=== PATIENT | female | born 1980 | race African-American/Black ===

== ENCOUNTER 2018-07-28 12:20 | Emergency (ER) | payer SELFPAY ==
--- OUTSIDE RECORDS SUMMARY | 2018-07-28 12:21 | XMS REPORT ---
:1980 Author Organization [facility] Address [address] [place] [address] Dr. Esparza [address] [place] [id number] Care Team Providers Name Role Phone Unavailable Unavailable Unavailable Problems This patient has no known problems. Allergies, Adverse Reactions, Alerts This patient has no known allergies or adverse reactions. Medications This patient has no known medications.
[2018-07-28 13:21] LABS: Absolute Lymphocytes (CBC) 1.7 K/uL (0.7-4.9); Absolute Monocytes 0.4 K/uL (0.1-1.3); Absolute Neutrophil 2.9 K/uL (1.8-8.0); Basophils % 1.1 % (0-1.3); Eosinophils % 1.5 % (0-4.4); Hematocrit 42.5 % (36.0-45.0); Lymphocytes % 33.9 % (15.3-44.8); MPV 8.3 fL (7.6-11.3); RBC Red Blood Cell Count 5.35 M/uL (3.86-4.86)
[2018-07-28] MEDS ORDERED: MAGNE/ALUM HYDROXD 30 ML UCUP ONE (13:24)
[2018-07-28] MEDS ORDERED: FAMOTIDINE 20 MG/2 ML VIAL IV ONE (13:24)
[2018-07-28] MEDS ORDERED: LIDOCAINE VISCOUS 2% SOLN 15 ML UDC ONE (13:24)
[2018-07-28 13:27] LABS: Protime INR 1.04
--- NOTE | 2018-07-28 13:30 | RAD REPORT ---
EXAM DESCRIPTION: Jose Single View07/28/2018 1:04 pm CLINICAL HISTORY: Chest pain COMPARISON: 2013 FINDINGS: The lungs appear clear of acute infiltrate. The heart is normal size IMPRESSION: No acute abnormalities displayed
[2018-07-28 13:41] LABS: ALT/SGPT 24 U/L (12-78); AST/SGOT 13 U/L (15-37); Albumin 3.5 g/dL (3.4-5.0); Alkaline Phosphatase 59 U/L (45-117); BUN Blood Urea Nitrogen 13 mg/dL (7-18); Bicarbonate 24 mmol/L (21-32); Bilirubin Direct < 0.1 mg/dL (0-0.2); Bilirubin Total 0.2 mg/dL (0.2-1.0); Glucose Level 100 mg/dL (74-106); NT PRO-BNP 39 pg/mL (<125); Potassium 4.1 mmol/L (3.5-5.1); Protein, Total 7.2 g/dL (6.4-8.2); Sodium Level 142 mmol/L (136-145); Troponin (Emerg Dept Use Only) < 0.02 ng/mL (0.0-0.045)
--- NOTE | 2018-07-28 14:42 | RAD REPORT ---
EXAM DESCRIPTION: US - Abdomen Exam Limited - 07/28/2018 2:06 pm CLINICAL HISTORY: Abdominal pain. COMPARISON: None. FINDINGS: The gallbladder is partially contracted. Gallbladder wall upper limits normal thickness. A gallstone is not seen The biliary tree is normal caliber. IMPRESSION: No abnormality displayed
--- NOTE | 2018-07-28 15:19 | ER ---
Nurse's Notes [facility] Name: Ericka Wallace Age: 38 yrs Sex: Female : 1980 Arrival Date: 07/28/2018 Time: 12:26 Bed 26 Private MD: Diagnosis: Chest pain, unspecified;Upper abdominal pain, unspecified Presentation: 07/28 12:31 Presenting complaint: Patient states: Abd pain, nausea and chest pain that started hb about three days ago and worsening today, no V/F/D per the pt at this time, denies Shortness of breath dizziness. Transition of care: patient was not received from another setting of care. Onset of symptoms was July 28, 2018. Risk Assessment: Do you want to hurt yourself or someone else? Patient reports no desire to harm self or others. Initial Sepsis Screen: Does the patient meet any 2 criteria? No. Patient's initial sepsis screen is negative. Does the patient have a suspected source of infection? No. Patient's initial sepsis screen is negative. Care prior to arrival: None. 12:31 Method Of Arrival: Ambulatory hb 12:31 Acuity: ALTON 3 hb Historical: - Allergies: 12:33 No Known Allergies; hb - PMHx: 12:33 Hypertension; Migraines; hb - PSHx: 12:33 Hernia repair; ; hb - Immunization history:: Adult Immunizations. - Social history:: Smoking status: Patient/guardian denies using tobacco. - Ebola Screening: : Patient negative for fever greater than or equal to 101.5 degrees Fahrenheit, and additional compatible Ebola Virus Disease symptoms Patient denies exposure to infectious person Patient denies travel to an Ebola-affected area in the 21 days before illness onset No symptoms or risks identified at this time. Screenin:21 Abuse screen: Denies threats or abuse. Nutritional screening: No deficits noted. la1 Tuberculosis screening: No symptoms or risk factors identified. Fall Risk None identified. Assessment: 13:20 General: Appears in no apparent distress. Behavior is calm, cooperative. Pain: la1 Complains of pain in diaphragm and left upper quadrant Pain radiates to back Quality of pain is described as sharp, Pain began 2-3 days ago. Neuro: Level of Consciousness is awake, alert, obeys commands, Oriented to person, place, time, situation. Cardiovascular: Heart tones S1 S2 present Capillary refill < 3 seconds Patient's skin is warm and dry. Respiratory: Airway is patent Trachea midline Respiratory effort is even, unlabored, Respiratory pattern is regular, symmetrical, Breath sounds are clear bilaterally. GI: No signs and/or symptoms were reported involving the gastrointestinal system. : No signs and/or symptoms were reported regarding the genitourinary system. Vital Signs: 12:32 Pulse 84; Resp 17; Temp 98.7; Pulse Ox 100% ; Weight 116.12 kg; Height 5 ft. 3 in. hb (160.02 cm); Pain 10/10; 12:33 BP 159 / 105; hb 14:32 BP 137 / 94; Pulse 77; Resp 18; Pulse Ox 98% on R/A; la1 12:32 Body Mass Index 45.35 (116.12 kg, 160.02 cm) hb ED Course: 12:26 Patient arrived in ED. mr 12:32 Triage completed. hb 12:32 Arm band placed on. hb 12:34 Juice Olivares, LUCÍA is Primary Nurse. la1 12:35 Maia Almaguer FNP-C is PHCP. kb 12:35 Jeremi Elizabeth MD is Attending Physician. kb 13:04 XRAY Chest (1 view) In Process Unspecified. EDMS 13:15 Inserted saline lock: 20 gauge in right antecubital area, using aseptic technique. lt1 13:15 Initial lab(s) drawn, by me, sent to lab. lt1 13:21 Call light in reach. Side rails up X 1. monitor tech on. Pulse ox on. NIBP on. la1 14:05 Ultrasound completed. Patient tolerated well. sg3 14:06 US Abdomen Limited In Process Unspecified. EDMS 14:33 No provider procedures requiring assistance completed. Patient maintains SpO2 la1 saturation greater than 95% on room air. 14:57 EKG done, by ED staff. lt1 15:20 IV discontinued, intact, bleeding controlled, No redness/swelling at site. Pressure la1 dressing applied. Administered Medications: 13:20 Drug: Pepcid 20 mg Route: IVP; Site: right antecubital; la1 14:37 Follow up: Response: No adverse reaction la1 13:20 Drug: GI Cocktail without - (Maalox Suspension 30 ml, Lidocaine Liquid 2 % 15 la1 ml) Route: PO; 14:37 Follow up: Response: No adverse reaction la1 Outcome: 15:18 Discharge ordered by MD. bates 15:20 Discharged to home ambulatory. la1 15:20 Condition: stable 15:20 Discharge instructions given to patient, Instructed on discharge instructions, follow up and referral plans. medication usage, Demonstrated understanding of instructions, follow-up care, medications. 15:31 Patient left the ED. la1 Signatures: Dispatcher [employer] EDMS Maia Almaguer, FOREIGN FOOD SPECIALTY COOK-Gonzales FOREIGN FOOD SPECIALTY COOK-Diane Carbone, Juice, RN RN la1 Malinda Esqueda, RN RN Lizz Boggs 3 Salima Courtney 1
--- NOTE | 2018-07-28 15:19 | EDPHYS ---
Physician Documentation [facility] Name: Ericka Wallace Age: 38 yrs Sex: Female : 1980 Arrival Date: 07/28/2018 Time: 12:26 Bed 26 Private MD: ED Physician Jeremi Elizabeth HPI: 07/28 12:55 This 38 yrs old Black Female presents to ER via Ambulatory with complaints of Chest kb Pain, X 3days. 12:55 The patient or guardian reports chest pain that is located primarily in the substernal kb area. The pain radiates to back, diaphragm and abdomen. Associated signs and symptoms: Pertinent positives: abdominal pain, nausea, shortness of breath. The chest pain is described as burning. Duration: The patient or guardian reports a single episode. Modifying factors: The symptoms are alleviated by nothing. the symptoms are aggravated by eating. Severity of pain: At its worst the pain was moderate in the emergency department the pain is unchanged. The patient has not experienced similar symptoms in the past. The patient has not recently seen a physician. Pt reports substernal chest pain that radiates below both breasts and to right shoulder. States pain to abd, worse in RUQ, nausea and shortness of breath as well. Historical: - Allergies: 12:33 No Known Allergies; hb - PMHx: 12:33 Hypertension; Migraines; hb - PSHx: 12:33 Hernia repair; ; hb - Immunization history:: Adult Immunizations. - Social history:: Smoking status: Patient/guardian denies using tobacco. - Ebola Screening: : Patient negative for fever greater than or equal to 101.5 degrees Fahrenheit, and additional compatible Ebola Virus Disease symptoms Patient denies exposure to infectious person Patient denies travel to an Ebola-affected area in the 21 days before illness onset No symptoms or risks identified at this time. ROS: 12:54 Constitutional: Negative for fever, chills, and weight loss, ENT: Negative for injury, kb pain, and discharge, Neck: Negative for injury, pain, and swelling, Back: Negative for injury and pain, : Negative for injury, bleeding, discharge, and swelling, MS/Extremity: Negative for injury and deformity, Skin: Negative for injury, rash, and discoloration, Neuro: Negative for headache, weakness, numbness, tingling, and seizure. 12:54 Cardiovascular: Positive for chest pain, Negative for edema, orthopnea, palpitations, paroxysmal nocturnal dyspnea. 12:54 Respiratory: Positive for shortness of breath, Negative for cough, dyspnea on exertion, hemoptysis, orthopnea, pleurisy, sputum production, wheezing. 12:54 Abdomen/GI: Positive for abdominal pain, nausea. Exam: 12:54 Constitutional: This is a well developed, well nourished patient who is awake, alert, kb and in no acute distress. Head/Face: Normocephalic, atraumatic. ENT: Nares patent. No nasal discharge, no septal abnormalities noted. Tympanic membranes are normal and external auditory canals are clear. Oropharynx with no redness, swelling, or masses, exudates, or evidence of obstruction, uvula midline. Mucous membranes moist. Neck: Trachea midline, no thyromegaly or masses palpated, and no cervical lymphadenopathy. Supple, full range of motion without nuchal rigidity, or vertebral point tenderness. No Meningismus. Chest/axilla: Normal chest wall appearance and motion. Nontender with no deformity. No lesions are appreciated. Cardiovascular: Regular rate and rhythm with a normal S1 and S2. No gallops, murmurs, or rubs. Normal PMI, no JVD. No pulse deficits. Respiratory: Lungs have equal breath sounds bilaterally, clear to auscultation and percussion. No rales, rhonchi or wheezes noted. No increased work of breathing, no retractions or nasal flaring. Back: No spinal tenderness. No costovertebral tenderness. Full range of motion. Skin: Warm, dry with normal turgor. Normal color with no rashes, no lesions, and no evidence of cellulitis. MS/ Extremity: Pulses equal, no cyanosis. Neurovascular intact. Full, normal range of motion. Neuro: Awake and alert, GCS 15, oriented to person, place, time, and situation. Cranial nerves II-XII grossly intact. Motor strength 5/5 in all extremities. Sensory grossly intact. Cerebellar exam normal. Normal gait. 12:54 Abdomen/GI: Inspection: obese Bowel sounds: normal, in all quadrants, Palpation: soft, in all quadrants, mild abdominal tenderness, in the left upper quadrant, right lower quadrant and left lower quadrant, moderate abdominal tenderness, in the right upper quadrant. Vital Signs: 12:32 Pulse 84; Resp 17; Temp 98.7; Pulse Ox 100% ; Weight 116.12 kg; Height 5 ft. 3 in. hb (160.02 cm); Pain 10/10; 12:33 BP 159 / 105; hb 14:32 BP 137 / 94; Pulse 77; Resp 18; Pulse Ox 98% on R/A; la1 12:32 Body Mass Index 45.35 (116.12 kg, 160.02 cm) hb MDM: 12:35 Patient medically screened. kb 12:54 Data reviewed: vital signs, nurses notes. Data interpreted: Pulse oximetry: on room air kb is 100 %. Interpretation: normal. 15:17 Counseling: I had a detailed discussion with the patient and/or guardian regarding: the kb historical points, exam findings, and any diagnostic results supporting the discharge/admit diagnosis, lab results, radiology results, the need for outpatient follow up, a family practitioner, to return to the emergency department if symptoms worsen or persist or if there are any questions or concerns that arise at home. 07/28 12:40 Order name: Basic Metabolic Panel; Complete Time: 13:47 kb 07/28 12:40 Order name: CBC with Diff; Complete Time: 13:26 kb 07/28 12:40 Order name: LFT's; Complete Time: 13:47 kb 07/28 12:40 Order name: Magnesium; Complete Time: 13:47 kb 07/28 12:40 Order name: NT PRO-BNP; Complete Time: 13:47 kb 07/28 12:40 Order name: PT-INR; Complete Time: 13:29 kb 07/28 12:40 Order name: Troponin (emerg Dept Use Only); Complete Time: 13:47 kb 07/28 12:40 Order name: XRAY Chest (1 view); Complete Time: 13:31 kb 07/28 12:40 Order name: EKG; Complete Time: 12:41 kb 07/28 12:58 Order name: US Abdomen Limited; Complete Time: 14:44 kb 07/28 14:33 Order name: EKG; Complete Time: 14:33 kb 07/28 14:33 Order name: Troponin (emerg Dept Use Only); Complete Time: 15:17 kb 07/28 12:40 Order name: Cardiac monitoring; Complete Time: 13:20 kb 07/28 12:40 Order name: EKG - Nurse/Tech; Complete Time: 13:06 kb 07/28 12:40 Order name: IV Saline Lock; Complete Time: 13:20 kb 07/28 12:40 Order name: Labs collected and sent; Complete Time: 13:20 kb 07/28 12:40 Order name: O2 Per Protocol; Complete Time: 13:07 kb 07/28 12:40 Order name: O2 Sat Monitoring; Complete Time: 13:07 kb 07/28 14:33 Order name: EKG - Nurse/Tech; Complete Time: 14:58 kb Administered Medications: 13:20 Drug: Pepcid 20 mg Route: IVP; Site: right antecubital; la1 14:37 Follow up: Response: No adverse reaction la1 13:20 Drug: GI Cocktail without - (Maalox Suspension 30 ml, Lidocaine Liquid 2 % 15 la1 ml) Route: PO; 14:37 Follow up: Response: No adverse reaction la1 Disposition: 07/29 07:52 Co-signature as Attending Physician, Jeremi Elizabeth MD I agree with the assessment and sae plan of care. Disposition: 07/28/18 15:18 Discharged to Home. Impression: Chest pain, unspecified, Upper abdominal pain, unspecified. - Condition is Stable. - Discharge Instructions: Abdominal Pain, Adult, [id number], Nonspecific Chest Pain, [id number]. - Medication Reconciliation Form, Thank You Letter, Antibiotic Education, Prescription Opioid Use, Work release form form. - Follow up: Emergency Department; When: As needed; Reason: Worsening of condition. Follow up: Private Physician; When: 2 - 3 days; Reason: Recheck today's complaints, Continuance of care, Re-evaluation by your physician. Signatures: Dispatcher [employer] EDTN Maia Almaguer, CONSTRUCTION ASSISTANT-C Jeremi Melgar MD MD cha Attema, Lee RN RN la1 Malinda Esqueda, RN RN Corrections: (The following items were deleted from the chart) 07/28 15:31 15:18 07/28/2018 15:18 Discharged to Home. Impression: Chest pain, unspecified; Upper la1 abdominal pain, unspecified. Condition is Stable. Forms are Medication Reconciliation Form, Thank You Letter, Antibiotic Education, Prescription Opioid Use. Follow up: Emergency Department; When: As needed; Reason: Worsening of condition. Follow up: Private Physician; When: 2 - 3 days; Reason: Recheck today's complaints, Continuance of care, Re-evaluation by your physician. kb
--- NOTE | 2018-07-28 22:44 | EKG ---
Test Date: 2018-07-28 Test Time: 14:50:16 Meter Record Clerk: DARIAT MEASUREMENT RESULTS: Intervals: Rate: 70 [place]: 136 QRSD: 76 QT: 390 QTc: 421 [place]: P: 35 [place]: 136 QRS: 42 T: 39 INTERPRETIVE STATEMENTS: Normal sinus rhythm Normal ECG No previous ECG available for comparison Electronically Signed On 07-28-18 22:43:12 AIRCRAFT TECHNICIAN by Georgi Stewart
--- NOTE | 2018-07-29 08:50 | EKG ---
Test Date: 2018-07-28 Test Time: 12:49:08 Community Educator: HB MEASUREMENT RESULTS: Intervals: Rate: 74 [place]: 128 QRSD: 78 QT: 378 QTc: 419 [place]: P: 60 [place]: 128 QRS: 56 T: 54 INTERPRETIVE STATEMENTS: Normal sinus rhythm Normal ECG No previous ECG available for comparison Electronically Signed On 07-29-18 08:49:56 SUPERVISOR BLOOD by Georgi Stewart
== END 2018-07-28 15:31 | disposition home or self-care (01) ==
LOC: ER 12:20
DX: R07.9 Chest pain, unspecified (principal); R10.10 Upper abdominal pain, unspecified; I10 Essential (primary) hypertension
CPT/HCPCS: 36415; 71045; 76705; 80048; 80076; 83735; 83880; 84484; 85025; 85610; 93005; 96374; 99285

== ENCOUNTER 2018-12-26 19:21 | Emergency (ER) | payer SELFPAY ==
--- OUTSIDE RECORDS SUMMARY | 2018-12-26 19:24 | XMS REPORT ---
:1980 [facility] Address [address] [place] [address] Dr. Esparza [address] [place] [id number] Care Team Providers Name Role Phone Unavailable Unavailable Unavailable Problems This patient has no known problems. Allergies, Adverse Reactions, Alerts This patient has no known allergies or adverse reactions. Medications This patient has no known medications.
[2018-12-26 20:10] LABS: Absolute Lymphocytes (CBC) 2.4 K/uL (0.7-4.9); Basophils % 1.5 % (0-1.3); Hematocrit 41.5 % (36.0-45.0); MPV 8.5 fL (7.6-11.3); RBC Red Blood Cell Count 5.28 M/uL (3.86-4.86)
[2018-12-26] MEDS ORDERED: KETOROLAC 30 MG/ML INJ ONE (20:22)
[2018-12-26] MEDS ORDERED: ONDANSETRON 4 MG/2 ML VIAL ONE (20:22)
[2018-12-26 20:23] LABS: ALT/SGPT 32 U/L (12-78); AST/SGOT 13 U/L (15-37); Alkaline Phosphatase 49 U/L (45-117); BUN Blood Urea Nitrogen 13 mg/dL (7-18); Bicarbonate 24 mmol/L (21-32); Bilirubin Direct 0.1 mg/dL (0-0.2); Bilirubin Total 0.2 mg/dL (0.2-1.0); Glucose Level 113 mg/dL (74-106); Potassium 3.6 mmol/L (3.5-5.1); Protein, Total 7.4 g/dL (6.4-8.2); Sodium Level 142 mmol/L (136-145)
[2018-12-26 20:24] LABS: Albumin 3.6 g/dL (3.4-5.0); Lipase 128 U/L (73-393)
[2018-12-26 20:32] LABS: Urine Blood TRACE (NEG); Urine Glucose NEGATIVE (NEG); Urine Protein NEGATIVE (NEG); Urine Specific Gravity >1.030 (1.005-1.030)
[2018-12-26 20:33] LABS: Urine Specific Gravity >1.030 (1.005-1.030)
--- NOTE | 2018-12-26 20:50 | RAD REPORT ---
EXAM DESCRIPTION: US - Abdomen Exam Limited - 12/26/2018 8:34 pm CLINICAL HISTORY: Abdominal pain. COMPARISON: July 2018 FINDINGS: The gallbladder wall is not thickened. A gallstone is not seen. The biliary tree is normal caliber. IMPRESSION: Unremarkable gallbladder ultrasound.
--- NOTE | 2018-12-26 21:06 | ER ---
Nurse's Notes [facility] Name: Ericka Wallace Age: 38 yrs Sex: Female : 1980 Arrival Date: 12/26/2018 Time: 19:25 Bed 16 Private MD: Diagnosis: Upper abdominal pain, unspecified Presentation: 12/26 19:31 Presenting complaint: Patient states: abd pain, N/D X3 days. Transition of care: ak1 patient was not received from another setting of care. Onset of symptoms is unknown. Risk Assessment: Do you want to hurt yourself or someone else? Patient reports no desire to harm self or others. Initial Sepsis Screen: Does the patient meet any 2 criteria? No. Patient's initial sepsis screen is negative. Does the patient have a suspected source of infection? No. Patient's initial sepsis screen is negative. Care prior to arrival: None. 19:31 Method Of Arrival: Ambulatory ak 19:31 Acuity: ALTON 3 ak1 FORM DRAFTER: 19:32 LMP 12/01/2018 ak1 19:54 LMP 12/01/2018 jr8 Historical: - Allergies: 19:32 No Known Allergies; ak1 - Home Meds: 19:32 None [Active]; ak1 - PMHx: 19:32 Hypertension; Migraines; ak1 - PSHx: 19:32 Hernia repair; ; ak1 - Immunization history:: Adult Immunizations unknown. - Social history:: Smoking status: Patient uses tobacco products, smokes one-half pack cigarettes per day. - Ebola Screening: : No symptoms or risks identified at this time. Screenin:00 Abuse screen: Denies threats or abuse. Denies injuries from another. Nutritional rr5 screening: No deficits noted. Tuberculosis screening: No symptoms or risk factors identified. Fall Risk IV access (20 points). Total Green Fall Scale indicates No Risk (0-24 pts). Assessment: 19:45 General: Appears in no apparent distress. comfortable, Behavior is calm, cooperative, rr5 appropriate for age. Pain: Complains of pain in right upper quadrant Pain radiates to back Pain currently is 7 out of 10 on a pain scale. Quality of pain is described as aching, Pain began gradually, Is intermittent. 19:45 Neuro: Level of Consciousness is awake, alert, obeys commands, Oriented to person, rr5 place, time, situation. Cardiovascular: Capillary refill < 3 seconds Patient's skin is warm and dry. Respiratory: Airway is patent Respiratory effort is even, unlabored, Respiratory pattern is regular, symmetrical. GI: Abdomen is round obese, Bowel sounds present X 4 quads. Abd is non tender Reports upper abdominal pain, diarrhea, nausea, vomiting. : Denies burning with urination, pain. EENT: No signs and/or symptoms were reported regarding the EENT system. Derm: Skin is intact, Skin temperature is warm. Musculoskeletal: Circulation, motion, and sensation intact. Capillary refill < 3 seconds. 20:45 Reassessment: Patient appears in no apparent distress at this time. awaiting for rr5 ultrasound result. Patient states symptoms have improved. 21:15 Reassessment: Patient appears in no apparent distress at this time. Patient is alert, rr5 oriented x 3, equal unlabored respirations, skin warm/dry/pink. discharge instruction given and explained without complaints made. Patient states feeling better. Patient states symptoms have improved. Pain: Pain currently is 3 out of 10 on a pain scale. Vital Signs: 19:32 BP 183 / 91; Pulse 89; Resp 18; Temp 98.1; Pulse Ox 100% on R/A; Weight 113.4 kg (R); ak1 Height 5 ft. 3 in. (160.02 cm); Pain 7/10; 20:00 BP 126 / 85; Pulse 80; Resp 17; Pulse Ox 99% ; Pain 7/10; rr5 20:45 BP 109 / 86; Pulse 75; Resp 16; Pulse Ox 100% ; Pain 5/10; rr5 21:15 BP 122 / 85; Pulse 79; Resp 16; Temp 97.9(O); Pulse Ox 99% ; Pain 3/10; rr5 19:32 Body Mass Index 44.29 (113.40 kg, 160.02 cm) ak1 ED Course: 19:25 Patient arrived in ED. mr 19:31 Triage completed. ak1 19:32 Arm band placed on Patient placed in an exam room, on a stretcher, Patient notified of ak1 wait time. 19:33 Rudolph Pettit, LUCÍA is Primary Nurse. rr5 19:36 Sumit Davalos PA is PHCP. jr8 19:36 Carson Guzman MD is Attending Physician. jr8 19:40 Patient has correct armband on for positive identification. Bed in low position. Call rr5 light in reach. Side rails up X2. Pulse ox on. NIBP on. 20:00 Inserted saline lock: 20 gauge in right antecubital area, using aseptic technique. rr5 Blood collected. 20:37 US Abdomen Limited In Process Unspecified. EDMS 21:04 Anish German MD is Referral Physician. jr8 21:16 No provider procedures requiring assistance completed. IV discontinued, intact, rr5 bleeding controlled, No redness/swelling at site. Pressure dressing applied. Administered Medications: 20:19 Drug: Zofran 4 mg Route: IVP; Site: right antecubital; rr5 21:17 Follow up: Response: No adverse reaction rr5 20:21 Drug: TORadol - Ketorolac 15 mg Route: IVP; Site: right antecubital; rr5 21:18 Follow up: Response: No adverse reaction rr5 Outcome: 21:05 Discharge ordered by . jr8 21:16 Discharged to home ambulatory. rr5 21:16 Condition: stable 21:16 Discharge instructions given to patient, Instructed on discharge instructions, follow up and referral plans. Demonstrated understanding of instructions, follow-up care. 21:18 Patient left the ED. rr5 Signatures: Dispatcher [employer] [facility] GarayDiane Josh, PA PA jr8 Chica Tejeda, RN RN ak1 Rudolph Pettit RN RN rr5
--- NOTE | 2018-12-26 21:07 | EDPHYS ---
Physician Documentation [facility] Name: Ericka Wallace Age: 38 yrs Sex: Female : 1980 Arrival Date: 12/26/2018 Time: 19:25 Bed 16 Private MD: ED Physician Carson Guzman HPI: 12/26 19:54 This 38 yrs old Black Female presents to ER via Ambulatory with complaints of Abdominal jr8 Pain, Nausea, Diarrhea. 19:54 The patient presents with abdominal pain in the right upper quadrant. Onset: The jr8 symptoms/episode began/occurred acutely, 4 day(s) ago. The symptoms radiate to right back. Associated signs and symptoms: Pertinent positives: diarrhea, nausea, Pertinent negatives: chest pain, dysuria, fever, vomiting blood. The symptoms are described as crampy, shooting. Modifying factors: The symptoms are alleviated by nothing, the symptoms are aggravated by food. Severity of pain: At its worst the pain was moderate in the emergency department the pain is unchanged is a 6 / 10. The patient has not experienced similar symptoms in the past. The patient has not recently seen a physician. RUQ abdominal pain x 4 days radiating around to back with nausea and intermittent diarrhea. Vomiting initially that has resolved. Denies fever or urinary symptoms. Pain worse with food intake. 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 - Social history:: Smoking status: Patient uses tobacco products, smokes one-half pack cigarettes per day. - Ebola Screening: : No symptoms or risks identified at this time. ROS: 19:54 Constitutional: Negative for fever, chills, and weight loss, Eyes: Negative for injury, jr8 pain, redness, and discharge, ENT: Negative for injury, pain, and discharge, Cardiovascular: Negative for chest pain, palpitations, and edema, Respiratory: Negative for shortness of breath, cough, wheezing, and pleuritic chest pain, : Negative for injury, bleeding, discharge, and swelling, MS/Extremity: Negative for injury and deformity, Skin: Negative for injury, rash, and discoloration, Neuro: Negative for headache, weakness, numbness, tingling, and seizure. 19:54 Abdomen/GI: Positive for abdominal pain, nausea, diarrhea, Negative for vomiting, constipation, hematemesis, black/tarry stool, rectal bleeding. Exam: 19:54 Constitutional: This is a well developed, well nourished patient who is awake, alert, jr8 and in no acute distress. Head/Face: Normocephalic, atraumatic. Cardiovascular: Regular rate and rhythm with a normal S1 and S2. No gallops, murmurs, or rubs. Normal PMI, no JVD. No pulse deficits. Respiratory: Lungs have equal breath sounds bilaterally, clear to auscultation and percussion. No rales, rhonchi or wheezes noted. No increased work of breathing, no retractions or nasal flaring. Back: No spinal tenderness. No costovertebral tenderness. Full range of motion. Skin: Warm, dry with normal turgor. Normal color with no rashes, no lesions, and no evidence of cellulitis. MS/ Extremity: Pulses equal, no cyanosis. Neurovascular intact. Full, normal range of motion. Neuro: Awake and alert, GCS 15, oriented to person, place, time, and situation. Motor strength 5/5 in all extremities. Sensory grossly intact. Normal gait. 19:54 Abdomen/GI: Exam negative for guarding, masses, Inspection: abdomen appears normal, obese Bowel sounds: normal, Palpation: soft, in all quadrants, moderate abdominal tenderness, in the right upper quadrant, no appreciated organomegaly, Indicators: Shell's sign is positive. Vital Signs: 19:32 BP 183 / 91; Pulse 89; Resp 18; Temp 98.1; Pulse Ox 100% on R/A; Weight 113.4 kg (R); ak1 Height 5 ft. 3 in. (160.02 cm); Pain 7/10; 20:00 BP 126 / 85; Pulse 80; Resp 17; Pulse Ox 99% ; Pain 7/10; rr5 20:45 BP 109 / 86; Pulse 75; Resp 16; Pulse Ox 100% ; Pain 5/10; rr5 21:15 BP 122 / 85; Pulse 79; Resp 16; Temp 97.9(O); Pulse Ox 99% ; Pain 3/10; rr5 19:32 Body Mass Index 44.29 (113.40 kg, 160.02 cm) ak1 MDM: 19:37 Patient medically screened. jr8 21:01 Differential diagnosis: cholecystitis, Cholelithiasis, gastroesophageal reflux disease, jr8 Irritable bowel syndrome, non-specific abd pain, pancreatitis, Peptic Ulcer Disease. Data reviewed: vital signs, nurses notes, lab test result(s), radiologic studies, ultrasound, and as a result, I will discharge patient. Data interpreted: Pulse oximetry: on room air is 98 %. Interpretation: normal. 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 ED course: Labs and US unremarkable, similar to previous work up 07/2018 for similar complaints. Patient counseled on importance of follow up with GI for further diagnostic work up. She verbalizes understanding and is in agreement with plan. 12/26 19:38 Order name: Basic Metabolic Panel [facility] 12/26 19:38 Order name: CBC with Diff [facility] 12/26 19:38 Order name: Creatinine for Radiology; Complete Time: 20:22 [facility] 12/26 19:38 Order name: Hepatic Function; Complete Time: 20:30 [facility] 12/26 19:38 Order name: Lipase; Complete Time: 20:30 [facility] 12/26 19:39 Order name: Basic Metabolic Panel; Complete Time: 20:30 [facility] 12/26 19:38 Order name: IV Saline Lock; Complete Time: 20:21 [facility] 12/26 19:40 Order name: CBC with Automated Diff; Complete Time: 20:19 [facility] 12/26 19:54 Order name: US Abdomen Limited; Complete Time: 20:53 [facility] 12/26 20:18 Order name: Urine Dipstick--Ancillary (enter results); Complete Time: 20:35 [facility] 12/26 20:22 Order name: Urine --Ancillary (enter results); Complete Time: 20:35 [facility] 12/26 19:38 Order name: Labs collected and sent; Complete Time: 20:21 jr8 12/26 19:54 Order name: Urine Dipstick-Ancillary (obtain specimen); Complete Time: 20:21 jr8 12/26 19:54 Order name: Urine Test (obtain specimen); Complete Time: 20:21 jr8 Administered Medications: 20:19 Drug: Zofran 4 mg Route: IVP; Site: right antecubital; rr5 21:17 Follow up: Response: No adverse reaction rr5 20:21 Drug: TORadol - Ketorolac 15 mg Route: IVP; Site: right antecubital; rr5 21:18 Follow up: Response: No adverse reaction rr5 Disposition: 12/27 06:49 Co-signature as Attending Physician, Carson Guzman MD I agree with the assessment and kdr plan of care. Disposition: 12/26/18 21:05 Discharged to Home. Impression: Upper abdominal pain, unspecified. - Condition is Stable. - Discharge Instructions: Abdominal Pain, Adult. - Medication Reconciliation Form, Thank You Letter, Antibiotic Education, Prescription Opioid Use form. - Work release form (12/26/18 21:25). ar5 - Follow up: Anish German MD; When: 2 - 3 days; Reason: Further diagnostic work-up, Recheck today's complaints, Continuance of care. - Problem is new. - Symptoms have improved. Signatures: Dispatcher [employer] EDIN Carson Guzman MD MD kdr Roszak, Josh, PA PA jr8 Chica Tejeda RN RN ak1 Rudolph Pettit RN RN rr5 Aurea Vides ar5 Corrections: (The following items were deleted from the chart) 12/26 20:34 20:33 UA MICROSCOPIC+U.LAB.BRZ ordered. [facility] 21:18 21:05 12/26/2018 21:05 Discharged to Home. Impression: Upper abdominal pain, rr5 unspecified. Condition is Stable. Forms are Medication Reconciliation Form, Thank You Letter, Antibiotic Education, Prescription Opioid Use. Follow up: Anish German; When: 2 - 3 days; Reason: Further diagnostic work-up, Recheck today's complaints, Continuance of care. Problem is new. Symptoms have improved. jr8
== END 2018-12-26 21:18 | disposition home or self-care (01) ==
LOC: ER 19:21
DX: R10.11 Right upper quadrant pain (principal); R19.7 Diarrhea, unspecified; I10 Essential (primary) hypertension; F17.210 Nicotine dependence, cigarettes, uncomplicated
CPT/HCPCS: 36415; 76705; 80048; 80076; 81003; 81025; 83690; 85025; 96374; 96375; 99284; J2405

== ENCOUNTER 2023-09-10 08:50 | Emergency (ER) | payer SELFPAY ==
--- OUTSIDE RECORDS SUMMARY | 2023-09-10 08:58 | XMS REPORT | Continuity of Care Document ---
Author Name Unknown Address [address] [facility] [address] [place] [address] [facility] thconnect Address [address] [facility]. 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 Role Phone Victoria Harkins Primary Care Physician KEE ASKEW Attending Clinician Unavailable CHRISTI AGUIRRE Attending Clinician Unavailab STAR Cabrera Attending Clinician UnavailStar Brownlee MD Attending Clinician [phone] ALEX PITT Attending Clinician Unavailable Alex Pitt MD Attending Clinician [phone] ROSEMARY CHILDERS Attending Clinician Unavailable Rosemary Childers MD Attending Clinician [phone] Doctor Unassigned, [place] Attending Clinician U TERESSA Plummer Attending Clinician Unavailab Teressa Espino DO Attending Clinician [phone] [facility], [facility] Neurology Resident Attending Cli felicity Unavailable NUNU BAKER Attending Clinician Unavaila Nunu Maynard Attending Clinician [phone] Glen ROCHA Attending Clinician Unavailable Glen Baron Attending Clinician [phone] LUIS DUNCAN Attending Clinician Unavailable Luis Reynolds Attending Clinician [phone] Evans Wilkerson Attending Clinician YOSEPH PAZ Attending Clinician Unavailable Rhonda Joya Attending Clinician [phone] ALEX PITT Admitting Clinician Unavailable NUNU BAKER Admitting Clinician Unavailmanuel ble Payers Payer Name Policy Type Policy Number Effective Date Expirati on Date Source [employer] PREFERRED GENERIC [id number] 2020 00:00:00 MEDICAID PENDING PENDING 2021 00:00:00 Problems Condition Name Condition Details Condition Category Status Onset Date Resolution Date Last Treatment Date Treating Clinician Comments Source Hernia, abdominal Hernia, abdominal Disease Active 08-24 00:00: 00 [facility] 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 USG 08/08- 6.9 x 5.5 x 5.6cm USG 06/06- 6.0 x 4.7 x 5.6cm- lower right segment [facility] Blurry vision Blurry vision Disease Active 2012-06 00:00: 00 [facility] Immune to varicella Immune to varicella Disease Active 2012-06 00:00: 00 [facility] Rubella immune Rubella immune Disease Active 2012-06 00:00: 00 [facility] Morbid obesity Morbid obesity Disease Active 2012-06 00:00: 00 [facility] Allergies, Adverse Reactions, Alerts Allergy Name Allergy Type Status Severity Reaction(s) Onset Date Inactive Date Treating Clinician Comments Source NO KNOWN ALLERGIE S Drug Class Active [facility] Social History Social Habit Start Date Stop Date Quantity Comments Source History of tobacco use Cigarette Smoker [facility] Gender identity [facility] Alcohol intake 2023-09-04 00:00:00 2023-09-04 00:00:00 Current non-drinker of alcohol (finding) [facility] History of Social function 2023-09-04 00:00:00 2023-09-04 00:00:00 [facility] Exposure to SARS-CoV-2 (event) 2022-09-17 00:00:00 2022-09-27 10:30:00 Not sure [facility] Cigarettes smoked current (pack per day) - Reported 2013-09-11 00:00:00 2013-09-11 00:00:00 [facility] Tobacco Comment 2013-09-11 00:00:00 2013-09-11 00:00:00 Trying to quit [facility] Tobacco use and exposure 2013-09-11 00:00:00 2013-09-11 00:00:00 Smokeless tobacco non-user [facility] Sex Assigned At 1980 00:00:00 1980 00:00:00 [facility] Smoking Status Start Date Stop Date Source Smokes tobacco daily 2013-09-11 00:00:00 [facility] Medications Ordered Medication Name Filled Medication Name Start Date Stop Date Current Medication? Ordering Clinician Indication Dosage Frequency Signature (SIG) Comments Components Source NaCl 0.9% (NS) bolus infusion 1,000 mL 09-04 01:30: 00 09-04 02:00 :00 No 1000mL at 999 mL/hr, 1,000 mL, IV Infusion, ONCE, 1 dose, On Sun09/04/23 at 2030, [facility] diphenhydrA MINE (BENADRYL) injection 25 mg 09-04 00:45: 00 09-04 00:48 :00 No 25mg 25 mg, Slow IV Push, ONCE, 1 dose, On Sun09/04/23 at 1945, [facility] metoclopram hadley HCl (REGLAN) injection 10 mg 09-04 00:45: 00 09-04 00:48 :00 No 10mg 10 mg, Slow IV Push, ONCE, 1 dose, On Sun09/04/23 at 1945, [facility] ketorolac (TORADOL) injection 30 mg 07-03 17:00: 00 07-03 16:24 :00 No 30mg 30 mg, Slow IV Push, ONCE, 1 dose, On Sun07/03/23 at 1100, [facility] NaCl 0.9% (NS) bolus infusion 1,000 mL 07-03 17:00: 00 07-03 17:50 :00 No 1000mL at 999 mL/hr, 1,000 mL, IV Infusion, ONCE, 1 dose, On Sun07/03/23 at 1100, [facility] dexamethaso ne sod phos PF injection 10 mg 07-03 16:15: 00 07-03 16:24 :00 No 10mg 10 mg, Slow IV Push, ONCE, 1 dose, On Sun07/03/23 at 1015, 1 mL [facility] metoclopram hadley HCl (REGLAN) injection 10 mg 07-03 16:15: 00 07-03 16:24 :00 No 10mg 10 mg, Slow IV Push, ONCE, 1 dose, On Sun07/03/23 at 1015, [facility] butalbital- acetaminoph en-caff 50-325-40 mg tablet 07-03 00:00: 00 Yes [id number] 1{tbl} Take 1 tablet by mouth every 6 (six) hours as needed (headache) . [facility] ondansetron 4 mg tablet 07-03 00:00: 00 Yes [id number] 1 or 2 tablets every 8 hours as needed for nausea [facility] predniSONE 20 mg tablet 07-03 00:00: 00 07-11 05:59 :00 Yes [id number] 40mg Take 2 tablets by mouth in the morning for 7 days. [facility] hyoscyamine sulfate (LEVSIN/SL) sublingual tablet 0.25 mg 06-22 04:00: 00 06-22 03:26 :00 No .25mg 0.25 mg, Sublingual , ONCE NOW, 1 dose, On Krystle 06/21/23 at 2200, Routine [facility] NaCl 0.9% (NS) bolus infusion 1,000 mL 06-22 03:45: 00 06-22 05:00 :00 No 1000mL at 999 mL/hr, 1,000 mL, IV Piggyback, ONCE, 1 dose, On Krystle 06/21/23 at 2145, STAT [facility] ketorolac (TORADOL) injection 30 mg 06-22 03:45: 00 06-22 03:25 :00 No 30mg 30 mg, Slow IV Push, ONCE NOW, 1 dose, [facility] Krystle [facility]/21/23 [facility] 2145[facility] (ZOFRAN (PF[facility] 4 mg 06-22 03:00: 00 06-22 03:25 :00 No 4mg 4 mg, Slow IV Push, ONCE, 1 dose, On Krystle 06/21/23 at 2100[facility] famotidine (PEPCID) 20 mg tablet 06-22 00:00: 00 Yes [id number] 20mg Take 1 tablet by mouth in the morning and 1 tablet in the evening. [facility] ondansetron 4 mg disintegrat ing tablet 06-22 00:00: 00 Yes [id number] 4mg Take 1 tablet by mouth every 8 (eight) hours as needed for Nausea and Vomiting (N/V). [facility] hyoscyamine sulfate (LEVSIN/SL) 0.125 mg sublingual tablet 06-22 00:00: [id number] 2 tablets under the tongue every 6 (six) hours as needed (Abdominal pain or cramping). [facility] ketorolac 10 mg tablet 06-22 00:00: 00 Yes [id number] 10mg Take 1 tablet by mouth every 6 (six) hours as needed for Pain (scale 4-6) or Pain (scale 7-10). [facility] acetaminoph en (TYLENOL ARTHRITIS PAIN) 650 mg CR tablet 06-22 00:00: 00 Yes [id number] 650mg Take 1 tablet by mouth every 8 (eight) hours as needed for Pain. [facility] NaCl 0.9% (NS) bolus infusion 1,000 mL 12-21 01:15: 00 12-21 01:45 :00 No 1000mL at 999 mL/hr, 1,000 mL, IV Infusion, ONCE, 1 dose, On Sun12/20/22 at 2015, STAT [facility] dexamethaso ne sod phos PF injection 10 mg 12-21 00:30: 00 12-21 00:54 :00 No 10mg 10 mg, Slow IV Push, ONCE, 1 dose, On Sun12/20/22 at 1930, 1 mL [facility] diphenhydrA MINE (BENADRYL) injection 25 mg 12-21 00:30: 00 12-21 00:54 :00 No 25mg 25 mg, Slow IV Push, ONCE, 1 dose, On Sun12/20/22 at 1930, STAT [facility] metoclopram hadley HCl (REGLAN) injection 10 mg 12-21 00:15: 00 12-21 00:54 :00 No 10mg 10 mg, Slow IV Push, ONCE, 1 dose, On Sun12/20/22 at 1915, [facility] ketorolac (TORADOL) injection 30 mg 09-27 16:30: 00 09-27 15:43 :00 No 30mg 30 mg, Slow IV Push, ONCE, 1 dose, On Sun09/27/22 at 1130, Routine [facility] NaCl 0.9% (NS) bolus infusion 1,000 mL 09-27 16:30: 00 09-27 16:54 :00 No 1000mL at 999 mL/hr, 1,000 mL, IV Infusion, ONCE, 1 dose, On Sun09/27/22 at 1130, [facility] butalbital- acetaminoph en-caff (ESGIC) 50-325-40 mg tablet 1 tablet 09-27 15:45: 00 09-27 15:44 :00 No 1{tbl} 1 tablet, Oral, ONCE, 1 dose, On Sun09/27/22 at 1045, [facility] dexamethaso ne sod phos PF injection 10 mg 09-27 15:45: 00 09-27 15:44 :00 No 10mg 10 mg, Slow IV Push, ONCE, 1 dose, On Sun09/27/22 at 1045, 1 mL [facility] diphenhydrA MINE (BENADRYL) injection 25 mg 09-27 15:45: 00 09-27 15:44 :00 No 25mg 25 mg, Slow IV Push, ONCE, 1 dose, On Sun09/27/22 at 1045, STAT [facility] metoclopram hadley HCl (REGLAN) injection 10 mg 09-27 15:45: 00 09-27 15:44 :00 No 10mg 10 mg, Slow IV Push, ONCE, 1 dose, On Sun09/27/22 at 1045, [facility] butalbital- acetaminoph en-caff (ESGIC) 50-325-40 mg tablet 2 tablet 07-20 01:00: 00 07-20 01:08 :00 No 2{tbl} 2 tablet, Oral, ONCE, 1 dose, On Sun07/19/22 at 1900, [facility] ketorolac (TORADOL) injection 30 mg 07-19 15:30: 00 07-19 14:58 :00 No 30mg 30 mg, Slow IV Push, ONCE, 1 dose, On Sun07/19/22 at 0930, Routine [facility] NaCl 0.9% (NS) bolus infusion 1,000 mL 07-19 15:30: 00 07-19 16:40 :00 No 1000mL at 999 mL/hr, 1,000 mL, IV Infusion, ONCE, 1 dose, On Sun07/19/22 at 0930, [facility] dexamethaso ne sod phos PF injection 10 mg 07-19 14:45: 00 07-19 14:58 :00 No 10mg 10 mg, Slow IV Push, ONCE, 1 dose, On Sun07/19/22 at 0845, 1 mL [facility] diphenhydrA MINE (BENADRYL) injection 25 mg 07-19 14:45: 00 07-19 14:58 :00 No 25mg 25 mg, Slow IV Push, ONCE, 1 dose, On Sun07/19/22 at 0845, STAT [facility] metoclopram hadley HCl (REGLAN) injection 10 mg 07-19 14:45: 00 07-19 14:58 :00 No 10mg 10 mg, Slow IV Push, ONCE, 1 dose, [facility] Sun07/19/22 at 0845[facility] butal[facility]- acetaminoph en-caff 50-325-40 mg tablet 07-19 00:00: 00 Yes [id number] 1{tbl} Take 1 tablet by mouth every 4 (four) hours as needed for Pain (scale 7-10). [facility] ibuprofen 600 mg tablet 02-13 00:00: 00 Yes [id number] 600mg Take 1 tablet by mouth every 6 (six) hours as needed for Pain (scale 4-6). [facility] benzonatate 200 mg capsule 02-13 00:00: 00 Yes [id number] 200mg Take 1 capsule by mouth 3 (three) times daily as needed for Cough for up to 20 doses. [facility] ondansetron 4 mg disintegrat ing tablet 02-13 00:00: 00 Yes [id number] 4mg Take 1 tablet by mouth every 8 (eight) hours as needed for Nausea and Vomiting (N/V). [facility] lisinopril 20 mg-hydrochl orothiazide 12.5 mg tablet 11-17 00:00: 00 No 1mg lisinopril 20 mg-hydrochl orothiazide 12.5 mg tablet 11-17 00:00: 00 No 1mg dexamethaso ne sod phos PF injection 10 mg 10-21 18:00: 00 10-21 18:00 :00 No 10mg 10 mg, Slow IV Push, ONCE, 1 dose, On Sun10/21/21 at 1300, 1 mL [facility] ketorolac (TORADOL) injection 30 mg 10-21 17:45: 00 10-21 17:00 :00 No 30mg 30 mg, Slow IV Push, ONCE, 1 dose, On Sun10/21/21 at 1245, [facility] diphenhydrA MINE (BENADRYL) injection 25 mg 10-21 17:45: 00 10-21 16:58 :00 No 25mg 25 mg, Slow IV Push, ONCE, 1 dose, On Sun10/21/21 at 1245, STAT [facility] metoclopram hadley HCl (REGLAN) injection 10 mg 10-21 17:45: 00 10-21 16:57 :00 No 10mg 10 mg, Slow IV Push, ONCE, 1 dose, On Sun10/21/21 at 1245, [facility] NaCl 0.9% (NS) bolus infusion 1,000 mL 10-21 17:45: 00 10-21 18:23 :00 No 1000mL at 999 mL/hr, 1,000 mL, IV Infusion, ONCE, 1 dose, On Sun10/21/21 at 1245, [facility] Dose Unknown 08-13 00:00: 00 No Dose Unknown 08-13 00:00: 00 No cefTRIAXone (ROCEPHIN) 1,000 mg in NaCl 0.9% (NS) 50 mL MINI-BAG 2020-06 00:45: 00 05-27 00:22 :00 No 1000mg 1,000 mg, IV Piggyback, ONCE, 1 dose, On Krystle 05/26/21 at 1845, Administer over 30 Minutes, 50 mL
Reas on for Anti-Infec tive: Documented Infection< br>Documen lizette Infection Site: Urine
D uration of Therapy: 7 days [facility] butalbital- acetaminoph en-caff (ESGIC) 50-325-40 mg tablet 1 tablet 2020-06 00:45: 00 05-26 23:52 :00 No 1{tbl} 1 tablet, Oral, ONCE, 1 dose, On Krystle 05/26/21 at 1845, [facility] dexamethaso ne (DECADRON PHOSPHATE) injection 10 mg 2020-06 00:45: 00 05-26 23:52 :00 No 10mg 10 mg, IV Push, ONCE, 1 dose, On Krystle 05/26/21 at 1845, STAT [facility] diphenhydrA MINE (BENADRYL) injection 12.5 mg 2020-06 22:30: 00 05-26 22:39 :00 No 12.5mg 12.5 mg, Slow IV Push, ONCE, 1 dose, On Krystle 05/26/21 at 1630, STAT [facility] metoclopram hadley HCl (REGLAN) injection 10 mg 2020-06 22:30: 00 05-26 22:39 :00 No 10mg 10 mg, Slow IV Push, ONCE, 1 dose, On Krystle 05/26/21 at 1630, [facility] ketorolac (TORADOL) injection 30 mg 2020-06 22:30: 00 05-26 22:39 :00 No 30mg 30 mg, Slow IV Push, ONCE, 1 dose, On Krystle 05/26/21 at 1630, [facility] NaCl 0.9% (NS) bolus infusion 1,000 mL 2020-06 22:30: 00 05-26 23:52 :00 No 1000mL at 999 mL/hr, 1,000 mL, IV Infusion, ONCE, 1 dose, On Krystel 05/26/21 at 1630, [facility] butalbital- acetaminoph en-caff 50-325-40 mg tablet 2020-06 00:00: 00 Yes [id number] 1{tbl} Take 1 tablet by mouth every 4 (four) hours as needed for Pain (scale 7-10). [facility] cephALEXin (KEFLEX) 500 mg capsule 2020-06 00:00: 00 06-03 05:59 :00 No [id number] 500mg Take 1 capsule by mouth 2 (two) times daily for 7 days. [facility] lisinopril 20 mg-hydrochl orothiazide 12.5 mg tablet 2020-06 00:00: 00 No 1mg lisinopril 20 mg-hydrochl orothiazide 12.5 mg tablet 2020-06 00:00: 00 No 1mg Dose Unknown 2020-06 00:00: 00 No Depo-Cmo a 150 mg/mL intramuscul ar suspension 2020-06 00:00: 00 No 1mg/mL Dose Unknown 2020-06 00:00: 00 No Depo-Cmo a 150 mg/mL intramuscul ar suspension 2020-06 00:00: 00 No 1mg/mL lisinopril 20 mg-hydrochl orothiazide 12.5 mg tablet 9-20 00:00: 00 No 1mg lisinopril 20 mg-hydrochl orothiazide 12.5 mg tablet 9-20 00:00: 00 No 1mg lisinopril 20 mg-hydrochl orothiazide 12.5 mg tablet 30 00:00: 00 No 1mg lisinopril 20 mg-hydrochl orothiazide 12.5 mg tablet 30 00:00: 00 No 1mg lisinopril 20 mg-hydrochl orothiazide 12.5 mg tablet 11-27 00:00: 00 No 1mg lisinopril 20 mg-hydrochl orothiazide 12.5 mg tablet 11-27 00:00: 00 No 1mg metoclopram hadley HCl (REGLAN) injection 10 mg 11-19 22:15: 00 11-19 21:10 :00 No 10mg 10 mg, Slow IV Push, ONCE, 1 dose, 11/19/20 at 1715, [facility] ketorolac (TORADOL) injection 30 mg 11-19 22:15: 00 11-19 21:09 :00 No 30mg 30 mg, Slow IV Push, ONCE, 1 dose, Sun11/19/20 at 1715, [facility]
Fa culty member approving Restricted medication : EVANS YANG [facility] diphenhydrA MINE (BENADRYL) injection 25 mg 11-19 22:15: 00 11-19 21:10 :00 No 25mg 25 mg, Slow IV Push, ONCE, 1 dose, 11/19/20 at 1715, STAT [facility] NaCl 0.9% (NS) bolus infusion 1,000 mL 11-19 22:00: 00 11-19 21:52 :00 No 1000mL at 999 mL/hr, 1,000 mL, IV Infusion, ONCE, 1 dose, 11/19/20 at 1700, STAT [facility] ondansetron (ZOFRAN (PF)) injection 4 mg 11-19 22:00: 00 11-19 20:58 :00 No 4mg 4 mg, Slow IV Push, ONCE, 1 dose, Sun11/19/20 at 1700, [facility] ondansetron (ZOFRAN ODT) 4 mg disintegrat ing tablet 11-19 00:00: 00 Yes [id number] 4mg Take 1 tablet by mouth every 8 (eight) hours as needed for Nausea and Vomiting (N/V). [facility] medroxyprog esterone 150 mg/mL intramuscul ar suspension 5-10 00:00: 00 No 1mg/mL medroxyprog esterone 150 mg/mL intramuscul ar suspension 10 00:00: 00 No 1mg/mL loratadine 10 mg tablet 07-26 00:00: 00 No 1mg lisinopril 20 mg-hydrochl orothiazide 12.5 mg tablet - 00:00: 00 No 1mg loratadine 10 mg tablet 07-26 00:00: 00 No 1mg lisinopril 20 mg-hydrochl orothiazide 12.5 mg tablet 07-26 00:00: 00 No 1mg loratadine 10 mg tablet 2019-06 00:00: 00 No 1mg loratadine 10 mg tablet 2019-06 00:00: 00 No 1mg lisinopril 20 mg-hydrochl orothiazide 12.5 mg tablet 2019-06 00:00: 00 No 1mg lisinopril 20 mg-hydrochl orothiazide 12.5 mg tablet 2019-06 00:00: 00 No 1mg lisinopril 20 mg-hydrochl orothiazide 12.5 mg tablet 02-18 00:00: 00 No 1mg lisinopril 20 mg-hydrochl orothiazide 12.5 mg tablet 02-18 00:00: 00 No 1mg lisinopril 10 mg-hydrochl orothiazide 12.5 mg tablet 02-04 00:00: 00 No 1mg lisinopril 10 mg-hydrochl orothiazide 12.5 mg tablet 02-04 00:00: 00 No 1mg loratadine 10 mg tablet 10-30 00:00: 00 No 1mg lisinopril 10 mg-hydrochl orothiazide 12.5 mg tablet 10-30 00:00: 00 No 1mg loratadine 10 mg tablet 10-30 00:00: 00 No 1mg lisinopril 10 mg-hydrochl orothiazide 12.5 mg tablet 10-30 00:00: 00 No 1mg Wellbutrin SR 150 mg tablet, 12 hr sustained-r elease 06-13 00:00: 00 No 1mg loratadine 10 mg tablet 06-13 00:00: 00 No 1mg lisinopril 10 mg-hydrochl orothiazide 12.5 mg tablet 06-13 00:00: 00 No 1mg Wellbutrin SR 150 mg tablet, 12 hr sustained-r elease 06-13 00:00: 00 No 1mg loratadine 10 mg tablet 06-13 00:00: 00 No 1mg lisinopril 10 mg-hydrochl orothiazide 12.5 mg tablet 06-13 00:00: 00 No 1mg lisinopril 5 mg tablet 06-11 00:00: 00 No 1mg lisinopril 5 mg tablet 06-11 00:00: 00 No 1mg lisinopril 5 mg tablet 2018-06 00:00: 00 No 1mg lisinopril 5 mg tablet 2018-06 00:00: 00 No 1mg lisinopril 5 mg tablet 2018-06 00:00: 00 No 1mg lisinopril 5 mg tablet 2018-06 00:00: 00 No 1mg butalbital- acetaminoph en-caff 50-325-40 mg tablet 2018-06 00:00: 00 Yes [id number] 1{tbl} Take 1 tablet by mouth every 6 (six) hours as needed for Pain (scale 4-6). [facility] HYDROcodone -acetaminop hen (NORCO) 10-325 mg tablet 1 tablet 01-12 02:30: 01-12 14:29 :00 No 1{tbl} 1 tablet, Oral, ONCE NOW, 1 dose, 01/11/19 at 2130, Routine [facility] ketorolac (TORADOL) injection 15 mg 01-12 01:30: 00 01-12 00:40 :00 No 15mg 15 mg, Slow IV Push, ONCE, 1 dose, 01/11/19 at 2030, [facility]
Fa culty member approving Restricted medication : RHONDA PERKINS III [facility] diphenhydrA MINE (BENADRYL) injection 25 mg 01-12 01:30: 00 01-12 00:40 :00 No 25mg 25 mg, Slow IV Push, ONCE, 1 dose, 01/11/19 at 2030, STAT
IN DICATION: DESENSITIZ ATION PROTOCOL [facility] metoclopram hadley HCl (REGLAN) injection 10 mg 01-12 01:30: 00 01-12 00:40 :00 No 10mg 10 mg, Slow IV Push, ONCE, 1 dose, 01/11/19 at 2030, [facility] NaCl 0.9% (NS) bolus infusion 1,000 mL 01-12 01:30: 00 01-12 01:32 :00 No 1000mL at 999 mL/hr, 1,000 mL, IV Infusion, ONCE, 1 dose, 01/11/19 at 2030, STAT [facility] amitriptyli ne 25 mg tablet 11-07 00:00: 00 Yes Take one tablet per night as tolerated for one week then increase as tolerated to 2 tablets per night thereafter [facility] SUMAtriptan 25 mg tablet 11-07 00:00: 00 Yes Take one table at headache onset and one additional tablet 2 hours later if no relief. Not to exceed 2 pills in 24 hours or 9 days / month [facility] acetaZOLAMI DE 250 mg tablet 09-07 00:00: 00 Yes [id number] 500mg Take 2 tablets by mouth 2 (two) times daily. [facility] topiramate (TOPAMAX) 50 mg tablet 09-07 00:00: 00 Yes [id number] 50mg Take 1 tablet by mouth 2 (two) times daily. [facility] Immunizations Ordered Immunization Name Filled Immunization Name Date Status Comments Source TDAP 2013-06-16 00:00:00 Completed [facility] TDAP 2013-06-16 00:00:00 Completed [facility] TDAP 2013-06-16 00:00:00 Completed [facility] TDAP 2013-06-16 00:00:00 Completed [facility] TDAP 2013-06-16 00:00:00 Completed [facility] Tdap 2013-06-16 00:00:00 Completed [facility] TDAP 2013-06-16 00:00:00 Completed [facility] Tdap 2013-06-16 00:00:00 Completed [facility] TDAP 2013-06-16 00:00:00 Completed [facility] Influenza Virus Vaccine (3+ yrs) 2013-03-28 00:00:00 Completed [facility] Influenza Virus Vaccine (3+ yrs) 2013-03-28 00:00:00 Completed [facility] Influenza Virus Vaccine (3+ yrs) 2013-03-28 00:00:00 Completed [facility] Influenza Virus Vaccine (3+ yrs) 2013-03-28 00:00:00 Completed [facility] Influenza Virus Vaccine (3+ yrs) 2013-03-28 00:00:00 Completed [facility] Influenza Virus Vaccine (3+ yrs) 2013-03-28 00:00:00 Completed [facility] Influenza Virus Vaccine (3+ yrs) 2013-03-28 00:00:00 Completed [facility] Influenza Virus Vaccine (3+ yrs) 2013-03-28 00:00:00 Completed [facility] Influenza Virus Vaccine (3+ yrs) 2013-03-28 00:00:00 Completed [facility] Influenza Virus Vaccine (3+ yrs) 2013-03-28 00:00:00 Completed [facility] Influenza Virus Vaccine (3+ yrs) 2013-03-28 00:00:00 Completed [facility] Influenza Virus Vaccine (3+ yrs) 2013-03-28 00:00:00 Completed [facility] Td 1998-01-17 00:00:00 Completed [facility] Td 1998-01-17 00:00:00 Completed [facility] Td 1998-01-17 00:00:00 Completed [facility] Td 1998-01-17 00:00:00 Completed [facility] TD, NOS 1998-01-17 00:00:00 Completed [facility] TD, NOS 1998-01-17 00:00:00 Completed [facility] TD, NOS 1998-01-17 00:00:00 Completed [facility] TD, NOS 1998-01-17 00:00:00 [facility] [facility] Td 1998-01-17 00:00:00 Completed [facility] TD, NOS 1998-01-17 00:00:00 Completed [facility] Td 1998-01-17 00:00:00 Completed [facility] Td 1998-01-17 00:00:00 Completed [facility] TD, NOS Unknown Completed [facility] Influenza Virus Vaccine (3+ yrs) Unknown Completed [facility] TDAP Unknown Completed [facility] TD, NOS Unknown Completed [facility] Influenza Virus Vaccine (3+ yrs) Unknown Completed [facility] TDAP Unknown Completed [facility] TD, NOS Unknown Completed [facility] Influenza Virus Vaccine (3+ yrs) Unknown Completed [facility] TDAP Unknown Completed [facility] TD, NOS Unknown Completed [facility] Influenza Virus Vaccine (3+ yrs) Unknown Completed [facility] TDAP Unknown Completed [facility] TD, NOS Unknown Completed [facility] Influenza Virus Vaccine (3+ yrs) Unknown Completed [facility] TDAP Unknown Completed [facility] Vital Signs Vital Name Observation Time Observation Value Comments S ource Systolic blood pressure 2023-09-05 02:05:00 110 mm[Hg] [facility] Diastolic blood pressure 2023-09-05 02:05:00 80 mm[Hg] [facility] Heart rate 2023-09-05 02:05:00 76 /min [facility] Body temperature 2023-09-05 02:05:00 37.06 Yuliana [facility] Respiratory rate 2023-09-05 02:05:00 17 /min [facility] Oxygen saturation in Arterial blood by Pulse oximetry 2023-09-05 02:05:00 97 /min [facility] Body height 2023-09-04 23:12:00 160 cm [facility] Body weight 2023-09-04 23:12:00 99.791 kg [facility] BMI 2023-09-04 23:12:00 38.97 kg/m2 [facility] Systolic blood pressure 2023-07-03 18:00:00 126 mm[Hg] [facility] Diastolic blood pressure 2023-07-03 18:00:00 78 mm[Hg] [facility] Heart rate 2023-07-03 18:00:00 64 /min [facility] Respiratory rate 2023-07-03 18:00:00 18 /min [facility] Oxygen saturation in Arterial blood by Pulse oximetry 2023-07-03 18:00:00 100 /min [facility] Body temperature 2023-07-03 15:47:00 37.22 Yuliana [facility] Body height 2023-07-03 15:47:00 160 cm [facility] Body weight 2023-07-03 15:47:00 102.195 kg [facility] BMI 2023-07-03 15:47:00 39.91 kg/m2 [facility] Systolic blood pressure 2023-06-22 06:10:00 104 mm[Hg] [facility] Diastolic blood pressure 2023-06-22 06:10:00 68 mm[Hg] [facility] Heart rate 2023-06-22 06:10:00 68 /min [facility] Body temperature 2023-06-22 06:10:00 37.22 Yuliana [facility] Respiratory rate 2023-06-22 06:10:00 16 /min [facility] Oxygen saturation in Arterial blood by Pulse oximetry 2023-06-22 06:10:00 100 /min [facility] Body height 2023-06-22 02:45:00 160 cm [facility] Body weight 2023-06-22 02:45:00 99.791 kg [facility] BMI 2023-06-22 02:45:00 38.97 kg/m2 [facility] Systolic blood pressure 2022-12-21 02:55:53 117 mm[Hg] [facility] Diastolic blood pressure 2022-12-21 02:55:53 70 mm[Hg] [facility] Heart rate 2022-12-21 02:55:53 79 /min [facility] Respiratory rate 2022-12-21 02:55:53 15 /min [facility] Oxygen saturation in Arterial blood by Pulse oximetry 2022-12-21 02:55:53 100 /min [facility] Body temperature 2022-12-20 23:43:00 37.28 Yuliana [facility] Body height 2022-12-20 23:43:00 160 cm [facility] Body weight 2022-12-20 23:43:00 99.791 kg [facility] BMI 2022-12-20 23:43:00 38.97 kg/m2 [facility] Systolic blood pressure 2022-09-27 16:00:00 122 mm[Hg] [facility] Diastolic blood pressure 2022-09-27 16:00:00 82 mm[Hg] [facility] Heart rate 2022-09-27 16:00:00 63 /min [facility] Respiratory rate 2022-09-27 16:00:00 18 /min [facility] Oxygen saturation in Arterial blood by Pulse oximetry 2022-09-27 16:00:00 100 /min [facility] Body temperature 2022-09-27 15:29:00 36.89 Yuliana [facility] Body height 2022-09-27 15:29:00 160 cm [facility] Body weight 2022-09-27 15:29:00 104.327 kg [facility] BMI 2022-09-27 15:29:00 40.74 kg/m2 [facility] Systolic blood pressure 2022-07-20 02:15:22 138 mm[Hg] [facility] Diastolic blood pressure 2022-07-20 02:15:22 78 mm[Hg] [facility] Heart rate 2022-07-20 02:15:22 69 /min [facility] Body temperature 2022-07-20 02:15:22 36.61 Yuliana [facility] Respiratory rate 2022-07-20 02:15:22 16 /min [facility] Oxygen saturation in Arterial blood by Pulse oximetry 2022-07-20 02:15:22 100 /min [facility] Body height 2022-07-20 00:24:00 160 cm [facility] Body weight 2022-07-20 00:24:00 104.327 kg [facility] BMI 2022-07-20 00:24:00 40.74 kg/m2 [facility] Systolic blood pressure 2022-07-19 17:30:33 124 mm[Hg] [facility] Diastolic blood pressure 2022-07-19 17:30:33 61 mm[Hg] [facility] Heart rate 2022-07-19 17:30:33 65 /min [facility] Body temperature 2022-07-19 17:30:33 37.11 Yuliana [facility] Respiratory rate 2022-07-19 17:30:33 16 /min [facility] Oxygen saturation in Arterial blood by Pulse oximetry 2022-07-19 17:30:33 99 /min [facility] Body height 2022-07-19 14:34:00 160 cm [facility] Body weight 2022-07-19 14:34:00 104.327 kg [facility] BMI 2022-07-19 14:34:00 40.74 kg/m2 [facility] Systolic blood pressure 2022-02-13 12:56:00 136 mm[Hg] [facility] Diastolic blood pressure 2022-02-13 12:56:00 81 mm[Hg] [facility] Heart rate 2022-02-13 12:56:00 79 /min [facility] Body temperature 2022-02-13 12:56:00 36.44 Yuliana [facility] Respiratory rate 2022-02-13 12:56:00 15 /min [facility] Body height 2022-02-13 12:56:00 160 cm [facility] Body weight 2022-02-13 12:56:00 104.327 kg [facility] BMI 2022-02-13 12:56:00 40.74 kg/m2 [facility] Oxygen saturation in Arterial blood by Pulse oximetry 2022-02-13 12:56:00 100 /min [facility] Systolic blood pressure 2021-10-21 18:24:00 128 mm[Hg] [facility] Diastolic blood pressure 2021-10-21 18:24:00 76 mm[Hg] [facility] Heart rate 2021-10-21 18:24:00 72 /min [facility] Respiratory rate 2021-10-21 18:24:00 18 /min [facility] Oxygen saturation in Arterial blood by Pulse oximetry 2021-10-21 18:24:00 100 /min [facility] Body temperature 2021-10-21 16:40:00 36.61 Yuliana [facility] Body height 2021-10-21 16:40:00 160 cm [facility] Body weight 2021-10-21 16:40:00 104.327 kg [facility] BMI 2021-10-21 16:40:00 40.74 kg/m2 [facility] Systolic blood pressure 2021-05-27 00:00:00 131 mm[Hg] [facility] Diastolic blood pressure 2021-05-27 00:00:00 89 mm[Hg] [facility] Heart rate 2021-05-27 00:00:00 64 /min [facility] Respiratory rate 2021-05-27 00:00:00 19 /min [facility] Oxygen saturation in Arterial blood by Pulse oximetry 2021-05-27 00:00:00 98 /min [facility] Body temperature 2021-05-26 20:20:00 37.28 Yuliana [facility] Body height 2021-05-26 20:20:00 160 cm [facility] Body weight 2021-05-26 20:20:00 66.225 kg [facility] BMI 2021-05-26 20:20:00 25.86 kg/m2 [facility] Systolic blood pressure 2020-11-19 21:52:41 130 mm[Hg] [facility] Diastolic blood pressure 2020-11-19 21:52:41 91 mm[Hg] [facility] Heart rate 2020-11-19 21:52:41 61 /min [facility] Respiratory rate 2020-11-19 21:52:41 16 /min [facility] Oxygen saturation in Arterial blood by Pulse oximetry 2020-11-19 21:52:41 100 /min [facility] Body temperature 2020-11-19 20:21:21 37.06 Yuliana [facility] Body height 2020-11-19 20:19:00 160 cm [facility] Body weight 2020-11-19 20:19:00 68.04 kg [facility] BMI 2020-11-19 20:19:00 26.57 kg/m2 [facility] Systolic blood pressure 2019-01-12 00:29:00 180 mm[Hg] [facility] Diastolic blood pressure 2019-01-12 00:29:00 109 mm[Hg] [facility] Heart rate 2019-01-12 00:29:00 81 /min [facility] Body temperature 2019-01-12 00:29:00 36.44 Yuliana [facility] Respiratory rate 2019-01-12 00:29:00 18 /min [facility] Body height 2019-01-12 00:29:00 160 cm [facility] Body weight 2019-01-12 00:29:00 113.399 kg Simultaneous filing. User may not have seen previous data. [facility] BMI 2019-01-12 00:29:00 44.29 kg/m2 [facility] Oxygen saturation in Arterial blood by Pulse oximetry 2019-01-12 00:29:00 100 /min [facility] BP Systolic 2022-02-01 10:47:00 134 mm[Hg] BP Diastolic 2022-02-01 10:47:00 90 mm[Hg] Weight Measured 2022-02-01 10:47:00 240.40 pounds Height Measured 2022-02-01 10:47:00 62.00 inches Body Temperature 2022-02-01 10:47:00 98.40 degrees Heart Rate 2022-02-01 10:47:00 81.00 /min Respiratory Rate 2022-02-01 10:47:00 16.00 /min BP Systolic 2022-02-01 10:21:00 134 mm[Hg] BP Diastolic 2022-02-01 10:21:00 90 mm[Hg] Weight Measured 2022-02-01 10:21:00 240.40 pounds Height Measured 2022-02-01 10:21:00 62.00 inches Body Temperature 2022-02-01 10:21:00 98.40 degrees Heart Rate 2022-02-01 10:21:00 81.00 /min Respiratory Rate 2022-02-01 10:21:00 16.00 /min BP Systolic 2022-01-23 08:29:00 160 mm[Hg] BP Diastolic 2022-01-23 08:29:00 115 mm[Hg] Weight Measured 2022-01-23 08:29:00 245.20 pounds Height Measured 2022-01-23 08:29:00 62.00 inches Body Temperature 2022-01-23 08:29:00 98.50 degrees Heart Rate 2022-01-23 08:29:00 75.00 /min Respiratory Rate 2022-01-23 08:29:00 16.00 /min BP Systolic 2021-06-30 12:11:00 111 mm[Hg] BP Diastolic 2021-06-30 12:11:00 74 mm[Hg] Weight Measured 2021-06-30 12:11:00 230.20 pounds Height Measured 2021-06-30 12:11:00 62.00 inches Body Temperature 2021-06-30 12:11:00 97.70 degrees Heart Rate 2021-06-30 12:11:00 87.00 /min Respiratory Rate 2021-06-30 12:11:00 17.00 /min BP Systolic 2021-04-05 09:43:00 121 mm[Hg] BP Diastolic 2021-04-05 09:43:00 84 mm[Hg] Weight Measured 2021-04-05 09:43:00 236.20 pounds Height Measured 2021-04-05 09:43:00 62.00 inches Body Temperature 2021-04-05 09:43:00 97.40 degrees Heart Rate 2021-04-05 09:43:00 72.00 /min Respiratory Rate 2021-04-05 09:43:00 BP Systolic 2020-10-11 17:16:00 94 mm[Hg] BP Diastolic 2020-10-11 17:16:00 63 mm[Hg] Weight Measured 2020-10-11 17:16:00 230.00 pounds Height Measured 2020-10-11 17:16:00 62.00 inches Body Temperature 2020-10-11 17:16:00 98.30 degrees Heart Rate 2020-10-11 17:16:00 93.00 /min Respiratory Rate 2020-10-11 17:16:00 18.00 /min BP Systolic 2020-07-26 08:45:00 126 mm[Hg] BP Diastolic 2020-07-26 08:45:00 85 mm[Hg] Weight Measured 2020-07-26 08:45:00 235.60 pounds Height Measured 2020-07-26 08:45:00 62.00 inches Body Temperature 2020-07-26 08:45:00 99.00 degrees Heart Rate 2020-07-26 08:45:00 79.00 /min Respiratory Rate 2020-07-26 08:45:00 17.00 /min BP Systolic 2020-04-22 11:21:00 121 mm[Hg] BP Diastolic 2020-04-22 11:21:00 81 mm[Hg] Weight Measured 2020-04-22 11:21:00 239.40 pounds Height Measured 2020-04-22 11:21:00 62.00 inches Body Temperature 2020-04-22 11:21:00 98.30 degrees Heart Rate 2020-04-22 11:21:00 73.00 /min Respiratory Rate 2020-04-22 11:21:00 17.00 /min Weight Measured 2020-02-19 09:36:00 251.40 pounds Height Measured 2020-02-19 09:36:00 62.00 inches Body Temperature 2020-02-19 09:36:00 98.70 degrees Heart Rate 2020-02-19 09:36:00 84.00 /min Respiratory Rate 2020-02-19 09:36:00 17.00 /min BP Systolic 2020-02-19 09:36:00 141 mm[Hg] BP Diastolic 2020-02-19 09:36:00 92 mm[Hg] BP Systolic 2020-02-05 09:40:00 150 mm[Hg] BP Diastolic 2020-02-05 09:40:00 92 mm[Hg] Weight Measured 2020-02-05 09:40:00 254.20 pounds Height Measured 2020-02-05 09:40:00 62.00 inches Body Temperature 2020-02-05 09:40:00 98.70 degrees Heart Rate 2020-02-05 09:40:00 73.00 /min Respiratory Rate 2020-02-05 09:40:00 17.00 /min BP Systolic 2019-06-13 15:57:00 141 mm[Hg] BP Diastolic 2019-06-13 15:57:00 96 mm[Hg] Weight Measured 2019-06-13 15:57:00 256.80 pounds Height Measured 2019-06-13 15:57:00 62.00 inches Body Temperature 2019-06-13 15:57:00 97.30 degrees Heart Rate 2019-06-13 15:57:00 80.00 /min Respiratory Rate 2019-06-13 15:57:00 BP Systolic 2019-05-12 08:34:00 153 mm[Hg] BP Diastolic 2019-05-12 08:34:00 104 mm[Hg] Weight Measured 2019-05-12 08:34:00 257.00 pounds Height Measured 2019-05-12 08:34:00 62.00 inches Body Temperature 2019-05-12 08:34:00 98.90 degrees Heart Rate 2019-05-12 08:34:00 83.00 /min Respiratory Rate 2019-05-12 08:34:00 Procedures Procedure Date / Time Performed Performing Clinician Source URINALYSIS 2023-09-05 00:18:00 Christi Aguirre Un [facility] COMP. METABOLIC PANEL (34419) 2023-09-05 00:17:00 Christi Aguirre [facility] CBC WITH DIFF 2023-09-05 00:17:00 Crhisti Aguirre U [facility] POCT TEST 2023-09-05 00:16:00 Heather Aguirre [facility] CBC WITH DIFF 2023-07-03 16:10:00 Star Mesa [facility] CONSENT/REFUSAL FOR DIAGNOSIS AND TREATMENT 2023-07-03 15:37:58 Doctor Unassigned, [place] [facility] BASIC METABOLIC PANEL (NA, K, CL, CO2, GLUCOSE, BUN, CREATININE, CA) 2023-06-22 03:24:00 Alex Pitt [facility] CBC WITH DIFF 2023-06-22 03:24:00 Alex Pitt [facility] URINALYSIS 2023-06-22 03:24:00 Alex Pitt [facility] RAPID INFLUENZA A/B 2023-06-22 03:24:00 Norberto Pitt [facility] POCT TEST 2023-06-22 03:24:00 Norberto Pitt [facility] COVID-19 (ID NOW RAPID TESTING) 2023-06-22 03:24:00 Alex Pitt [facility] NOTICE OF PRIVACY PRACTICES 2023-06-22 02:35:43 Doctor Unassigned, [place] [facility] CONSENT/REFUSAL FOR DIAGNOSIS AND TREATMENT 2023-06-22 02:34:04 Doctor Unassigned, [place] [facility] CONSENT/REFUSAL FOR DIAGNOSIS AND TREATMENT 2022-12-20 23:31:05 Doctor Unassigned, [place] [facility] CONSENT/REFUSAL FOR DIAGNOSIS AND TREATMENT 2022-09-27 15:22:33 Doctor Unassigned, [place] [facility] NOTICE OF PRIVACY PRACTICES 2022-07-20 00:18:00 Doctor Unassigned, [place] [facility] CONSENT/REFUSAL FOR DIAGNOSIS AND TREATMENT 2022-07-19 14:28:49 Doctor Unassigned, [place] [facility] COVID-19 (ID NOW RAPID TESTING) 2022-02-13 13:25:00 Glen Rocha [facility] CONSENT/REFUSAL FOR DIAGNOSIS AND TREATMENT 2022-02-13 12:54:56 Doctor Unassigned, [place] [facility] CONSENT/REFUSAL FOR DIAGNOSIS AND TREATMENT 2021-10-21 16:30:34 Doctor Unassigned, [place] [facility] CBC WITH DIFF 2021-05-27 00:13:00 Luis Duncan [facility] BASIC METABOLIC PANEL (NA, K, CL, CO2, GLUCOSE, BUN, CREATININE, CA) 2021-05-26 22:35:00 Luis Duncan [facility] URINALYSIS 2021-05-26 22:35:00 Luis Duncan [facility] RAPID INFLUENZA A/B 2021-05-26 22:35:00 Zarina Duncan [facility] POCT TEST 2021-05-26 22:35:00 Zarina Duncan [facility] COVID-19 (ID NOW RAPID TESTING) 2021-05-26 22:35:00 Luis Duncan [facility] CONSENT/REFUSAL FOR DIAGNOSIS AND TREATMENT 2021-05-26 19:45:50 Doctor Unassigned, [place] [facility] RAPID STREP SCREEN FOR GROUP A 2020-11-19 21:02:00 Evans Yang [facility] POCT TEST 2020-11-19 21:01:00 Evans Yang [facility] COVID-19 (ID NOW RAPID TESTING) 2020-11-19 21:00:00 Evans Yang [facility] LIPASE 2020-11-19 20:59:00 Evans Yang [facility] COMP. METABOLIC PANEL (34880) 2020-11-19 20:59:00 Evans Yang [facility] CBC WITH DIFF 2020-11-19 20:59:00 Evans Yang [facility] CONSENT/REFUSAL FOR DIAGNOSIS AND TREATMENT 2020-11-19 20:09:10 Doctor Unassigned, [place] [facility] COMP. METABOLIC PANEL (86811) 2019-01-12 00:34:00 Rhonda Perkins [facility] CBC WITH DIFFERENTIAL 2019-01-12 00:34:00 Jayy Perkins [facility] URINALYSIS 2019-01-12 00:34:00 Rhonda Perkins [facility] POCT TEST 2019-01-12 00:32:00 Rhonda Perkins [facility] ASSIGNMENT OF BENEFITS 2019-01-12 00:16:49 Docto r Unassigned, [place] [facility] Plan of Care Planned Activity Planned Date Details Comments Source Goal Plan of Care Note [code = 01002-3] Goal Plan of Care Note [code = 58945-3] Goal Plan of Care Note [code = 15028-2] Goal Plan of Care Note [code = 57298-6] Goal Plan of Care Note [code = 35807-7] Goal Plan of Care Note [code = 31930-1] Goal Plan of Care Note [code = 60023-1] Goal Plan of Care Note [code = 44797-0] Goal Plan of Care Note [code = 21903-4] Goal Plan of Care Note [code = 34847-6] Goal Plan of Care Note [code = 81704-9] Goal Plan of Care Note [code = 27276-2] Goal Plan of Care Note [code = 42446-9] Goal Plan of Care Note [code = 96293-5] Goal Plan of Care Note [code = 83256-6] Goal Plan of Care Note [code = 52962-7] Goal Plan of Care Note [code = 10134-1] Goal Plan of Care Note [code = 11998-3] Goal Plan of Care Note [code = 67482-2] Goal Plan of Care Note [code = 64270-3] Goal Plan of Care Note [code = 85896-0] Goal Plan of Care Note [code = 63429-7] Goal Plan of Care Note [code = 77693-2] Goal Plan of Care Note [code = 83923-7] Goal Plan of Care Note [code = 97798-4] Goal Plan of Care Note [code = 46757-2] Goal Plan of Care Note [code = 85758-3] Goal Plan of Care Note [code = 70273-8] Goal Plan of Care Note [code = 94123-2] Goal Plan of Care Note [code = 56363-6] Goal Plan of Care Note [code = 28531-5] Goal Plan of Care Note [code = 52676-8] Goal Plan of Care Note [code = 07952-0] Goal Plan of Care Note [code = 63488-3] Goal Plan of Care Note [code = 70195-2] Goal Plan of Care Note [code = 31323-1] Goal Plan of Care Note [code = 02065-1] Goal Plan of Care Note [code = 23007-1] Encounters Start Date/Time End Date/Time Encounter Type Admission Type Attending [facility] Care Department Encounter ID Source 2021-04-04 02:14:41 Emergency [facility] [id number] [facility] 2023-09-17 09:00:00 2023-09-17 09:00:00 Outpatient KEE MARION [facility] [id number] [facility] 2023-09-04 18:14:00 2023-09-04 21:11:00 Emergency CHRISTI MENDEZ [facility] ERT [id number] [facility] 2023-09-04 18:14:00 2023-09-04 21:11:00 Emergency Christi Aguirre [facility] [id number] [facility] 2023-08-01 08:58:51 2023-08-01 08:58:51 Outpatient [facility] SFA [id number] Cem F Vish 2023-07-03 09:48:00 2023-07-03 12:40:00 Emergency X STAR MESA [facility] ERT [id number] [facility] 2023-07-03 09:48:00 2023-07-03 12:40:00 Emergency Star Mesa Lee [facility] [id number] [facility] 2023-06-27 10:01:14 2023-06-27 10:01:14 Outpatient SFA SFA [id number] Cem Wahl 2023-06-26 13:46:54 2023-06-26 13:46:54 Outpatient SFA SFA [id number] Cem Wahl 2023-06-21 20:47:00 2023-06-22 00:40:00 Emergency X ALEX PITT [facility] ERT [id number] [facility] 2023-06-21 20:47:00 2023-06-22 00:40:00 Emergency Alex Pitt [facility] [id number] [facility] 2023-05-23 13:25:02 2023-05-23 13:25:02 Outpatient [place] [id number] Cem Wahl 2023-05-15 08:08:44 2023-05-15 08:08:44 Outpatient [place] [id number] Cem Archer [place] 2023-02-27 14:06:50 2023-02-27 14:06:50 [place]patient [place] [id number] Cem Archer [place] 2022-12-20 18:45:00 2022-12-20 21:58:00 Emergency X ROSEMARY CHILDERS [facility] ERT [id number] [facility] 2022-12-20 18:45:00 2022-12-20 21:58:00 Emergency Rosemary Childers [facility] 1..840.114 350.1.13.10 4.2.7.2.686 [id number] [id number] [facility] 2022-12-06 13:48:26 2022-12-06 13:48:26 Outpatient [facility] [id number] Cem Archer [place] 2022-09-28 00:00:00 2022-09-28 00:00:00 Patient Secure Msg Doctor Unassigned, [place] [facility] 1..840.114 350.1.13.10 4.2.7.2.686 [id number] [facility] 2022-09-27 10:31:00 2022-09-27 11:57:00 Emergency X TERESSA VARGAS [facility] ERT [id number] [facility] 2022-09-27 10:31:00 2022-09-27 11:57:00 Emergency Teressa Vargas [facility] 1.2.840.114 350.1.13.10 4.2.7.2.686 [id number] [id number] [facility] 2022-09-19 15:52:40 2022-09-19 15:52:40 Outpatient [facility] [id number] Cem Wahl 2022-07-24 00:00:00 2022-07-24 00:00:00 Letter (Out) Clinic, [place] [facility] Neurology Resident [facility] 1..840.114 350.1.13.10 4.2.7.2.686 [id number] [id number] [facility] 2022-07-20 00:00:00 2022-07-20 00:00:00 Patient Secure Msg Doctor Unassigned, [place] [facility] 1..840.114 350.1.13.10 4.2.7.2.686 [id number] [id number] [facility] 2022-07-19 18:27:00 2022-07-19 20:21:00 Emergency X NUNU BAKER [facility] ERT [id number] [facility] 2022-07-19 18:27:00 2022-07-19 20:21:00 Emergency Nunu Baker [facility] 1.2.840.114 350.1.13.10 4.2.7.2.686 [id number] 084 [id number] [facility] 2022-07-19 08:35:00 2022-07-19 11:32:00 Emergency X TERESSA VARGAS [facility] ERT [id number] [facility] 2022-07-19 08:35:00 2022-07-19 11:32:00 Emergency Teressa Vargas [facility] 1.2.840.114 350.1.13.10 4.2.7.2.686 [id number] [id number] [facility] 2022-02-13 07:57:00 2022-02-13 09:24:00 Emergency X Glen ROCHA [facility] ERT [id number] [facility] 2022-02-13 07:57:00 2022-02-13 09:24:00 Emergency Glen Rocha [facility] 1..840.114 350.1.13.10 4.2.7.2.686 [id number] [id number] [facility] 2022-02-01 00:00:00 2022-02-01 00:00:00 Outpatient Visit [id number] 2022-01-23 00:00:00 2022-01-23 00:00:00 Outpatient Visit [id number] 2021-10-21 11:44:00 2021-10-21 13:25:00 Emergency X TERESSA VARGAS [facility] ERT [id number] [facility] 2021-10-21 11:44:00 2021-10-21 13:25:00 Emergency Teressa Vargas Vasquez [facility] 1.2.840.114 350.1.13.10 4.2.7.2.686 [id number] 084 [id number] [facility] 2021-05-26 14:22:00 2021-05-26 19:00:00 Emergency X LUIS DUNCAN [facility] ERT [id number] [facility] 2021-05-26 14:22:00 2021-05-26 19:00:00 Emergency Luis Duncan [facility] 1.2.840.114 350.1.13.10 4.2.7.2.686 [id number] [id number] [facility] 2020-11-19 15:30:00 2020-11-19 17:02:00 Emergency Evans Yang [facility] 1.2.840.114 350.1.13.10 4.2.7.2.686 [id number] 084 [id number] [facility] 2020-11-19 00:00:00 2020-11-19 00:00:00 Orders Only Doctor Unassigned, [place] [facility] 1.2.840.114 350.1.13.10 4.2.7.2.686 [id number] [facility] 2020-07-13 09:00:00 2020-07-13 09:28:51 Outpatient YOSEPH TAPIA [facility] [id number] [facility] 2019-01-11 19:23:24 2019-01-11 20:34:00 Emergency Rhonda Perkins [facility] 1.2.840.114 350.1.13.10 4.2.7.2.686 [id number] [id number] [facility] 2019-01-11 00:00:00 2019-01-11 00:00:00 Orders Only Doctor Unassigned, [place] [facility] 1.2.840.114 350.1.13.10 4.2.7.2.686 [id number] [facility] Results Test Description Test Time Test Comments Results Result Co mments Source [facility] METABOLIC PANEL (49595)2023-09-05 00:55:27* Test Item Value Reference Range Interpretation Comme nts NA (test code = 0874061795) 137 mmol/L 135-145 K (test code = 2711324410) 4.1 mmol/L 3.5-5.0 CL (test code = 8232905447) 108 mmol/L 98-108 CO2 TOTAL (test code = 5802226282) 22 mmol/L 23-31 L AGAP (test code = 5055328526) 7 2-16 BUN (test code = 1248107809) 23 mg/dL 7-23 GLUCOSE (test code = 1338723419) 75 mg/dL 70-110 CREATININE (test code = 2160-0) 1.10 mg/dL 0.50-1.04 H TOTAL BILI (test code = 1063517070) 0.5 mg/dL 0.1-1.1 CALCIUM (test code = 8302875191) 9.1 mg/dL 8.6-10.6 T PROTEIN (test code = 2739472830) 7.8 g/dL 6.3-8.2 ALBUMIN (test code = 0280781966) 4.2 g/dL 3.5-5.0 ALK PHOS (test code = 2925560914) 50 U/L 34-122 ALTv (test code = 1742-6) 16 U/L 5-35 AST(SGOT) (test code = 4843692085) 24 U/L 13-40 eGFR (test code = 57017-0) 64.1 mL/min/1.73m2 CKD-EPI eGFR (2020). Assuming creatinine has been stable day-to-day for at least three months, the eGFR indicates Category G2 (60 - 89 mL/min/1.73 m2) Lab Interpretation (test code = 63063-9) Abnormal [facility] [id number] 00:16:00* Test Item Value Reference Range Interpretation Comme nts POCT PREG (test code = 1605) Negative On board controls acceptable with C Line (test code = 3574) Yes POCT PREG LOT # (test code = 3574) [id number] POCT PREG TEST DATE ( test code = 3576) 09/09/2024 Lab Interpretation (test cod e = 09381-6) Normal [facility] WITH [id number] 17:56:07* Test Item Value Reference Range Interpretation Comme nts WBC (test code = 6690-2) 4.43 See_Comment [Automated [employer] ge] The system which generated this result transmitted reference range: 4.30 - 11.10 10*3/?L. The reference range was not used to interpret this result as normal/abnormal. RBC (test code = 789-8) 4.26 See_Comment [Automated messa ge] The system which generated this result transmitted reference range: 3.93 - 5.25 10*6/?L. The reference range was not used to interpret this result as normal/abnormal. HGB (test code = 718-7) 11.8 g/dL 11.6-15.0 HCT (test code = 4544-3) 36.6 % 35.7-45.2 MCV (test code = 787-2) 85.9 fL 80.6-95.5 MCH (test code = 785-6) 27.7 pg 25.9-32.8 MCHC (test code = 786-4) 32.2 g/dL 31.6-35.1 RDW-SD (test code = 97125-4) 50.5 fL 39.0-49.9 H RDW-CV (test code = 788-0) 16.1 % 12.0-15.5 H PLT (test code = 777-3) 271 See_Comment [Automated messa ge] The system which generated this result transmitted reference range: 166 - 358 10*3/?L. The reference range was not used to interpret this result as normal/abnormal. MPV (test code = 48064-7) 10.2 fL 9.5-12.9 NRBC/100 WBC (test code = 0677176257) 0.0 See_Comment [Automated [employer] ssage] The system which generated this result transmitted reference range: 0.0 - 10.0 /100 WBCs. The reference range was not used to interpret this result as normal/abnormal. NRBC x10^3 (test code = 1406914116) See_Comment [Automated messa ge] The system which generated this result transmitted reference range: 10*3/?L. The reference range was not used to interpret this result as normal/abnormal. GRAN MAT (NEUT) % (test code = 770-8) 47.0 % IMM GRAN % (test code = 3483860554) 0.20 % LYMPH % (test code = 736-9) 41.1 % MONO % (test code = 5905-5) 8.8 % EOS % (test code = 713-8) 2.0 % BASO % (test code = 706-2) 0.9 % GRAN MAT x10^3(ANC) (test code = 5094907792) 2.08 10*3/uL 1.88-7.09 IMM GRAN x10^3 (test code = 0425916366) 0.00-0.06 LYMPH x10^3 (test code = 731-0) 1.82 10*3/uL 1.32-3.29 MONO x10^3 (test code = 742-7) 0.39 10*3/uL 0.33-0.92 EOS x10^3 (test code = 711-2) 0.09 10*3/uL 0.03-0.39 BASO x10^3 (test code = 704-7) 0.04 10*3/uL 0.01-0.07 Lab Interpretation (test code = 63884-1) Abnormal [facility] [id number] 03:24:00* Test Item Value Reference Range Interpretation Comme nts POCT PREG (test code = 1605) Negative On board controls acceptable with C Line (test code = 3574) Yes POCT PREG LOT # (test code = 3575) [id number] POCT PREG TEST DATE ( test code = 3576) 2024-08-12 Lab Interpretation (test cod e = 09214-0) Normal [facility]OL[facility] [id number] 05:07:20* Test Item Value Reference Range Interpretation Comme nts GLUCOSE (test code = 2217) 79 MG/DL 70-99 BUN (test code = 2208) 14 MG/DL 6-20 CREATININE (test code = 2214) 1.00 MG/DL 0.60-1.30 eGFR (2020 CKD-EPI) (test code = 83121) 72 ML/MIN/1.73 >60 CALC BUN/CREAT (test code = 2235) 14 RATIO 6-28 SODIUM (test code = 2231) 145 MEQ/L 133-146 POTASSIUM (test code = 2228) 4.3 MEQ/L 3.5-5.4 CHLORIDE (test code = 2215) 109 MEQ/L 95-107 H CARBON DIOXIDE (test code = 2206) 25 MEQ/L 19-31 CALCIUM (test code = 2209) 9.5 MG/DL 8.5-10.5 PROTEIN, TOTAL (test code = 2229) 6.5 G/DL 6.1-8.3 ALBUMIN (test code = 2201) 4.2 G/DL 3.5-5.2 CALC GLOBULIN (test code = 2240) 2.3 G/DL 1.9-3.7 CALC A/G RATIO (test code = 2234) 1.8 RATIO 1.0-2.6 BILIRUBIN, TOTAL (test code = 2207) <0.2 MG/DL See_Comment [Automated me ssage] The system which generated this result transmitted reference range: <=1.2. The reference range was not used to interpret this result as normal/abnormal. ALKALINE PHOSPHATASE (test code = 2203) 48 U/L 40-113 AST (test code = 2218) 15 U/L 9-40 ALT (test code = 2219) 15 U/L 5-40 [facility] has impo rtant pathology staff changes effective 08/02/2022. New pathology staff will provide uninterrupted, excellent patient care and clinical consultation. See URL: [email or web address]. UNLESS OTHERWISE INDICATED, ALL TESTING PERFORMED AT [facility] [address] [place] [address] PROFESSOR OF LITERACY: KENDRA HERNANDEZ M.D. CLIA NUMBER [id number] [facility] [place]. [id number] LIPID [id number] 06:55:12* Test Item Value Reference Range Interpretation Comme nts CHOLESTEROL (test code = 2210) 219 MG/DL <200 H TRIGLYCERIDES (test code = 2232) 200 MG/DL <150 H HDL CHOLESTEROL (test code = 2220) 53 MG/DL >39 CALC LDL CHOL (test code = 2237) 132 MG/DL <100 H NOTE: CALCULATED LDL IS BASED ON RAYNE-FISCHER METHOD WHICHINCLUDES ADJUSTABLE TRIGLYCERIDE:VLDL CHOLESTEROL RATIO.THIS FACTOR VARIES BY MEASURED TRIGLYCERIDE AND NON-HDLCHOLESTEROL CONCENTRATIONS WITH INCREASED CALCULATED LDL SEENIN HIGHER TRIGLYCERIDE OR LOWER NON-HDL SPECIMENS. FOR MOREINFORMATION, SEE CLIENT ANNOUNCEMENT AT [email or web address] RISK RATIO LDL/HDL (test code = 2237) 2.49 RATIO <3.22 COMPREHENSIVE METABOLIC [id number] 06:55:12* Test Item Value Reference Range Interpretation Comme nts GLUCOSE (test code = 2216) 83 MG/DL 70-99 BUN (test code = 2207) 16 MG/DL 6-20 CREATININE (test code = 2213) 0.90 MG/DL 0.60-1.30 eGFR (2020 CKD-EPI) (test code = 44988) 82 ML/MIN/1.73 >60 CALC BUN/CREAT (test code = 5) 18 RATIO 6-28 SODIUM (test code = 2230) 141 MEQ/L 133-146 POTASSIUM (test code = 2227) 4.6 MEQ/L 3.5-5.4 CHLORIDE (test code = 2214) 105 MEQ/L 95-107 CARBON DIOXIDE (test code = 2205) 22 MEQ/L 19-31 CALCIUM (test code = 2208) 9.4 MG/DL 8.5-10.5 PROTEIN, TOTAL (test code = 2228) 7.0 G/DL 6.1-8.3 ALBUMIN (test code = 2200) 4.5 G/DL 3.5-5.2 CALC GLOBULIN (test code = 2240) 2.5 G/DL 1.9-3.7 CALC A/G RATIO (test code = 2234) 1.8 RATIO 1.0-2.6 BILIRUBIN, TOTAL (test code = 2206) 0.2 MG/DL See_Comment [Automated me ssage] The system which generated this result transmitted reference range: <=1.2. The reference range was not used to interpret this result as normal/abnormal. ALKALINE PHOSPHATASE (test code = 2203) 52 U/L 40-113 AST (test code = 2218) 17 U/L 9-40 ALT (test code = 2219) 14 U/L 5-40 UNLESS OTHERWISE INDICATED, [facility] [address] [place] [address] PROFESSOR OF LITERACY: JMIY ROCHA M.D. CLIA NUMBER [id number] [facility] [place]. [id number] HEMOGLOBIN [id number] 03:12:19* Test Item Value Reference Range Interpretation Comme nts HEMOGLOBIN A1c (test code = 89174) 5.3 % 4.2-5.6 HEMOGLOBIN A1c [ADDED]2022-01-24 00:00:00* Test Item Value Reference Range Interpretation Comme nts HEMOGLOBIN A1c (test code = 14778) 5.3 % HEMOGLOBIN A1c [ADDED]2022-01-24 00:00:00* Test Item Value Reference Range Interpretation Comme nts HEMOGLOBIN A1c (test code = 80542) 5.3 % HEMOGLOBIN A1c [ADDED]2022-01-24 00:00:00* Test Item Value Reference Range Interpretation Comme nts HEMOGLOBIN A1c (test code = 99744) 5.3 % LIPID PANEL [ADDED]2022-01-24 00:00:00* Test Item Value Reference Range Interpretation Comme nts CHOLESTEROL (test code = 2210) 219 MG/DL TRIGLYCERIDES (test code = 2232) 200 MG/DL HDL CHOLESTEROL (test code = 2220) 53 MG/DL CALC LDL CHOL (test code = 2237) 132 MG/DL RISK RATIO LDL/HDL (test cod e = 2238) 2.49 RATIO LIPID PANEL [ADDED]2022-01-24 00:00:00* Test Item Value Reference Range Interpretation Comme nts CHOLESTEROL (test code = 2210) 219 MG/DL TRIGLYCERIDES (test code = 2232) 200 MG/DL HDL CHOLESTEROL (test code = 2220) 53 MG/DL CALC LDL CHOL (test code = 2237) 132 MG/DL RISK RATIO LDL/HDL (test cod e = 2238) 2.49 RATIO COMPREHENSIVE METABOLIC PANEL [ADDED]2022-01-24 00:00:00* Test Item Value Reference Range Interpretation Comme nts GLUCOSE (test code = 2217) 83 MG/DL BUN (test code = 2208) 16 MG/DL CREATININE (test code = 2214) 0.90 MG/DL eGFR (2020 CKD-EPI) (test co de = 00043) 82 ML/MIN/1.73 CALC BUN/CREAT (test code = 2235) 18 RATIO SODIUM (test code = 2231) 141 MEQ/L POTASSIUM (test code = 2228) 4.6 MEQ/L CHLORIDE (test code = 2215) 105 MEQ/L CARBON DIOXIDE (test code = 2206) 22 MEQ/L CALCIUM (test code = 2209) 9.4 MG/DL PROTEIN, TOTAL (test code = 2229) 7.0 G/DL ALBUMIN (test code = 2201) 4.5 G/DL CALC GLOBULIN (test code = 2240) 2.5 G/DL CALC A/G RATIO (test code = 2234) 1.8 RATIO BILIRUBIN, TOTAL (test code = 2207) 0.2 MG/DL ALKALINE PHOSPHATASE (test code = 2204) 52 U/L AST (test code = 2218) 17 U/L ALT (test code = 2219) 14 U/L COMPREHENSIVE METABOLIC PANEL [ADDED]2022-01-24 00:00:00* Test Item Value Reference Range Interpretation Comme nts GLUCOSE (test code = 2217) 83 MG/DL BUN (test code = 2208) 16 MG/DL CREATININE (test code = 2214) 0.90 MG/DL eGFR (2020 CKD-EPI) (test co de = 89424) 82 ML/MIN/1.73 CALC BUN/CREAT (test code = 2235) 18 RATIO SODIUM (test code = 2231) 141 MEQ/L POTASSIUM (test code = 2228) 4.6 MEQ/L CHLORIDE (test code = 2215) 105 MEQ/L CARBON DIOXIDE (test code = 2206) 22 MEQ/L CALCIUM (test code = 2209) 9.4 MG/DL PROTEIN, TOTAL (test code = 2229) 7.0 G/DL ALBUMIN (test code = 2201) 4.5 G/DL CALC GLOBULIN (test code = 2240) 2.5 G/DL CALC A/G RATIO (test code = 2234) 1.8 RATIO BILIRUBIN, TOTAL (test code = 2207) 0.2 MG/DL ALKALINE PHOSPHATASE (test code = 2204) 52 U/L AST (test code = 2218) 17 U/L ALT (test code = 2219) 14 U/L CBC WITH [id number] 00:23:37* Test Item Value Reference Range Interpretation Comme nts WBC (test code = 6690-2) See_Comment [Automated [employer] ge] The system which generated this result transmitted reference range: 4.30 - 11.10 10*3/?L. The reference range was not used to interpret this result as normal/abnormal. RBC (test code = 789-8) See_Comment [Automated [employer] ge] The system which generated this result transmitted reference range: 3.93 - 5.25 10*6/?L. The reference range was not used to interpret this result as normal/abnormal. HGB (test code = 718-7) 13.2 g/dL 11.6-15.0 HCT (test code = 4544-3) 40.9 % 35.7-45.2 MCV (test code = 787-2) 82.3 fL 80.6-95.5 MCH (test code = 785-6) 26.6 pg 25.9-32.8 MCHC (test code = 786-4) 32.3 g/dL 31.6-35.1 RDW-SD (test code = 12226-1) 48.7 fL 39.0-49.9 RDW-CV (test code = 788-0) 16.1 % 12.0-15.5 H PLT (test code = 777-3) See_Comment [Automated [employer] ge] The system which generated this result transmitted reference range: 166 - 358 10*3/?L. The reference range was not used to interpret this result as normal/abnormal. MPV (test code = 21420-2) 9.8 fL 9.5-12.9 NRBC/100 WBC (test code = 4296119097) See_Comment [Automated [employer] ssage] The system which generated this result transmitted reference range: 0.0 - 10.0 /100 WBCs. The reference range was not used to interpret this result as normal/abnormal. NRBC x10^3 (test code = 9411770691) <0.01 See_Comment [Automated [employer] ge] The system which generated this result transmitted reference range: 10*3/?L. The reference range was not used to interpret this result as normal/abnormal. GRAN MAT (NEUT) % (test code = 770-8) 62.7 % IMM GRAN % (test code = 0723503529) 0.40 % LYMPH % (test code = 736-9) 29.5 % MONO % (test code = 5905-5) 6.4 % EOS % (test code = 713-8) 0.5 % BASO % (test code = 706-2) 0.5 % GRAN MAT x10^3(ANC) (test code = 8387829342) 3.45 10*3/uL 1.88-7.09 IMM GRAN x10^3 (test code = 1999165384) <0.03 0.00-0.06 LYMPH x10^3 (test code = 731-0) 1.62 10*3/uL 1.32-3.29 MONO x10^3 (test code = 742-7) 0.35 10*3/uL 0.33-0.92 EOS x10^3 (test code = 711-2) 0.03 10*3/uL 0.03-0.39 BASO x10^3 (test code = 704-7) 0.03 10*3/uL 0.01-0.07 Lab Interpretation (test code = 73745-4) Abnormal [facility] METABOLIC PANEL (NA, K, CL, CO2, GLUCOSE, BUN, CREATININE, CA)2021-05-26 23:10:45* Test Item Value Reference Range Interpretation Comme nts NA (test code = 6343975255) 136 mmol/L 135-145 K (test code = 9812775650) 4.7 mmol/L 3.5-5.0 CL (test code = 4580828959) 106 mmol/L 98-108 CO2 TOTAL (test code = 5523409503) 23 mmol/L 23-31 AGAP (test code = 1567900424) 2-16 BUN (test code = 7671673315) 18 mg/dL 7-23 GLUCOSE (test code = 7464263494) 84 mg/dL 70-110 CREATININE (test code = 1474205358) 0.68 mg/dL 0.50-1.04 CALCIUM (test code = 5759623705) 9.6 mg/dL 8.6-10.6 eGFR (test code = 4576972552) mL/min/1.73m2 PADMA (test code = PADMA) Association of Glomerular Filtration Rate (GFR) and Staging of Kidney Disease* + + +- +| GFR (mL/min/1.73 m2) ?| With Kidney Damage ?| ?Without Kidney Damage+ ------+ ----+ ------+| ?>90 ?| ?Stage one ?| ? Normal ?+ -+ + -+| ?60-89 ?| ?Stage two ?| ? Decreased GFR ? + + +- +| ?30-59 ?| ?Stage three ?| ? Stage three ? + + +- +| ?15-29 ?| ?Stage four ? | ? Stage four ?+ -+ + -+| ?<15 (or dialysis) ? ?| ?Stage five ? | ? Stage five ?+ -+ + -+ *Each stage assumes the associated GFR level has been in effect for at least three months. ?Stages 1 to 5, with or without kidney disease, indicate chronic kidney disease. Notes: Determination of stages one and two (with eGFR >59mL/min/1.73 m2) requires estimation of kidney damage for at least three months as defined by structural or functional abnormalities of the kidney, manifested by either:Pathological abnormalities or Markers of kidney damage (including abnormalities in the composition of the blood or urine or abnormalities in imaging tests). [facility] [id number] 22:35:00* Test Item Value Reference Range Interpretation Comme nts POCT PREG (test code = 1605) negative On board controls acceptable with C Line (test code = 3574) present POCT PREG LOT # (test code = 3575) [id number] POCT PREG TEST DATE ( test code = 3576) Lab Interpretation (test cod e = 78153-5) Normal [facility] STREP SCREEN FOR GROUP [id number] 21:39:01* Test Item Value Reference Range Interpretation Comme nts Streptococcus pyogenes (grou p A) antigen (test code = 88647-1) Negative Negative Lab Interpretation (test cod e = 70879-8) Normal [facility] (ID NOW RAPID TESTING)2020-11-19 21:28:16* Test Item Value Reference Range Interpretation Comme nts SARS-CoV-2 Rapid ID NOW (test code = 86097-7) Not Detected Not Detected PADMA (test code = PADMA) ID NOW COVID-19 As say is an isothermal nucleic acid amplification test intended for the qualitative detection of nucleic acid from SARS-CoV-2 viral RNA in nasopharyngeal (BOOKING AGENT) specimens. It is used under Emergency Use Authorization (EUA) by FDA. The limit of detection (LOD) of the assay is 125 Genome Equivalents/mL. A positive result is indicative of the presence of SARS-CoV-2 RNA. ?Clinical correlation with patient history and other diagnostic information is necessary to determine patient infection status. A negative (Not Detected) result does not preclude SARS-CoV-2 infection. In patients with clinical symptoms and other tests that are consistent with SARS-CoV-2 infection, negative results should be treated as presumptive negative and a new specimen should be tested with alternative PCR molecular test. Invalid: Please collect a new specimen for repeat patient testing if clinically indicated. Lab Interpretation (test code = 93362-5) Normal [facility]. METABOLIC PANEL (41451)2020-11-19 21:25:54* Test Item Value Reference Range Interpretation Comme nts NA (test code = 5696958426) 138 mmol/L 135-145 K (test code = 6059724090) 4.2 mmol/L 3.5-5.0 CL (test code = 2510259287) 109 mmol/L 98-108 H CO2 TOTAL (test code = 8944792883) 22 mmol/L 23-31 L AGAP (test code = 2035335940) 2-16 BUN (test code = 2418839473) 19 mg/dL 7-23 GLUCOSE (test code = 9869001122) 90 mg/dL 70-110 CREATININE (test code = 0129940370) 0.76 mg/dL 0.50-1.04 TOTAL BILI (test code = 3502225374) 0.5 mg/dL 0.1-1.1 CALCIUM (test code = 1160030785) 9.9 mg/dL 8.6-10.6 T PROTEIN (test code = 0203970866) 7.8 g/dL 6.3-8.2 ALBUMIN (test code = 2054758115) 4.4 g/dL 3.5-5.0 ALK PHOS (test code = 0691617513) 47 U/L 34-122 ALTv (test code = 1742-6) 16 U/L 5-35 AST(SGOT) (test code = 7332616280) 22 U/L 13-40 eGFR (test code = 6690985246) mL/min/1.73m2 PADMA (test code = PADMA) Association of Glomerular Filtration Rate (GFR) and Staging of Kidney Disease* + --+ --+ ------+| GFR (mL/min/1.73 m2) ?| With Kidney Damage ?| ?Without Kidney Damage+ --------+ --------+ +| ?>90 ?| ?Stage one ?| ? Normal ?+ ---+ ---+ -------+| ?60-89 ?| ?Stage two ?| ? Decreased GFR ? + --+ --+ ------+| ?30-59 ?| ?Stage three ?| ? Stage three ? + --+ --+ ------+| ?15-29 ?| ?Stage four ? | ? Stage four ?+ ---+ ---+ -------+| ?<15 (or dialysis) ? ?| ?Stage five ? | ? Stage five ?+ ---+ ---+ -------+ *Each stage assumes the associated GFR level has been in effect for at least three months. ?Stages 1 to 5, with or without kidney disease, indicate chronic kidney disease. Notes: Determination of stages one and two (with eGFR >59mL/min/1.73 m2) requires estimation of kidney damage for at least three months as defined by structural or functional abnormalities of the kidney, manifested by either:Pathological abnormalities or Markers of kidney damage (including abnormalities in the composition of the blood or urine or abnormalities in imaging tests). Lab Interpretation (test code = 82927-3) [facility]54* Test Item Value Reference Range Interpretation Comme nts LIPASE (test code = 4503233552) 74 U/L 0-220 Lab Interpretation (test cod e = 82938-1) [facility] [id number] 21:17:35* Test Item Value Reference Range Interpretation Comme nts WBC (test code = 6690-2) See_Comment [Automated [employer]] The system which generated this result transmitted reference range: 4.30 - 11.10 10*3/?L. The reference range was not used to interpret this result as normal/abnormal. RBC (test code = 789-8) See_Comment [Automated [employer]] The system which generated this result transmitted reference range: 3.93 - 5.25 10*6/?L. The reference range was not used to interpret this result as normal/abnormal. HGB (test code = 718-7) 12.7 g/dL 11.6-15.0 HCT (test code = 4544-3) 38.9 % 35.7-45.2 MCV (test code = 787-2) 82.1 fL 80.6-95.5 MCH (test code = 785-6) 26.8 pg 25.9-32.8 MCHC (test code = 786-4) 32.6 g/dL 31.6-35.1 RDW-SD (test code = 57130-4) 46.7 fL 39.0-49.9 RDW-CV (test code = 788-0) 15.6 % 12.0-15.5 H PLT (test code = 777-3) See_Comment [Automated [employer]] The system which generated this result transmitted reference range: 166 - 358 10*3/?L. The reference range was not used to interpret this result as normal/abnormal. MPV (test code = 45715-1) 9.8 fL 9.5-12.9 NRBC/100 WBC (test code = 6923812471) See_Comment [Automated [employer] ssage] The system which generated this result transmitted reference range: 0.0 - 10.0 /100 WBCs. The reference range was not used to interpret this result as normal/abnormal. NRBC x10^3 (test code = 0807233837) <0.01 See_Comment [Automated [employer]] The system which generated this result transmitted reference range: 10*3/?L. The reference range was not used to interpret this result as normal/abnormal. GRAN MAT (NEUT) % (test code = 770-8) 43.0 % IMM GRAN % (test code = 1149775505) 0.20 % LYMPH % (test code = 736-9) 46.9 % MONO % (test code = 5905-5) 7.5 % EOS % (test code = 713-8) 1.3 % BASO % (test code = 706-2) 1.1 % GRAN MAT x10^3(ANC) (test code = 8297501169) 2.02 10*3/uL 1.88-7.09 IMM GRAN x10^3 (test code = 3476257906) <0.03 0.00-0.06 LYMPH x10^3 (test code = 731-0) 2.20 10*3/uL 1.32-3.29 MONO x10^3 (test code = 742-7) 0.35 10*3/uL 0.33-0.92 EOS x10^3 (test code = 711-2) 0.06 10*3/uL 0.03-0.39 BASO x10^3 (test code = 704-7) 0.05 10*3/uL 0.01-0.07 Lab Interpretation (test code = 54629-2) [id number]:01:00* Test Item Value Reference Range Interpretation Comme nts POCT PREG (test code = 1605) negative On board controls acceptable with C Line (test code = 3574) present POCT PREG LOT # (test code = 3575) [id number] POCT PREG TEST DATE ( test code = 3576) Lab Interpretation (test cod e = 07048-0) [facility] [id number] 00:00:00* Test Item Value Reference Range Interpretation Comme nts WBC (test code = 1001) 4.4 K/UL RBC (test code = 1002) 4.86 M/UL HEMOGLOBIN (test code = 1003) 13.3 G/DL HEMATOCRIT (test code = 1004) 40.3 % MCV (test code = 1005) 82.9 fL MCH (test code = 1006) 27.4 PG MCHC (test code = 1007) 33.0 G/DL RDW (test code = 1038) 15.2 % NEUTROPHILS (test code = 1008) 57.8 % LYMPHOCYTES (test code = 1010) 32.7 % MONOCYTES (test code = 1011) 7.5 % EOSINOPHILS (test code = 1012) 1.1 % BASOPHILS (test code = 1013) 0.9 % PLATELET COUNT (test code = 1015) 320 K/UL CBC W/AUTO [id number] 00:00:00* Test Item Value Reference Range Interpretation Comme nts WBC (test code = 1001) 4.4 K/UL RBC (test code = 1002) 4.86 M/UL HEMOGLOBIN (test code = 1003) 13.3 G/DL HEMATOCRIT (test code = 1004) 40.3 % MCV (test code = 1005) 82.9 fL MCH (test code = 1006) 27.4 PG MCHC (test code = 1007) 33.0 G/DL RDW (test code = 1038) 15.2 % NEUTROPHILS (test code = 1008) 57.8 % LYMPHOCYTES (test code = 1010) 32.7 % MONOCYTES (test code = 1011) 7.5 % EOSINOPHILS (test code = 1012) 1.1 % BASOPHILS (test code = 1013) 0.9 % PLATELET COUNT (test code = 1015) 320 K/UL LIPID [id number] 00:00:00* Test Item Value Reference Range Interpretation Comme nts CHOLESTEROL (test code = 2210) 246 MG/DL TRIGLYCERIDES (test code = 2232) 99 MG/DL HDL CHOLESTEROL (test code = 2220) 63 MG/DL CALC LDL CHOL (test code = 2237) 162 MG/DL RISK RATIO LDL/HDL (test cod e = 2238) 2.57 RATIO LIPID [id number] 00:00:00* Test Item Value Reference Range Interpretation Comme nts CHOLESTEROL (test code = 2210) 246 MG/DL TRIGLYCERIDES (test code = 2232) 99 MG/DL HDL CHOLESTEROL (test code = 2220) 63 MG/DL CALC LDL CHOL (test code = 2237) 162 MG/DL RISK RATIO LDL/HDL (test cod e = 2238) 2.57 RATIO HEMOGLOBIN [id number] 00:00:00* Test Item Value Reference Range Interpretation Comme nts HEMOGLOBIN A1c (test code = 96381) 5.4 % HEMOGLOBIN [id number] 00:00:00* Test Item Value Reference Range Interpretation Comme nts HEMOGLOBIN A1c (test code = 96882) 5.4 % HEMOGLOBIN [id number] 00:00:00* Test Item Value Reference Range Interpretation Comme nts HEMOGLOBIN A1c (test code = 14174) 5.4 % COMPREHENSIVE METABOLIC [id number] 00:00:00* Test Item Value Reference Range Interpretation Comme nts GLUCOSE (test code = 2217) 93 MG/DL BUN (test code = 2208) 12 MG/DL CREATININE (test code = 2214) 0.78 MG/DL eGFR AMER. (test cod e = 08036) 110 ML/MIN/1.73 eGFR NON- AMER. (test code = 70409) 95 ML/MIN/1.73 CALC BUN/CREAT (test code = 2235) 15 RATIO SODIUM (test code = 2231) 139 MEQ/L POTASSIUM (test code = 2228) 4.1 MEQ/L CHLORIDE (test code = 2215) 102 MEQ/L CARBON DIOXIDE (test code = 2206) 26 MEQ/L CALCIUM (test code = 2209) 9.4 MG/DL PROTEIN, TOTAL (test code = 2229) 6.9 G/DL ALBUMIN (test code = 2201) 4.2 G/DL CALC GLOBULIN (test code = 2240) 2.7 G/DL CALC A/G RATIO (test code = 2234) 1.6 RATIO BILIRUBIN, TOTAL (test code = 2207) 0.3 MG/DL ALKALINE PHOSPHATASE (test code = 2204) 50 U/L AST (test code = 2218) 15 U/L ALT (test code = 2219) 13 U/L COMPREHENSIVE METABOLIC [id number] 00:00:00* Test Item Value Reference Range Interpretation Comme nts GLUCOSE (test code = 2217) 93 MG/DL BUN (test code = 2208) 12 MG/DL CREATININE (test code = 2214) 0.78 MG/DL eGFR AMER. (test cod e = 50537) 110 ML/MIN/1.73 eGFR NON- AMER. (test code = 62838) 95 ML/MIN/1.73 CALC BUN/CREAT (test code = 2235) 15 RATIO SODIUM (test code = 2231) 139 MEQ/L POTASSIUM (test code = 2228) 4.1 MEQ/L CHLORIDE (test code = 2215) 102 MEQ/L CARBON DIOXIDE (test code = 2206) 26 MEQ/L CALCIUM (test code = 2209) 9.4 MG/DL PROTEIN, TOTAL (test code = 2229) 6.9 G/DL ALBUMIN (test code = 2201) 4.2 G/DL CALC GLOBULIN (test code = 2240) 2.7 G/DL CALC A/G RATIO (test code = 2234) 1.6 RATIO BILIRUBIN, TOTAL (test code = 2207) 0.3 MG/DL ALKALINE PHOSPHATASE (test code = 2204) 50 U/L AST (test code = 2218) 15 U/L ALT (test code = 2219) 13 U/L CBC W/AUTO [id number] 00:00:00* Test Item Value Reference Range Interpretation Comme nts WBC (test code = 1001) 4.4 K/UL RBC (test code = 1002) 4.86 M/UL HEMOGLOBIN (test code = 1003) 13.3 G/DL HEMATOCRIT (test code = 1004) 40.3 % MCV (test code = 1005) 82.9 fL MCH (test code = 1006) 27.4 PG MCHC (test code = 1007) 33.0 G/DL RDW (test code = 1038) 15.2 % NEUTROPHILS (test code = 1008) 57.8 % LYMPHOCYTES (test code = 1010) 32.7 % MONOCYTES (test code = 1011) 7.5 % EOSINOPHILS (test code = 1012) 1.1 % BASOPHILS (test code = 1013) 0.9 % PLATELET COUNT (test code = 1015) 320 K/UL CBC W/AUTO [id number] 00:00:00* Test Item Value Reference Range Interpretation Comme nts WBC (test code = 1001) 4.4 K/UL RBC (test code = 1002) 4.86 M/UL HEMOGLOBIN (test code = 1003) 13.3 G/DL HEMATOCRIT (test code = 1004) 40.3 % MCV (test code = 1005) 82.9 fL MCH (test code = 1006) 27.4 PG MCHC (test code = 1007) 33.0 G/DL RDW (test code = 1038) 15.2 % NEUTROPHILS (test code = 1008) 57.8 % LYMPHOCYTES (test code = 1010) 32.7 % MONOCYTES (test code = 1011) 7.5 % EOSINOPHILS (test code = 1012) 1.1 % BASOPHILS (test code = 1013) 0.9 % PLATELET COUNT (test code = 1015) 320 K/UL CBC W/AUTO [id number] 00:00:00* Test Item Value Reference Range Interpretation Comme nts WBC (test code = 1001) 4.4 K/UL RBC (test code = 1002) 4.86 M/UL HEMOGLOBIN (test code = 1003) 13.3 G/DL HEMATOCRIT (test code = 1004) 40.3 % MCV (test code = 1005) 82.9 fL MCH (test code = 1006) 27.4 PG MCHC (test code = 1007) 33.0 G/DL RDW (test code = 1038) 15.2 % NEUTROPHILS (test code = 1008) 57.8 % LYMPHOCYTES (test code = 1010) 32.7 % MONOCYTES (test code = 1011) 7.5 % EOSINOPHILS (test code = 1012) 1.1 % BASOPHILS (test code = 1013) 0.9 % PLATELET COUNT (test code = 1015) 320 K/UL LIPID [id number] 00:00:00* Test Item Value Reference Range Interpretation Comme nts CHOLESTEROL (test code = 2210) 246 MG/DL TRIGLYCERIDES (test code = 2232) 99 MG/DL HDL CHOLESTEROL (test code = 2220) 63 MG/DL CALC LDL CHOL (test code = 2237) 162 MG/DL RISK RATIO LDL/HDL (test cod e = 2238) 2.57 RATIO LIPID [id number] 00:00:00* Test Item Value Reference Range Interpretation Comme nts CHOLESTEROL (test code = 2210) 246 MG/DL TRIGLYCERIDES (test code = 2232) 99 MG/DL HDL CHOLESTEROL (test code = 2220) 63 MG/DL CALC LDL CHOL (test code = 2237) 162 MG/DL RISK RATIO LDL/HDL (test cod e = 2238) 2.57 RATIO HEMOGLOBIN [id number] 00:00:00* Test Item Value Reference Range Interpretation Comme nts HEMOGLOBIN A1c (test code = 19263) 5.4 % HEMOGLOBIN [id number] 00:00:00* Test Item Value Reference Range Interpretation Comme nts HEMOGLOBIN A1c (test code = 20299) 5.4 % HEMOGLOBIN [id number] 00:00:00* Test Item Value Reference Range Interpretation Comme nts HEMOGLOBIN A1c (test code = 45882) 5.4 % COMPREHENSIVE METABOLIC [id number] 00:00:00* Test Item Value Reference Range Interpretation Comme nts GLUCOSE (test code = 2217) 93 MG/DL BUN (test code = 2208) 12 MG/DL CREATININE (test code = 2214) 0.78 MG/DL eGFR AMER. (test cod e = 34664) 110 ML/MIN/1.73 eGFR NON- AMER. (test code = 44178) 95 ML/MIN/1.73 CALC BUN/CREAT (test code = 2235) 15 RATIO SODIUM (test code = 2231) 139 MEQ/L POTASSIUM (test code = 2228) 4.1 MEQ/L CHLORIDE (test code = 2215) 102 MEQ/L CARBON DIOXIDE (test code = 2206) 26 MEQ/L CALCIUM (test code = 2209) 9.4 MG/DL PROTEIN, TOTAL (test code = 2229) 6.9 G/DL ALBUMIN (test code = 2201) 4.2 G/DL CALC GLOBULIN (test code = 2240) 2.7 G/DL CALC A/G RATIO (test code = 2234) 1.6 RATIO BILIRUBIN, TOTAL (test code = 2207) 0.3 MG/DL ALKALINE PHOSPHATASE (test code = 2204) 50 U/L AST (test code = 2218) 15 U/L ALT (test code = 2219) 13 U/L COMPREHENSIVE METABOLIC [id number] 00:00:00* Test Item Value Reference Range Interpretation Comme nts GLUCOSE (test code = 2217) 93 MG/DL BUN (test code = 2208) 12 MG/DL CREATININE (test code = 2214) 0.78 MG/DL eGFR AMER. (test cod e = 15446) 110 ML/MIN/1.73 eGFR NON- AMER. (test code = 66077) 95 ML/MIN/1.73 CALC BUN/CREAT (test code = 2235) 15 RATIO SODIUM (test code = 2231) 139 MEQ/L POTASSIUM (test code = 2228) 4.1 MEQ/L CHLORIDE (test code = 2215) 102 MEQ/L CARBON DIOXIDE (test code = 2206) 26 MEQ/L CALCIUM (test code = 2209) 9.4 MG/DL PROTEIN, TOTAL (test code = 2229) 6.9 G/DL ALBUMIN (test code = 2201) 4.2 G/DL CALC GLOBULIN (test code = 2240) 2.7 G/DL CALC A/G RATIO (test code = 2234) 1.6 RATIO BILIRUBIN, TOTAL (test code = 2207) 0.3 MG/DL ALKALINE PHOSPHATASE (test code = 2204) 50 U/L AST (test code = 2218) 15 U/L ALT (test code = 2219) 13 U/L CBC W/AUTO [id number] 00:00:00* Test Item Value Reference Range Interpretation Comme nts WBC (test code = 1001) 4.4 K/UL RBC (test code = 1002) 4.86 M/UL HEMOGLOBIN (test code = 1003) 13.3 G/DL HEMATOCRIT (test code = 1004) 40.3 % MCV (test code = 1005) 82.9 fL MCH (test code = 1006) 27.4 PG MCHC (test code = 1007) 33.0 G/DL RDW (test code = 1038) 15.2 % NEUTROPHILS (test code = 1008) 57.8 % LYMPHOCYTES (test code = 1010) 32.7 % MONOCYTES (test code = 1011) 7.5 % EOSINOPHILS (test code = 1012) 1.1 % BASOPHILS (test code = 1013) 0.9 % PLATELET COUNT (test code = 1015) 320 K/UL LIPID [id number] 00:00:00* Test Item Value Reference Range Interpretation Comme nts CHOLESTEROL (test code = 2210) 219 MG/DL TRIGLYCERIDES (test code = 2232) 75 MG/DL HDL CHOLESTEROL (test code = 2220) 64 MG/DL CALC LDL CHOL (test code = 2237) 138 MG/DL RISK RATIO LDL/HDL (test cod e = 2238) 2.16 RATIO LIPID [id number] 00:00:00* Test Item Value Reference Range Interpretation Comme nts CHOLESTEROL (test code = 2210) 219 MG/DL TRIGLYCERIDES (test code = 2232) 75 MG/DL HDL CHOLESTEROL (test code = 2220) 64 MG/DL CALC LDL CHOL (test code = 2237) 138 MG/DL RISK RATIO LDL/HDL (test cod e = 2238) 2.16 RATIO [id number] 00:00:00* Test Item Value Reference Range Interpretation Comme nts TSH, THIRD GENERATION (test code = 2821) 1.720 UIU/ML [id number] 00:00:00* Test Item Value Reference Range Interpretation Comme nts TSH, THIRD GENERATION (test code = 2821) 1.720 UIU/ML [id number] 00:00:00* Test Item Value Reference Range Interpretation Comme nts TSH, THIRD GENERATION (test code = 2821) 1.720 UIU/ML COMPREHENSIVE METABOLIC [id number] 00:00:00* Test Item Value Reference Range Interpretation Comme nts GLUCOSE (test code = 2217) 73 MG/DL BUN (test code = 2208) 14 MG/DL CREATININE (test code = 2214) 0.70 MG/DL eGFR AMER. (test cod e = 70422) 126 ML/MIN/1.73 eGFR NON- AMER. (test code = 00700) 109 ML/MIN/1.73 CALC BUN/CREAT (test code = 2235) 20 RATIO SODIUM (test code = 2231) 140 MEQ/L POTASSIUM (test code = 2228) 4.0 MEQ/L CHLORIDE (test code = 2215) 104 MEQ/L CARBON DIOXIDE (test code = 2206) 25 MEQ/L CALCIUM (test code = 2209) 9.3 MG/DL PROTEIN, TOTAL (test code = 2229) 7.2 G/DL ALBUMIN (test code = 2201) 4.3 G/DL CALC GLOBULIN (test code = 2240) 2.9 G/DL CALC A/G RATIO (test code = 2234) 1.5 RATIO BILIRUBIN, TOTAL (test code = 2207) <0.2 MG/DL ALKALINE PHOSPHATASE (test code = 2204) 61 U/L AST (test code = 2218) 16 U/L ALT (test code = 2219) 19 U/L COMPREHENSIVE METABOLIC [id number] 00:00:00* Test Item Value Reference Range Interpretation Comme nts GLUCOSE (test code = 2217) 73 MG/DL BUN (test code = 2208) 14 MG/DL CREATININE (test code = 2214) 0.70 MG/DL eGFR AMER. (test cod e = 97404) 126 ML/MIN/1.73 eGFR NON- AMER. (test code = 91975) 109 ML/MIN/1.73 CALC BUN/CREAT (test code = 2235) 20 RATIO SODIUM (test code = 2231) 140 MEQ/L POTASSIUM (test code = 2228) 4.0 MEQ/L CHLORIDE (test code = 2215) 104 MEQ/L CARBON DIOXIDE (test code = 2206) 25 MEQ/L CALCIUM (test code = 2209) 9.3 MG/DL PROTEIN, TOTAL (test code = 2229) 7.2 G/DL ALBUMIN (test code = 2201) 4.3 G/DL CALC GLOBULIN (test code = 2240) 2.9 G/DL CALC A/G RATIO (test code = 2234) 1.5 RATIO BILIRUBIN, TOTAL (test code = 2207) <0.2 MG/DL ALKALINE PHOSPHATASE (test code = 2204) 61 U/L AST (test code = 2218) 16 U/L ALT (test code = 2219) 19 U/L LIPID [id number] 00:00:00* Test Item Value Reference Range Interpretation Comme nts CHOLESTEROL (test code = 2210) 219 MG/DL TRIGLYCERIDES (test code = 2232) 75 MG/DL HDL CHOLESTEROL (test code = 2220) 64 MG/DL CALC LDL CHOL (test code = 2237) 138 MG/DL RISK RATIO LDL/HDL (test cod e = 2238) 2.16 RATIO LIPID [id number] 00:00:00* Test Item Value Reference Range Interpretation Comme nts CHOLESTEROL (test code = 2210) 219 MG/DL TRIGLYCERIDES (test code = 2232) 75 MG/DL HDL CHOLESTEROL (test code = 2220) 64 MG/DL CALC LDL CHOL (test code = 2237) 138 MG/DL RISK RATIO LDL/HDL (test cod e = 2238) 2.16 RATIO [id number] 00:00:00* Test Item Value Reference Range Interpretation Comme nts TSH, THIRD GENERATION (test code = 2821) 1.720 UIU/ML [id number] 00:00:00* Test Item Value Reference Range Interpretation Comme nts TSH, THIRD GENERATION (test code = 2821) 1.720 UIU/ML [id number] 00:00:00* Test Item Value Reference Range Interpretation Comme nts TSH, THIRD GENERATION (test code = 2821) 1.720 UIU/ML COMPREHENSIVE METABOLIC [id number] 00:00:00* Test Item Value Reference Range Interpretation Comme nts GLUCOSE (test code = 2217) 73 MG/DL BUN (test code = 2208) 14 MG/DL CREATININE (test code = 2214) 0.70 MG/DL eGFR AMER. (test cod e = 08326) 126 ML/MIN/1.73 eGFR NON- AMER. (test code = 80360) 109 ML/MIN/1.73 CALC BUN/CREAT (test code = 2235) 20 RATIO SODIUM (test code = 2231) 140 MEQ/L POTASSIUM (test code = 2228) 4.0 MEQ/L CHLORIDE (test code = 2215) 104 MEQ/L CARBON DIOXIDE (test code = 2206) 25 MEQ/L CALCIUM (test code = 2209) 9.3 MG/DL PROTEIN, TOTAL (test code = 2229) 7.2 G/DL ALBUMIN (test code = 2201) 4.3 G/DL CALC GLOBULIN (test code = 2240) 2.9 G/DL CALC A/G RATIO (test code = 2234) 1.5 RATIO BILIRUBIN, TOTAL (test code = 2207) <0.2 MG/DL ALKALINE PHOSPHATASE (test code = 2204) 61 U/L AST (test code = 2218) 16 U/L ALT (test code = 2219) 19 U/L COMPREHENSIVE METABOLIC [id number] 00:00:00* Test Item Value Reference Range Interpretation Comme nts GLUCOSE (test code = 2217) 73 MG/DL BUN (test code = 2208) 14 MG/DL CREATININE (test code = 2214) 0.70 MG/DL eGFR AMER. (test cod e = 43883) 126 ML/MIN/1.73 eGFR NON- AMER. (test code = 52254) 109 ML/MIN/1.73 CALC BUN/CREAT (test code = 2235) 20 RATIO SODIUM (test code = 2231) 140 MEQ/L POTASSIUM (test code = 2228) 4.0 MEQ/L CHLORIDE (test code = 2215) 104 MEQ/L CARBON DIOXIDE (test code = 2206) 25 MEQ/L CALCIUM (test code = 2209) 9.3 MG/DL PROTEIN, TOTAL (test code = 2229) 7.2 G/DL ALBUMIN (test code = 2201) 4.3 G/DL CALC GLOBULIN (test code = 2240) 2.9 G/DL CALC A/G RATIO (test code = 2234) 1.5 RATIO BILIRUBIN, TOTAL (test code = 2207) <0.2 MG/DL ALKALINE PHOSPHATASE (test code = 2204) 61 U/L AST (test code = 2218) 16 U/L ALT (test code = 2219) 19 U/L LIPID [id number] 00:00:00* Test Item Value Reference Range Interpretation Comme nts CHOLESTEROL (test code = 2210) 214 MG/DL TRIGLYCERIDES (test code = 2232) 103 MG/DL HDL CHOLESTEROL (test code = 2220) 55 MG/DL CALC LDL CHOL (test code = 2237) 138 MG/DL RISK RATIO LDL/HDL (test cod e = 2238) 2.52 RATIO LIPID [id number] 00:00:00* Test Item Value Reference Range Interpretation Comme nts CHOLESTEROL (test code = 2210) 214 MG/DL TRIGLYCERIDES (test code = 2232) 103 MG/DL HDL CHOLESTEROL (test code = 2220) 55 MG/DL CALC LDL CHOL (test code = 2237) 138 MG/DL RISK RATIO LDL/HDL (test cod e = 2238) 2.52 RATIO HEMOGLOBIN [id number] 00:00:00* Test Item Value Reference Range Interpretation Comme nts HEMOGLOBIN A1c (test code = 91374) 5.5 % HEMOGLOBIN [id number] 00:00:00* Test Item Value Reference Range Interpretation Comme nts HEMOGLOBIN A1c (test code = 32749) 5.5 % HEMOGLOBIN [id number] 00:00:00* Test Item Value Reference Range Interpretation Comme nts HEMOGLOBIN A1c (test code = 98298) 5.5 % COMPREHENSIVE METABOLIC [id number] 00:00:00* Test Item Value Reference Range Interpretation Comme nts GLUCOSE (test code = 2217) 83 MG/DL BUN (test code = 2208) 10 MG/DL CREATININE (test code = 2214) 0.73 MG/DL eGFR AMER. (test cod e = 38641) 120 ML/MIN/1.73 eGFR NON- AMER. (test code = 68575) 104 ML/MIN/1.73 CALC BUN/CREAT (test code = 2235) 14 RATIO SODIUM (test code = 2231) 142 MEQ/L POTASSIUM (test code = 2228) 4.3 MEQ/L CHLORIDE (test code = 2215) 106 MEQ/L CARBON DIOXIDE (test code = 2206) 25 MEQ/L CALCIUM (test code = 2209) 9.0 MG/DL PROTEIN, TOTAL (test code = 2229) 6.7 G/DL ALBUMIN (test code = 2201) 4.3 G/DL CALC GLOBULIN (test code = 2240) 2.4 G/DL CALC A/G RATIO (test code = 2234) 1.8 RATIO BILIRUBIN, TOTAL (test code = 2207) 0.2 MG/DL ALKALINE PHOSPHATASE (test code = 2204) 52 U/L AST (test code = 2218) 19 U/L ALT (test code = 2219) 23 U/L COMPREHENSIVE METABOLIC [id number] 00:00:00* Test Item Value Reference Range Interpretation Comme nts GLUCOSE (test code = 2217) 83 MG/DL BUN (test code = 2208) 10 MG/DL CREATININE (test code = 2214) 0.73 MG/DL eGFR AMER. (test cod e = 75005) 120 ML/MIN/1.73 eGFR NON- AMER. (test code = 38081) 104 ML/MIN/1.73 CALC BUN/CREAT (test code = 2235) 14 RATIO SODIUM (test code = 2231) 142 MEQ/L POTASSIUM (test code = 2228) 4.3 MEQ/L CHLORIDE (test code = 2215) 106 MEQ/L CARBON DIOXIDE (test code = 2206) 25 MEQ/L CALCIUM (test code = 2209) 9.0 MG/DL PROTEIN, TOTAL (test code = 2229) 6.7 G/DL ALBUMIN (test code = 2201) 4.3 G/DL CALC GLOBULIN (test code = 2240) 2.4 G/DL CALC A/G RATIO (test code = 2234) 1.8 RATIO BILIRUBIN, TOTAL (test code = 2207) 0.2 MG/DL ALKALINE PHOSPHATASE (test code = 2204) 52 U/L AST (test code = 2218) 19 U/L ALT (test code = 2219) 23 U/L LIPID [id number] 00:00:00* Test Item Value Reference Range Interpretation Comme nts CHOLESTEROL (test code = 2210) 214 MG/DL TRIGLYCERIDES (test code = 2232) 103 MG/DL HDL CHOLESTEROL (test code = 2220) 55 MG/DL CALC LDL CHOL (test code = 2237) 138 MG/DL RISK RATIO LDL/HDL (test cod e = 2238) 2.52 RATIO LIPID [id number] 00:00:00* Test Item Value Reference Range Interpretation Comme nts CHOLESTEROL (test code = 2210) 214 MG/DL TRIGLYCERIDES (test code = 2232) 103 MG/DL HDL CHOLESTEROL (test code = 2220) 55 MG/DL CALC LDL CHOL (test code = 2237) 138 MG/DL RISK RATIO LDL/HDL (test cod e = 2238) 2.52 RATIO HEMOGLOBIN [id number] 00:00:00* Test Item Value Reference Range Interpretation Comme nts HEMOGLOBIN A1c (test code = 82807) 5.5 % HEMOGLOBIN [id number] 00:00:00* Test Item Value Reference Range Interpretation Comme nts HEMOGLOBIN A1c (test code = 57186) 5.5 % HEMOGLOBIN [id number] 00:00:00* Test Item Value Reference Range Interpretation Comme nts HEMOGLOBIN A1c (test code = 56203) 5.5 % COMPREHENSIVE METABOLIC [id number] 00:00:00* Test Item Value Reference Range Interpretation Comme nts GLUCOSE (test code = 2217) 83 MG/DL BUN (test code = 2208) 10 MG/DL CREATININE (test code = 2214) 0.73 MG/DL eGFR AMER. (test cod e = 79308) 120 ML/MIN/1.73 eGFR NON- AMER. (test code = 54314) 104 ML/MIN/1.73 CALC BUN/CREAT (test code = 2235) 14 RATIO SODIUM (test code = 2231) 142 MEQ/L POTASSIUM (test code = 2228) 4.3 MEQ/L CHLORIDE (test code = 2215) 106 MEQ/L CARBON DIOXIDE (test code = 2206) 25 MEQ/L CALCIUM (test code = 2209) 9.0 MG/DL PROTEIN, TOTAL (test code = 2229) 6.7 G/DL ALBUMIN (test code = 2201) 4.3 G/DL CALC GLOBULIN (test code = 2240) 2.4 G/DL CALC A/G RATIO (test code = 2234) 1.8 RATIO BILIRUBIN, TOTAL (test code = 2207) 0.2 MG/DL ALKALINE PHOSPHATASE (test code = 2204) 52 U/L AST (test code = 2218) 19 U/L ALT (test code = 2219) 23 U/L COMPREHENSIVE METABOLIC [id number] 00:00:00* Test Item Value Reference Range Interpretation Comme nts GLUCOSE (test code = 2217) 83 MG/DL BUN (test code = 2208) 10 MG/DL CREATININE (test code = 2214) 0.73 MG/DL eGFR AMER. (test cod e = 55805) 120 ML/MIN/1.73 eGFR NON- AMER. (test code = 27068) 104 ML/MIN/1.73 CALC BUN/CREAT (test code = 2235) 14 RATIO SODIUM (test code = 2231) 142 MEQ/L POTASSIUM (test code = 2228) 4.3 MEQ/L CHLORIDE (test code = 2215) 106 MEQ/L CARBON DIOXIDE (test code = 2206) 25 MEQ/L CALCIUM (test code = 2209) 9.0 MG/DL PROTEIN, TOTAL (test code = 2229) 6.7 G/DL ALBUMIN (test code = 2201) 4.3 G/DL CALC GLOBULIN (test code = 2240) 2.4 G/DL CALC A/G RATIO (test code = 2234) 1.8 RATIO BILIRUBIN, TOTAL (test code = 2207) 0.2 MG/DL ALKALINE PHOSPHATASE (test code = 2204) 52 U/L AST (test code = 2218) 19 U/L ALT (test code = 2219) 23 U/L [id number] 01:11:00* Test Item Value Reference Range Interpretation Comme nts APPEARANCE (test code = 0464880748) Clear Clear COLOR (test code = 1227704736) Yellow Yellow PH (test code = 9329326183) 4.8-8.0 SP GRAVITY (test code = 8048918408) <=1.005 1.003-1.030 GLU U QUAL (test code = 7261183696) Negative Negative BLOOD (test code = 4819891365) Negative Negative KETONES (test code = 4773720452) Negative Negative PROTEIN (test code = 2887-8) Negative Negative UROBILIN (test code = 6875640570) 0.2 mg/dL See_Comment [Automated [employer] ge] The system which generated this result transmitted reference range: 0-1.0 mg/dL. The reference range was not used to interpret this result as normal/abnormal. BILIRUBIN (test code = 4138234608) Negative Negative NITRITE (test code = 5860112887) Negative Negative LEUK ONEAL (test code = 1040599685) Negative Negative RBC/HPF (test code = 1925603098) See_Comment [Automated [employer]] The system which generated this result transmitted reference range: 0 - 3 HPF. The reference range was not used to interpret this result as normal/abnormal. WBC/HPF (test code = 1109658359) See_Comment [Automated messa ge] The system which generated this result transmitted reference range: 0 - 5 HPF. The reference range was not used to interpret this result as normal/abnormal. BACTERIA (test code = 4428671474) Few Negative A SQ EPITH (test code = 2913476428) HPF Lab Interpretation (test code = 80549-7) Abnormal [facility]. METABOLIC PANEL (53469)2019-01-12 01:02:00* Test Item Value Reference Range Interpretation Comme nts NA (test code = 2229548514) 142 mmol/L 135-145 K (test code = 5829352301) 4.4 mmol/L 3.5-5 CL (test code = 7673536870) 111 mmol/L 98-108 H CO2 TOTAL (test code = 6528960728) 24 mmol/L 23-31 AGAP (test code = 7179270457) 2-16 BUN (test code = 1269305801) 15 mg/dL 7-23 GLUCOSE (test code = 3376527983) 90 mg/dL 70-110 CREATININE (test code = 9745424352) 0.78 mg/dL 0.5-1.04 TOTAL BILI (test code = 4752127373) 0.1 mg/dL 0.1-1.1 CALCIUM (test code = 6566644845) 9.5 mg/dL 8.6-10.6 T PROTEIN (test code = 2297478768) 7.1 g/dL 6.3-8.2 ALBUMIN (test code = 3855266160) 4.1 g/dL 3.5-5 ALK PHOS (test code = 7653563932) 60 U/L 34-122 ALT(SGPT) (test code = 5103136781) 40 U/L 9-51 AST(SGOT) (test code = 6813257754) 27 U/L 13-40 eGFR Calculation (Non-) (test code = 2922990960) mL/min/1.73m2 eGFR Calculation () (test code = 3908339090) mL/min/1.73m2 PADMA (test code = PADMA) Association of Glomerular Filtration Rate (GFR) and Staging of Kidney Disease*+ + + +| GFR (mL/min/1.73 m2)?| With Kidney Damage?|?Without Kidney Damage+ --------+ --------+ +|?>90?|?S tage one?|? Normal?+ ---------+ ---------+ +|?60-89? |?Stage two?|? Decreased GFR? + --+ --+ ------+|?30-59?|?Stage three?|? Stage three? + --+ --+ ------+|?15-29?|?Stage four? |? Stage four?+ -------+ -------+ +|?<15 (or dialysis)?|?Stage five? |? Stage five?+ -------+ -------+ +*Each stage assumes the associated GFR level has been in effect for at least three months.?Stages 1 to 5, with or without kidney disease, indicate chronic kidney disease.Notes: Determination of stages one and two (with eGFR >59mL/min/1.73 m2) requires estimation of kidney damage for at least three months as defined by structural or functional abnormalities of the kidney, manifested by either:Pathological abnormalities or Markers of kidney damage (including abnormalities in the composition of the blood or urine or abnormalities in imaging tests). Lab Interpretation (test code = 93573-2) Abnormal [facility] WITH TGELWSYDHRDY8436-08-46 00:50:00* Test Item Value Reference Range Interpretation Comme nts WBC (test code = 6690-2) See_Comment [Automated [employer]] The system which generated this result transmitted reference range: 4.30 - 11.10 10*3/?L. The reference range was not used to interpret this result as normal/abnormal. RBC (test code = 789-8) See_Comment H [Automated [employer]] The system which generated this result transmitted reference range: 3.93 - 5.25 10*6/?L. The reference range was not used to interpret this result as normal/abnormal. HGB (test code = 718-7) 13.3 g/dL 11.6-15 HCT (test code = 4544-3) 41.2 % 35.7-45.2 MCV (test code = 787-2) 77.9 fL 80.6-95.5 L MCH (test code = 785-6) 25.1 pg 25.9-32.8 L MCHC (test code = 786-4) 32.3 g/dL 31.6-35.1 RDW-SD (test code = 73772-2) 47.8 fL 39-49.9 RDW-CV (test code = 788-0) 17.2 % 12-15.5 H PLT (test code = 777-3) See_Comment [Automated messa ge] The system which generated this result transmitted reference range: 166 - 358 10*3/?L. The reference range was not used to interpret this result as normal/abnormal. MPV (test code = 14260-2) 9.9 fL 9.5-12.9 NRBC/100 WBC (test code = 4293505951) See_Comment [Automated [employer] ssage] The system which generated this result transmitted reference range: 0.0 - 10.0 /100 WBCs. The reference range was not used to interpret this result as normal/abnormal. NRBC x10^3 (test code = 9279387159) <0.01 See_Comment [Automated messa ge] The system which generated this result transmitted reference range: 10*3/?L. The reference range was not used to interpret this result as normal/abnormal. GRAN MAT (NEUT) % (test code = 770-8) 42.0 % IMM GRAN % (test code = 2072838752) 0.10 % LYMPH % (test code = 736-9) 46.8 % MONO % (test code = 5905-5) 8.3 % EOS % (test code = 713-8) 2.1 % BASO % (test code = 706-2) 0.7 % GRAN MAT x10^3(ANC) (test code = 4361874486) 2.95 10*3/uL 1.88-7.09 IMM GRAN x10^3 (test code = 5717135187) <0.03 0-0.06 LYMPH x10^3 (test code = 731-0) 3.29 10*3/uL 1.32-3.29 MONO x10^3 (test code = 742-7) 0.58 10*3/uL 0.33-0.92 EOS x10^3 (test code = 711-2) 0.15 10*3/uL 0.03-0.39 BASO x10^3 (test code = 704-7) 0.05 10*3/uL 0.01-0.07 Lab Interpretation (test code = 52558-4) [id number]:32:00* Test Item Value Reference Range Interpretation Comme nts POCT PREG (test code = 1605) negative On board controls acceptable with C Line (test code = 3574) present Lab Interpretation (test cod e = 52436-9) Normal [facility], THINPREP, [id number] 00:00:00 * Test Item Value Reference Range Interpretation Comme nts SOURCE: (test code = 8001) Cervical/Endocervical SLIDES: (test code = 8011) 1 LMP: (test code = 8021) 06/14/2017 SPECIMEN ADEQUACY: (test code = 13483) (NOTE) INTERPRETATION: (test code = 19260) NO EPITHELIAL ABNORMALITY SEE BELOW CUSTOMER SERVICER: (test code = 8101) LEON SIERRA(ASCP)IAC LOCATION: (test code = 42246) (NOTE) CPT: (test code = 8140) (NOTE) HPV HIGH RISK WITH GENOTYPE, [id number] 00:00:00* Test Item Value Reference Range Interpretation Comme [facility] HPV HIGH RISK INTERP (test c ode = 11062) NEGATIVE HPV 16 (test code = 69588) NEGATIVE HPV 18 (test code = 89390) NEGATIVE HPV, HR, OTHER GENOTYPES (te st code = 53487) NEGATIVE HPV HIGH RISK WITH GENOTYPE, [id number] 00:00:00* Test Item Value Reference Range Interpretation Comme nts HPV HIGH RISK INTERP (test c ode = 02393) NEGATIVE HPV 16 (test code = 46535) NEGATIVE HPV 18 (test code = 96334) NEGATIVE HPV, HR, OTHER GENOTYPES (te st code = 27582) NEGATIVE PAP TEST, THINPREP, [id number] 00:00:00* Test Item Value Reference Range Interpretation Comme nts SOURCE: (test code = 8001) Cervical/Endocervical SLIDES: (test code = 8011) 1 LMP: (test code = 8021) 06/14/2017 SPECIMEN ADEQUACY: (test code = 30915) (NOTE) INTERPRETATION: (test code = 39697) NO EPITHELIAL ABNORMALITY SEE BELOW CUSTOMER SERVICER: (test code = 8101) BRUNO PARCHER,CT(ASCP)IAC LOCATION: (test code = 22840) (NOTE) CPT: (test code = 8140) (NOTE) PAP TEST, THINPREP, [id number] 00:00:00* Test Item Value Reference Range Interpretation Comme nts SOURCE: (test code = 8001) Cervical/Endocervical SLIDES: (test code = 8011) 1 LMP: (test code = 8021) 06/14/2017 SPECIMEN ADEQUACY: (test code = 25688) (NOTE) INTERPRETATION: (test code = 99835) NO EPITHELIAL ABNORMALITY SEE BELOW CUSTOMER SERVICER: (test code = 8101) BRUNO PARCHER,CT(ASCP)IAC LOCATION: (test code = 36315) (NOTE) CPT: (test code = 8140) (NOTE) HPV HIGH RISK WITH GENOTYPE, [id number] 00:00:00* Test Item Value Reference Range Interpretation Comme nts HPV HIGH RISK INTERP (test c ode = 63068) NEGATIVE HPV 16 (test code = 46714) NEGATIVE HPV 18 (test code = 05359) NEGATIVE HPV, HR, OTHER GENOTYPES (te st code = 82221) NEGATIVE HPV HIGH RISK WITH GENOTYPE, [id number] 00:00:00* Test Item Value Reference Range Interpretation Comme nts HPV HIGH RISK INTERP (test c ode = 35886) NEGATIVE HPV 16 (test code = 14359) NEGATIVE HPV 18 (test code = 56039) NEGATIVE HPV, HR, OTHER GENOTYPES (te st code = 80621) NEGATIVE PAP TEST, THINPREP, [id number] 00:00:00* Test Item Value Reference Range Interpretation Comme nts SOURCE: (test code = 8001) Cervical/Endocervical SLIDES: (test code = 8011) 1 LMP: (test code = 8021) 06/14/2017 SPECIMEN ADEQUACY: (test code = 00305) (NOTE) INTERPRETATION: (test code = 85891) NO EPITHELIAL ABNORMALITY SEE BELOW CUSTOMER SERVICER: (test code = 8101) LEON SIERRA(ASCP)IAC LOCATION: (test code = 55890) (NOTE) CPT: (test code = 8140) (NOTE) Notes Date/Time Note Provider Source 2023-09-04 21:10:14 +z/9MEHt3upjnDF9PgAp9G6rQBMkfybcyF P+j2mowkNbMIqKNtA1o9SsuMjxtZT24190 -04-02T21:10:14 Pt given printed and verbal discharge instructions regarding migrainePt verbalized understanding of instructions, pt awake alert oriented, resp reg unlabored, skin w/d, color appropriate for race, moves all ext well,pt encouraged to follow up with pcp and or neurologyAdvised to seek medical attention for new/prolonged/worsening of symptoms,No adverse reaction to meds given in ER noted upon dischargePIV d'cd, dressing to site, catheter in tact.Awake, alert oriented, resp reg unlabored, skin w/d, pt leaving amb with steady gait, in no apparent distress 16356-8Poutvlvci department ZjmmYH0529-65-24S11:10:55[facility] NoteTXT1.2.840.026811.1.13.104.2.7 .2.816402|[id number] for patient atlk98980-3MmihJTFMZEVEMCXOfuvossd d C-CDA narrative [id number] E Tyler RN[address] Xe[id number] 22VCLEUMWZWEKSGJSVEMDODA1725-23-46 T21:10:551.2.840.467701.1.72.3.15| 1.2.840.599727.1.13.104.2.7.2.7278 [id number] Noelle Jackson RN [facility] 2023-09-04 18:11:18 zf6W+0uxoUlQnSdm2zPdiEYnLzXtNTqmmi YggHlKf/WIPUi1LxPMPE3zY/BO5cmt1434 -04-02T18:11:18 Pt arrived via private car with c/o a headache that started yesterday. States she has a history of migraines, states she took ibuprofen and Midol with "some" improvement. States she has not seen a neurologist for "years". 49631-2Pcsxyzanm department Triage udfvLK0145-57-84J77:13:59[facility] Triage noteTXT1.2.840.594539.1.13.104.2.7 .2.273377|[id number] for patient vkvx42018-2Vwknawvei department NoteLNNARRATIVEFormatted C-CDA narrative [id number] L Barker RN[id number] 29VAACXWFFKKNLBRXZSHERUB5068-96-20 T18:13:591.2.840.493690.1.72.3.15| 1.2.840.831997.1.13.104.2.7.2.7278 [id number] Michelle Peres RN [facility] 2023-07-03 12:39:43 uL3C8gbTMOi0BuApxQ9i6DWFHxKA9MIuva wpN05M8wnEiS1IIolaHUlSal02rgnp7693 -01-30T12:39:43 PT D/C home. GCS15, VS stable. Given D/C paperwork. Pt ambulatory at time of discharge. Pt educated on med usage, follow up care, s/s worsening condition, need for hydration. Pt verbalized understanding.Pt ambulated from ED in NADArh [facility] Hospitalically signed by Lucrecia Castro RN at 07/03/2023 12:39 PM LMI57865-3Pemqbxnml department YzviFL5975-74-50D45:39:53[facility] department NoteTXT1.2.840.214557.1.13.104.2.7 .2.430036|[id number] for patient okni68895-8WysfJJUBDXYIZAPZwlbklsb d C-CDA narrative [id number] E Linkes RN[id number] 61RPIIWAVWZJDDTZANVJZRYQ3143-70-52 T12:39:531.2.840.421336.1.72.3.15| 1.2.840.661274.1.13.104.2.7.2.7278 [id number] Lucrecia Castro [facility], [facility] 2023-07-03 10:52:23 Rbm2Ki8yX43d4Zqfx6nCJfRmkF+ZkB0r4c K/BB9W/gBVk8u6jgo9+qWBj+KcqVHd45752023T10:52:23 Report received from LUCÍA Suresh 96851-5Nzepsziie department GwtkRX2815-46-08M64:53:07[facility] NoteTXT1.2.840.202177.1.13.104.2.7 .2.522530|[id number] for patient npra55558-3AqhmRKSCGTNPOINFnztkxez d C-CDA narrative rvox458972909Pquvps M Herrera RN[id number] 93FENJFMTGYSSBUNSDXTVUQM7180-45-42 T10:53:071.2.840.237027.1.72.3.15| 1.2.840.086268.1.13.104.2.7.2.7278 [id number] Bebe North RN [facility] 2023-07-03 10:11:41 efZwThFKC307BD1lpm9+/uZdPe52OLa/3D hVtmc6ti+VjUGtcwNRztXdRP+gVBcb4580 -01-30T10:11:41 Pressure like pain to head on left side. Pain ongoing x 1.5 weeks. Also has vaginal bleeding. Uses 3-4 pads a day. All started after getting depo injections. 96980-9Fdkejzyrt department AfitFQ7619-55-21D82:12:31Emergency department NoteTXT1.2.840.037744.1.13.104.2.7 .2.845839|[id number] for patient oecc20976-2LiarKOCOKORXXGOBxiejoey d C-CDA narrative rnxc961126492Qvvvdbg D Wierzbicki RN[id number] 29VDADETJDLVFWKRQTYFEONU0377-27-74 T10:12:311.2.840.665442.1.72.3.15| 1.2.840.529151.1.13.104.2.7.2.7278 [id number] Higinio Suresh RN [facility] 2023-07-03 09:44:09 mgJ95Ew4ethPNlGSLnX1LDP/UiSIxjM81L 7BDPb9ZdFAGw+N1A68Gb8G7hyzg/gf22522023T09:44:09 Pt arrived via private car with c/o having a migraine for 1.5 weeks. States she used to see a neurologist however she has not seen a neurologist "in at least a few years". She states has been having vaginal bleeding x2 weeks, states she has been on depo for about 1 year consistently and does not usually have any vaginal bleeding. 32272-8Gvbenzdbg department Triage drapYS1827-20-60N51:48:12[facility] department Triage noteTXT1.2.840.016801.1.13.104.2.7 .2.366679|[id number] for patient uego84126-1Uijzrhwyk department NoteLNNARRATIVEFormatted C-CDA narrative [id number] L Barker RN[address] Rt[id number] 42NVMRRGIZMITURXOCTOPCAU7260-30-94 T09:48:121.2.840.576538.1.72.3.15| 1.2.840.161522.1.13.104.2.7.2.7278 [id number] Michelle Peres RN [facility] 2023-07-03 09:37:00 rvhy/li1qz/urUu8PMYZuJTgz2+ED3z2gO VICV7UGPy++TVzwJb9XVRJ04fPFWf/2023T09:37:00 [facility] Emergency Department NotePatient Name: Ericka Monroy of : 1980 43 year old femaleTreatment Room: Room/bed info not foundMedical Record Number: [id number] Care [facility]Patient Escorted by: Family [5]Mode of Arrival: Personal means [1]EMS 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 No neuro deficits. History of recurrent migraine type headache. No fever. No neck pain / stiffness. No cold symptoms. No chest pain. No dyspnea. (+) nausea with emesis 2 days ago. No diarrhea. No abdominal pain. Notes abnormal uterine bleeding. Last dep shot at [facility] office was about [address] A/P 06/21/23 showing 3.9cm fibroid, known to patient and [facility].History provided by: Patient and spousePast Medical History/Immunizations:Past Medical History:Diagnosis DateAbnormal maternal glucose tolerance, antepartum 03/20/2013nemia of mother in , condition 10/10/2013acterial vaginosis 03/19/2013MigrainesTobacco use disorder 08/12/2013Unspecified essential hypertension 10/10/2013Vision problemswears glassesTetanus received in last 5 years: YesChildhood immunizations: Lw-xd-soemNzoofmhic:No Known AllergiesPast Social History:Tobacco UseEvery Day; 0.50 packs/day; Types: CigarettesSmokeless Tobacco: Never used smokeless tobacco.Comments: Trying to quitAlcohol UseNo.Drug UseNo.Sexual ActivitySexually active; Partners: Male; Control/Protection: None.Past Surgical History:Past Surgical History:Procedure Laterality DateCESAREAN SECTION N/A 09/16/2013Surgeon: Alona Quintanilla MD; Location: LABOR AND DELIVERY - ANNEXLAPAROSCOPIC INTERNAL HERNIA REPAIR (SHX) N/A 08/26/2015Surgeon: Jaziel Aponte MD; [facility] LocationLUMBAR PUNCTURE 04/26/2013Review of Systems:Review of SystemsConstitutional: Negative.HENT: Negative.Eyes: Negative.Respiratory: Negative.Cardiovascular: Negative.Gastrointestinal: Positive for nausea and vomiting. Negative for abdominal pain.Genitourinary: Positive for vaginal bleeding. Negative for vaginal discharge, vaginal pain and pelvic pain.Skin: Negative.Neurological: Positive for headaches.Psychiatric/Behavioral: Negative.Physical Exam:ED Triage Vitals [07/03/23 0947]Weight 102.2 kg (225 lb 4.8 oz)Actual or estimated ActualHeight 1.6 m (5' 3")BP 105/60Pulse 77Resp 16Temp 37.2 ?C (99 ?F)Temp source OralSpO2 100 %Measured on Room airPhysical ExamVitals and nursing note reviewed.Constitutional:General: She is not in acute distress.Appearance: Normal appearance. She is not ill-appearing, toxic-appearing or diaphoretic.HENT:Head: Normocephalic and atraumatic.Right Ear: External ear normal.Left Ear: External ear normal.Nose: Nose normal.Mouth/Throat:Mouth: Mucous membranes are moist.Eyes:Extraocular Movements: Extraocular movements intact.Conjunctiva/sclera: Conjunctivae normal.Cardiovascular:Rate and Rhythm: Normal rate and regular rhythm.Pulmonary:Effort: Pulmonary effort is normal.Breath sounds: Normal breath sounds.Abdominal:General: There is no distension.Palpations: Abdomen is soft.Tenderness: There is no abdominal tenderness.Musculoskeletal:General : Normal range of motion.Cervical back: Normal range of motion.Skin:General: Skin is warm and dry.Neurological:General: No focal deficit present.Mental Status: She is alert.Comments: No gross motor/sensory/speech deficits; ambulates without incident in EDPsychiatric:Mood and Affect: Mood normal.Behavior: Behavior normal.Thought Content: Thought content normal.Judgment: Judgment normal.Radiology:No orders to displayLab Results:Lab ResultsCBC WITH DIFF - AbnormalResult Value Ref RangeWBC 4.43 4.30 - 11.10 10*3/?LRBC 4.26 3.93 - 5.25 10*6/?LHGB 11.8 11.6 - 15.0 g/dLHCT 36.6 35.7 - 45.2 %MCV 85.9 80.6 - 95.5 fLMCH 27.7 25.9 - 32.8 pgMCHC 32.2 31.6 - 35.1 g/dLRDW-SD 50.5 (*) 39.0 - 49.9 fLRDW-CV 16.1 (*) 12.0 - 15.5 %PLT 271 166 - 358 10*3/?LMPV 10.2 9.5 - 12.9 fLNRBC/100 WBC 0.0 0.0 - 10.0 /100 WBCsNRBC x10^3 <0.01 10*3/?LGRAN MAT (NEUT) % 47.0 %IMM GRAN % 0.20 %LYMPH % 41.1 %MONO % 8.8 %EOS % 2.0 %BASO % 0.9 %GRAN MAT x10^3(ANC) 2.08 1.88 - 7.09 10*3/uLIMM GRAN x10^3 <0.03 0.00 - 0.06 10*3/uLLYMPH x10^3 1.82 1.32 - 3.29 10*3/uLMONO x10^3 0.39 0.33 - 0.92 10*3/uLEOS x10^3 0.09 0.03 - 0.39 10*3/uLBASO x10^3 0.04 0.01 - 0.07 10*3/uLCOMP. METABOLIC PANEL (22861)EKG:If EKG completed, see Procedure Note.Orders and Treatments:Orders Placed This EncounterProceduresCBC WITH DIFFCOMP. METABOLIC PANEL (80790)Orders Placed This EncounterMedicationsNaCl 0.9% (NS) bolus infusion 1,000 mLmetoclopramide HCl (REGLAN) injection 10 mgdexamethasone sod phos PF injection 10 mgketorolac (TORADOL) injection 30 mgpredniSONE 20 mg rocjcxbqnrgxlijw-jgjpuursheklw-cck f 50-325-40 mg tabletondansetron 4 mg tabletFirst Provider Eval:ED EventsDate/Time Event User Rbyhynbn44/30/24 0938 Medical Screening Begins STAR MESA MD --07/03/23 0938 First Provider Evaluation STAR MESA MD --ED COURSEDiagnosis/Impression as of 07/03/23 1227Migraine without status migrainosus, not intractable, unspecified migraine typeAbnormal uterine bleedingUterine leiomyoma, unspecified locationNausea and vomiting, unspecified vomiting typeProcedures:ProceduresMDM:Medic al Decision MakingPrimary impression: headache suspicious for migraine typeSecondary impression: abnormal uterine bleeding without critical exam findings; known uterine fibroidDifferential Diagnoses, including but not limited to: anemia, electrolyte / glucose abnleProblems Addressed:Abnormal uterine bleeding: acute illness or injuryMigraine without status migrainosus, not intractable, unspecified migraine type: acute illness or injuryNausea and vomiting, unspecified vomiting type: self-limited or minor problemUterine leiomyoma, unspecified location: chronic illness or injuryAmount and/or Complexity of Data ReviewedIndependent Historian: spouseDetails: selfLabs: ordered. Decision-making details documented in ED Course.Radiology:Details: N/aECG/medicine tests:Details: N/aDiscussion of management or test interpretation with external provider(s): N/[facility].Prescription drug management.Risk Details: Unremarkable OBS in ED. Symptoms improved. Findings and plan discussed with patient. No findings that require acute hospitalization today.Flowsheet Documentation:Scoring Tools:No data recordedDisposition/Condition:ED DispositionED DispositionDisch - HomeConditionStableComment--Discha rge Medications:Patient's MedicationsSTART taking these medicationsBUTALBITAL-ACETAMINOPHE N-CAFF 50-325-40 MG TABLET Take 1 tablet by mouth every 6 (six) hours as needed (headache).ONDANSETRON 4 MG TABLET 1 or 2 tablets every 8 hours as needed for nauseaPREDNISONE 20 MG TABLET Take 2 tablets by mouth in the morning for 7 days.CONTINUE taking these medications which have NOT CHANGEDACETAMINOPHEN (TYLENOL ARTHRITIS PAIN) 650 MG CR TABLET Take 1 tablet by mouth every 8 (eight) hours as needed for Pain.ACETAZOLAMIDE 250 MG TABLET Take 2 tablets by mouth 2 (two) times daily.AMITRIPTYLINE 25 MG TABLET Take one tablet per night as tolerated for one week then increase as tolerated to 2 tablets per night thereafterBENZONATATE 200 MG CAPSULE Take 1 capsule by mouth 3 (three) times daily as needed for Cough for up to 20 doses.EMVFXLVJNX-LUDXRBAPQRCPH-ZFM F 50-325-40 MG TABLET Take 1 tablet by mouth every 6 (six) hours as needed for Pain (scale 4-6).DEPDSFJRUV-QPAOGTSGWFYEH-ZJVS 50-325-40 MG TABLET Take 1 tablet by mouth every 4 (four) hours as needed for Pain (scale 7-10).RGWGEFNOYD-VMGGUCZMGDQQQ-EJS F 50-325-40 MG TABLET Take 1 tablet by mouth every 4 (four) hours as needed for Pain (scale 7-10).FAMOTIDINE (PEPCID) 20 MG TABLET Take 1 tablet by mouth in the morning and 1 tablet in the evening.HYOSCYAMINE SULFATE (LEVSIN/SL) 0.125 [address] TABLET Place 2 tablets under the tongue every 6 (six) hours as needed (Abdominal pain or cramping).IBUPROFEN 600 MG TABLET Take 1 tablet by mouth every 6 (six) hours as needed for Pain (scale 4-6).KETOROLAC 10 MG TABLET Take 1 tablet by mouth every 6 (six) hours as needed for Pain (scale 4-6) or Pain (scale 7-10).ONDANSETRON (ZOFRAN ODT) 4 MG DISINTEGRATING TABLET Take 1 tablet by mouth every 8 (eight) hours as needed for Nausea and Vomiting (N/V).ONDANSETRON 4 MG DISINTEGRATING TABLET Take 1 tablet by mouth every 8 (eight) hours as needed for Nausea and Vomiting (N/V).ONDANSETRON 4 MG DISINTEGRATING TABLET Take 1 tablet by mouth every 8 (eight) hours as needed for Nausea and Vomiting (N/V).SUMATRIPTAN 25 MG TABLET Take one table at headache onset and one additional tablet 2 hours later if no relief. Not to exceed 2 pills in 24 hours or 9 days / monthTOPIRAMATE (TOPAMAX) 50 MG TABLET Take 1 tablet by mouth 2 (two) times daily.START taking Modified Medications as PrescribedNo medications on fileSTOP taking these medicationsNo medications on fileFollow-up:PCPGYNElectronically signed by:Star Mesa MD07/03/23 1229 82312-1Qcspshead Emergency department TlkqKR5001-82-65B89:29:47Physician Emergency department NoteTXT1.2.840.777388.1.13.104.2.7 .2.460340|[id number] for patient jbwc41139-0Mwjagyaaj department NoteLNNARRATIVEFormatted C-CDA narrative textUT50 Mayo [id number] 60ONJZZZMFVXSKJUWLBADRPA7228-75-81 T12:29:471.2.840.577877.1.72.3.15| 1.2.840.485246.1.13.104.2.7.2.7278 [id number] [facility] 2023-06-22 00:30:00 +N5L+UqgSE+ZzS3XWcV9/ib5zeRQ6v5Rt1 n9djf15iAgbNhG4aV89MZwSMYlsTJ68739 -01-19T00:30:00 Pt given printed and verbal discharge instructions regarding viral illness, encouraged hydration,Prescriptions provided to patientDiscussed ibuprofen and to take with food to avoid GI distress.Pt verbalized understanding of instructions, pt awake alert oriented, resp reg unlabored, skin w/d, color appropriate for race, moves all ext well,pt encouraged to follow up with pcpAdvised to seek medical attention for new/prolonged/worsening of symptomsNo adverse reaction to meds given in ER noted upon dischargePIV d'cd, dressing to site, catheter in tact.Awake, alert oriented, resp reg unlabored, skin w/d, pt leaving amb with steady gait, in no apparent distress, 87128-2Vcmjwulwm department VtanZH5659-48-06B82:58:11Emergency department NoteTXT1.2.840.057412.1.13.104.2.7 .2.562800|[id number] for patient ptjn66726-3PafkCPFNVPMGGVLIindfitn d C-CDA narrative [id number]-Rhfhv McInnis RNUT[address] Mayo [id number] 26TPBFPEJHJCUTTMNOMJBFFA1590-22-52 T00:58:111.2.840.940234.1.72.3.15| 1.2.840.641633.1.13.104.2.7.2.7278 [id number] Pepito Rodriguez RN [facility] 2023-06-21 20:43:46 sO76xThSd6mcpcJtSDoMzDFIm2o26akYix 7Gaw0Tt2fyyVBfFspZfSFeThGDBc016484 -01-18T20:43:46 Pt to ED co body aches, vomiting, chills, and abd pain x 2 hours. Denies sick contacts. Hx of HTN and uncomplicated hernia.Took dayquil and sinus medication 30min [employer]. [id number] department Triage ffltRI0689-99-88V07:45:46[facility]ult[facility] department Triage noteTXT1.2.840.797747.1.13.104.2.7 .2.429248|[id number] for patient sdto67062-6Xrztkmvmt department NoteLNNARRATIVEFormatted C-CDA narrative [id number] Bean RN[address] Yx[id number] 59NFTXKAIIATDBWOLUWZTBYH7697-64-56 T20:45:461.2.840.802942.1.72.3.15| 1.2.840.218889.1.13.104.2.7.2.7278 [id number] Rosy Bean RN [facility] 2023-06-21 20:33:00 1/3vHCTO1+SBbO+iUk4JfPW7KRTJMP5jox Nh9MfJeh7vEBY2KIrp5ar+gbGUxUPq0227 -01-18T20:33:00 [facility] Emergency Department NotePatient Name: Ericka Williamsonte of : 1980 43 year old femaleTreatment Room: [place] [address]/[id number] Record Number: [id number] Care Physician: [facility] Carleeaticaty Escorted by: Self [9]Mode of Arrival: Personal means [1]EMS Treatment 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 Denies sick contacts. Hx of HTN and uncomplicated hernia.Took dayquil and sinus medication 30min PTAHistory provided by: Spouse and patientLanguage tower switch operator used: NoVomitingSeverity: MildDuration: 2 hoursNumber of daily episodes: OnceQuality: Stomach contentsProgression: UnchangedChronicity: NewRecent urination: NormalContext comment: Patient feeling sick, possibly a viral infectionIneffective treatments: None triedAssociated symptoms: abdominal pain, chills, myalgias and URIRisk factors: no alcohol use, no diabetes, not , no prior abdominal surgery, no sick contacts, no suspect food intake and no travel to endemic areasPast Medical History/Immunizations:Past Medical History:Diagnosis Date Abnormal maternal glucose tolerance, antepartum 03/20/2013 Anemia of mother in , condition 10/10/2013 Bacterial vaginosis 03/19/2013 Migraines Tobacco use disorder 08/12/2013 Unspecified essential hypertension 10/10/2013 Vision problemswears glassesTetanus received in last 5 years: UnknownChildhood immunizations: Br-kk-sabkByhawdeac:No Known AllergiesPast Social History:Tobacco UseEvery Day; 0.50 packs/day; Types: CigarettesSmokeless Tobacco: Never used smokeless tobacco.Comments: Trying to quitAlcohol UseNo.Drug UseNo.Sexual ActivitySexually active; Partners: Male; Control/Protection: None.Past Surgical History:Past Surgical History:Procedure Laterality Date SECTION N/A 09/16/2013Surgeon: Alona Quintanilla MD; Location: LABOR AND DELIVERY - [facility] LAPAROSCOPIC INTERNAL HERNIA REPAIR (SHX) N/A 08/26/2015Surgeon: Jaziel Aponte MD; Location: [facility] Location LUMBAR PUNCTURE 04/26/2013Review of Systems:Review of SystemsConstitutional: Positive for activity change, appetite change and chills.HENT: Positive for congestion and rhinorrhea.Eyes: Negative.Respiratory: Negative.Gastrointestinal: Positive for abdominal pain, nausea and vomiting.Genitourinary: Negative.Musculoskeletal: Positive for myalgias.Psychiatric/Behavioral: Negative.Physical Exam:ED Triage Vitals [06/21/232044]Weight 99.8 kg (220 lb)Actual or estimated Estimated by patient/family reportHeight 1.6 m (5' 3")BP 129/75Pulse 93Resp 18Temp 37.3 ?C (99.1 ?F)Temp source OralSpO2 99 %Measured on Room airPhysical ExamVitals and nursing note reviewed.Constitutional:General: She is not in acute distress.Appearance: She is well-developed. She is not diaphoretic.HENT:Head: Normocephalic and atraumatic.Right Ear: External ear normal.Left Ear: External ear normal.Nose: Mucosal edema and congestion present.Mouth/Throat:Pharynx: Posterior oropharyngeal erythema present. No pharyngeal swelling, oropharyngeal exudate or uvula swelling.Tonsils: No tonsillar exudate or tonsillar abscesses.Eyes:General: No scleral icterus.Right eye: No discharge.Left eye: No discharge.Conjunctiva/sclera: Conjunctivae normal.Pupils: Pupils are equal, round, and reactive to light.Neck:Thyroid: No thyroid mass or thyromegaly.Vascular: No JVD.Trachea: No tracheal deviation.Cardiovascular:Rate and Rhythm: Normal rate and regular rhythm.Heart sounds: Normal heart sounds. No murmur heard.No friction rub. No gallop.Pulmonary:Effort: Pulmonary effort is normal. No respiratory distress.Breath sounds: Normal breath sounds. No stridor. No wheezing or rales.Chest:Chest wall: No tenderness.Abdominal:General: Bowel sounds are normal. There is no distension.Palpations: Abdomen is soft. There is no mass.Tenderness: There is no abdominal tenderness. There is no guarding or rebound.Musculoskeletal:General: No tenderness or deformity. Normal range of motion.Cervical back: Normal range of motion and neck supple.Lymphadenopathy:Cervical: No cervical adenopathy.Right cervical: No superficial, deep or posterior cervical adenopathy.Left cervical: No superficial, deep or posterior cervical adenopathy.Skin:General: Skin is warm and dry.Coloration: Skin is not pale.Findings: No erythema or rash.Neurological:Mental Status: She is alert and oriented to person, place, and time.Cranial Nerves: No cranial nerve deficit.Motor: No abnormal muscle tone.Coordination: Coordination normal.Deep Tendon Reflexes: Reflexes are normal and symmetric. Reflexes normal.Psychiatric:Behavior: Behavior normal.Thought Content: Thought content normal.Judgment: Judgment normal.Radiology:CT ABDOMEN PELVIS WO CONTRASTPreliminary ResultEXAM: CT ABDOMEN PELVIS WO CONTRASTHISTORY: 43 years-old Female; Flank pain, kidney stone suspectedTECHNIQUE: Contiguous axial imaging from the level of the lung basesthrough the proximal thighs was performed without the intravenousadministration of contrast. Coronal and sagittal reconstructions wereobtained.COMPARISON: CT abdomen on 08/25/2015.FINDINGS:LOWER THORAX: The lung bases are clear. Calcified mitral annulus is noted.LIVER: The liver is normal in size and contour. No focal hepatic lesion isseen.GALLBLADDER AND BILIARY TREE: The gallbladder appears unremarkable. Noradiopaque gallstones are seen. No intra or extrahepatic biliary ductaldilation is visualized.SPLEEN: The spleen appears unremarkable.PANCREAS: Grossly unremarkable.ADRENAL GLANDS: No adrenal masses are seen.KIDNEYS: No hydronephrosis, stones, or contour deforming solid masses arevisualized.GI TRACT: Few diverticula seen without distinct focal inflammatorychanges.No dilation or bowel wall thickening is seen. The appendix appearsunremarkable.PERITONEUM AND RETROPERITONEUM: No intra-abdominal free air or fluidcollection is visualized. A small fat-containing inguinal hernia seen withmild surrounding fat stranding.PELVIS/BLADDER: The bladder is contracted, limiting evaluation. A 3.9 cmpartially calcified subserosal fibroid is seen.LYMPH NODES: No distinct lymphadenopathy.VESSELS: Limited evaluation of the vessels without IV contrast.BONES AND SOFT TISSUES: No suspicious lytic or sclerotic bony lesions arepresent. Moderate anterolisthesis of L5 on S1 seen with degenerative discand endplate sclerosis.IMPRESSIONNo nephrolithiasis.Small fat-containing umbilical hernia with surrounding inflammatorychanges.Diverticulosis without distinct CT evidence of diverticulosis.Preliminary Report Dictated by Resident: Obie Peterson Results:Lab ResultsCBC WITH DIFF - AbnormalResult Value Ref RangeWBC 6.66 4.30 - 11.10 10*3/?LRBC 4.13 3.93 - 5.25 10*6/?LHGB 11.5 (*) 11.6 - 15.0 g/dLHCT 35.4 (*) 35.7 - 45.2 %MCV 85.7 80.6 - 95.5 fLMCH 27.8 25.9 - 32.8 pgMCHC 32.5 31.6 - 35.1 g/dLRDW-SD 50.7 (*) 39.0 - 49.9 fLRDW-CV 16.3 (*) 12.0 - 15.5 %PLT 297 166 - 358 10*3/?LMPV 9.7 9.5 - 12.9 fLNRBC/100 WBC 0.0 0.0 - 10.0 /100 WBCsNRBC x10^3 <0.01 10*3/?LGRAN MAT (NEUT) % 41.9 %IMM GRAN % 0.30 %LYMPH % 49.2 %MONO % 5.4 %EOS % 2.4 %BASO % 0.8 %GRAN MAT x10^3(ANC) 2.79 1.88 - 7.09 10*3/uLIMM GRAN x10^3 <0.03 0.00 - 0.06 10*3/uLLYMPH x10^3 3.28 1.32 - 3.29 10*3/uLMONO x10^3 0.36 0.33 - 0.92 10*3/uLEOS x10^3 0.16 0.03 - 0.39 10*3/uLBASO x10^3 0.05 0.01 - 0.07 10*3/uLBASIC METABOLIC PANEL (NA, K, CL, CO2, GLUCOSE, BUN, CREATININE, CA) - AbnormalNA 140 135 - 145 mmol/LK 4.0 3.5 - 5.0 mmol/LCL 112 (*) 98 - 108 mmol/LCO2 TOTAL 21 (*) 23 - 31 mmol/LAGAP 7 2 - 16BUN 26 (*) 7 - 23 mg/dLGLUCOSE 73 70 - 110 mg/dLCREATININE 1.12 (*) 0.50 - 1.04 mg/dLCALCIUM 9.3 8.6 - 10.6 mg/dLeGFR 62.7 mL/min/1.17g3VSFZRAWYQP - AbnormalAPPEARANCE Hazy (*) ClearCOLOR Yellow YellowPH 5.0 4.8 - 8.0SP GRAVITY 1.034 (*) 1.003 - 1.030GLU U QUAL Normal NormalBLOOD 2+ (*) NegativeKETONES 5 mg/dL (*) NegativePROTEIN Negative NegativeUROBILIN 2.0 mg/dL (*) NormalBILIRUBIN Negative NegativeNITRITE Negative NegativeLEUK ONEAL Negative NegativeRBC/HPF >182 (*) 0 - 3 HPFWBC/HPF 1 0 - 5 HPFBACTERIA Negative NegativeMUCOUS Slight (*) Negative LPFSQ EPITH 1 HPFRAPID INFLUENZA A/B - NormalRapid Influenza A Negative NegativeRapid Influenza B Negative NegativeCOVID-19 (ID NOW RAPID TESTING) - YngkqhPOXY-HmK-6 Rapid ID NOW Not Detected Not DetectedPOCT TEST - NormalPOCT PREG NegativeOn board controls acceptable with C Line YesPOCT PREG LOT # [id number] PREG TEST DATE [id number]:If EKG completed, see Procedure Note.Orders and Treatments:Orders Placed This EncounterProcedures CT ABDOMEN PELVIS WO CONTRAST Cbc with Diff Basic Metabolic Panel (NA, K, CL, CO2, GLUCOSE, BUN, CREATININE, CA) Urinalysis RAPID INFLUENZA A/B COVID-19 (ID NOW TESTING) POCT Test Lab Only COVID InterpretationOrders Placed This EncounterMedications ketorolac (TORADOL) injection 30 mg hyoscyamine sulfate (LEVSIN/SL) sublingual tablet 0.25 mg NaCl 0.9% (NS) bolus infusion 1,000 mL ondansetron (ZOFRAN (PF)) injection 4 mg famotidine (PEPCID) 20 mg tablet ondansetron 4 mg disintegrating tablet hyoscyamine sulfate (LEVSIN/SL) 0.125 mg sublingual tablet ketorolac 10 mg tablet acetaminophen (TYLENOL ARTHRITIS PAIN) 650 mg CR tabletFirst Provider Eval:ED EventsDate/Time Event User Zdwdkutw39/18/242048 Medical Screening Begins ALEX PITT MD --06/21/232048 First Provider Evaluation ALEX PITT MD --ED COURSEPatient's condition improved with the treatment provided in the ED, will DC Home with adequate medications to address her symptoms.Diagnosis/Impression as of 06/22/23 0023Viral illnessHematuria, grossDiverticulosisProcedures:Proc eduresMDM:Medical Decision MakingProblems Addressed:Hematuria, gross: acute illness or injuryViral illness: complicated acute illness or injury with systemic symptomsAmount and/or Complexity of Data ReviewedIndependent Historian: spouseDetails: provided additional details regarding her symptomsExternal Data Reviewed: labs and notes.Details: From previous visits reviewed and compared with current dataLabs: ordered. Decision-making details documented in ED Course.Radiology: ordered and independent interpretation performed. Decision-making details documented in ED Course.RiskOTC drugs.Prescription drug management.Flowsheet Documentation:Scoring Tools:No data recordedDisposition/Condition:ED DispositionED DispositionDisch - HomeConditionStableComment--Discha rge Medications:Patient's MedicationsSTART taking these medicationsACETAMINOPHEN (TYLENOL ARTHRITIS PAIN) 650 MG CR TABLET Take 1 tablet by mouth every 8 (eight) hours as needed for Pain.FAMOTIDINE (PEPCID) 20 MG TABLET Take 1 tablet by mouth in the morning and 1 tablet in the evening.HYOSCYAMINE SULFATE (LEVSIN/SL) 0.[address] 2 tablets under the tongue every 6 (six) hours as needed (Abdominal pain or cramping).KETOROLAC 10 MG TABLET Take 1 tablet by mouth every 6 (six) hours as needed for Pain (scale 4-6) or Pain (scale 7-10).ONDANSETRON 4 MG DISINTEGRATING TABLET Take 1 tablet by mouth every 8 (eight) hours as needed for Nausea and Vomiting (N/V).CONTINUE taking these medications which have NOT CHANGEDACETAZOLAMIDE 250 MG TABLET Take 2 tablets by mouth 2 (two) times daily.AMITRIPTYLINE 25 MG TABLET Take one tablet per night as tolerated for one week then increase as tolerated to 2 tablets per night thereafterBENZONATATE 200 MG CAPSULE Take 1 capsule by mouth 3 (three) times daily as needed for Cough for up to 20 doses.ZIESTMOOTU-APCHIEIBJKFUE-SIR F 50-325-40 MG TABLET Take 1 tablet by mouth every 6 (six) hours as needed for Pain (scale 4-6).SOWGOJDCFZ-RLWOOHLLXETXN-RPOF 50-325-40 MG TABLET Take 1 tablet by mouth every 4 (four) hours as needed for Pain (scale 7-10).OLAQWPEEGE-NERHPWQGPVMJQ-HJN F 50-325-40 MG TABLET Take 1 tablet by mouth every 4 (four) hours as needed for Pain (scale 7-10).IBUPROFEN 600 MG TABLET Take 1 tablet by mouth every 6 (six) hours as needed for Pain (scale 4-6).ONDANSETRON (ZOFRAN ODT) 4 MG DISINTEGRATING TABLET Take 1 tablet by mouth every 8 (eight) hours as needed for Nausea and Vomiting (N/V).ONDANSETRON 4 MG DISINTEGRATING TABLET Take 1 tablet by mouth every 8 (eight) hours as needed for Nausea and Vomiting (N/V).SUMATRIPTAN 25 MG TABLET Take one table at headache onset and one additional tablet 2 hours later if no relief. Not to exceed 2 pills in 24 hours or 9 days / monthTOPIRAMATE (TOPAMAX) 50 MG TABLET Take 1 tablet by mouth 2 (two) times daily.START taking Modified Medications as PrescribedNo medications on fileSTOP taking these medicationsNo medications on fileFollow-up:Contact information for follow-upSt. Mary's Medical Centerpecialty: FM-FAMILY MEDICINERelationship: PCP - [address] [address]Nqjph: [phone]: If symptoms worsenElectronically signed by:Alex Pitt MD06/22/23 0022 43798-1[facility] Emergency department WwjgSH7955-57-01H89:22:38Physician Emergency department NoteTXT1.2.840.220971.1.13.104.2.7 .2.187343|[id number] for patient lsrl74819-7Gemhgklmg department NoteLNNARRATIVEFormatted C-CDA narrative coreen[address] Knight [id number] 47IYQCLPYGUYLBMKEZJDNBSC1508-98-93 T00:22:381.2.840.980970.1.72.3.15| 1.2.840.009533.1.13.104.2.7.2.7278 [id number] [facility] 2022-12-20 21:57:16 2jCFVRx2SMTVVpA661qQbaRPO1w/qT7VaR eqXA92ffrjAIEIpP3bV+euJpi4grYx3333 -07-19T21:57:16 Pt discharged home. Given all education and information regarding pain management; follow up importance and s/s of worsening condition. Pt verbalized understanding. Alert and ambulatory to pov 57693-3Bnxcgkiub department BoqjOS9171-11-92V87:57:52[facility] department NoteTXT1.2.840.333239.1.13.104.2.7 .2.630921|[id number] for patient lvtw151537100Ujjzhp A Paul RN[id number] 50NLMBYYGZMCYPGIGLMPNPEH6058-27-51 T21:57:521.2.840.681551.1.72.3.15| 1.2.840.110459.1.13.104.2.7.2.7278 [id number] Sia Richardson RN [facility] 2022-12-20 21:41:07 xeXRFQVHaizyiZWTV7+V7sAN6S9II/80SO ji4DQP/vpN594QwS0SW1NF6MbQyTij0766 -07-19T21:41:07 Pt resting quietly in room. States pain has resolved. [address]-[address]Qxxy[address]qv[address] PcutOL3405-52-07S22:41:36[facility] NoteTXT1.2.840.819281.1.13.104.2.7 .2.313462|[id number] for patient [id number] 66YAGMQGYSJXAMMIRLYWYONU6484-14-83 T21:41:361.2.840.371568.1.72.3.15| 1.2.840.175651.1.13.104.2.7.2.7278 [id number] [facility] 2022-12-20 19:04:38 g6FP/z9Y+/4f6PFV4tkqBdxfOsb6ovMaZQ B9x73XGN0s12MPL6kkxAu79UQCKzxn9335 -07-19T19:04:38 Nurse Report Report given to LUCÍA Saucedo. Chief complaint, assessment findings, and orders reviewed. Plan of care discussed with [place] [address]-[address] QapvGZ7638-20-30E64:05:16[facility] NoteTXT1.2.840.251753.1.13.104.2.7 .2.067804|[id number] for patient [id number] 68BWQCLOLLYHCGPGLXNSORFY7417-05-80 T19:05:161.2.840.682070.1.72.3.15| 1.2.840.431567.1.13.104.2.7.2.7278 [id number] [facility] 2022-12-20 18:42:18 N4wewsdLFVU4TEI5Wkt6F4sAYaqGXhMjfk iZ/eyvZIsxJZUeUFpJtGcE15agPykD0639 -07-19T18:42:18 CC: patient presents to the ER with complaints of blurry vision that she believes could be related to her migraines. Patient also reports nasuea, states she took OTC migraine medication without relief. PMHx: see historyAwake, alert, oriented, resp reg unlabored, skin warm and dry, color appropriate for race, moves all ext without difficulty, amb without assistance. Appears in no distress. 71206-3Aflvaabeo department Triage wgtgCL5471-44-35H88:43:46Emergency department Triage noteTXT1.2.840.704361.1.13.104.2.7 .2.185215|[id number] for patient goom425811963Csdsyuyd M Rivera RN[address] Ls[id number] 99ZKJJPWSHWILMJWCQGEUJQX1029-00-82 T18:43:461.2.840.617029.1.72.3.15| 1.2.840.488300.1.13.104.2.7.2.7278 [id number] Wilma Garay RN [facility]
[2023-09-10] MEDS ORDERED: METOCLOPRAMIDE 10 MG/2mL INJ ONE (09:09)
[2023-09-10] MEDS ORDERED: KETOROLAC 30 MG/ML INJ ONE (09:09)
[2023-09-10] MEDS ORDERED: METHYLPREDNISOLONE 125 MG INJ ONE (09:09)
[2023-09-10] MEDS ORDERED: NA CHLORIDE 0.9% 1,000 ML ONE (09:09)
[2023-09-10] MEDS ORDERED: DIPHENHYDRAMINE 50 MG/ML VIAL ONE (09:09)
--- NOTE | 2023-09-10 09:44 | RAD REPORT ---
EXAM DESCRIPTION: CT - Head Brain Wo Cont - 09/10/2023 9:17 am CLINICAL HISTORY: HEADACHE COMPARISON: Head Brain Wo Cont dated 03/15/2017 TECHNIQUE: Noncontrast head CT images were obtained without IV contrast. Multiplanar reformats were generated and reviewed. All CT scans are performed using dose optimization technique as appropriate and may include automated exposure control or mA/KV adjustment according to patient size. FINDINGS: No intracranial hemorrhage, mass, or edema. Midline structures are unremarkable. Normal ventricular caliber for age. Carvajal-white matter differentiation is preserved, without evidence of acute infarct. No abnormal extra- axial fluid collections. Mastoid air cells and visualized portions of the paranasal sinuses are clear. No acute bony findings. IMPRESSION: No evidence of an acute intracranial process.
[2023-09-10 10:02] LABS: Absolute Eosinophils 0.1 K/uL (0-0.5); Absolute Lymphocytes (CBC) 1.5 K/uL (0.7-4.9); Absolute Monocytes 0.3 K/uL (0.1-1.3); Absolute Neutrophil 2.2 K/uL (1.8-8.0); Eosinophils % 1.7 % (0-4.4); Hematocrit 36.7 % (36.0-45.0); Hemoglobin 12.1 g/dL (12.0-15.0); Lymphocytes % 36.5 % (15.3-44.8); MCH 27.7 pg (27.0-35.0); MCV 83.7 fL (80-100); MPV 7.8 fL (7.6-11.3); Monocytes % 7.8 % (3.3-12.3); Nucleated Red Blood Cells % 0.1 % (0-0); Platelets 267 thou/uL (152-406); RBC Red Blood Cell Count 4.38 M/uL (3.86-4.86); Red Cell Distribution Width 15.5 % (12.1-15.2)
[2023-09-10 10:17] LABS: Anion Gap 9.1 mEq/L (5.0-15.0); Potassium 4.1 mEq/L (3.5-5.1)
--- NOTE | 2023-09-10 10:30 | EDPHYS ---
Physician Documentation [facility] Name: Ericka Wallace Age: 43 yrs Sex: Female : 1980 Arrival Date: 09/10/2023 Time: 08:50 Bed 15 Private MD: ED Physician Artur Chavez HPI: 09/09 09:00 This 43 yrs old Black Female presents to ER via Ambulatory with complaints of Migriane, jh7 Blurred Vision, Numbness Of Arm. 09:00 Onset: The symptoms/episode began/occurred 6 day(s) ago. Associated signs and symptoms: jh7 Pertinent positives: vomiting, Intermittent left arm numbness and blurred vision, Pertinent negatives: abdominal pain, chest pain, shortness of breath, wheezing. 43-year-old female with a past medical history of hypertensions and migraines presents to the ER for a migraine starting last Sunday. She also reports blurred vision which she states usually occurs with her migraines. She states that she is also having intermittent right arm numbness, but that occasionally happens when her blood pressure goes up. Denies weakness, speech changes, syncope, chest pain, or any other concerning symptoms. Reports 3 episodes of vomiting last night. She states that she is taking ibuprofen and Fioricet but that it has been upsetting her stomach and only mildly alleviating her symptoms.. Historical: - Allergies: 09:00 No Known Allergies; iw - PMHx: 09:00 Hypertension; Migraines; iw - Immunization history:: Adult Immunizations up to date. - Infectious Disease History:: Denies. - Social history:: Smoking status: Patient denies any tobacco usage or history of. ROS: 09:00 Constitutional: Negative for fever, chills, and weight loss, Eyes: Negative for injury, jh7 pain, redness, and discharge, ENT: Negative for injury, pain, and discharge, Neck: Negative for injury, pain, and swelling, Cardiovascular: Negative for chest pain, palpitations, and edema, Respiratory: Negative for shortness of breath, cough, wheezing, and pleuritic chest pain, Back: Negative for injury and pain, MS/Extremity: Negative for injury and deformity, Skin: Negative for injury, rash, and discoloration, 09:00 Abdomen/GI: Positive for nausea and vomiting, Negative for abdominal pain, diarrhea, constipation, 09:00 Neuro: Positive for headache, numbness, visual changes, Negative for altered mental status, dizziness, gait disturbance, seizure activity, syncope, tingling, weakness, 09:00 All other systems are negative, Exam: 09:00 Constitutional: This is a well developed, well nourished patient who is awake, alert, jh7 and in no acute distress. Head/Face: Normocephalic, atraumatic. Eyes: Pupils equal round and reactive to light, extra-ocular motions intact. Lids and lashes normal. Conjunctiva and sclera are non-icteric and not injected. Cornea within normal limits. Periorbital areas with no swelling, redness, or edema. ENT: Nares patent. No nasal discharge, no septal abnormalities noted. Tympanic membranes are normal and external auditory canals are clear. Oropharynx with no redness, swelling, or masses, exudates, or evidence of obstruction, uvula midline. Mucous membranes moist. Neck: Trachea midline, no thyromegaly or masses palpated, and no cervical lymphadenopathy. Supple, full range of motion without nuchal rigidity, or vertebral point tenderness. No Meningismus. Cardiovascular: Regular rate and rhythm with a normal S1 and S2. No gallops, murmurs, or rubs. Normal PMI, no JVD. No pulse deficits. Respiratory: Lungs have equal breath sounds bilaterally, clear to auscultation and percussion. No rales, rhonchi or wheezes noted. No increased work of breathing, no retractions or nasal flaring. Abdomen/GI: Soft, non-tender, with normal bowel sounds. No distension or tympany. No guarding or rebound. No evidence of tenderness throughout. Back: No spinal tenderness. No costovertebral tenderness. Full range of motion. Skin: Warm, dry with normal turgor. Normal color with no rashes, no lesions, and no evidence of cellulitis. MS/ Extremity: Pulses equal, no cyanosis. Neurovascular intact. Full, normal range of motion. 09:00 Neuro: Orientation: to person, place, time \T\ situation. Mentation: is normal, Memory: is normal, Cranial nerves: grossly normal, Cerebellar function: is grossly normal, Motor: is normal, Sensation: is normal, Gait: is steady, at a normal pace, without difficulty, Vital Signs: 09:16 BP 117 / 77; Pulse 81; Resp 18; Pulse Ox 99% on R/A; rs5 NIH Stroke Scale Scores: 09:00 NIHSS Score: 0 [facility] MDM: 08:54 Patient medically screened. [facility] 10:22 Differential diagnosis: Migraine with an aura, migraine without aura, tension headache, 7 meningitis. Data reviewed: vital signs, nurses notes, lab test result(s), radiologic studies, CT scan. I considered the following discharge prescriptions or medication management in the emergency department Medications were administered in the Emergency Department. See MAR. Independent interpretation of the following test(s) in the Emergency Department CT Scan: My interpretation is no acute abnormalities. Care significantly affected by the following chronic conditions: Hypertension. Counseling: I had a detailed discussion with the patient and/or guardian regarding the historical points, exam findings, and any diagnostic results supporting the discharge/admit diagnosis, to return to the emergency department if symptoms worsen or persist or if there are any questions or concerns that arise at home. Response to treatment: the patient's symptoms have markedly improved after treatment. 09/09 09:02 Order name: BMP; Complete Time: 10:20 [facility] 09/09 09:02 Order name: CBC with Diff; Complete Time: 10:20 [facility] 09/09 09:02 Order name: CT Head Brain wo Cont; Complete Time: 09:50 [facility] Administered Medications: : Drug: NS 0.9% IV 1000 ml IV at 1 bolus Per protocol; 1000 mL bolus Route: IV; Rate: 1 rs5 bolus; Site: left antecubital; 10:00 Follow up: Response: No adverse reaction; IV Status: Completed infusion rs5 09:07 Drug: Ketorolac IVP 30 mg IVP once Route: IVP; Site: left antecubital; rs5 09:33 Follow up: Response: No adverse reaction; Pain is decreased rs5 09:07 Drug: metoCLOPramide IVP 10 mg IVP once; over 1 to 2 minutes Route: IVP; Site: left rs5 antecubital; 09:33 Follow up: Response: No adverse reaction rs5 09:07 Drug: diphenhydrAMINE IVP 25 mg IVP once Route: IVP; Site: left antecubital; rs5 09:33 Follow up: Response: No adverse reaction rs5 09:07 Drug: MethylPrednisoLONE IVP 125 mg IVP once Route: IVP; Site: left antecubital; rs5 09:33 Follow up: Response: No adverse reaction rs5 Disposition: 15:30 I was immediately available on-site in the Emergency Department for consultation in the ms3 care of the patient. Disposition Summary: 09/10/23 10:30 Discharge Ordered Notes: Location: Home [facility] Problem: chronic [facility] Symptoms: have improved [facility] Condition: Stable [facility] Diagnosis - Migraine without aura, not intractable [facility] Followup: [facility] - With: Private Physician - When: 2 - 3 days - Reason: Recheck today's complaints Discharge Instructions: - Discharge Summary Sheet [facility] - Migraine Headache [facility] Forms: - Medication Reconciliation Form [facility] - Thank You Letter [facility] - Patient Portal Instructions [facility] - Leadership Thank You Letter [facility] Prescriptions: - ondansetron 4 mg Oral Tablet,disintegrating - take 1 tablet ORAL route every 4-6 hours As needed; 20 tablet; Refills: 0, [facility] Product Selection Permitted - Medrol (Terence) 4 mg Oral Tablets, Dose Pack - take 1 tablet ORAL route as directed - follow package instructions; 1 packet; [facility] Refills: 0, Product Selection Permitted NIH Stroke Scale - NIH Stroke Score Date: 09/10/2023 Time: 09:00 Total Score = 0 10. Dysarthria (speech clarity - read or repeat words) - 0(Normal) 11. Extinction and Inattention (visual/tactile/auditory/spatial/personal) - 0(No abnormality) 1a. Level of Consciousness (LOC) - 0(Alert) 1b. Level of Consciousness (LOC) (Month \T\ Age) - 0(Both) 1c. LOC Commands (Open \T\ Closes Eyes/Architectural Drafter) - 0(Both) 2. Best Gaze (Lateral Gaze Paresis) - 0(Normal) 3. Visual Field Loss - 0(No visual loss) 4. Facial Palsy - 0(Normal) 5a. Left Arm: Motor (10-second hold) - 0(No drift) 5b. Right Arm: Motor (10-second hold) - 0(No drift) 6a. Left Leg: Motor (5-second hold - always test supine) - 0(No drift) 6b. Right Leg: Motor (5-second hold - always test supine) - 0(No drift) 7. Limb Ataxia (finger/nose \T\ heel/harris - test with eyes open) - 0(Absent) 8. Sensory Loss (pinprick arms/legs/face) - 0(Normal) 9. Best Language: Aphasia (description/naming/reading) - 0(No aphasia) Initials: 7 Signatures: Dispatcher [employer] Giselle Vergara, RN RN iw Artur Chavez, DO ms3 Margarita Zavala, COLLAR SETTER COLLAR SETTER 7 Gabriel Arguello RN RN rs5
--- NOTE | 2023-09-10 10:30 | ER ---
Nurse's Notes [facility] Name: Ericka Wallace Age: 43 yrs Sex: Female : 1980 Arrival Date: 09/10/2023 Time: 08:50 Bed 15 Private MD: Diagnosis: Migraine without aura, not intractable Presentation: 09/09 08:59 Chief complaint: Patient states: migraine since Sunday with blurred vision, is taking iw ibuprofen and fiorcet , also having intermittent left arm numbness , no weakness. Coronavirus screen: At this time, the client does not indicate any symptoms associated with coronavirus-19. Ebola Screen: Patient negative for fever greater than or equal to 101.5 degrees Fahrenheit, and additional compatible Ebola Virus Disease symptoms Patient denies exposure to infectious person. Patient denies travel to an Ebola-affected area in the 21 days before illness onset. No symptoms or risks identified at this time. Initial Sepsis Screen: Does the patient meet any 2 criteria? No. Patient's initial sepsis screen is negative. Does the patient have a suspected source of infection? No. Patient's initial sepsis screen is negative. Risk Assessment: Do you want to hurt yourself or someone else? Patient reports no desire to harm self or others. 08:59 Method Of Arrival: Ambulatory iw 08:59 Acuity: ALTON 3 iw 09:01 Onset of symptoms was October 04, 2023. rs5 Historical: - Allergies: 09:00 No Known Allergies; iw - PMHx: 09:00 Hypertension; Migraines; iw - Immunization history:: Adult Immunizations up to date. - Infectious Disease History:: Denies. - Social history:: Smoking status: Patient denies any tobacco usage or history of. Screenin:05 [facility] ED Fall Risk Assessment (Adult) History of falling in the last 3 months, rs5 including since admission No falls in past 3 months (0 pts). 09:05 Abuse screen: Denies threats or abuse. Nutritional screening: No deficits noted. rs5 Tuberculosis screening: No symptoms or risk factors identified. Assessment: 09:05 General: Appears in no apparent distress. uncomfortable, Behavior is calm, cooperative. rs5 Pain: Complains of pain in head Pain currently is 9 out of 10 on a pain scale. Quality of pain is described as aching, Is continuous. Neuro: Level of Consciousness is awake, alert, obeys commands, Oriented to person, place, time, situation. Cardiovascular: Patient's skin is warm and dry. Rhythm is regular. Respiratory: Airway is patent Respiratory effort is even, unlabored, Respiratory pattern is regular, symmetrical. GI: Abdomen is round non-distended, Abd is soft and non tender X 4 quads. : No signs and/or symptoms were reported regarding the genitourinary system. EENT: No signs and/or symptoms were reported regarding the EENT system. Derm: Skin is intact, Skin is dry, Skin is normal, Skin temperature is warm. Musculoskeletal: Range of motion: intact in all extremities, pt reports numbness to right arm x1 week when symptoms began. 10:09 Reassessment: Patient and/or family updated on plan of care and expected duration. Pain rs5 level reassessed. Patient is alert, oriented x 3, equal unlabored respirations, skin warm/dry/pink. Patient denies pain at this time. Patient states feeling better. Patient states symptoms have improved. 10:45 Reassessment: No changes from previously documented assessment. rs5 Vital Signs: 09:16 BP 117 / 77; Pulse 81; Resp 18; Pulse Ox 99% on R/A; rs5 NIH Stroke Scale Scores: 09:00 NIHSS Score: 0 [facility] ED Course: 08:53 Patient arrived in ED. im 08:53 Margarita Zavala FNP is [facility] 08:53 Artur Chavez DO is Attending Physician. 7 09:00 Triage completed. iw 09:05 Patient has correct armband on for positive identification. Placed in gown. Bed in low rs5 position. Call light in reach. Side rails up X2. 09:05 No provider procedures requiring assistance completed. rs5 09:05 Inserted saline lock: 24 gauge in left antecubital area, using aseptic technique. Blood rs5 collected. 09:06 Gabriel Arguello, LUCÍA is Primary Nurse. rs5 09:19 CT Head Brain wo Cont In Process Unspecified. EDMS 10:55 IV discontinued, intact, bleeding controlled, No redness/swelling at site. Pressure rs5 dressing applied. Administered Medications: 09:07 Drug: NS 0.9% IV 1000 ml IV at 1 bolus Per protocol; 1000 mL bolus Route: IV; Rate: 1 rs5 bolus; Site: left antecubital; 10:00 Follow up: Response: No adverse reaction; IV Status: Completed infusion rs5 09:07 Drug: Ketorolac IVP 30 mg IVP once Route: IVP; Site: left antecubital; rs5 09:33 Follow up: Response: No adverse reaction; Pain is decreased rs5 09:07 Drug: metoCLOPramide IVP 10 mg IVP once; over 1 to 2 minutes Route: IVP; Site: left rs5 antecubital; 09:33 Follow up: Response: No adverse reaction rs5 09:07 Drug: diphenhydrAMINE IVP 25 mg IVP once Route: IVP; Site: left antecubital; rs5 09:33 Follow up: Response: No adverse reaction rs5 09:07 Drug: MethylPrednisoLONE IVP 125 mg IVP once Route: IVP; Site: left antecubital; rs5 09:33 Follow up: Response: No adverse reaction rs5 Medication: 09:13 VIS not applicable for this client. rs5 Outcome: 10:30 Discharge ordered by MD. santos 10:55 Discharged to home ambulatory, rs5 10:55 Condition: stable 10:55 Discharge instructions given to patient, family, Instructed on discharge instructions, follow up and referral plans. Demonstrated understanding of instructions, follow-up care, 10:58 Patient left the ED. rs5 NIH Stroke Scale - NIH Stroke Score Date: 09/10/2023 Time: 09:00 Total Score = 0 10. Dysarthria (speech clarity - read or repeat words) - 0(Normal) 11. Extinction and Inattention (visual/tactile/auditory/spatial/personal) - 0(No abnormality) 1a. Level of Consciousness (LOC) - 0(Alert) 1b. Level of Consciousness (LOC) (Month \T\ Age) - 0(Both) 1c. LOC Commands (Open \T\ Closes Eyes/Film Painter) - 0(Both) 2. Best Gaze (Lateral Gaze Paresis) - 0(Normal) 3. Visual Field Loss - 0(No visual loss) 4. Facial Palsy - 0(Normal) 5a. Left Arm: Motor (10-second hold) - 0(No drift) 5b. Right Arm: Motor (10-second hold) - 0(No drift) 6a. Left Leg: Motor (5-second hold - always test supine) - 0(No drift) 6b. Right Leg: Motor (5-second hold - always test supine) - 0(No drift) 7. Limb Ataxia (finger/nose \T\ heel/harris - test with eyes open) - 0(Absent) 8. Sensory Loss (pinprick arms/legs/face) - 0(Normal) 9. Best Language: Aphasia (description/naming/reading) - 0(No aphasia) Initials: [facility] Signatures: Dispatcher [employer] EDMS Giselle Giraldo, RN RN Margarita Zavala, PSYCHOMETRICIAN PSYCHOMETRICIAN 7 Gabriel Arguello, RN RN rs5 Maureen Travis Corrections: (The following items were deleted from the chart) 09:17 09:16 BP 117 / 77; Pulse 18bpm; Resp 18bpm; Pulse Ox 99% RA; rs5 rs5 09/10 07:13 04/08 11:12 Patient left the ED. rs5 rs5
[2023-09-10 14:29] VITALS: BP 117/77; O2SAT 99
== END 2023-09-10 11:12 | disposition home or self-care (01) ==
LOC: ER 08:50
DX: G43.009 Migraine without aura, not intractable, without status migrainosus (principal)
CPT/HCPCS: 36415; 70450; 80048; 85025; 96361; 96374; 96375; 99284; J1200; J2765; J2930; J7030

== ENCOUNTER 2024-01-02 13:54 | Emergency (ER) | payer SELFPAY ==
--- OUTSIDE RECORDS SUMMARY | 2024-01-02 14:00 | XMS REPORT | Continuity of Care Document ---
Author Name Unknown Address [address] [facility] [address] [place] [address] [facility] thconnect Address [address] [facility] 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 Name Role Phone Paul Lopez [facility] Primary Care Physician KEE ASKEW Attending Clinician Unavailable PEDRO AGUIRRE Attending Clinician Unavailab STAR Cabrera Attending Clinician UnavailStar Brownlee MD Attending Clinician [phone] ALEX PITT Attending Clinician Unavailable Alex Pitt MD Attending Clinician [phone] ROSEMARY CHILDERS Attending Clinician Unavailable Rosemary Childers MD Attending Clinician [phone] Doctor Unassigned, [place] Attending Clinician U TERESSA Plummer Attending Clinician Unavailab Teressa Espino DO Attending Clinician [phone] [facility], [facility] Neurology Resident Attending Cli felicity Unavailable NUNU BAKER Attending Clinician UnavailNunu Ventura Attending Clinician [phone] Glen ROCHA Attending Clinician Unavailable Glen Baron Attending Clinician [phone] LUIS DUNCAN Attending Clinician Unavailable Luis Reynolds Attending Clinician [phone] Sveta MYERS Evans S Attending Clinician [phone] YOSEPH PAZ Attending Clinician Unavailable Rhonda Joya Attending Clinician [phone] ALEX PITT Admitting Clinician Unavailable NUNU BAKER Admitting Clinician Unavaila ble Payers Payer Name Policy Type Policy Number Effective Date Expirati on Date Source [employer] PREFERRED GENERIC [id number] 2020 00:00:00 MEDICAID PENDING PENDING 2021 00:00:00 Problems Condition Name Condition Details Condition Category Status Onset Date Resolution Date Last Treatment Date Treating Clinician Comments Source Hernia, abdominal Hernia, abdominal Disease Active 08-24 00:00: 00 [facility] 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 USG 08/08- 6.9 x 5.5 x 5.6cm USG 06/06- 6.0 x 4.7 x 5.6cm- lower right segment [facility] Blurry vision Blurry vision Disease Active 2012-06 00:00: 00 [facility] Immune to varicella Immune to varicella Disease Active 2012-06 00:00: 00 [facility] Rubella immune Rubella immune Disease Active 2012-06 0 00:00: 00 [facility] Morbid obesity Morbid obesity Disease Active 2012-06 00:00: 00 [facility] Allergies, Adverse Reactions, Alerts Allergy Name Allergy Type Status Severity Reaction(s) Onset Date Inactive Date Treating Clinician Comments Source NO KNOWN ALLERGIE S Drug Class Active [facility] Social History Social Habit Start Date Stop Date Quantity Comments Source History of tobacco use Cigarette Smoker [facility] Alcohol intake 2023-09-04 00:00:00 2023-09-04 00:00:00 Current non-drinker of alcohol (finding) [facility] History of Social function 2023-09-04 00:00:00 2023-09-04 00:00:00 [facility] Exposure to SARS-CoV-2 (event) 2022-09-17 00:00:00 2022-09-27 10:30:00 Not sure [facility] Cigarettes smoked current (pack per day) - Reported 2013-09-11 00:00:00 2013-09-11 00:00:00 [facility] Tobacco Comment 2013-09-11 00:00:00 2013-09-11 00:00:00 Trying to quit [facility] Tobacco use and exposure 2013-09-11 00:00:00 2013-09-11 00:00:00 Smokeless tobacco non-user [facility] Sex Assigned At 1980 00:00:00 1980 00:00:00 [facility] Smoking Status Start Date Stop Date Source Smokes tobacco daily 2013-09-11 00:00:00 [facility] Medications Ordered Medication Name Filled Medication Name Start Date Stop Date Current Medication? Ordering Clinician Indication Dosage Frequency Signature (SIG) Comments Components Source lisinopril 20 mg-hydrochl orothiazide 12.5 mg tablet -18 00:00: 00 Yes 1mg Cem Wahl lisinopril 20 mg-hydrochl orothiazide 12.5 mg tablet 09-25 00:00: 00 Yes 1mg Cem Wahl NaCl 0.9% (NS) bolus infusion 1,000 mL 09-04 01:30: 00 09-04 02:00 :00 No 1000mL at 999 mL/hr, 1,000 mL, IV Infusion, ONCE, 1 dose, On Sun09/04/23 at 2030, [facility] diphenhydrA MINE (BENADRYL) injection 25 mg 09-04 00:45: 00 09-04 00:48 :00 No 25mg 25 mg, Slow IV Push, ONCE, 1 dose, On Sun09/04/23 at 1945, [facility] metoclopram hadley HCl (REGLAN) injection 10 mg 09-04 00:45: 00 09-04 00:48 :00 No 10mg 10 mg, Slow IV Push, ONCE, 1 dose, On Sun09/04/23 at 1945, [facility] ketorolac (TORADOL) injection 30 mg 07-03 17:00: 00 07-03 16:24 :00 No 30mg 30 mg, Slow IV Push, ONCE, 1 dose, On Sun07/03/23 at 1100, [facility] NaCl 0.9% (NS) bolus infusion 1,000 mL 07-03 17:00: 00 07-03 17:50 :00 No 1000mL at 999 mL/hr, 1,000 mL, IV Infusion, ONCE, 1 dose, On Sun07/03/23 at 1100, [facility] dexamethaso ne sod phos PF injection 10 mg 07-03 16:15: 00 07-03 16:24 :00 No 10mg 10 mg, Slow IV Push, ONCE, 1 dose, On 1/30/24 at 1015, 1 mL [facility] metoclopram hadley HCl (REGLAN) injection 10 mg 07-03 16:15: 00 07-03 16:24 :00 No 10mg 10 mg, Slow IV Push, ONCE, 1 dose, On Sun07/03/23 at 1015, GERARDO [facility] butalbital- acetaminoph en-caff 50-325-40 mg tablet 07-03 00:00: 00 Yes [id number] 1{tbl} Take 1 tablet by mouth every 6 (six) hours as needed (headache) . [facility] ondansetron 4 mg tablet 07-03 00:00: 00 Yes [id number] 1 or 2 tablets every 8 hours as needed for nausea [facility] predniSONE 20 mg tablet 07-03 00:00: 00 07-11 05:59 :00 No [id number] 40mg Take 2 tablets by mouth in the morning for 7 days. [facility] TAKE 1 TABLET EVERY 8 HOURS NEEDED. 06-27 00:00: 00 10-15 00:00 :00 No 4 Cem Wahl TAKE 1 TABLET EVERY 6 HOURS WITH FOOD. 06-27 00:00: 00 10-15 00:00 :00 No 800 Cem Wahl hyoscyamine sulfate (LEVSIN/SL) sublingual tablet 0.25 mg 06-22 04:00: 00 06-22 03:26 :00 No .25mg 0.25 mg, Sublingual , ONCE NOW, 1 dose, On Sun06/21/23 at 2200, Routine [facility] NaCl 0.9% (NS) bolus infusion 1,000 mL 06-22 03:45: 00 06-22 05:00 :00 No 1000mL at 999 mL/hr, 1,000 mL, IV Piggyback, ONCE, 1 dose, On Sun06/21/23 at 2145, STAT [facility] ketorolac (TORADOL) injection 30 mg 06-22 03:45: 00 06-22 03:25 :00 No 30mg 30 mg, Slow IV Push, ONCE NOW, 1 dose, On Krystle 06/21/23 at 2145, GERARDO [facility] ondansetron (ZOFRAN (PF)) injection 4 mg 06-22 03:00: 00 06-22 03:25 :00 No 4mg 4 mg, Slow IV Push, ONCE, 1 dose, On Krystle 06/21/23 at 2100, GERARDO [facility] famotidine (PEPCID) 20 mg tablet 06-22 00:00: 00 Yes [id number] 20mg Take 1 tablet by mouth in the morning and 1 tablet in the evening. [facility] ondansetron 4 mg disintegrat ing tablet 06-22 00:00: 00 Yes [id number] 4mg Take 1 tablet by mouth every 8 (eight) hours as needed for Nausea and Vomiting (N/V). [facility] hyoscyamine sulfate (LEVSIN/SL) 0.125 mg sublingual tablet 06-22 00:00: [id number] 2 tablets under the tongue every 6 (six) hours as needed (Abdominal pain or cramping). [facility] ketorolac 10 mg tablet 06-22 00:00: 00 Yes [id number] 10mg Take 1 tablet by mouth every 6 (six) hours as needed for Pain (scale 4-6) or Pain (scale 7-10). [facility] acetaminoph en (TYLENOL ARTHRITIS PAIN) 650 mg CR tablet 06-22 00:00: 00 Yes [id number] 650mg Take 1 tablet by mouth every 8 (eight) hours as needed for Pain. [facility] TAKE 1 TABLET DAILY. 2022-06 00:00: 00 10-15 00:00 :00 No [id number] Cem Wahl NaCl 0.9% (NS) bolus infusion 1,000 mL 12-21 01:15: 00 12-21 01:45 :00 No 1000mL at 999 mL/hr, 1,000 mL, IV Infusion, ONCE, 1 dose, On Sun12/20/22 at 2015, STAT [facility] dexamethaso ne sod phos PF injection 10 mg 12-21 00:30: 00 12-21 00:54 :00 No 10mg 10 mg, Slow IV Push, ONCE, 1 dose, On Sun12/20/22 at 1930, 1 mL [facility] diphenhydrA MINE (BENADRYL) injection 25 mg 12-21 00:30: 00 12-21 00:54 :00 No 25mg 25 mg, Slow IV Push, ONCE, 1 dose, On Sun12/20/22 at 1930, STAT [facility] metoclopram hadley HCl (REGLAN) injection 10 mg 12-21 00:15: 00 12-21 00:54 :00 No 10mg 10 mg, Slow IV Push, ONCE, 1 dose, On Sun12/20/22 at 1915, GERARDO [facility] INJECT 1 ML INTRAMUSCUL TORRES ONCE EVERY 3 MONTHS. 12-06 00:00: 00 10-15 00:00 :00 No 150 Cem Wahl TAKE 1 TABLET DAILY. 12-06 00:00: 00 10-15 00:00 :00 No [id number] Cem Suzi Vish ketorolac (TORADOL) injection 30 mg 09-27 16:30: 00 09-27 15:43 :00 No 30mg 30 mg, Slow IV Push, ONCE, 1 dose, On Sun09/27/22 at 1130, Routine [facility] NaCl 0.9% (NS) bolus infusion 1,000 mL 09-27 16:30: 00 09-27 16:54 :00 No 1000mL at 999 mL/hr, 1,000 mL, IV Infusion, ONCE, 1 dose, On Sun09/27/22 at 1130, GERARDO [facility] butalbital- acetaminoph en-caff (ESGIC) 50-325-40 mg tablet 1 tablet 09-27 15:45: 00 09-27 15:44 :00 No 1{tbl} 1 tablet, Oral, ONCE, 1 dose, On Sun09/27/22 at 1045, [facility] dexamethaso ne sod phos PF injection 10 mg 09-27 15:45: 00 09-27 15:44 :00 No 10mg 10 mg, Slow IV Push, ONCE, 1 dose, On Sun09/27/22 at 1045, 1 mL [facility] diphenhydrA MINE (BENADRYL) injection 25 mg 09-27 15:45: 00 09-27 15:44 :00 No 25mg 25 mg, Slow IV Push, ONCE, 1 dose, On Sun09/27/22 at 1045, STAT [facility] metoclopram hadley HCl (REGLAN) injection 10 mg 09-27 15:45: 00 09-27 15:44 :00 No 10mg 10 mg, Slow IV Push, ONCE, 1 dose, [facility] 1045[facility] 18 00:00: 00 10-15 00:00 :00 No Cem Wahl TAKE 1 TABLET DAILY. 3-06 00:00: 00 10-15 00:00 :00 No Cem Wahl butalbital- acetaminoph en-caff (ESGIC) 50-325-40 mg tablet 2 tablet 07-20 01:00: 00 07-20 01:08 :00 No 2{tbl} 2 tablet, Oral, ONCE, 1 dose, On Sun07/19/22 at 1900, [facility] ketorolac (TORADOL) injection 30 mg 07-19 15:30: 00 07-19 14:58 :00 No 30mg 30 mg, Slow IV Push, ONCE, 1 dose, On Sun07/19/22 at 0930, Routine [facility] NaCl 0.9% (NS) bolus infusion 1,000 mL 07-19 15:30: 07-19 16:40 :00 No 1000mL at 999 mL/hr, 1,000 mL, IV Infusion, ONCE, 1 dose, On Sun07/19/22 at 0930, GERARDO [facility] dexamethaso ne sod phos PF injection 10 mg 07-19 14:45: 00 07-19 14:58 :00 No 10mg 10 mg, Slow IV Push, ONCE, 1 dose, On Sun07/19/22 at 0845, 1 mL [facility] diphenhydrA MINE (BENADRYL) injection 25 mg 07-19 14:45: 00 07-19 14:58 :00 No 25mg 25 mg, Slow IV Push, ONCE, 1 dose, On Sun07/19/22 at 0845, STAT [facility] metoclopram hadley HCl (REGLAN) injection 10 mg 07-19 14:45: 00 07-19 14:58 :00 No 10mg 10 mg, Slow IV Push, ONCE, 1 dose, On Sun07/19/22 at 0845, GERARDO [facility] butalbital- acetaminoph en-caff 50-325-40 mg tablet 07-19 00:00: 00 Yes [id number] 1{tbl} Take 1 tablet by mouth every 4 (four) hours as needed for Pain (scale 7-10). [facility] ibuprofen 600 mg tablet 02-13 00:00: 00 Yes [id number] 600mg Take 1 tablet by mouth every 6 (six) hours as needed for Pain (scale 4-6). [facility] benzonatate 200 mg capsule 02-13 00:00: 00 Yes [id number] 200mg Take 1 capsule by mouth 3 (three) times daily as needed for Cough for up to 20 doses. [facility] ondansetron 4 mg disintegrat ing tablet 02-13 00:00: 00 Yes [id number] 4mg Take 1 tablet by mouth every 8 (eight) hours as needed for Nausea and Vomiting (N/V). [facility] lisinopril 20 mg-hydrochl orothiazide 12.5 mg tablet -16 00:00: 00 No 1mg lisinopril 20 mg-hydrochl orothiazide 12.5 mg tablet -16 00:00: 00 No 1mg lisinopril 20 mg-hydrochl orothiazide 12.5 mg tablet -16 00:00: 00 Yes 1mg Cem Wahl dexamethaso ne sod phos PF injection 10 mg 10-21 18:00: 00 10-21 18:00 :00 No 10mg 10 mg, Slow IV Push, ONCE, 1 dose, On Sun10/21/21 at 1300, 1 mL [facility] ketorolac (TORADOL) injection 30 mg 10-21 17:45: 00 10-21 17:00 :00 No 30mg 30 mg, Slow IV Push, ONCE, 1 dose, On Sun10/21/21 at 1245, [facility] diphenhydrA MINE (BENADRYL) injection 25 mg 10-21 17:45: 00 10-21 16:58 :00 No 25mg 25 mg, Slow IV Push, ONCE, 1 dose, On Sun10/21/21 at 1245, STAT [facility] metoclopram hadley HCl (REGLAN) injection 10 mg 10-21 17:45: 00 10-21 16:57 :00 No 10mg 10 mg, Slow IV Push, ONCE, 1 dose, [facility]10[facility]21/21 [facility] 1245[facility] NaCl 0.9% (NS) bolus infusion 1,000 mL 10-21 17:45: 00 10-21 18:23 :00 No 1000mL at 999 mL/hr, 1,000 mL, IV Infusion, ONCE, 1 dose, On Sun10/21/21 at 1245, [facility] Dose Unknown 3-12 00:00: 00 No Dose Unknown 3-12 00:00: 00 No Dose Unknown 3-12 00:00: 00 Yes Cem Wahl cefTRIAXone (ROCEPHIN) 1,000 mg in NaCl 0.9% (NS) 50 mL MINI-BAG 2020-06 00:45: 00 05-27 00:22 :00 No 1000mg 1,000 mg, IV Piggyback, ONCE, 1 dose, On Krystle 05/26/21 at 1845, Administer over 30 Minutes, 50 mL
Reas on for Anti-Infec tive: Documented Infection< br>Documen lizette Infection Site: Urine
D uration of Therapy: 7 days [facility] butalbital- acetaminoph en-caff (ESGIC) 50-325-40 mg tablet 1 tablet 2020-06 00:45: 00 05-26 23:52 :00 No 1{tbl} 1 tablet, Oral, ONCE, 1 dose, On Krystle 05/26/21 at 1845, [facility] dexamethaso ne (DECADRON PHOSPHATE) injection 10 mg 2020-06 00:45: 00 05-26 23:52 :00 No 10mg 10 mg, IV Push, ONCE, 1 dose, On Krystle 05/26/21 at 1845, STAT [facility] diphenhydrA MINE (BENADRYL) injection 12.5 mg 2020-06 22:30: 00 05-26 22:39 :00 No 12.5mg 12.5 mg, Slow IV Push, ONCE, 1 dose, On Krystle 05/26/21 at 1630, STAT [facility] metoclopram hadley HCl (REGLAN) injection 10 mg 2020-06 22:30: 00 05-26 22:39 :00 No 10mg 10 mg, Slow IV Push, ONCE, 1 dose, On Krystle 05/26/21 at 1630, [facility] ketorolac (TORADOL) injection 30 mg 2020-06 22:30: 00 05-26 22:39 :00 No 30mg 30 mg, Slow IV Push, ONCE, 1 dose, On Krystle 05/26/21 at 1630, [facility] NaCl 0.9% (NS) bolus infusion 1,000 mL 2020-06 22:30: 00 05-26 23:52 :00 No 1000mL at 999 mL/hr, 1,000 mL, IV Infusion, ONCE, 1 dose, On Krystle 05/26/21 at 1630, GERARDO [facility] butalbital- acetaminoph en-caff 50-325-40 mg tablet 2020-06 00:00: 00 Yes [id number] 1{tbl} Take 1 tablet by mouth every 4 (four) hours as needed for Pain (scale 7-10). [facility] cephALEXin (KEFLEX) 500 mg capsule 2020-06 00:00: 00 06-03 05:59 :00 No [id number] 500mg Take 1 capsule by mouth 2 (two) times daily for 7 days. 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 150 mg/mL intramuscul ar suspension 2020-06 00:00: 00 No 1mg/mL Dose Unknown 2020-06 00:00: 00 No Depo-Graduate Research Assistant a 150 mg/mL intramuscul ar suspension 2020-06 00:00: 00 No 1mg/mL Dose Unknown 2020-06 00:00: 00 Yes Cem Wahl lisinopril 20 mg-hydrochl orothiazide 12.5 mg tablet 02-21 00:00: 00 No 1mg lisinopril 20 mg-hydrochl orothiazide 12.5 mg tablet 02-21 00:00: 00 No 1mg lisinopril 20 mg-hydrochl orothiazide 12.5 mg tablet 9-20 00:00: 00 Yes 1mg Cem Wahl lisinopril 20 mg-hydrochl orothiazide 12.5 mg tablet 7- 00:00: 00 No 1mg lisinopril 20 mg-hydrochl orothiazide 12.5 mg tablet 12-31 00:00: 00 No 1mg lisinopril 20 mg-hydrochl orothiazide 12.5 mg tablet 12-31 00:00: 00 Yes 1mg Cem Wahl lisinopril 20 mg-hydrochl orothiazide 12.5 mg tablet 11-27 00:00: 00 No 1mg lisinopril 20 mg-hydrochl orothiazide 12.5 mg tablet 11-27 00:00: 00 No 1mg lisinopril 20 mg-hydrochl orothiazide 12.5 mg tablet 11-27 00:00: 00 Yes 1mg Cem Wahl metoclopram hadley HCl (REGLAN) injection 10 mg 11-19 22:15: 00 11-19 21:10 :00 No 10mg 10 mg, Slow IV Push, ONCE, 1 dose, Sun11/19/20 at 1715, GERARDO [facility] ketorolac (TORADOL) injection 30 mg 11-19 22:15: 00 11-19 21:09 :00 No 30mg 30 mg, Slow IV Push, ONCE, 1 dose, Sun11/19/20 at 1715, GERARDO
Fa culty member approving Restricted medication : EVANS YANG [facility] diphenhydrA MINE (BENADRYL) injection 25 mg 11-19 22:15: 00 11-19 21:10 :00 No 25mg 25 mg, Slow IV Push, ONCE, 1 dose, Sun11/19/20 at 1715, STAT [facility] NaCl 0.9% (NS) bolus infusion 1,000 mL 11-19 22:00: 00 11-19 21:52 :00 No 1000mL at 999 mL/hr, 1,000 mL, IV Infusion, ONCE, 1 dose, Sun11/19/20 at 1700, STAT [facility] ondansetron (ZOFRAN (PF)) injection 4 mg 11-19 22:00: 00 11-19 20:58 :00 No 4mg 4 mg, Slow IV Push, ONCE, 1 dose, Sun11/19/20 at 1700, GERARDO [facility] ondansetron (ZOFRAN ODT) 4 mg disintegrat ing tablet 11-19 00:00: 00 Yes [id number] 4mg Take 1 tablet by mouth every 8 (eight) hours as needed for Nausea and Vomiting (N/V). [facility] medroxyprog esterone 150 mg/mL intramuscul ar suspension 10-11 00:00: 00 No 1mg/mL medroxyprog esterone 150 mg/mL intramuscul ar suspension 10-11 00:00: 00 No 1mg/mL loratadine 10 mg tablet 07-26 00:00: 00 No 1mg lisinopril 20 mg-hydrochl orothiazide 12.5 mg tablet 07-26 00:00: 00 No 1mg loratadine 10 mg tablet 07-26 00:00: 00 No 1mg lisinopril 20 mg-hydrochl orothiazide 12.5 mg tablet 07-26 00:00: 00 No 1mg loratadine 10 mg tablet 07-26 00:00: 00 Yes 1mg Cem Wahl lisinopril 20 mg-hydrochl orothiazide 12.5 mg tablet 07-26 00:00: 00 Yes 1mg Cem Wahl loratadine 10 mg tablet 2019-06 00:00: 00 No 1mg loratadine 10 mg tablet 2019-06 00:00: 00 No 1mg lisinopril 20 mg-hydrochl orothiazide 12.5 mg tablet 2019-06 00:00: 00 No 1mg lisinopril 20 mg-hydrochl orothiazide 12.5 mg tablet 2019-06 00:00: 00 No 1mg loratadine 10 mg tablet 2020-1 1-19 00:00: 00 Yes 1mg Cem Wahl lisinopril 20 mg-hydrochl orothiazide 12.5 mg tablet 2019-1 - 00:00: 00 Yes 1mg Cem Wahl lisinopril 20 mg-hydrochl orothiazide 12.5 mg tablet 2019-0 - 00:00: 00 No 1mg lisinopril 20 mg-hydrochl orothiazide 12.5 mg tablet 2019-0 - 00:00: 00 No 1mg lisinopril 20 mg-hydrochl orothiazide 12.5 mg tablet 2019-0 02-18 00:00: 00 Yes 1mg Cem Wahl lisinopril 10 mg-hydrochl orothiazide 12.5 mg tablet 2019-0 - 00:00: 00 No 1mg lisinopril 10 mg-hydrochl orothiazide 12.5 mg tablet 2019-0 02-04 00:00: 00 No 1mg lisinopril 10 mg-hydrochl orothiazide 12.5 mg tablet 2019-0 02-04 00:00: 00 Yes 1mg Cem Wahl loratadine 10 mg tablet 2019-0 - 00:00: 00 No 1mg lisinopril 10 mg-hydrochl orothiazide 12.5 mg tablet 2019-0 -29 00:00: 00 No 1mg loratadine 10 mg tablet 2019-0 29 00:00: 00 No 1mg lisinopril 10 mg-hydrochl orothiazide 12.5 mg tablet 2019-0 - 00:00: 00 No 1mg loratadine 10 mg tablet 2019-0 29 00:00: 00 Yes 1mg Cem Wahl lisinopril 10 mg-hydrochl orothiazide 12.5 mg tablet 2019-0 -29 00:00: 00 Yes 1mg Cem Wahl Wellbutrin SR 150 mg tablet, 12 hr sustained-r elease 2019-0 1-10 00:00: 00 No 1mg loratadine 10 mg tablet 0 1- 00:00: 00 No 1mg lisinopril 10 mg-hydrochl orothiazide 12.5 mg tablet 2019-0 1- 00:00: 00 No 1mg Wellbutrin SR 150 mg tablet, 12 hr sustained-r elease 06-13 00:00: 00 No 1mg loratadine 10 mg tablet 06-13 00:00: 00 No 1mg lisinopril 10 mg-hydrochl orothiazide 12.5 mg tablet 06-13 00:00: 00 No 1mg Wellbutrin SR 150 mg tablet, 12 hr sustained-r elease 06-13 00:00: 00 Yes 1mg Cem Wahl loratadine 10 mg tablet 06-13 00:00: 00 Yes 1mg Cem Wahl lisinopril 10 mg-hydrochl orothiazide 12.5 mg tablet 06-13 00:00: 00 Yes 1mg Cem Wahl lisinopril 5 mg tablet 06-11 00:00: 00 No 1mg lisinopril 5 mg tablet 06-11 00:00: 00 No 1mg lisinopril 5 mg tablet 06-11 00:00: 00 Yes 1mg Cem Wahl lisinopril 5 mg tablet 2018-06 00:00: 00 No 1mg lisinopril 5 mg tablet 2018-06 00:00: 00 No 1mg lisinopril 5 mg tablet 2018-06 00:00: 00 Yes 1mg Cem Wahl lisinopril 5 mg tablet 2018-06 00:00: 00 No 1mg lisinopril 5 mg tablet 2018-06 00:00: 00 No 1mg lisinopril 5 mg tablet 2018-06 00:00: 00 Yes 1mg Cem Wahl butalbital- acetaminoph en-caff 50-325-40 mg tablet 2018-06 00:00: 00 Yes [id number] 1{tbl} Take 1 tablet by mouth every 6 (six) hours as needed for Pain (scale 4-6). [facility] HYDROcodone -acetaminop hen (NORCO) 10-325 mg tablet 1 tablet 01-12 02:30: 00 01-12 14:29 :00 No 1{tbl} 1 tablet, Oral, ONCE NOW, 1 dose, 01/11/19 at 2130, Routine [facility] ketorolac (TORADOL) injection 15 mg 01-12 01:30: 00 01-12 00:40 :00 No 15mg 15 mg, Slow IV Push, ONCE, 1 dose, 01/11/19 at 2030, GERARDO
Fa [facility] member approving Restricted medication : RHONDA PERKINS III [facility] diphenhydrA MINE (BENADRYL) injection 25 mg 01-12 01:30: 00 01-12 00:40 :00 No 25mg 25 mg, Slow IV Push, ONCE, 1 dose, 01/11/19 at 2030, STAT
IN DICATION: DESENSITIZ ATION PROTOCOL [facility] metoclopram hadley HCl (REGLAN) injection 10 mg 01-12 01:30: 01-12 00:40 :00 No 10mg 10 mg, Slow IV Push, ONCE, 1 dose, 01/11/19 at 2030, GERARDO [facility] NaCl 0.9% (NS) bolus infusion 1,000 mL 01-12 01:30: 00 01-12 01:32 :00 No 1000mL at 999 mL/hr, 1,000 mL, IV Infusion, ONCE, 1 dose, 01/11/19 at 2030, STAT [facility] amitriptyli ne 25 mg tablet 11-07 00:00: 00 Yes Take one tablet per night as tolerated for one week then increase as tolerated to 2 tablets per night thereafter [facility] SUMAtriptan 25 mg tablet 11-07 00:00: 00 Yes Take one table at headache onset and one additional tablet 2 hours later if no relief. Not to exceed 2 pills in 24 hours or 9 days / month [facility] acetaZOLAMI DE 250 mg tablet 09-07 00:00: 00 Yes [id number] 500mg Take 2 tablets by mouth 2 (two) times daily. [facility] topiramate (TOPAMAX) 50 mg tablet 09-07 00:00: 00 Yes [id number] 50mg Take 1 tablet by mouth 2 (two) times daily. [facility] Immunizations Ordered Immunization Name Filled Immunization Name Date Status Comments Source TDAP 2013-06-16 00:00:00 Completed [facility] TDAP 2013-06-16 00:00:00 Completed [facility] TDAP 2013-06-16 00:00:00 Completed [facility] TDAP 2013-06-16 00:00:00 Completed [facility] TDAP 2013-06-16 00:00:00 Completed [facility] TDAP 2013-06-16 00:00:00 Completed [facility] TDAP 2013-06-16 00:00:00 Completed [facility] TDAP 2013-06-16 00:00:00 Completed [facility] Tdap 2013-06-16 00:00:00 Completed [facility] TDAP 2013-06-16 00:00:00 Completed [facility] Tdap 2013-06-16 00:00:00 Completed [facility] TDAP 2013-06-16 00:00:00 Completed [facility] Influenza Virus Vaccine (3+ yrs) 2013-03-28 00:00:00 Completed [facility] Influenza Virus Vaccine (3+ yrs) 2013-03-28 00:00:00 Completed [facility] Influenza Virus Vaccine (3+ yrs) 2013-03-28 00:00:00 Completed [facility] Influenza Virus Vaccine (3+ yrs) 2013-03-28 00:00:00 Completed [facility] Influenza Virus Vaccine (3+ yrs) 2013-03-28 00:00:00 Completed [facility] Influenza Virus Vaccine (3+ yrs) 2013-03-28 00:00:00 Completed [facility] Influenza Virus Vaccine (3+ yrs) 2013-03-28 00:00:00 Completed [facility] Influenza Virus Vaccine (3+ yrs) 2013-03-28 00:00:00 Completed [facility] Influenza Virus Vaccine (3+ yrs) 2013-03-28 00:00:00 Completed [facility] Influenza Virus Vaccine (3+ yrs) 2013-03-28 00:00:00 Completed [facility] Influenza Virus Vaccine (3+ yrs) 2013-03-28 00:00:00 Completed [facility] Influenza Virus Vaccine (3+ yrs) 2013-03-28 00:00:00 Completed [facility] Td 1998-01-17 00:00:00 Completed [facility] Td 1998-01-17 00:00:00 Completed [facility] Td 1998-01-17 00:00:00 Completed [facility] Td 1998-01-17 00:00:00 Completed [facility] TD, NOS 1998-01-17 00:00:00 Completed [facility] TD, NOS 1998-01-17 00:00:00 Completed [facility] TD, NOS 1998-01-17 00:00:00 Completed [facility] TD, NOS 1998-01-17 00:00:00 Completed [facility] Td 1998-01-17 00:00:00 Completed [facility] TD, NOS 1998-01-17 00:00:00 Completed [facility] Td 1998-01-17 00:00:00 Completed [facility] Td 1998-01-17 00:00:00 Completed [facility] TD, NOS Unknown Completed [facility] Influenza Virus Vaccine (3+ yrs) Unknown Completed [facility] TDAP Unknown Completed [facility] TD, NOS Unknown Completed [facility] Influenza Virus Vaccine (3+ yrs) Unknown Completed [facility] TDAP Unknown Completed [facility] TD, NOS Unknown Completed [facility] Influenza Virus Vaccine (3+ yrs) Unknown Completed [facility] TDAP Unknown Completed [facility] TD, NOS Unknown Completed [facility] Influenza Virus Vaccine (3+ yrs) Unknown Completed [facility] TDAP Unknown Completed [facility] TD, NOS Unknown Completed [facility] Influenza Virus Vaccine (3+ yrs) Unknown Completed [facility] TDAP Unknown Completed [facility] Vital Signs Vital Name Observation Time Observation Value Comments S ource Systolic blood pressure 2023-09-05 02:05:00 110 mm[Hg] [facility] Diastolic blood pressure 2023-09-05 02:05:00 80 mm[Hg] [facility] Heart rate 2023-09-05 02:05:00 76 /min [facility] Body temperature 2023-09-05 02:05:00 37.06 Yuliana [facility] Respiratory rate 2023-09-05 02:05:00 17 /min [facility] Oxygen saturation in Arterial blood by Pulse oximetry 2023-09-05 02:05:00 97 /min [facility] Body height 2023-09-04 23:12:00 160 cm [facility] Body weight 2023-09-04 23:12:00 99.791 kg [facility] BMI 2023-09-04 23:12:00 38.97 kg/m2 [facility] Systolic blood pressure 2023-07-03 18:00:00 126 mm[Hg] [facility] Diastolic blood pressure 2023-07-03 18:00:00 78 mm[Hg] [facility] Heart rate 2023-07-03 18:00:00 64 /min [facility] Respiratory rate 2023-07-03 18:00:00 18 /min [facility] Oxygen saturation in Arterial blood by Pulse oximetry 2023-07-03 18:00:00 100 /min [facility] Body temperature 2023-07-03 15:47:00 37.22 Yuliana [facility] Body height 2023-07-03 15:47:00 160 cm [facility] Body weight 2023-07-03 15:47:00 102.195 kg [facility] BMI 2023-07-03 15:47:00 39.91 kg/m2 [facility] Systolic blood pressure 2023-06-22 06:10:00 104 mm[Hg] [facility] Diastolic blood pressure 2023-06-22 06:10:00 68 mm[Hg] [facility] Heart rate 2023-06-22 06:10:00 68 /min [facility] Body temperature 2023-06-22 06:10:00 37.22 Yuliana [facility] Respiratory rate 2023-06-22 06:10:00 16 /min [facility] Oxygen saturation in Arterial blood by Pulse oximetry 2023-06-22 06:10:00 100 /min [facility] Body height 2023-06-22 02:45:00 160 cm [facility] Body weight 2023-06-22 02:45:00 99.791 kg [facility] BMI 2023-06-22 02:45:00 38.97 kg/m2 [facility] Systolic blood pressure 2022-12-21 02:55:53 117 mm[Hg] [facility] Diastolic blood pressure 2022-12-21 02:55:53 70 mm[Hg] [facility] Heart rate 2022-12-21 02:55:53 79 /min [facility] Respiratory rate 2022-12-21 02:55:53 15 /min [facility] Oxygen saturation in Arterial blood by Pulse oximetry 2022-12-21 02:55:53 100 /min [facility] Body temperature 2022-12-20 23:43:00 37.28 Yuliana [facility] Body height 2022-12-20 23:43:00 160 cm [facility] Body weight 2022-12-20 23:43:00 99.791 kg [facility] BMI 2022-12-20 23:43:00 38.97 kg/m2 [facility] Systolic blood pressure 2022-09-27 16:00:00 122 mm[Hg] [facility] Diastolic blood pressure 2022-09-27 16:00:00 82 mm[Hg] [facility] Heart rate 2022-09-27 16:00:00 63 /min [facility] Respiratory rate 2022-09-27 16:00:00 18 /min [facility] Oxygen saturation in Arterial blood by Pulse oximetry 2022-09-27 16:00:00 100 /min [facility] Body temperature 2022-09-27 15:29:00 36.89 Yuliana [facility] Body height 2022-09-27 15:29:00 160 cm [facility] Body weight 2022-09-27 15:29:00 104.327 kg [facility] BMI 2022-09-27 15:29:00 40.74 kg/m2 [facility] Systolic blood pressure 2022-07-20 02:15:22 138 mm[Hg] [facility] Diastolic blood pressure 2022-07-20 02:15:22 78 mm[Hg] [facility] Heart rate 2022-07-20 02:15:22 69 /min [facility] Body temperature 2022-07-20 02:15:22 36.61 Yuliana [facility] Respiratory rate 2022-07-20 02:15:22 16 /min [facility] Oxygen saturation in Arterial blood by Pulse oximetry 2022-07-20 02:15:22 100 /min [facility] Body height 2022-07-20 00:24:00 160 cm [facility] Body weight 2022-07-20 00:24:00 104.327 kg [facility] BMI 2022-07-20 00:24:00 40.74 kg/m2 [facility] Systolic blood pressure 2022-07-19 17:30:33 124 mm[Hg] [facility] Diastolic blood pressure 2022-07-19 17:30:33 61 mm[Hg] [facility] Heart rate 2022-07-19 17:30:33 65 /min [facility] Body temperature 2022-07-19 17:30:33 37.11 Yuliana [facility] Respiratory rate 2022-07-19 17:30:33 16 /min [facility] Oxygen saturation in Arterial blood by Pulse oximetry 2022-07-19 17:30:33 99 /min [facility] Body height 2022-07-19 14:34:00 160 cm [facility] Body weight 2022-07-19 14:34:00 104.327 kg [facility] BMI 2022-07-19 14:34:00 40.74 kg/m2 [facility] Systolic blood pressure 2022-02-13 12:56:00 136 mm[Hg] [facility] Diastolic blood pressure 2022-02-13 12:56:00 81 mm[Hg] [facility] Heart rate 2022-02-13 12:56:00 79 /min [facility] Body temperature 2022-02-13 12:56:00 36.44 Yuliana [facility] Respiratory rate 2022-02-13 12:56:00 15 /min [facility] Body height 2022-02-13 12:56:00 160 cm [facility] Body weight 2022-02-13 12:56:00 104.327 kg [facility] BMI 2022-02-13 12:56:00 40.74 kg/m2 [facility] Oxygen saturation in Arterial blood by Pulse oximetry 2022-02-13 12:56:00 100 /min [facility] Systolic blood pressure 2021-10-21 18:24:00 128 mm[Hg] [facility] Diastolic blood pressure 2021-10-21 18:24:00 76 mm[Hg] [facility] Heart rate 2021-10-21 18:24:00 72 /min [facility] Respiratory rate 2021-10-21 18:24:00 18 /min [facility] Oxygen saturation in Arterial blood by Pulse oximetry 2021-10-21 18:24:00 100 /min [facility] Body temperature 2021-10-21 16:40:00 36.61 Yuliana [facility] Body height 2021-10-21 16:40:00 160 cm [facility] Body weight 2021-10-21 16:40:00 104.327 kg [facility] BMI 2021-10-21 16:40:00 40.74 kg/m2 [facility] Systolic blood pressure 2021-05-27 00:00:00 131 mm[Hg] [facility] Diastolic blood pressure 2021-05-27 00:00:00 89 mm[Hg] [facility] Heart rate 2021-05-27 00:00:00 64 /min [facility] Respiratory rate 2021-05-27 00:00:00 19 /min [facility] Oxygen saturation in Arterial blood by Pulse oximetry 2021-05-27 00:00:00 98 /min [facility] Body temperature 2021-05-26 20:20:00 37.28 Yuliana [facility] Body height 2021-05-26 20:20:00 160 cm [facility] Body weight 2021-05-26 20:20:00 66.225 kg [facility] BMI 2021-05-26 20:20:00 25.86 kg/m2 [facility] Systolic blood pressure 2020-11-19 21:52:41 130 mm[Hg] [facility] Diastolic blood pressure 2020-11-19 21:52:41 91 mm[Hg] [facility] Heart rate 2020-11-19 21:52:41 61 /min [facility] Respiratory rate 2020-11-19 21:52:41 16 /min [facility] Oxygen saturation in Arterial blood by Pulse oximetry 2020-11-19 21:52:41 100 /min [facility] Body temperature 2020-11-19 20:21:21 37.06 Yuliana [facility] Body height 2020-11-19 20:19:00 160 cm [facility] Body weight 2020-11-19 20:19:00 68.04 kg [facility] BMI 2020-11-19 20:19:00 26.57 kg/m2 [facility] Systolic blood pressure 2019-01-12 00:29:00 180 mm[Hg] [facility] Diastolic blood pressure 2019-01-12 00:29:00 109 mm[Hg] [facility] Heart rate 2019-01-12 00:29:00 81 /min [facility] Body temperature 2019-01-12 00:29:00 36.44 Yuliana [facility] Respiratory rate 2019-01-12 00:29:00 18 /min [facility] Body height 2019-01-12 00:29:00 160 cm [facility] Body weight 2019-01-12 00:29:00 113.399 kg Simultaneous filing. User may not have seen previous data. [facility] BMI 2019-01-12 00:29:00 44.29 kg/m2 [facility] Oxygen saturation in Arterial blood by Pulse oximetry 2019-01-12 00:29:00 100 /min [facility] BP Systolic 2023-12-20 14:11:00 110 mm[Hg] Cem Wahl BP Diastolic 2023-12-20 14:11:00 67 mm[Hg] Cem Wahl Weight Measured 2023-12-20 14:11:00 226.20 pounds Cem Wahl Height Measured 2023-12-20 14:11:00 62.00 inches Cem Wahl Body Temperature 2023-12-20 14:11:00 97.80 degrees Cem Wahl Heart Rate 2023-12-20 14:11:00 73.00 /min Cem F Vish Respiratory Rate 2023-12-20 14:11:00 16.00 /min Cem F Vish BP Systolic 2023-10-19 14:49:00 128 mm[Hg] Cem F Vish BP Diastolic 2023-10-19 14:49:00 85 mm[Hg] [facility] Weight Measured 2023-10-19 14:49:00 225.60 pounds [facility] Height Measured 2023-10-19 14:49:00 62.00 inches [facility]em F [facility] Body Temperature 2023-10-19 14:49:00 98.50 degrees Cem F Vish Heart Rate 2023-10-19 14:49:00 97.00 /min [facility]em [facility] Respiratory Rate 2023-10-19 14:49:00 17.00 /min Cem F Vish BP Systolic 2023-08-01 09:04:00 123 mm[Hg] Cem F Vish BP Diastolic 2023-08-01 09:04:00 64 mm[Hg] [facility] Weight Measured 2023-08-01 09:04:00 223.80 pounds [facility] Height Measured 2023-08-01 09:04:00 62.00 inches Cem F [facility] Body Temperature 2023-08-01 09:04:00 97.90 degrees Cem F Vish Heart Rate 2023-08-01 09:04:00 107.00 /min [facility] Respiratory Rate 2023-08-01 09:04:00 18.00 /min Cem F Vish BP Systolic 2023-06-27 10:06:00 116 mm[Hg] Cem F Vish BP Diastolic 2023-06-27 10:06:00 60 mm[Hg] [facility] Weight Measured 2023-06-27 10:06:00 221.40 pounds [facility]em [facility] Height Measured 2023-06-27 10:06:00 62.00 inches Cem F V[facility] Body Temperature 2023-06-27 10:06:00 98.50 degrees Cem F Vish Heart Rate 2023-06-27 10:06:00 78.00 /min [facility]em [facility] Respiratory Rate 2023-06-27 10:06:00 Cem F Vish BP Diastolic 2023-06-26 13:52:00 85 mm[Hg] [facility]em [facility] Weight Measured 2023-06-26 13:52:00 222.40 pounds Cem F V[facility] Height Measured 2023-06-26 13:52:00 62.00 inches Cem F Vish Body Temperature 2023-06-26 13:52:00 98.10 degrees Cem F Vish Heart Rate 2023-06-26 13:52:00 79.00 /min [facility]em F [facility] Respiratory Rate 2023-06-26 13:52:00 Cem F Vish BP Systolic 2023-06-26 13:52:00 115 mm[Hg] [facility]em F [facility] BP Systolic 2023-05-23 13:29:00 Cem F Vish BP Diastolic 2023-05-23 13:29:00 Cem F Vish Weight Measured 2023-05-23 13:29:00 218.80 pounds Cem F Vish Height Measured 2023-05-23 13:29:00 62.00 inches Cem F Vish Body Temperature 2023-05-23 13:29:00 98.30 degrees Cem F Vish Heart Rate 2023-05-23 13:29:00 78.00 /min [facility]em [facility] Respiratory Rate 2023-05-23 13:29:00 Cem F Vish BP Systolic 2023-05-15 08:20:00 116 mm[Hg] [facility]em F V[facility] BP Diastolic 2023-05-15 08:20:00 69 mm[Hg] [facility] Weight Measured 2023-05-15 08:20:00 219.00 pounds Cem F V[facility] Height Measured 2023-05-15 08:20:00 62.00 inches Cem F Vish Body Temperature 2023-05-15 08:20:00 98.20 degrees Cem F Vish Heart Rate 2023-05-15 08:20:00 78.00 /min [facility]em [facility] Respiratory Rate 2023-05-15 08:20:00 Cem F Vish BP Systolic 2023-03-19 22:33:00 Cem F Vish BP Diastolic 2023-03-19 22:33:00 Cem F Vish Weight Measured 2023-03-19 22:33:00 Cem F Vish Height Measured 2023-03-19 22:33:00 Cem F Vish Body Temperature 2023-03-19 22:33:00 Cem Whal Heart Rate 2023-03-19 22:33:00 Cem Wahl Respiratory Rate 2023-03-19 22:33:00 Cem Wahl BP Systolic 2022-12-06 13:56:00 112 mm[Hg] Cem F Vish BP Diastolic 2022-12-06 13:56:00 61 mm[Hg] Cem Wahl Weight Measured 2022-12-06 13:56:00 221.20 pounds Cem Wahl Height Measured 2022-12-06 13:56:00 62.00 inches Cem Wahl Body Temperature 2022-12-06 13:56:00 98.30 degrees Cem Wahl Heart Rate 2022-12-06 13:56:00 87.00 /min Cem Wahl Respiratory Rate 2022-12-06 13:56:00 18.00 /min Cem Wahl BP Systolic 2022-09-19 16:19:00 119 mm[Hg] Cem Wahl BP Diastolic 2022-09-19 16:19:00 80 mm[Hg] Cem Wahl Weight Measured 2022-09-19 16:19:00 237.60 pounds Cem Wahl Height Measured 2022-09-19 16:19:00 62.00 inches Cem Wahl Body Temperature 2022-09-19 16:19:00 97.60 degrees Cem Wahl Heart Rate 2022-09-19 16:19:00 66.00 /min Cem Wahl Respiratory Rate 2022-09-19 16:19:00 18.00 /min Cem Wahl BP Systolic 2022-02-01 10:47:00 134 mm[Hg] BP [...] Performed Performing Clinician Source URINALYSIS 2023-09-05 00:18:00 Pedro Aguirre [facility] COMP. METABOLIC PANEL ([id number]) 2023-09-05 00:17:00 Pedro Aguirre [facility] CBC WITH DIFF 2023-09-05 00:17:00 Pedro Aguirre [facility] POCT TEST 2023-09-05 00:16:00 Heather Aguirre [facility] CBC WITH DIFF 2023-07-03 16:10:00 [place] [facility] CONSENT/REFUSAL FOR DIAGNOSIS AND TREATMENT 2023-07-03 15:37:58 Doctor Unassigned, [place] [facility] BASIC METABOLIC PANEL (NA, K, CL, CO2, GLUCOSE, BUN, CREATININE, CA) 2023-06-22 03:24:00 Alex Pitt [facility] CBC WITH DIFF 2023-06-22 03:24:00 Alex Pitt [facility] URINALYSIS 2023-06-22 03:24:00 Alex Pitt [facility] RAPID INFLUENZA A/B 2023-06-22 03:24:00 Norberto Pitt [facility] POCT TEST 2023-06-22 03:24:00 Norberto Pitt [facility] COVID-19 (ID NOW RAPID TESTING) 2023-06-22 03:24:00 Alex Pitt [facility] NOTICE OF PRIVACY PRACTICES 2023-06-22 02:35:43 Doctor Unassigned, [place] [facility] CONSENT/REFUSAL FOR DIAGNOSIS AND TREATMENT 2023-06-22 02:34:04 Doctor Unassigned, [place] [facility] CONSENT/REFUSAL FOR DIAGNOSIS AND TREATMENT 2022-12-20 23:31:05 Doctor Unassigned, [place] [facility] CONSENT/REFUSAL FOR DIAGNOSIS AND TREATMENT 2022-09-27 15:22:33 Doctor Unassigned, [place] [facility] NOTICE OF PRIVACY PRACTICES 2022-07-20 00:18:00 Doctor Unassigned, [place] [facility] CONSENT/REFUSAL FOR DIAGNOSIS AND TREATMENT 2022-07-19 14:28:49 Doctor Unassigned, [place] [facility] COVID-19 (ID NOW RAPID TESTING) 2022-02-13 13:25:00 Glen Rocha [facility] CONSENT/REFUSAL FOR DIAGNOSIS AND TREATMENT 2022-02-13 12:54:56 Doctor Unassigned, [place] [facility] CONSENT/REFUSAL FOR DIAGNOSIS AND TREATMENT 2021-10-21 16:30:34 Doctor Unassigned, [place] [facility] CBC WITH DIFF 2021-05-27 00:13:00 Luis Duncan [facility] BASIC METABOLIC PANEL (NA, K, CL, CO2, GLUCOSE, BUN, CREATININE, CA) 2021-05-26 22:35:00 Luis Duncan [facility] URINALYSIS 2021-05-26 22:35:00 Luis Duncan [facility] RAPID INFLUENZA A/B 2021-05-26 22:35:00 Zarina Duncan [facility] POCT TEST 2021-05-26 22:35:00 Zarina Duncan [facility] COVID-19 (ID NOW RAPID TESTING) 2021-05-26 22:35:00 Luis Duncan [facility] CONSENT/REFUSAL FOR DIAGNOSIS AND TREATMENT 2021-05-26 19:45:50 Doctor Unassigned, [place] [facility] RAPID STREP SCREEN FOR GROUP A 2020-11-19 21:02:00 Evans Yang [facility] POCT TEST 2020-11-19 21:01:00 Evans Yang [facility] COVID-19 (ID NOW RAPID TESTING) 2020-11-19 21:00:00 Evans Yang [facility] LIPASE 2020-11-19 20:59:00 Evans Yang [facility] COMP. METABOLIC PANEL ([id number]) 2020-11-19 20:59:00 Evans Yang [facility] CBC WITH DIFF 2020-11-19 20:59:00 Evans Yang [facility] CONSENT/REFUSAL FOR DIAGNOSIS AND TREATMENT 2020-11-19 20:09:10 Doctor Unassigned, [place] [facility] COMP. METABOLIC PANEL ([id number]) 2019-01-12 00:34:00 Rhonda Perkins [facility] CBC WITH DIFFERENTIAL 2019-01-12 00:34:00 Jayy Perkins [facility] URINALYSIS 2019-01-12 00:34:00 Rhonda Perkins [facility] POCT TEST 2019-01-12 00:32:00 Rhonda Perkins [facility] ASSIGNMENT OF BENEFITS 2019-01-12 00:16:49 Docto r Unassigned, [place] [facility] Plan of Care Planned Activity Planned Date Details Comments Source Goal Plan of Care Note [code = 59558-5] Goal Plan of Care Note [code = 70840-1] Goal Plan of Care Note [code = 90446-3] Goal Plan of Care Note [code = 77170-6] Goal Plan of Care Note [code = 50713-2] Goal Plan of Care Note [code = 65951-7] Goal Plan of Care Note [code = 55584-8] Goal Plan of Care Note [code = 66264-1] Goal Plan of Care Note [code = 79672-4] Goal Plan of Care Note [code = 52299-3] Goal Plan of Care Note [code = 56624-8] Goal Plan of Care Note [code = 11075-8] Goal Plan of Care Note [code = 36693-0] Goal Plan of Care Note [code = 05849-1] Goal Plan of Care Note [code = 49469-0] Goal Plan of Care Note [code = 87400-5] Goal Plan of Care Note [code = 78093-7] Goal Plan of Care Note [code = 72395-6] Goal Plan of Care Note [code = 86441-2] Goal Plan of Care Note [code = 51484-4] Goal Plan of Care Note [code = 68309-1] Goal Plan of Care Note [code = 26856-4] Goal Plan of Care Note [code = 16730-2] Goal Plan of Care Note [code = 75432-9] Goal Plan of Care Note [code = 10995-0] Goal Plan of Care Note [code = 35822-7] Goal Plan of Care Note [code = 14042-6] Goal Plan of Care Note [code = 56693-9] Goal Plan of Care Note [code = 10335-0] Goal Plan of Care Note [code = 51685-3] Goal Plan of Care Note [code = 64235-0] Goal Plan of Care Note [code = 40018-4] Goal Plan of Care Note [code = 01343-9] Goal Plan of Care Note [code = 50064-2] Goal Plan of Care Note [code = 63119-3] Goal Plan of Care Note [code = 21947-7] Goal Plan of Care Note [code = 99494-9] Goal Plan of Care Note [code = 86692-4] Encounters Start Date/Time End Date/Time Encounter Type Admission Type Attending [facility] Care Department Encounter ID Source 2021-04-04 02:14:41 Emergency [facility] [id number] [facility] 2023-12-20 14:06:43 2023-12-20 14:06:43 Outpatient [facility] [id number] Cem Wahl 2023-12-20 00:00:00 2023-12-20 00:00:[address] [facility] [id number] Cem Wahl 2023-10-19 14:32:17 2023-10-19 14:32:17 Outpatient [facility] [id number] Cem Wahl 2023-09-17 09:00:00 2023-09-17 09:00:00 Outpatient KEE MARION [facility] [id number] [facility] 2023-09-04 18:14:00 2023-09-04 21:11:00 Emergency X MEMOROBEPEDRO Henry [facility] ERT [id number] [facility] 2023-09-04 18:14:00 2023-09-04 21:11:00 Emergency Pedro Aguirre [facility] [id number] [facility] 2023-08-01 08:58:51 2023-08-01 08:58:51 Outpatient [facility] [id number] Cem Wahl 2023-07-03 09:48:00 2023-07-03 12:40:00 Emergency X STAR MESA [facility] ERT [id number] [facility] 2023-07-03 09:48:00 2023-07-03 12:40:00 Emergency Star [place]a [facility] [id number] [facility] 2023-06-27 10:01:14 2023-06-27 10:01:14 Outpatient [facility] [id number] Cem Wahl 2023-06-26 13:46:54 2023-06-26 13:46:54 Out[place] [id number] Cem Wahl 2023-06-21 20:47:00 2023-06-22 00:40:00 Emergency X ALEX PITT [facility] ERT [id number] [facility] 2023-06-21 20:47:00 2023-06-22 00:40:00 Emergency Alex Pitt [facility] [id number] [facility] 2023-05-23 13:25:02 2023-05-23 13:25:02 Outpatient [place] [id number] Cem Wahl 2023-05-15 08:08:44 2023-05-15 08:08:44 Outpatient [place] [id number] Cem Archer Vish 2023-02-27 14:06:50 2023-02-27 14:06:50 Outpatient [place] [id number] Cem Archer Vish 2022-12-20 18:45:00 2022-12-20 21:58:00 Emergency X ROSEMARY CHILDERS [facility] ERT [id number] [facility] 2022-12-20 18:45:00 2022-12-20 21:58:00 Emergency Alvarado Rosemary [facility] 1.2.840.114 350.1.13.10 4.2.7.2.686 [id number] 084 [id number] [facility] 2022-12-06 13:48:26 2022-12-06 13:48:26 [place] [id number] Cem Wahl 2022-09-28 00:00:00 2022-09-28 00:00:00 Patient Secure Msg Doctor Unassigned, [place] [facility] 1.2840.114 350.1.13.10 4.2.7.2.686 [id number] [facility] 2022-09-27 10:31:00 2022-09-27 11:57:00 Emergency X TERESSA VARGAS [facility] ERT [id number] [facility] 2022-09-27 10:31:00 2022-09-27 11:57:00 Emergency Teressa Vargas [facility] 1.840.114 350.1.13.10 4.2.7.2.686 [id number] [id number] [facility] 2022-09-19 15:52:40 2022-09-19 15:52:[address] [facility] [id number] Cem Wahl 2022-07-24 00:00:00 2022-07-24 00:00:00 Letter (Out) Clinic, [facility] Neurology Resident [facility] 1.840.114 350.1.13.10 4.2.7.2.686 [id number] [id number] [facility] 2022-07-20 00:00:00 2022-07-20 00:00:00 Patient Secure Msg Doctor Unassigned, [place] [facility] 1.2840.114 350.1.13.10 4.2.7.2.686 [id number] [facility] 2022-07-19 18:27:00 2022-07-19 20:21:00 Emergency X NUNU BAKER [facility] ERT [id number] [facility] 2022-07-19 18:27:00 2022-07-19 20:21:00 Emergency Priceasif Frankieemmy F [facility] 1.840.114 350.1.13.10 4.2.7.2.686 [id number] 084 [id number] [facility] 2022-07-19 08:35:00 2022-07-19 11:32:00 Emergency TERESSA CARRANZA [facility] ERT [id number] [facility] 2022-07-19 08:35:00 2022-07-19 11:32:00 Emergency Teressa Vargas [facility] 1.2.840.114 350.1.13.10 4.2.7.2.686 [id number] 084 [id number] [facility] 2022-02-13 07:57:00 2022-02-13 09:24:00 Emergency Glen LE [facility] ERT [id number] [facility] 2022-02-13 07:57:00 2022-02-13 09:24:00 Emergency Glen Rocha Nohemy [facility] 1..840.114 350.1.13.10 4.2.7.2.686 [id number] [id number] [facility] 2022-02-01 00:00:00 2022-02-01 00:00:00 Outpatient Visit [id number] 2022-01-23 00:00:00 2022-01-23 00:00:00 Outpatient Visit [id number] 2021-10-21 11:44:00 2021-10-21 13:25:00 Emergency TERESSA CARRANZA [facility] ERT [id number] [facility] 2021-10-21 11:44:00 2021-10-21 13:25:00 Emergency Teressa Vargas [facility] 1.2.840.114 350.1.13.10 4.2.7.2.686 [id number] 084 [id number] [facility] 2021-05-26 14:22:00 2021-05-26 19:00:00 Emergency X LUIS DUNCAN [facility] ERT [id number] [facility] 2021-05-26 14:22:00 2021-05-26 19:00:00 Emergency Luis Duncan [facility] 1.2.840.114 350.1.13.10 4.2.7.2.686 [id number] 084 [id number] [facility] 2020-11-19 15:30:00 2020-11-19 17:02:00 Emergency Evans Yang [facility] 1.2.840.114 350.1.13.10 4.2.7.2.686 [id number] [id number] [facility] 2020-11-19 00:00:00 2020-11-19 00:00:00 Orders Only Doctor Unassigned, [place] [facility] 1.2.840.114 350.1.13.10 4.2.7.2.686 [id number] [facility] 2020-07-13 09:00:00 2020-07-13 09:28:51 Outpatient YOSEPH TAPIA [facility] [id number] [facility] 2019-01-11 19:23:24 2019-01-11 20:34:00 Emergency Rodrigo Rhonda A [facility] 1.2.840.114 350.1.13.10 4.2.7.2.686 [id number] [id number] [facility] 2019-01-11 00:00:00 2019-01-11 00:00:00 Orders Only Doctor Unassigned, [place] [facility] 1.2.840.114 350.1.13.10 4.2.7.2.686 [id number] [id number] [facility] Results Test Description Test Time Test Comments Results Result Co mments Source [facility] (87696)2023-09-05 00:55:27* Test Item Value Reference Range Interpretation Comme nts NA (test code = 8574558366) 137 mmol/L 135-145 K (test code = 2373228291) 4.1 mmol/L 3.5-5.0 CL (test code = 9632393345) 108 mmol/L 98-108 CO2 TOTAL (test code = 1527595238) 22 mmol/L 23-31 L AGAP (test code = 9038131861) 7 2-16 BUN (test code = 3512519923) 23 mg/dL 7-23 GLUCOSE (test code = 8034246106) 75 mg/dL 70-110 CREATININE (test code = 2160-0) 1.10 mg/dL 0.50-1.04 H TOTAL BILI (test code = 7391971107) 0.5 mg/dL 0.1-1.1 CALCIUM (test code = 5027030108) 9.1 mg/dL 8.6-10.6 T PROTEIN (test code = 7688117467) 7.8 g/dL 6.3-8.2 ALBUMIN (test code = 7928200482) 4.2 g/dL 3.5-5.0 ALK PHOS (test code = 5049894913) 50 U/L 34-122 ALTv (test code = 1742-6) 16 U/L 5-35 AST(SGOT) (test code = 6533391876) 24 U/L 13-40 eGFR (test code = 84040-4) 64.1 mL/min/1.73m2 CKD-EPI eGFR (2020). Assuming creatinine has been stable day-to-day for at least three months, the eGFR indicates Category G2 (60 - 89 mL/min/1.73 m2) Lab Interpretation (test code = 28712-5) Abnormal [facility] [id number] 00:16:00* Test Item Value Reference Range Interpretation Comme nts POCT PREG (test code = 1605) Negative On board controls acceptable with C Line (test code = 3574) Yes POCT PREG LOT # (test code = 3575) [id number] POCT PREG TEST DATE ( test code = 3576) 09/09/2024 Lab Interpretation (test cod e = 72606-9) Normal [facility] WITH [id number] 17:56:07* Test Item Value Reference Range Interpretation Comme nts WBC (test code = 6690-2) 4.43 See_Comment [Automated messa ge] The system which [...] 32.2 g/dL 31.6-35.1 RDW-SD (test code = 96173-9) 50.5 fL 39.0-49.9 H RDW-CV (test code = 788-0) 16.1 % 12.0-15.5 H PLT (test code = 777-3) 271 See_Comment [Automated messa ge] The system which generated this result transmitted reference range: 166 - 358 10*3/?L. The reference range was not used to interpret this result as normal/abnormal. MPV (test code = 62625-8) 10.2 fL 9.5-12.9 NRBC/100 WBC (test code = 7186560670) 0.0 See_Comment [Automated me ssage] The system which generated this result transmitted reference range: 0.0 - 10.0 /100 WBCs. The reference range was not used to interpret this result as normal/abnormal. NRBC x10^3 (test code = 2211469653) See_Comment [Automated messa ge] The system which generated this result transmitted reference range: 10*3/?L. The reference range was not used to interpret this result as normal/abnormal. GRAN MAT (NEUT) % (test code = 770-8) 47.0 % IMM GRAN % (test code = 8251412389) 0.20 % LYMPH % (test code = 736-9) 41.1 % MONO % (test code = 5905-5) 8.8 % EOS % (test code = 713-8) 2.0 % BASO % (test code = 706-2) 0.9 % GRAN MAT x10^3(ANC) (test code = 5062386797) 2.08 10*3/uL 1.88-7.09 IMM GRAN x10^3 (test code = 2542962529) 0.00-0.06 LYMPH x10^3 (test code = 731-0) 1.82 10*3/uL 1.32-3.29 MONO x10^3 (test code = 742-7) 0.39 10*3/uL 0.33-0.92 EOS x10^3 (test code = 711-2) 0.09 10*3/uL 0.03-0.39 BASO x10^3 (test code = 704-7) 0.04 10*3/uL 0.01-0.07 Lab Interpretation (test code = 24997-7) Abnormal [facility] TEST, THINPREP, [id number] 00:00:00 * Test Item Value Reference Range Interpretation Comme nts SOURCE: (test code = 8001) Cervical/Endocervical SLIDES: (test code = 8011) 1 LMP: (test code = 8021) 06/26/2023 SPECIMEN ADEQUACY: (test code = 28097) (NOTE) INTERPRETATION: (test code = 12529) NILM/NO EPITH. ABNORMALITY;SEE BELOW AMMONIA PRINT OPERATOR: (test code = 8101) Dante Campbell LOCATION: (test code = 33857) (NOTE) CPT: (test code = 8140) (NOTE) Cem Archer AustinCT/NG, TMA, [id number] 00:00:00* Test Item Value Reference Range Interpretation Comme nts CHLAMYDIA, NAAT, THINPREP (t est code = 45309) NEGATIVE GONORRHEA, NAAT, THINPREP (t est code = 81192) NEGATIVE PDFE (test code = PDFReport) PDF Cem WahlPOCT [id number] 03:24:00* Test Item Value Reference Range Interpretation Comme nts POCT PREG (test code = 1605) Negative On board controls acceptable with C Line (test code = 3574) Yes POCT PREG LOT # (test code = 3576) [id number] POCT PREG TEST DATE ( test code = 3576) 2024-08-12 Lab Interpretation (test cod e = 69990-4) Normal [facility] THIRD [id number] 00:00:00* Test Item Value Reference Range Interpretation Comme nts TSH, THIRD GENERATION (test code = 2821) 1.450 UIU/ML Cem WahlCOMPREHENSIVE METABOLIC [id number] 00:00:00* Test Item Value Reference Range Interpretation Comme nts GLUCOSE (test code = 2217) 80 MG/DL BUN (test code = 2208) 18 MG/DL CREATININE (test code = 2214) 1.00 MG/DL eGFR (2020 CKD-EPI) (test co de = 95266) 72 ML/MIN/1.73 CALC BUN/CREAT (test code = 2235) 18 RATIO SODIUM (test code = 2231) 139 MEQ/L POTASSIUM (test code = 2228) 4.9 MEQ/L CHLORIDE (test code = 2215) 103 MEQ/L CARBON DIOXIDE (test code = 2206) 22 MEQ/L CALCIUM (test code = 2209) 9.5 MG/DL PROTEIN, TOTAL (test code = 2229) 7.2 G/DL ALBUMIN (test code = 2201) 4.4 G/DL CALC GLOBULIN (test code = 2240) 2.8 G/DL CALC A/G RATIO (test code = 2234) 1.6 RATIO BILIRUBIN, TOTAL (test code = 2207) 0.4 MG/DL ALKALINE PHOSPHATASE (test code = 2204) 53 U/L AST (test code = 2218) 17 U/L ALT (test code = 2219) 17 U/L Cem WahlLIPID [id number] 00:00:00* Test Item Value Reference Range Interpretation Comme nts CHOLESTEROL (test code = 2210) 232 MG/DL TRIGLYCERIDES (test code = 2232) 116 MG/DL HDL CHOLESTEROL (test code = 2220) 52 MG/DL CALC LDL CHOL (test code = 2237) 157 MG/DL RISK RATIO LDL/HDL (test cod e = 2238) 3.02 RATIO Cem WahlHEMOGLOBIN [id number] 00:00:00* Test Item Value Reference Range Interpretation Comme nts HEMOGLOBIN A1c (test code = 69838) 5.6 % Cem WahlCOMPREHENSIVE METABOLIC [id number] 05:07:20* Test Item Value Reference Range Interpretation Comme nts GLUCOSE (test code = 2217) 79 MG/DL 70-99 BUN (test code = 2208) 14 MG/DL 6-20 CREATININE (test code = 2214) 1.00 MG/DL 0.60-1.30 eGFR (2020 CKD-EPI) (test code = 46552) 72 ML/MIN/1.73 >60 CALC BUN/CREAT (test code [...] as normal/abnormal. ALKALINE PHOSPHATASE (test code = 2204) 48 U/L 40-113 AST (test code = 2218) 15 U/L 9-40 ALT (test code = 2219) 15 U/L 5-40 CPL has impo rtant pathology staff changes effective 08/02/2022. New pathology staff will provide uninterrupted, excellent patient care and clinical consultation. See URL: [email or web address]. UNLESS OTHERWISE INDICATED, ALL TESTING PERFORMED AT [facility] [address] [place] [address] CIVIL ENGINEERING PROJECT MANAGER: KENDRA HERNANDEZ M.D. [place] NUMBER [id number] [facility]. [id number] COMPREHENSIVE METABOLIC [id number] 00:00:00* Test Item Value Reference Range Interpretation Comme nts GLUCOSE (test code = 2217) 79 MG/DL BUN (test code = 2208) 14 MG/DL CREATININE (test code = 2214) 1.00 MG/DL eGFR (2020 CKD-EPI) (test co de = 01239) 72 ML/MIN/1.73 CALC BUN/CREAT (test code = 2235) 14 RATIO SODIUM (test code = 2231) 145 MEQ/L POTASSIUM (test code = 2228) 4.3 MEQ/L CHLORIDE (test code = 2215) 109 MEQ/L CARBON DIOXIDE (test code = 2206) 25 MEQ/L CALCIUM (test code = 2209) 9.5 MG/DL PROTEIN, TOTAL (test code = 2229) 6.5 G/DL ALBUMIN (test code = 2201) 4.2 G/DL CALC GLOBULIN (test code = 2240) 2.3 G/DL CALC A/G RATIO (test code = 2234) 1.8 RATIO BILIRUBIN, TOTAL (test code = 2207) <0.2 MG/DL ALKALINE PHOSPHATASE (test code = 2204) 48 U/L AST (test code = 2218) 15 U/L ALT (test code = 2219) 15 U/L Cem Archer FlowereeLIPID [id number] 06:55:12* Test Item Value Reference Range Interpretation [...] SPECIMENS. FOR MOREINFORMATION, SEE CLIENT ANNOUNCEMENT AT [email or web address] RISK RATIO LDL/HDL (test code = 223) 2.49 RATIO <3.22 COMPREHENSIVE METABOLIC [id number] 06:55:12* Test Item Value Reference Range Interpretation Comme nts GLUCOSE (test code = 7) 83 MG/DL 70-99 BUN (test code = 2207) 16 MG/DL 6-20 CREATININE (test code = 221) 0.90 MG/DL 0.60-1.30 eGFR (2020 CKD-EPI) (test code = 42587) 82 ML/MIN/1.73 >60 CALC BUN/CREAT (test code = 2235) 18 RATIO 6-28 SODIUM (test code = 223) 141 MEQ/L 133-146 POTASSIUM (test code = 2228) 4.6 MEQ/L 3.5-5.4 CHLORIDE (test code = 2215) 105 MEQ/L 95-107 CARBON DIOXIDE (test code = 2206) 22 MEQ/L 19-31 CALCIUM (test code = 2209) 9.4 MG/DL 8.5-10.5 PROTEIN, TOTAL (test code = 222) 7.0 G/DL 6.1-8.3 ALBUMIN (test code = 2201) 4.5 G/DL 3.5-5.2 CALC GLOBULIN (test code = 2240) 2.5 G/DL 1.9-3.7 CALC A/G RATIO (test code = 223) 1.8 RATIO 1.0-2.6 BILIRUBIN, TOTAL (test code = 2207) 0.2 MG/DL See_Comment [Automated me ssage] The system which generated this result transmitted reference range: <=1.2. The reference range was not used to interpret this result as normal/abnormal. ALKALINE PHOSPHATASE (test code = 2204) 52 U/L 40-113 AST (test code = 2218) 17 U/L 9-40 ALT (test code = 2219) 14 U/L 5-40 UNLESS OTHERWISE INDICATED, ALL TESTING PERFORMED [facility] [address] [place] [address] CIVIL ENGINEERING PROJECT MANAGER: JIMY ROCHA M.D. CLIA NUMBER [id number] [facility] [place]. [id number] HEMOGLOBIN [id number] 03:12:19* Test Item Value Reference Range Interpretation Comme nts HEMOGLOBIN A1c (test code = 14690) 5.3 % 4.2-5.6 HEMOGLOBIN A1c [ADDED]2022-01-24 00:00:00* Test Item Value Reference Range Interpretation Comme nts HEMOGLOBIN A1c (test code = 99516) 5.3 % HEMOGLOBIN A1c [ADDED]2022-01-24 00:00:00* Test Item Value Reference Range Interpretation Comme nts HEMOGLOBIN A1c (test code = 36818) 5.3 % HEMOGLOBIN A1c [ADDED]2022-01-24 00:00:00* Test Item Value Reference Range Interpretation Comme nts HEMOGLOBIN A1c (test code = 75293) 5.3 % LIPID PANEL [ADDED]2022-01-24 00:00:00* Test [...] eGFR (2020 CKD-EPI) (test co de = 14636) 82 ML/MIN/1.73 CALC BUN/CREAT (test code = [...] eGFR (2020 CKD-EPI) (test co de = 72840) 82 ML/MIN/1.73 CALC BUN/CREAT (test code = [...] ALT (test code = 2219) 14 U/L HEMOGLOBIN A1c [ADDED]2022-01-24 00:00:00* Test Item Value Reference Range Interpretation Comme nts HEMOGLOBIN A1c (test code = 08997) 5.3 % Cem F AustinLIPID PANEL [ADDED]2022-01-24 00:00:00* Test Item Value Reference Range Interpretation Comme nts CHOLESTEROL (test code = 2210) 219 MG/DL TRIGLYCERIDES (test code = 2232) 200 MG/DL HDL CHOLESTEROL (test code = 2220) 53 MG/DL CALC LDL CHOL (test code = 2237) 132 MG/DL RISK RATIO LDL/HDL (test cod e = 2238) 2.49 RATIO Cem WahlCOMPREHENSIVE METABOLIC PANEL [ADDED]2022-01-24 00:00:00* Test Item Value Reference Range Interpretation Comme nts GLUCOSE (test code = 2217) 83 MG/DL BUN (test code = 2208) 16 MG/DL CREATININE (test code = 2214) 0.90 MG/DL eGFR (2020 CKD-EPI) (test co de = 37433) 82 ML/MIN/1.73 CALC BUN/CREAT (test code = [...] ALT (test code = 2219) 14 U/L [facility]AR[facility] WITH [id number] 00:23:37* Test Item Value Reference Range Interpretation Comme nts WBC (test code = 6690-2) See_Comment [Automated [facility]] The system which generated this result transmitted reference range: 4.30 - 11.10 10*3/?L. The reference range was not used to interpret this result as normal/abnormal. RBC (test code = 789-8) See_Comment [Automated [facility]] The system which generated this result transmitted [...] 32.3 g/dL 31.6-35.1 RDW-SD (test code = 01879-4) 48.7 fL 39.0-49.9 RDW-CV (test code = 788-0) 16.1 % 12.0-15.5 H PLT (test code = 777-3) See_Comment [Automated messa ge] The system which generated this result transmitted reference range: 166 - 358 10*3/?L. The reference range was not used to interpret this result as normal/abnormal. MPV (test code = 68944-1) 9.8 fL 9.5-12.9 NRBC/100 WBC (test code = 0896596279) See_Comment [Automated Lesson Prep ssage] The system which generated this result transmitted reference range: 0.0 - 10.0 /100 WBCs. The reference range was not used to interpret this result as normal/abnormal. NRBC x10^3 (test code = 4635012505) <0.01 See_Comment [Automated messa ge] The system which generated this result transmitted reference range: 10*3/?L. The reference range was not used to interpret this result as normal/abnormal. GRAN MAT (NEUT) % (test code = 770-8) 62.7 % IMM GRAN % (test code = 5107079242) 0.40 % LYMPH % (test code = 736-9) 29.5 % MONO % (test code = 5905-5) 6.4 % EOS % (test code = 713-8) 0.5 % BASO % (test code = 706-2) 0.5 % GRAN MAT x10^3(ANC) (test code = 0345710494) 3.45 10*3/uL 1.88-7.09 IMM GRAN x10^3 (test code = 9935933091) <0.03 0.00-0.06 LYMPH x10^3 (test code = 731-0) 1.62 10*3/uL 1.32-3.29 MONO x10^3 (test code = 742-7) 0.35 10*3/uL 0.33-0.92 EOS x10^3 (test code = 711-2) 0.03 10*3/uL 0.03-0.39 BASO x10^3 (test code = 704-7) 0.03 10*3/uL 0.01-0.07 Lab Interpretation (test code = 26747-7) Abnormal [facility] METABOLIC PANEL (NA, K, CL, CO2, GLUCOSE, BUN, CREATININE, CA)2021-05-26 23:10:45* Test Item Value Reference Range Interpretation Comme nts NA (test code = 5049074766) 136 mmol/L 135-145 K (test code = 7828928754) 4.7 mmol/L 3.5-5.0 CL (test code = 5859980821) 106 mmol/L 98-108 CO2 TOTAL (test code = 2454238847) 23 mmol/L 23-31 AGAP (test code = 5737326778) 2-16 BUN (test code = 1663258299) 18 mg/dL 7-23 GLUCOSE (test code = 5598224608) 84 mg/dL 70-110 CREATININE (test code = 6512188572) 0.68 mg/dL 0.50-1.04 CALCIUM (test code = 8469471765) 9.6 mg/dL 8.6-10.6 eGFR (test code = 3484031855) mL/min/1.73m2 PADMA (test code = PADMA) Association [...] or urine or abnormalities in imaging tests). [facility] [id number] 22:35:00* Test Item Value Reference Range Interpretation Comme nts POCT PREG (test code = 1605) negative On board controls acceptable with C Line (test code = 3574) present POCT PREG LOT # (test code = 3575) [id number] POCT PREG TEST DATE ( test code = 3576) Lab Interpretation (test cod e = 15585-5) Normal [facility] acute hospital STREP SCREEN FOR GROUP [id number] 21:39:01* Test Item Value Reference Range Interpretation Comme nts Streptococcus pyogenes (grou p A) antigen (test code = 21679-3) Negative Negative Lab Interpretation (test cod e = 21403-6) Normal [facility] (ID NOW RAPID TESTING)2020-11-19 21:28:16* Test Item Value Reference Range Interpretation Comme nts SARS-CoV-2 Rapid ID NOW (test code = 08113-6) Not Detected Not Detected PADMA (test code = PADMA) ID NOW COVID-19 As say is an isothermal nucleic acid amplification test intended for the qualitative detection of nucleic acid from SARS-CoV-2 viral RNA in nasopharyngeal (KNOT SAW OPERATOR) specimens. It is used under Emergency Use [...] clinically indicated. Lab Interpretation (test code = 09221-7) Normal [facility]. METABOLIC PANEL (79400)2020-11-19 21:25:54* Test Item Value Reference Range Interpretation Comme nts NA (test code = 0377272088) 138 mmol/L 135-145 K (test code = 7806628014) 4.2 mmol/L 3.5-5.0 CL (test code = 5027980355) 109 mmol/L 98-108 H CO2 TOTAL (test code = 8445524855) 22 mmol/L 23-31 L AGAP (test code = 1113774375) 2-16 BUN (test code = 8382786995) 19 mg/dL 7-23 GLUCOSE (test code = 7945370884) 90 mg/dL 70-110 CREATININE (test code = 2428265830) 0.76 mg/dL 0.50-1.04 TOTAL BILI (test code = 6619604572) 0.5 mg/dL 0.1-1.1 CALCIUM (test code = 4563857616) 9.9 mg/dL 8.6-10.6 T PROTEIN (test code = 5898466227) 7.8 g/dL 6.3-8.2 ALBUMIN (test code = 8886743536) 4.4 g/dL 3.5-5.0 ALK PHOS (test code = 9904064466) 47 U/L 34-122 ALTv (test code = 1742-6) 16 U/L 5-35 AST(SGOT) (test code = 8852718639) 22 U/L 13-40 eGFR (test code = 1319531370) mL/min/1.73m2 PADMA (test code = PADMA) Association [...] imaging tests). Lab Interpretation (test code = 79598-4) Abnormal [facility]2021-[facility]-18 21:25:54* Test Item Value Reference Range Interpretation Comme nts LIPASE (test code = 8620720571) 74 U/L 0-220 Lab Interpretation (test cod e = 46627-1) Normal [facility] WITH [id number] 21:17:35* Test Item Value Reference Range Interpretation Comme nts WBC (test code = 6690-2) See_Comment [Automated [employer]] The system which generated this result transmitted reference range: 4.30 - 11.10 10*3/?L. The reference range was not used to interpret this result as normal/abnormal. RBC (test code = 789-8) See_Comment [Automated [facility]] The system which generated this result transmitted [...] 32.6 g/dL 31.6-35.1 RDW-SD (test code = 60346-6) 46.7 fL 39.0-49.9 RDW-CV (test code = 788-0) 15.6 % 12.0-15.5 H PLT (test code = 777-3) See_Comment [Automated messa ge] The system which generated this result transmitted reference range: 166 - 358 10*3/?L. The reference range was not used to interpret this result as normal/abnormal. MPV (test code = 36033-7) 9.8 fL 9.5-12.9 NRBC/100 WBC (test code = 6303014242) See_Comment [Automated Lesson Prep ssage] The system which generated this result transmitted reference range: 0.0 - 10.0 /100 WBCs. The reference range was not used to interpret this result as normal/abnormal. NRBC x10^3 (test code = 5483359845) <0.01 See_Comment [Automated messa ge] The system which generated this result transmitted reference range: 10*3/?L. The reference range was not used to interpret this result as normal/abnormal. GRAN MAT (NEUT) % (test code = 770-8) 43.0 % IMM GRAN % (test code = 3617740681) 0.20 % LYMPH % (test code = 736-9) 46.9 % MONO % (test code = 5905-5) 7.5 % EOS % (test code = 713-8) 1.3 % BASO % (test code = 706-2) 1.1 % GRAN MAT x10^3(ANC) (test code = 4485726639) 2.02 10*3/uL 1.88-7.09 IMM GRAN x10^3 (test code = 8164802950) <0.03 0.00-0.06 LYMPH x10^3 (test code = 731-0) 2.20 10*3/uL 1.32-3.29 MONO x10^3 (test code = 742-7) 0.35 10*3/uL 0.33-0.92 EOS x10^3 (test code = 711-2) 0.06 10*3/uL 0.03-0.39 BASO x10^3 (test code = 704-7) 0.05 10*3/uL 0.01-0.07 Lab Interpretation (test code = 54144-3) [id number]* Test Item Value Reference Range Interpretation Comme nts POCT PREG (test code = 1605) negative On board controls acceptable with C Line (test code = 3574) present POCT PREG LOT # (test code = 3575) [id number] POCT PREG TEST DATE ( test code = 3576) Lab Interpretation (test cod e = 05785-0) [facility] [id number] 00:00:00* Test Item Value Reference Range Interpretation Comme nts HEMOGLOBIN A1c (test code = 52361) 5.4 % Cem WahlCBC W/AUTO [id number] 00:00:00* Test Item Value Reference Range Interpretation [...] code = 1015) 320 K/UL CBC W/AUTO [id number] 00:00:00* Test Item Value Reference Range Interpretation [...] code = 1015) 320 K/UL CBC W/AUTO [id number] 00:00:00* Test Item Value Reference Range Interpretation [...] (test code = 1015) 320 K/UL LIPID [id number] 00:00:00* Test Item Value Reference Range Interpretation Comme nts CHOLESTEROL (test code = 2210) 246 MG/DL TRIGLYCERIDES (test code = 2232) 99 MG/DL HDL CHOLESTEROL (test code = 2220) 63 MG/DL CALC LDL CHOL (test code = 2237) 162 MG/DL RISK RATIO LDL/HDL (test cod e = 2238) 2.57 RATIO LIPID [id number] 00:00:00* Test Item Value Reference Range Interpretation Comme nts CHOLESTEROL (test code = 2210) 246 MG/DL TRIGLYCERIDES (test code = 2232) 99 MG/DL HDL CHOLESTEROL (test code = 2220) 63 MG/DL CALC LDL CHOL (test code = 2237) 162 MG/DL RISK RATIO LDL/HDL (test cod e = 2238) 2.57 RATIO COMPREHENSIVE METABOLIC [id number] 00:00:00* Test Item Value Reference Range Interpretation Comme nts GLUCOSE (test code = 2217) 93 MG/DL BUN (test code = 2208) 12 MG/DL CREATININE (test code = 2214) 0.78 MG/DL eGFR AMER. (test cod e = 28380) 110 ML/MIN/1.73 eGFR NON- AMER. (test code = 81447) 95 ML/MIN/1.73 CALC BUN/CREAT (test code = [...] ALT (test code = 2219) 13 U/L [facility] [place] [id number] 00:00:00* Test Item Value Reference Range Interpretation Comme nts HEMOGLOBIN A1c (test code = 86698) 5.4 % HEMOGLOBIN [id number] 00:00:00* Test Item Value Reference Range Interpretation Comme nts HEMOGLOBIN A1c (test code = 40479) 5.4 % HEMOGLOBIN [id number] 00:00:00* Test Item Value Reference Range Interpretation Comme nts HEMOGLOBIN A1c (test code = 58228) 5.4 % COMPREHENSIVE METABOLIC [id number] 00:00:00* Test Item Value Reference Range Interpretation Comme nts GLUCOSE (test code = 2217) 93 MG/DL BUN (test code = 2208) 12 MG/DL CREATININE (test code = 2214) 0.78 MG/DL eGFR AMER. (test cod e = 22899) 110 ML/MIN/1.73 eGFR NON- AMER. (test code = 31134) 95 ML/MIN/1.73 CALC BUN/CREAT (test code = [...] code = 2219) 13 U/L COMPREHENSIVE METABOLIC [id number] 00:00:00* Test Item Value Reference Range Interpretation Comme nts GLUCOSE (test code = 2217) 93 MG/DL BUN (test code = 2208) 12 MG/DL CREATININE (test code = 2214) 0.78 MG/DL eGFR AMER. (test cod e = 22588) 110 ML/MIN/1.73 eGFR NON- AMER. (test code = 86397) 95 ML/MIN/1.73 CALC BUN/CREAT (test code = [...] code = 2219) 13 U/L CBC W/AUTO [id number] 00:00:00* Test Item Value Reference Range Interpretation [...] code = 1015) 320 K/UL CBC W/AUTO [id number] 00:00:00* Test Item Value Reference Range Interpretation [...] code = 1015) 320 K/UL CBC W/AUTO [id number] 00:00:00* Test Item Value Reference Range Interpretation [...] (test code = 1015) 320 K/UL LIPID [id number] 00:00:00* Test Item Value Reference Range Interpretation Comme nts CHOLESTEROL (test code = 2210) 246 MG/DL TRIGLYCERIDES (test code = 2232) 99 MG/DL HDL CHOLESTEROL (test code = 2220) 63 MG/DL CALC LDL CHOL (test code = 2237) 162 MG/DL RISK RATIO LDL/HDL (test cod e = 2238) 2.57 RATIO CBC W/AUTO [id number] 00:00:00* Test Item Value Reference Range Interpretation [...] COUNT (test code = 1015) 320 K/UL Cem F AustinLIPID [id number] 00:00:00* Test Item Value Reference Range Interpretation Comme nts CHOLESTEROL (test code = 2210) 246 MG/DL TRIGLYCERIDES (test code = 2232) 99 MG/DL HDL CHOLESTEROL (test code = 2220) 63 MG/DL CALC LDL CHOL (test code = 2237) 162 MG/DL RISK RATIO LDL/HDL (test cod e = 2238) 2.57 RATIO HEMOGLOBIN [id number] 00:00:00* Test Item Value Reference Range Interpretation Comme nts HEMOGLOBIN A1c (test code = 31260) 5.4 % HEMOGLOBIN [id number] 00:00:00* Test Item Value Reference Range Interpretation Comme nts HEMOGLOBIN A1c (test code = 47593) 5.4 % HEMOGLOBIN [id number] 00:00:00* Test Item Value Reference Range Interpretation Comme nts HEMOGLOBIN A1c (test code = 57309) 5.4 % COMPREHENSIVE METABOLIC [id number] 00:00:00* Test Item Value Reference Range Interpretation Comme nts GLUCOSE (test code = 2217) 93 MG/DL BUN (test code = 8) 12 MG/DL CREATININE (test code = 2214) 0.78 MG/DL eGFR AMER. (test cod e = 66810) 110 ML/MIN/1.73 eGFR NON- AMER. (test code = 58058) 95 ML/MIN/1.73 CALC BUN/CREAT (test code = [...] code = 2219) 13 U/L COMPREHENSIVE METABOLIC [id number] 00:00:00* Test Item Value Reference Range Interpretation Comme nts GLUCOSE (test code = 2217) 93 MG/DL BUN (test code = 2208) 12 MG/DL CREATININE (test code = 2214) 0.78 MG/DL eGFR AMER. (test cod e = 66876) 110 ML/MIN/1.73 eGFR NON- AMER. (test code = 92487) 95 ML/MIN/1.73 CALC BUN/CREAT (test code = [...] ALT (test code = 2219) 13 U/L LIPID [id number] 00:00:00* Test Item Value Reference Range Interpretation Comme nts CHOLESTEROL (test code = 2210) 246 MG/DL TRIGLYCERIDES (test code = 2232) 99 MG/DL HDL CHOLESTEROL (test code = 2220) 63 MG/DL CALC LDL CHOL (test code = 2237) 162 MG/DL RISK RATIO LDL/HDL (test cod e = 2238) 2.57 RATIO Cem Archer [id number] 00:00:00* Test Item Value Reference Range Interpretation Comme nts TSH, THIRD GENERATION (test code = 2821) 1.720 UIU/ML Cem WahlCOMPREHENSIVE METABOLIC [id number] 00:00:00* Test Item Value Reference Range Interpretation Comme nts GLUCOSE (test code = 2217) 73 MG/DL BUN (test code = 2208) 14 MG/DL CREATININE (test code = 2214) 0.70 MG/DL eGFR AMER. (test cod e = 69132) 126 ML/MIN/1.73 eGFR NON- AMER. (test code = 41876) 109 ML/MIN/1.73 CALC BUN/CREAT (test code = [...] code = 2219) 19 U/L COMPREHENSIVE METABOLIC [id number] 00:00:00* Test Item Value Reference Range Interpretation Comme nts GLUCOSE (test code = 2217) 73 MG/DL BUN (test code = 2208) 14 MG/DL CREATININE (test code = 2214) 0.70 MG/DL eGFR AMER. (test cod e = 59635) 126 ML/MIN/1.73 eGFR NON- AMER. (test code = 16087) 109 ML/MIN/1.73 CALC BUN/CREAT (test code = [...] (test code = 2219) 19 U/L LIPID [id number] 00:00:00* Test Item Value Reference Range Interpretation Comme nts CHOLESTEROL (test code = 2210) 219 MG/DL TRIGLYCERIDES (test code = 2232) 75 MG/DL HDL CHOLESTEROL (test code = 2220) 64 MG/DL CALC LDL CHOL (test code = 2237) 138 MG/DL RISK RATIO LDL/HDL (test cod e = 2238) 2.16 RATIO LIPID [id number] 00:00:00* Test Item Value Reference Range Interpretation Comme nts CHOLESTEROL (test code = 2210) 219 MG/DL TRIGLYCERIDES (test code = 2232) 75 MG/DL HDL CHOLESTEROL (test code = 2220) 64 MG/DL CALC LDL CHOL (test code = 2237) 138 MG/DL RISK RATIO LDL/HDL (test cod e = 2238) 2.16 RATIO [id number] 00:00:00* Test Item Value Reference Range Interpretation Comme nts TSH, THIRD GENERATION (test code = 2821) 1.720 UIU/ML [id number] 00:00:00* Test Item Value Reference Range Interpretation Comme nts TSH, THIRD GENERATION (test code = 2821) 1.720 UIU/ML [id number] 00:00:00* Test Item Value Reference Range Interpretation Comme nts TSH, THIRD GENERATION (test code = 2821) 1.720 UIU/ML COMPREHENSIVE METABOLIC [id number] 00:00:00* Test Item Value Reference Range Interpretation Comme nts GLUCOSE (test code = 2217) 73 MG/DL BUN (test code = 2208) 14 MG/DL CREATININE (test code = 2214) 0.70 MG/DL eGFR AMER. (test cod e = 28451) 126 ML/MIN/1.73 eGFR NON- AMER. (test code = 32943) 109 ML/MIN/1.73 CALC BUN/CREAT (test code = [...] code = 2219) 19 U/L COMPREHENSIVE METABOLIC [id number] 00:00:00* Test Item Value Reference Range Interpretation Comme nts GLUCOSE (test code = 2217) 73 MG/DL BUN (test code = 2208) 14 MG/DL CREATININE (test code = 2214) 0.70 MG/DL eGFR AMER. (test cod e = 07711) 126 ML/MIN/1.73 eGFR NON- AMER. (test code = 44770) 109 ML/MIN/1.73 CALC BUN/CREAT (test code = [...] (test code = 2219) 19 U/L LIPID [id number] 00:00:00* Test Item Value Reference Range Interpretation Comme nts CHOLESTEROL (test code = 2210) 219 MG/DL TRIGLYCERIDES (test code = 2232) 75 MG/DL HDL CHOLESTEROL (test code = 2220) 64 MG/DL CALC LDL CHOL (test code = 2237) 138 MG/DL RISK RATIO LDL/HDL (test cod e = 2238) 2.16 RATIO LIPID [id number] 00:00:00* Test Item Value Reference Range Interpretation Comme nts CHOLESTEROL (test code = 2210) 219 MG/DL TRIGLYCERIDES (test code = 2232) 75 MG/DL HDL CHOLESTEROL (test code = 2220) 64 MG/DL CALC LDL CHOL (test code = 2237) 138 MG/DL RISK RATIO LDL/HDL (test cod e = 2238) 2.16 RATIO [id number] 00:00:00* Test Item Value Reference Range Interpretation Comme nts TSH, THIRD GENERATION (test code = 2821) 1.720 UIU/ML [id number] 00:00:00* Test Item Value Reference Range Interpretation Comme nts TSH, THIRD GENERATION (test code = 2821) 1.720 UIU/ML [id number] 00:00:00* Test Item Value Reference Range Interpretation Comme nts TSH, THIRD GENERATION (test code = 2821) 1.720 UIU/ML COMPREHENSIVE METABOLIC [id number] 00:00:00* Test Item Value Reference Range Interpretation Comme nts GLUCOSE (test code = 2217) 73 MG/DL BUN (test code = 2208) 14 MG/DL CREATININE (test code = 2214) 0.70 MG/DL eGFR AMER. (test cod e = 30952) 126 ML/MIN/1.73 eGFR NON- AMER. (test code = 76440) 109 ML/MIN/1.73 CALC BUN/CREAT (test code = [...] ALT (test code = 2219) 19 U/L Cem Archer AustinLIPID [id number] 00:00:00* Test Item Value Reference Range Interpretation Comme nts CHOLESTEROL (test code = 2210) 219 MG/DL TRIGLYCERIDES (test code = 2232) 75 MG/DL HDL CHOLESTEROL (test code = 2220) 64 MG/DL CALC LDL CHOL (test code = 2237) 138 MG/DL RISK RATIO LDL/HDL (test cod e = 2238) 2.16 RATIO Cem WahlLIPID [id number] 00:00:00* Test Item Value Reference Range Interpretation Comme nts CHOLESTEROL (test code = 2210) 214 MG/DL TRIGLYCERIDES (test code = 2232) 103 MG/DL HDL CHOLESTEROL (test code = 2220) 55 MG/DL CALC LDL CHOL (test code = 2237) 138 MG/DL RISK RATIO LDL/HDL (test cod e = 2238) 2.52 RATIO LIPID [id number] 00:00:00* Test Item Value Reference Range Interpretation Comme nts CHOLESTEROL (test code = 2210) 214 MG/DL TRIGLYCERIDES (test code = 2232) 103 MG/DL HDL CHOLESTEROL (test code = 2220) 55 MG/DL CALC LDL CHOL (test code = 2237) 138 MG/DL RISK RATIO LDL/HDL (test cod e = 2238) 2.52 RATIO HEMOGLOBIN [id number] 00:00:00* Test Item Value Reference Range Interpretation Comme nts HEMOGLOBIN A1c (test code = 37621) 5.5 % HEMOGLOBIN [id number] 00:00:00* Test Item Value Reference Range Interpretation Comme nts HEMOGLOBIN A1c (test code = 07728) 5.5 % HEMOGLOBIN [id number] 00:00:00* Test Item Value Reference Range Interpretation Comme nts HEMOGLOBIN A1c (test code = 48270) 5.5 % COMPREHENSIVE METABOLIC [id number] 00:00:00* Test Item Value Reference Range Interpretation Comme nts GLUCOSE (test code = 2217) 83 MG/DL BUN (test code = 2208) 10 MG/DL CREATININE (test code = 2214) 0.73 MG/DL eGFR AMER. (test cod e = 20491) 120 ML/MIN/1.73 eGFR NON- AMER. (test code = 77621) 104 ML/MIN/1.73 CALC BUN/CREAT (test code = [...] code = 2219) 23 U/L COMPREHENSIVE METABOLIC [id number] 00:00:00* Test Item Value Reference Range Interpretation Comme nts GLUCOSE (test code = 2217) 83 MG/DL BUN (test code = 2208) 10 MG/DL CREATININE (test code = 2214) 0.73 MG/DL eGFR AMER. (test cod e = 47882) 120 ML/MIN/1.73 eGFR NON- AMER. (test code = 74234) 104 ML/MIN/1.73 CALC BUN/CREAT (test code = [...] (test code = 2219) 23 U/L LIPID [id number] 00:00:00* Test Item Value Reference Range Interpretation Comme nts CHOLESTEROL (test code = 2210) 214 MG/DL TRIGLYCERIDES (test code = 2232) 103 MG/DL HDL CHOLESTEROL (test code = 2220) 55 MG/DL CALC LDL CHOL (test code = 2237) 138 MG/DL RISK RATIO LDL/HDL (test cod e = 2238) 2.52 RATIO LIPID [id number] 00:00:00* Test Item Value Reference Range Interpretation Comme nts CHOLESTEROL (test code = 2210) 214 MG/DL TRIGLYCERIDES (test code = 2232) 103 MG/DL HDL CHOLESTEROL (test code = 2220) 55 MG/DL CALC LDL CHOL (test code = 2237) 138 MG/DL RISK RATIO LDL/HDL (test cod e = 2238) 2.52 RATIO HEMOGLOBIN [id number] 00:00:00* Test Item Value Reference Range Interpretation Comme nts HEMOGLOBIN A1c (test code = 73091) 5.5 % HEMOGLOBIN [id number] 00:00:00* Test Item Value Reference Range Interpretation Comme nts HEMOGLOBIN A1c (test code = 46669) 5.5 % HEMOGLOBIN [id number] 00:00:00* Test Item Value Reference Range Interpretation Comme nts HEMOGLOBIN A1c (test code = 89729) 5.5 % COMPREHENSIVE METABOLIC [id number] 00:00:00* Test Item Value Reference Range Interpretation Comme nts GLUCOSE (test code = 2217) 83 MG/DL BUN (test code = 2208) 10 MG/DL CREATININE (test code = 2214) 0.73 MG/DL eGFR AMER. (test cod e = 88887) 120 ML/MIN/1.73 eGFR NON- AMER. (test code = 36988) 104 ML/MIN/1.73 CALC BUN/CREAT (test code = [...] code = 2219) 23 U/L COMPREHENSIVE METABOLIC [id number] 00:00:00* Test Item Value Reference Range Interpretation Comme nts GLUCOSE (test code = 2217) 83 MG/DL BUN (test code = 2208) 10 MG/DL CREATININE (test code = 2214) 0.73 MG/DL eGFR AMER. (test cod e = 51357) 120 ML/MIN/1.73 eGFR NON- AMER. (test code = 78756) 104 ML/MIN/1.73 CALC BUN/CREAT (test code = [...] (test code = 2219) 23 U/L LIPID [id number] 00:00:00* Test Item Value Reference Range Interpretation Comme nts CHOLESTEROL (test code = 2210) 214 MG/DL TRIGLYCERIDES (test code = 2232) 103 MG/DL HDL CHOLESTEROL (test code = 2220) 55 MG/DL CALC LDL CHOL (test code = 2237) 138 MG/DL RISK RATIO LDL/HDL (test cod e = 2238) 2.52 RATIO Cem F AustinHEMOGLOBIN [id number] 00:00:00* Test Item Value Reference Range Interpretation Comme nts HEMOGLOBIN A1c (test code = 82529) 5.5 % Cem WahlCOMPREHENSIVE METABOLIC [id number] 00:00:00* Test Item Value Reference Range Interpretation Comme nts GLUCOSE (test code = 2217) 83 MG/DL BUN (test code = 2208) 10 MG/DL CREATININE (test code = 2214) 0.73 MG/DL eGFR AMER. (test cod e = 11821) 120 ML/MIN/1.73 eGFR NON- AMER. (test code = 98180) 104 ML/MIN/1.73 CALC BUN/CREAT (test code = [...] ALT (test code = 2219) 23 U/L Cem [id number] 01:11:00* Test Item Value Reference Range Interpretation Comme nts APPEARANCE (test code = 0175473702) Clear Clear COLOR (test code = 3032626384) Yellow Yellow PH (test code = 8557938381) 4.8-8.0 SP GRAVITY (test code = 2968608511) <=1.005 1.003-1.030 GLU U QUAL (test code = 5934131907) Negative Negative BLOOD (test code = 1966784764) Negative Negative KETONES (test code = 8065142076) Negative Negative PROTEIN (test code = 2887-8) Negative Negative UROBILIN (test code = 9990076866) 0.2 mg/dL See_Comment [Automated messa ge] The system which generated this result transmitted reference range: 0-1.0 mg/dL. The reference range was not used to interpret this result as normal/abnormal. BILIRUBIN (test code = 5900061347) Negative Negative NITRITE (test code = 4877157268) Negative Negative LEUK ONEAL (test code = 5280216035) Negative Negative RBC/HPF (test code = 2448528042) See_Comment [Automated messa ge] The system which generated this result transmitted reference range: 0 - 3 HPF. The reference range was not used to interpret this result as normal/abnormal. WBC/HPF (test code = 3241282909) See_Comment [Automated messa ge] The system which generated this result transmitted reference range: 0 - 5 HPF. The reference range was not used to interpret this result as normal/abnormal. BACTERIA (test code = 9639654286) Few Negative A SQ EPITH (test code = 9092123259) HPF Lab Interpretation (test code = 25912-7) Abnormal [facility]. METABOLIC PANEL (04721)2019-01-12 01:02:00* Test Item Value Reference Range Interpretation Comme nts NA (test code = 4683453406) 142 mmol/L 135-145 K (test code = 6193197200) 4.4 mmol/L 3.5-5 CL (test code = 1986545250) 111 mmol/L 98-108 H CO2 TOTAL (test code = 1007534900) 24 mmol/L 23-31 AGAP (test code = 2791318388) 2-16 BUN (test code = 5633040322) 15 mg/dL 7-23 GLUCOSE (test code = 5670163898) 90 mg/dL 70-110 CREATININE (test code = 6593375907) 0.78 mg/dL 0.5-1.04 TOTAL BILI (test code = 6576297372) 0.1 mg/dL 0.1-1.1 CALCIUM (test code = 6762274166) 9.5 mg/dL 8.6-10.6 T PROTEIN (test code = 6985531046) 7.1 g/dL 6.3-8.2 ALBUMIN (test code = 1774393089) 4.1 g/dL 3.5-5 ALK PHOS (test code = 1747964725) 60 U/L 34-122 ALT(SGPT) (test code = 2324701788) 40 U/L 9-51 AST(SGOT) (test code = 8252863596) 27 U/L 13-40 eGFR Calculation (Non-) (test code = 2855786957) mL/min/1.73m2 eGFR Calculation () (test code = 1706482933) mL/min/1.73m2 PADMA (test code = PADMA) Association [...] imaging tests). Lab Interpretation (test code = 11953-1) Abnormal [facility] WITH [id number] 00:50:00* Test Item Value Reference Range Interpretation Comme nts WBC (test code = 6690-2) See_Comment [Automated Backup Circle] The system which generated this result transmitted reference range: 4.30 - 11.10 10*3/?L. The reference range was not used to interpret this result as normal/abnormal. RBC (test code = 789-8) See_Comment H [Automated Backup Circle] The system which generated this result transmitted [...] 32.3 g/dL 31.6-35.1 RDW-SD (test code = 36574-4) 47.8 fL 39-49.9 RDW-CV (test code = 788-0) 17.2 % 12-15.5 H PLT (test code = 777-3) See_Comment [Automated [employer]] The system which generated this result transmitted reference range: 166 - 358 10*3/?L. The reference range was not used to interpret this result as normal/abnormal. MPV (test code = 34008-2) 9.9 fL 9.5-12.9 NRBC/100 WBC (test code = 7202527603) See_Comment [Automated Lesson Prep ssage] The system which generated this result transmitted reference range: 0.0 - 10.0 /100 WBCs. The reference range was not used to interpret this result as normal/abnormal. NRBC x10^3 (test code = 7318812978) <0.01 See_Comment [Automated [employer]] The system which generated this result transmitted reference range: 10*3/?L. The reference range was not used to interpret this result as normal/abnormal. GRAN MAT (NEUT) % (test code = 770-8) 42.0 % IMM GRAN % (test code = 3364571628) 0.10 % LYMPH % (test code = 736-9) 46.8 % MONO % (test code = 5905-5) 8.3 % EOS % (test code = 713-8) 2.1 % BASO % (test code = 706-2) 0.7 % GRAN MAT x10^3(ANC) (test code = 5137535325) 2.95 10*3/uL 1.88-7.09 IMM GRAN x10^3 (test code = 0231535443) <0.03 0-0.06 LYMPH x10^3 (test code = 731-0) 3.29 10*3/uL 1.32-3.29 MONO x10^3 (test code = 742-7) 0.58 10*3/uL 0.33-0.92 EOS x10^3 (test code = 711-2) 0.15 10*3/uL 0.03-0.39 BASO x10^3 (test code = 704-7) 0.05 10*3/uL 0.01-0.07 Lab Interpretation (test code = 49747-0) [id number]:32:00* Test Item Value Reference Range Interpretation Comme nts POCT PREG (test code = 1605) negative On board controls acceptable with C Line (test code = 3574) present Lab Interpretation (test cod e = 79822-5) [facility], [facility]PRE[facility], [id number] 00:00:00 * Test Item Value Reference Range Interpretation Comme nts SOURCE: (test code = 8001) Cervical/Endocervical SLIDES: (test code = 8011) 1 LMP: (test code = 8021) 06/14/2017 SPECIMEN ADEQUACY: (test code = 48708) (NOTE) INTERPRETATION: (test code = 46647) NO EPITHELIAL ABNORMALITY SEE BELOW AMMONIA PRINT OPERATOR: (test code = 8101) LEON SIERRA(ASCP)IAC LOCATION: (test code = 06246) (NOTE) CPT: (test code = 8140) (NOTE) PAP TEST, THINPREP, [id number] 00:00:00* Test Item Value Reference Range Interpretation Comme nts SOURCE: (test code = 8001) Cervical/Endocervical SLIDES: (test code = 8011) 1 LMP: (test code = 8021) 06/14/2017 SPECIMEN ADEQUACY: (test code = 93154) (NOTE) INTERPRETATION: (test code = 39764) NO EPITHELIAL ABNORMALITY SEE BELOW AMMONIA PRINT OPERATOR: (test code = 8101) LEON SIERRA(ASCP)IAC LOCATION: (test code = 31192) (NOTE) CPT: (test code = 8140) (NOTE) HPV HIGH RISK WITH GENOTYPE, [id number] 00:00:00* Test Item Value Reference Range Interpretation Comme nts HPV HIGH RISK INTERP (test c ode = 57342) NEGATIVE HPV 16 (test code = 12332) NEGATIVE HPV 18 (test code = 19685) NEGATIVE HPV, HR, OTHER GENOTYPES (te st code = 61968) NEGATIVE HPV HIGH RISK WITH GENOTYPE, [id number] 00:00:00* Test Item Value Reference Range Interpretation Comme nts HPV HIGH RISK INTERP (test c ode = 60402) NEGATIVE HPV 16 (test code = 08134) NEGATIVE HPV 18 (test code = 99318) NEGATIVE HPV, HR, OTHER GENOTYPES (te st code = 75360) NEGATIVE PAP TEST, THINPREP, [id number] 00:00:00* Test Item Value Reference Range Interpretation Comme nts SOURCE: (test code = 8001) Cervical/Endocervical SLIDES: (test code = 8011) 1 LMP: (test code = 8021) 06/14/2017 SPECIMEN ADEQUACY: (test code = 05221) (NOTE) INTERPRETATION: (test code = 01604) NO EPITHELIAL ABNORMALITY SEE BELOW AMMONIA PRINT OPERATOR: (test code = 8101) BRUNO PARCHER,CT(ASCP)IAC LOCATION: (test code = 46308) (NOTE) CPT: (test code = 8140) (NOTE) PAP TEST, THINPREP, [id number] 00:00:00* Test Item Value Reference Range Interpretation Comme nts SOURCE: (test code = 8001) Cervical/Endocervical SLIDES: (test code = 8011) 1 LMP: (test code = 8021) 06/14/2017 SPECIMEN ADEQUACY: (test code = 76889) (NOTE) INTERPRETATION: (test code = 90588) NO EPITHELIAL ABNORMALITY SEE BELOW AMMONIA PRINT OPERATOR: (test code = 8101) BRUNO PARCHER,CT(ASCP)IAC LOCATION: (test code = 12713) (NOTE) CPT: (test code = 8140) (NOTE) HPV HIGH RISK WITH GENOTYPE, [id number] 00:00:00* Test Item Value Reference Range Interpretation Comme nts HPV HIGH RISK INTERP (test c ode = 33302) NEGATIVE HPV 16 (test code = 45677) NEGATIVE HPV 18 (test code = 57046) NEGATIVE HPV, HR, OTHER GENOTYPES (te st code = 06709) NEGATIVE HPV HIGH RISK WITH GENOTYPE, [id number] 00:00:00* Test Item Value Reference Range Interpretation Comme nts HPV HIGH RISK INTERP (test c ode = 33130) NEGATIVE HPV 16 (test code = 53137) NEGATIVE HPV 18 (test code = 41592) NEGATIVE HPV, HR, OTHER GENOTYPES (te st code = 72539) NEGATIVE PAP TEST, THINPREP, [id number] 00:00:00* Test Item Value Reference Range Interpretation Comme nts SOURCE: (test code = 8001) Cervical/Endocervical SLIDES: (test code = 8011) 1 LMP: (test code = 8021) 06/14/2017 SPECIMEN ADEQUACY: (test code = 66963) (NOTE) INTERPRETATION: (test code = 08394) NO EPITHELIAL ABNORMALITY SEE BELOW AMMONIA PRINT OPERATOR: (test code = 8101) LEON SIERRA(ASCP)IAC LOCATION: (test code = 22473) (NOTE) CPT: (test code = 8140) (NOTE) Cem Suzi VishHPV HIGH RISK WITH GENOTYPE, [id number] 00:00:00* Test Item Value Reference Range Interpretation Comme nts HPV HIGH RISK INTERP (test c ode = 90259) NEGATIVE HPV 16 (test code = 87240) NEGATIVE HPV 18 (test code = 05206) NEGATIVE HPV, HR, OTHER GENOTYPES (te st code = 67396) NEGATIVE Cem Suzi Vish Notes Date/Time Note Provider Source Cem ArcherAngelica Vish [facility]2024-04-02 21:10:14 Pt given printed and verbal discharge instructions regarding migraine Pt verbalized understanding of instructions, pt awake alert oriented, resp reg unlabored, skin w/d, color appropriate for race, moves all ext well,pt encouraged to follow up with pcp and or neurology Advised to seek medical attention for new/prolonged/worsening of symptoms, No adverse reaction to meds given in ER noted upon discharge PIV d'cd, dressing to site, catheter in tact. Awake, alert oriented, resp reg unlabored, skin w/d, pt leaving amb with steady gait, in no apparent distress Noelle Jackson [place] 668694-04-02 18:11:18 Pt arrived via private car with c/o a headache that started yesterday. States she has a history of migraines, states she took ibuprofen and Midol with "some" improvement. States she has not seen a neurologist for "years". Michelle Peres [place] 668694-01-30 12:39:43 PT D/C home. GCS15, VS stable. Given D/C paperwork. Pt ambulatory at time of discharge. Pt educated on med usage, follow up care, s/s worsening condition, need for hydration. Pt verbalized understanding. Pt ambulated from ED in [facility] [employer] Lucrecia Castro [facility] [id number] 10:52:23 Report received from LUCÍA Suresh [employer] [facility] [place] [facility] [id number] 10:11:41 Pressure like pain to head on left side. Pain ongoing x 1.5 weeks. Also has vaginal bleeding. Uses 3-4 pads a day. All started after getting depo injections. [employer] Higinio Suresh [place] [id number] 09:44:09 Pt arrived via private car with c/o having a migraine for 1.5 weeks. States she used to see a neurologist however she has not seen a neurologist "in at least a few years". She states has been having vaginal bleeding x2 weeks, states she has been on depo for about 1 year consistently and does not usually have any vaginal bleeding. [employer] [facility] [id number] 09:37:00 [facility] Emergency Department Note Patient Name: Ericka Perkins Date of : 1980 43 year old female Treatment Room: Room/bed info not found Primary Care Physician: [facility] Danika Patient Escorted by: Family [5] Mode of Arrival: Personal means [1] EMS Treatment Prior to ED Arrival: [employer]TER treatment: None Travel and Exposure Screening: Symptoms Does patient have any of these symptoms?: (not recorded) Exposure Screening Has patient had contact with someone with a communicable disease in the last month?: (not recorded) Diseases exposed to:: (not recorded) Is Patient ?: (not recorded) Exposure Date: (not recorded) Chief Complaint: Chief Complaint Patient presents with MIGRAINE Vaginal Bleeding History of Present Illness: 1 to 1.5 weeks of recurrent frontal headache wax/wane intensity, aggravated with exertion, some relief with ibuprofen, toradol. No neuro deficits. History of recurrent migraine type headache. No fever. No neck pain / stiffness. No cold symptoms. No chest pain. No dyspnea. (+) nausea with emesis 2 days ago. No diarrhea. No abdominal pain. Notes abnormal uterine bleeding. Last dep shot at [facility] office was about 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 History provided by: Patient and spouse Past Medical History/Immunizations: Past Medical History: Diagnosis Date Abnormal maternal glucose tolerance, antepartum 03/20/2013 Anemia of mother in , condition 10/10/2013 Bacterial vaginosis 03/19/2013 Migraines Tobacco use disorder 08/12/2013 Unspecified essential hypertension 10/10/2013 Vision problems wears glasses Tetanus received in last 5 years: Yes Childhood immunizations: Up-to-date Allergies: No Known Allergies Past Social History: Tobacco Use Every Day; 0.50 packs/day; Types: Cigarettes Smokeless Tobacco: Never used smokeless tobacco. Comments: Trying to quit Alcohol Use No. Drug Use No. Sexual Activity Sexually active; Partners: Male; Control/Protection: None. Past Surgical History: Past Surgical History: Procedure Laterality Date SECTION N/A 09/16/2013 Surgeon: Alona Quintanilla MD; Location: [facility] DELIV[facility] - [facility] LAPAROSCOPIC INTERNAL HERNIA REPAIR (SHX) N/A 08/26/2015 Surgeon: Jaziel Aponte MD; Location: [facility] [place] LUMBAR PUNCTURE 04/26/2013 Review of Systems: Review of Systems Constitutional: Negative. HENT: Negative. Eyes: Negative. Respiratory: Negative. Cardiovascular: Negative. Gastrointestinal: Positive for nausea and vomiting. Negative for abdominal pain. Genitourinary: Positive for vaginal bleeding. Negative for vaginal discharge, vaginal pain and pelvic pain. Skin: Negative. Neurological: Positive for headaches. Psychiatric/Behavioral: Negative. Physical Exam: ED Triage Vitals [07/03/23 0947] Weight 102.2 kg (225 lb 4.8 oz) Actual or estimated Actual Height 1.6 m (5' 3") BP 105/60 Pulse 77 Resp 16 Temp 37.2 ?C (99 ?F) Temp source Oral SpO2 100 % Measured on Room air Physical Exam Vitals and nursing note reviewed. Constitutional: General: She is not in acute distress. Appearance: Normal appearance. She is not ill-appearing, toxic-appearing or diaphoretic. HENT: Head: Normocephalic and atraumatic. Right Ear: External ear normal. Left Ear: External ear normal. Nose: Nose normal. Mouth/Throat: Mouth: Mucous membranes are moist. Eyes: Extraocular Movements: Extraocular movements intact. Conjunctiva/sclera: Conjunctivae normal. Cardiovascular: Rate and Rhythm: Normal rate and regular rhythm. Pulmonary: Effort: Pulmonary effort is normal. Breath sounds: Normal breath sounds. Abdominal: General: There is no distension. Palpations: Abdomen is soft. Tenderness: There is no abdominal tenderness. Musculoskeletal: General: Normal range of motion. Cervical back: Normal range of motion. Skin: General: Skin is warm and dry. Neurological: General: No focal deficit present. Mental Status: She is alert. Comments: No gross motor/sensory/speech deficits; ambulates without incident in ED Psychiatric: Mood and Affect: Mood normal. Behavior: Behavior normal. Thought Content: Thought content normal. Judgment: Judgment normal. Radiology: No orders to display Lab Results: Lab Results CBC WITH DIFF - Abnormal Result Value Ref Range WBC 4.43 4.30 - 11.10 10*3/?L RBC 4.26 3.93 - 5.25 10*6/?L HGB 11.8 11.6 - 15.0 g/dL HCT 36.6 35.7 - 45.2 % MCV 85.9 80.6 - 95.5 fL MCH 27.7 25.9 - 32.8 pg MCHC 32.2 31.6 - 35.1 g/dL RDW-SD 50.5 (*) 39.0 - 49.9 fL RDW-CV 16.1 (*) 12.0 - 15.5 % PLT 271 166 - 358 10*3/?L MPV 10.2 9.5 - 12.9 fL NRBC/100 WBC 0.0 0.0 - 10.0 /100 WBCs NRBC x103<0.01 10*3/?L GRAN MAT (NEUT) % 47.0 % IMM GRAN % 0.20 % LYMPH % 41.1 % MONO % 8.8 % EOS % 2.0 % BASO % 0.9 % GRAN MAT x103(ANC) 2.08 1.88 - 7.09 10*3/uL IMM GRAN x103<0.03 0.00 - 0.06 10*3/uL LYMPH x1031.82 1.32 - 3.29 10*3/uL MONO x1030.39 0.33 - 0.92 10*3/uL EOS x1030.09 0.03 - 0.39 10*3/uL BASO x1030.04 0.01 - 0.07 10*3/uL COMP. METABOLIC PANEL (16226) EKG: If EKG completed, see Procedure Note. Orders and Treatments: Orders Placed This Encounter Procedures CBC WITH DIFF COMP. METABOLIC PANEL (63637) Orders Placed This Encounter Medications NaCl 0.9% (NS) bolus infusion 1,000 mL metoclopramide HCl (REGLAN) injection 10 mg dexamethasone sod phos PF injection 10 mg ketorolac (TORADOL) injection 30 mg predniSONE 20 mg tablet orzylyeige-rqlzxrokdfytb-mksr 50-325-40 mg tablet ondansetron 4 mg tablet First Provider Eval: ED Events Date/Time Event User Comments 07/03/23 0938 Medical Screening Begins STAR MESA MD -- 07/03/23 0938 First Provider Evaluation STAR MESA MD -- ED COURSE Diagnosis/Impression as of 07/03/23 1227 Migraine without status migrainosus, not intractable, unspecified migraine type Abnormal uterine bleeding Uterine leiomyoma, unspecified location Nausea and vomiting, unspecified vomiting type Procedures: Procedures MDM: Medical Decision Making Primary impression: headache suspicious for migraine type Secondary impression: abnormal uterine bleeding without critical exam findings; known uterine fibroid Differential Diagnoses, including but not limited to: anemia, electrolyte / glucose abnle Problems Addressed: Abnormal uterine bleeding: acute illness or injury Migraine without status migrainosus, not intractable, unspecified migraine type: acute illness or injury Nausea and vomiting, unspecified vomiting type: self-limited or minor problem Uterine leiomyoma, unspecified location: chronic illness or injury Amount and/or Complexity of Data Reviewed Independent Historian: spouse Details: self Labs: ordered. Decision-making details documented in ED Course. Radiology: Details: N/a ECG/medicine tests: Details: N/a Discussion of management or test interpretation with external provider(s): N/a Risk OTC drugs. Prescription drug management. Risk Details: Unremarkable OBS in ED. Symptoms improved. Findings and plan discussed with patient. No findings that require acute hospitalization today. Flowsheet Documentation: Scoring Tools: No data recorded Disposition/Condition: ED Disposition ED Disposition Disch - Home Condition Stable Comment -- Discharge Medications: Patient's Medications START taking these medications AVEIIUUGAR-ARADJWVESZYUG-JOEV 50-325-40 MG TABLET Take 1 tablet by mouth every 6 (six) hours as needed (headache). ONDANSETRON 4 MG TABLET 1 or 2 tablets every 8 hours as needed for nausea PREDNISONE 20 MG TABLET Take 2 tablets by mouth in the morning for 7 days. CONTINUE taking these medications which have NOT CHANGED ACETAMINOPHEN (TYLENOL ARTHRITIS PAIN) 650 MG CR TABLET Take 1 tablet by mouth every 8 (eight) hours as needed for Pain. ACETAZOLAMIDE 250 MG TABLET Take 2 tablets by mouth 2 (two) times daily. AMITRIPTYLINE 25 MG TABLET Take one tablet per night as tolerated for one week then increase as tolerated to 2 tablets per night thereafter BENZONATATE 200 MG CAPSULE Take 1 capsule by mouth 3 (three) times daily as needed for Cough for up to 20 doses. SZJOQOPYDS-KYHWGLMRQRHOA-MYWQ 50-325-40 MG TABLET Take 1 tablet by mouth every 6 (six) hours as needed for Pain (scale 4-6). UMXRHBOVDS-ZRCGTUUGOPRQR-MRNJ 50-325-40 MG TABLET Take 1 tablet by mouth every 4 (four) hours as needed for Pain (scale 7-10). GAMYDUOKGJ-JOYZUMHJFAJCR-JJZB 50-325-40 MG TABLET Take 1 tablet by mouth every 4 (four) hours as needed for Pain (scale 7-10). FAMOTIDINE (PEPCID) 20 MG TABLET Take 1 tablet by mouth in the morning and 1 tablet in the evening. HYOSCYAMINE SULFATE (LEVSIN/SL) 0.[address] 2 tablets under the tongue every 6 (six) hours as needed (Abdominal pain or cramping). IBUPROFEN 600 MG TABLET Take 1 tablet by mouth every 6 (six) hours as needed for Pain (scale 4-6). KETOROLAC 10 MG TABLET Take 1 tablet by mouth every 6 (six) hours as needed for Pain (scale 4-6) or Pain (scale 7-10). ONDANSETRON (ZOFRAN ODT) 4 MG DISINTEGRATING TABLET Take 1 tablet by mouth every 8 (eight) hours as needed for Nausea and Vomiting (N/V). ONDANSETRON 4 MG DISINTEGRATING TABLET Take 1 tablet by mouth every 8 (eight) hours as needed for Nausea and Vomiting (N/V). ONDANSETRON 4 MG DISINTEGRATING TABLET Take 1 tablet by mouth every 8 (eight) hours as needed for Nausea and Vomiting (N/V). SUMATRIPTAN 25 MG TABLET Take one table at headache onset and one additional tablet 2 hours later if no relief. Not to exceed 2 pills in 24 hours or 9 days / month TOPIRAMATE (TOPAMAX) 50 MG TABLET Take 1 tablet by mouth 2 (two) times daily. START taking Modified Medications as Prescribed No medications on file STOP taking these medications No medications on file Follow-up: PCP PSYCHIATRIC THERAPIST Electronically signed by: Star Mesa MD 07/03/23 1229 [facility] - [id number] 00:30:00 Pt given printed and verbal discharge instructions regarding viral illness, encouraged hydration, Prescriptions provided to patient Discussed ibuprofen and to take with food to avoid GI distress. Pt verbalized understanding of instructions, pt awake alert oriented, resp reg unlabored, skin w/d, color appropriate for race, moves all ext well,pt encouraged to follow up with pcp Advised to seek medical attention for new/prolonged/worsening of symptoms No adverse reaction to meds given in ER noted upon discharge PIV d'cd, dressing to site, catheter in tact. 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 Denies sick contacts. Hx of HTN and uncomplicated hernia. 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 Bean [id number] 20:33:00 [facility] Emergency Department Note Patient Name: Ericka Perkins Date of : 1980 43 year old female [id number] Primary Care Physician: [facility] Patient Escorted by: Self [9] Mode of Arrival: Personal means [1] EMS Treatment Prior to ED Arrival: GEM CUTTER treatment: Medication (comment);Analgesic GEM CUTTER treatment comments: BP meds, excedrin, dayquil, and sinus medication Travel and Exposure Screening: Symptoms Does patient have any of these symptoms?: (not recorded) Exposure Screening Has patient had contact with someone with a communicable disease in the last month?: (not recorded) Diseases exposed to:: (not recorded) Is Patient ?: (not recorded) Exposure Date: (not recorded) Chief Complaint: Chief Complaint Patient presents with Vomiting Body Aches Chills History of Present Illness: Pt to ED co body aches, vomiting, chills, and abd pain x 2 hours. Denies sick contacts. Hx of HTN and uncomplicated hernia. 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 used: No Vomiting Severity: Mild Duration: 2 hours Number of daily episodes: Once Quality: Stomach contents Progression: Unchanged Chronicity: New Recent urination: Normal Context comment: Patient feeling sick, possibly a viral infection Ineffective treatments: None tried Associated symptoms: abdominal pain, chills, myalgias and URI Risk factors: no alcohol use, no diabetes, not , no prior abdominal surgery, no sick contacts, no suspect food intake and no travel to endemic areas Past Medical History/Immunizations: Past Medical History: Diagnosis Date Abnormal maternal glucose tolerance, antepartum 03/20/2013 Anemia of mother in , condition 10/10/2013 Bacterial vaginosis 03/19/2013 Migraines Tobacco use disorder 08/12/2013 Unspecified essential hypertension 10/10/2013 Vision problems wears glasses Tetanus received in last 5 years: Unknown Childhood immunizations: Up-to-date Allergies: No Known Allergies Past Social History: Tobacco Use Every Day; 0.50 packs/day; Types: Cigarettes Smokeless Tobacco: Never used smokeless tobacco. Comments: Trying to quit Alcohol Use No. Drug Use No. Sexual Activity Sexually active; Partners: Male; Control/Protection: None. Past Surgical History: Past Surgical History: Procedure Laterality Date SECTION N/A 09/16/2013 Surgeon: Alona Quintanilla MD; Location: [facility] AND DELIVERY [facility] LAPAROSCOPIC INTERNAL HERNIA REPAIR (SHX) N/A 08/26/2015 Surgeon: Jaziel Aponte MD; Location: [facility] [place] LUMBAR PUNCTURE 04/26/2013 Review of Systems: Review of Systems Constitutional: Positive for activity change, appetite change and chills. HENT: Positive for congestion and rhinorrhea. Eyes: Negative. Respiratory: Negative. Gastrointestinal: Positive for abdominal pain, nausea and vomiting. Genitourinary: Negative. Musculoskeletal: Positive for myalgias. Psychiatric/Behavioral: Negative. Physical Exam: ED Triage Vitals [06/21/232044] Weight 99.8 kg (220 lb) Actual or estimated Estimated by patient/family report Height 1.6 m (5' 3") BP 129/75 Pulse 93 Resp 18 Temp 37.3 ?C (99.1 ?F) Temp source Oral SpO2 99 % Measured on Room air Physical Exam Vitals and nursing note reviewed. Constitutional: General: She is not in acute distress. Appearance: She is well-developed. She is not diaphoretic. HENT: Head: Normocephalic and atraumatic. Right Ear: External ear normal. Left Ear: External ear normal. Nose: Mucosal edema and congestion present. Mouth/Throat: Pharynx: Posterior oropharyngeal erythema present. No pharyngeal swelling, oropharyngeal exudate or uvula swelling. Tonsils: No tonsillar exudate or tonsillar abscesses. Eyes: General: No scleral icterus. Right eye: No discharge. Left eye: No discharge. Conjunctiva/sclera: Conjunctivae normal. Pupils: Pupils are equal, round, and reactive to light. Neck: Thyroid: No thyroid mass or thyromegaly. Vascular: No JVD. Trachea: No tracheal deviation. Cardiovascular: Rate and Rhythm: Normal rate and regular rhythm. Heart sounds: Normal heart sounds. No murmur heard. No friction rub. No gallop. Pulmonary: Effort: Pulmonary effort is normal. No respiratory distress. Breath sounds: Normal breath sounds. No stridor. No wheezing or rales. Chest: Chest wall: No tenderness. Abdominal: General: Bowel sounds are normal. There is no distension. Palpations: Abdomen is soft. There is no mass. Tenderness: There is no abdominal tenderness. There is no guarding or rebound. Musculoskeletal: General: No tenderness or deformity. Normal range of motion. Cervical back: Normal range of motion and neck supple. Lymphadenopathy: Cervical: No cervical adenopathy. Right cervical: No superficial, deep or posterior cervical adenopathy. Left cervical: No superficial, deep or posterior cervical adenopathy. Skin: General: Skin is warm and dry. Coloration: Skin is not pale. Findings: No erythema or rash. Neurological: Mental Status: She is alert and oriented to person, place, and time. Cranial Nerves: No cranial nerve deficit. Motor: No abnormal muscle tone. Coordination: Coordination normal. Deep Tendon Reflexes: Reflexes are normal and symmetric. Reflexes normal. Psychiatric: Behavior: Behavior normal. Thought Content: Thought content normal. Judgment: Judgment normal. Radiology: CT ABDOMEN PELVIS WO CONTRAST Preliminary Result EXAM: CT ABDOMEN PELVIS WO CONTRAST HISTORY: 43 years-old Female; Flank pain, kidney stone suspected TECHNIQUE: Contiguous axial imaging from the level of the lung bases through the proximal thighs was performed without the intravenous administration of contrast. Coronal and sagittal reconstructions were obtained. COMPARISON: CT abdomen on 08/25/2015. FINDINGS: LOWER THORAX: The lung bases are clear. Calcified mitral annulus is noted. LIVER: The liver is normal in size and contour. No focal hepatic lesion is seen. GALLBLADDER AND BILIARY TREE: The gallbladder appears unremarkable. No radiopaque gallstones are seen. No intra or extrahepatic biliary ductal dilation is visualized. SPLEEN: The spleen appears unremarkable. PANCREAS: Grossly unremarkable. ADRENAL GLANDS: No adrenal masses are seen. KIDNEYS: No hydronephrosis, stones, or contour deforming solid masses are visualized. GI TRACT: Few diverticula seen without distinct focal inflammatory changes. No dilation or bowel wall thickening is seen. The appendix appears unremarkable. PERITONEUM AND RETROPERITONEUM: No intra-abdominal free air or fluid collection is visualized. A small fat-containing inguinal hernia seen with mild surrounding fat stranding. PELVIS/BLADDER: The bladder is contracted, limiting evaluation. A 3.9 cm partially calcified subserosal fibroid is seen. LYMPH NODES: No distinct lymphadenopathy. VESSELS: Limited evaluation of the vessels without IV contrast. BONES AND SOFT TISSUES: No suspicious lytic or sclerotic bony lesions are present. Moderate anterolisthesis of L5 on S1 seen with degenerative disc and endplate sclerosis. IMPRESSION No nephrolithiasis. Small fat-containing umbilical hernia with surrounding inflammatory changes. Diverticulosis without distinct CT evidence of diverticulosis. Preliminary Report Dictated by Resident: Obie Gomez Lab Results: Lab Results CBC WITH DIFF - Abnormal Result Value Ref Range WBC 6.66 4.30 - 11.10 10*3/?L RBC 4.13 3.93 - 5.25 10*6/?L HGB 11.5 (*) 11.6 - 15.0 g/dL HCT 35.4 (*) 35.7 - 45.2 % MCV 85.7 80.6 - 95.5 fL MCH 27.8 25.9 - 32.8 pg MCHC 32.5 31.6 - 35.1 g/dL RDW-SD 50.7 (*) 39.0 - 49.9 fL RDW-CV 16.3 (*) 12.0 - 15.5 % PLT 297 166 - 358 10*3/?L MPV 9.7 9.5 - 12.9 fL NRBC/100 WBC 0.0 0.0 - 10.0 /100 WBCs NRBC x103<0.01 10*3/?L GRAN MAT (NEUT) % 41.9 % IMM GRAN % 0.30 % LYMPH % 49.2 % MONO % 5.4 % EOS % 2.4 % BASO % 0.8 % GRAN MAT x103(ANC) 2.79 1.88 - 7.09 10*3/uL IMM GRAN x103<0.03 0.00 - 0.06 10*3/uL LYMPH x1033.28 1.32 - 3.29 10*3/uL MONO x1030.36 0.33 - 0.92 10*3/uL EOS x1030.16 0.03 - 0.39 10*3/uL BASO x1030.05 0.01 - 0.07 10*3/uL BASIC METABOLIC PANEL (NA, K, CL, CO2, GLUCOSE, BUN, CREATININE, CA) - Abnormal NA 140 135 - 145 mmol/L K 4.0 3.5 - 5.0 mmol/L CL 112 (*) 98 - 108 mmol/L CO2 TOTAL 21 (*) 23 - 31 mmol/L AGAP 7 2 - 16 BUN 26 (*) 7 - 23 mg/dL GLUCOSE 73 70 - 110 mg/dL CREATININE 1.12 (*) 0.50 - 1.04 mg/dL CALCIUM 9.3 8.6 - 10.6 mg/dL eGFR 62.7 mL/min/1.73m2 URINALYSIS - Abnormal APPEARANCE Hazy (*) Clear COLOR Yellow Yellow PH 5.0 4.8 - 8.0 SP GRAVITY 1.034 (*) 1.003 - 1.030 GLU U QUAL Normal Normal BLOOD 2+ (*) Negative KETONES 5 mg/dL (*) Negative PROTEIN Negative Negative UROBILIN 2.0 mg/dL (*) Normal BILIRUBIN Negative Negative NITRITE Negative Negative LEUK ONEAL Negative Negative RBC/HPF >182 (*) 0 - 3 HPF WBC/HPF 1 0 - 5 HPF BACTERIA Negative Negative MUCOUS Slight (*) Negative LPF SQ EPITH 1 HPF RAPID INFLUENZA A/B - Normal Rapid Influenza A Negative Negative Rapid Influenza B Negative Negative COVID-19 (ID NOW RAPID TESTING) - Normal SARS-CoV-2 Rapid ID NOW Not Detected Not Detected POCT TEST - Normal POCT PREG Negative On board controls acceptable with C Line Yes POCT PREG LOT # [id number] POCT PREG TEST DATE 2024-08-12 EKG: If EKG completed, see Procedure Note. Orders and Treatments: Orders Placed This Encounter Procedures CT ABDOMEN PELVIS WO CONTRAST Cbc with Diff Basic Metabolic Panel (NA, K, CL, CO2, GLUCOSE, BUN, CREATININE, CA) Urinalysis RAPID INFLUENZA A/B COVID-19 (ID NOW TESTING) POCT Test Lab Only COVID Interpretation Orders Placed This Encounter Medications ketorolac (TORADOL) injection 30 mg hyoscyamine sulfate (LEVSIN/SL) sublingual tablet 0.25 mg NaCl 0.9% (NS) bolus infusion 1,000 mL ondansetron (ZOFRAN (PF)) injection 4 mg famotidine (PEPCID) 20 mg tablet ondansetron 4 mg disintegrating tablet hyoscyamine sulfate (LEVSIN/SL) 0.125 mg sublingual tablet ketorolac 10 mg tablet acetaminophen (TYLENOL ARTHRITIS PAIN) 650 mg CR tablet First Provider Eval: ED Events Date/Time Event User Comments 06/21/232048 Medical Screening Begins ALEX PITT MD -- 06/21/232048 First Provider Evaluation ALEX PITT MD -- ED COURSE Patient's condition improved with the treatment provided in the ED, will DC Home with adequate medications to address her symptoms. Diagnosis/Impression as of 06/22/23 0023 Viral illness Hematuria, gross Diverticulosis Procedures: Procedures MDM: Medical Decision Making Problems Addressed: Hematuria, gross: acute illness or injury Viral illness: complicated acute illness or injury with systemic symptoms Amount and/or Complexity of Data Reviewed Independent Historian: spouse Details: provided additional details regarding her symptoms External Data Reviewed: labs and notes. Details: From previous visits reviewed and compared with current data Labs: ordered. Decision-making details documented in ED Course. Radiology: ordered and independent interpretation performed. Decision-making details documented in ED Course. Risk OTC drugs. Prescription drug management. Flowsheet Documentation: Scoring Tools: No data recorded Disposition/Condition: ED Disposition ED Disposition Disch - Home Condition Stable Comment -- Discharge Medications: Patient's Medications START taking these medications ACETAMINOPHEN (TYLENOL ARTHRITIS PAIN) 650 MG CR TABLET Take 1 tablet by mouth every 8 (eight) hours as needed for Pain. FAMOTIDINE (PEPCID) 20 MG TABLET Take 1 tablet by mouth in the morning and 1 tablet in the evening. HYOSCYAMINE SULFATE (LEVSIN/SL) 0.[address] 2 tablets under the tongue every 6 (six) hours as needed (Abdominal pain or cramping). KETOROLAC 10 MG TABLET Take 1 tablet by mouth every 6 (six) hours as needed for Pain (scale 4-6) or Pain (scale 7-10). ONDANSETRON 4 MG DISINTEGRATING TABLET Take 1 tablet by mouth every 8 (eight) hours as needed for Nausea and Vomiting (N/V). CONTINUE taking these medications which have NOT CHANGED ACETAZOLAMIDE 250 MG TABLET Take 2 tablets by mouth 2 (two) times daily. AMITRIPTYLINE 25 MG TABLET Take one tablet per night as tolerated for one week then increase as tolerated to 2 tablets per night thereafter BENZONATATE 200 MG CAPSULE Take 1 capsule by mouth 3 (three) times daily as needed for Cough for up to 20 doses. KARHNDGSWR-YKYMVTBIJDKPE-[id number] 50-325-40 MG TABLET Take 1 tablet by mouth every 6 (six) hours as needed for Pain (scale 4-6). BETGZPLIJN-WDVCUKUYGPXHP-QFGM 50-325-40 MG TABLET Take 1 tablet by mouth every 4 (four) hours as needed for Pain (scale 7-10). NWJAIIVYOD-JRVQYIXHEKYOP-WWMJ 50-325-40 MG TABLET Take 1 tablet by mouth every 4 (four) hours as needed for Pain (scale 7-10). IBUPROFEN 600 MG TABLET Take 1 tablet by mouth every 6 (six) hours as needed for Pain (scale 4-6). ONDANSETRON (ZOFRAN ODT) 4 MG DISINTEGRATING TABLET Take 1 tablet by mouth every 8 (eight) hours as needed for Nausea and Vomiting (N/V). ONDANSETRON 4 MG DISINTEGRATING TABLET Take 1 tablet by mouth every 8 (eight) hours as needed for Nausea and Vomiting (N/V). SUMATRIPTAN 25 MG TABLET Take one table at headache onset and one additional tablet 2 hours later if no relief. Not to exceed 2 pills in 24 hours or 9 days / month TOPIRAMATE (TOPAMAX) 50 MG TABLET Take 1 tablet by mouth 2 (two) times daily. START taking Modified Medications as Prescribed No medications on file STOP taking these medications No medications on file Follow-up: [facility] Relationship: PCP - [facility] [address] [facility] [place] [address] Instructions: If symptoms worsen Electronically signed by: Alex Pitt MD 06/22/23 0022 [facility]2023-07-19 21:57:16 Pt discharged home. Given all education and information regarding pain management; follow up importance and s/s of worsening condition. Pt verbalized understanding. Alert and ambulatory to pov T Sia Richardson [place] [id number] 21:41:07 Pt resting quietly in room. States pain has resolved. [place] [id number] 19:04:38 Nurse Report Report given to LUCÍA Saucedo. Chief complaint, assessment findings, and orders reviewed. Plan of care discussed with both nurses. Wilma Garay RN [place] [id number] 18:42:18 CC: patient presents to the ER with complaints of blurry vision that she believes could be related to her migraines. Patient also reports nasuea, states she took OTC migraine medication without relief. PMHx: see history Awake, alert, oriented, resp reg unlabored, skin warm and dry, color appropriate for race, moves all ext without difficulty, amb without assistance. Appears in no distress. Wilma Garay [facility], later [facility]
[2024-01-02] MEDS ORDERED: KETOROLAC 30 MG/ML INJ ONE (16:00)
[2024-01-02] MEDS ORDERED: DIPHENHYDRAMINE 50 MG/ML VIAL ONE (16:00)
[2024-01-02] MEDS ORDERED: NA CHLORIDE 0.9% 1,000 ML ONE (16:01)
[2024-01-02] MEDS ORDERED: METOCLOPRAMIDE 10 MG/2mL INJ ONE (16:01)
[2024-01-02 16:19] LABS: Absolute Basophils 0.1 K/uL (0-0.5); Absolute Eosinophils 0.1 K/uL (0-0.5); Absolute Lymphocytes (CBC) 2.2 K/uL (0.7-4.9); Absolute Monocytes 0.3 K/uL (0.1-1.3); Absolute Neutrophil 2.2 K/uL (1.8-8.0); Basophils % 1.1 % (0-1.3); Hematocrit 37.2 % (36.0-45.0); Hemoglobin 11.4 g/dL (12.0-15.0); Lymphocytes % 45.4 % (15.3-44.8); MCH 26.9 pg (27.0-35.0); MCHC 30.8 g/dL (32.0-36.0); MCV 87.3 fL (80-100); Monocytes % 6.7 % (3.3-12.3); Neutrophils % 44.8 % (41.7-73.7); Platelets 317 thou/uL (152-406); RBC Red Blood Cell Count 4.26 M/uL (3.86-4.86); Red Cell Distribution Width 16.4 % (12.1-15.2)
[2024-01-02 16:38] LABS: Anion Gap 8.6 mEq/L (5.0-15.0); Potassium 4.6 mEq/L (3.5-5.1)
--- NOTE | 2024-01-02 17:09 | EDPHYS ---
Physician Documentation [facility] Name: Ericka Wallace Age: 43 yrs Sex: Female : 1980 Arrival Date: 01/02/2024 Time: 13:54 Bed 12 Private MD: ED Physician Vonnie Choi HPI: 01/01 15:22 This 43 yrs old Black Female presents to ER via Ambulatory with complaints of Blurred sd2 Vision, Headache, Vomiting/Diarrhea. 15:22 43 yo F presents with CC of migraine headache. Reports started this AM in the bilateral sd2 frontal area with associated phonophobia, vomiting and intermittent blurred vision. Reports this is consistent with her prior migraines. She did take Ibuprofen today without relief. Has seen neurology in [place] in the past for her migraines but it has been quite some time since she has followed up.. Historical: - Allergies: 14:05 No Known Allergies; ko1 - Home Meds: 14:05 Lisinopril Oral [Active]; ko1 - PMHx: 14:05 Hypertension; Migraines; ko1 - PSHx: 14:05 section; Repair of inguinal hernia; ko1 - Immunization history:: Adult Immunizations up to date. - Infectious Disease History:: Denies. - Social history:: Smoking status: Patient reports the use of cigarette tobacco products, smokes one-half pack cigarettes per day. ROS: 15:22 Constitutional: Negative for fever, chills, and weight loss, Eyes: Negative for injury, sd2 pain, redness, and discharge, Cardiovascular: Negative for chest pain, palpitations, and edema, Respiratory: Negative for shortness of breath, cough, wheezing. Abdomen/GI: Negative for abdominal pain, nausea, vomiting, diarrhea. MS/Extremity: Negative for injury and deformity, Skin: Negative for injury, rash, and discoloration, 15:22 Neuro: Positive for headache, visual changes, Negative for loss of consciousness, numbness, seizure activity, Exam: 15:22 Constitutional: This is a well developed, well nourished patient who is awake, alert, sd2 and in no acute distress. Head/Face: Normocephalic, atraumatic. Eyes: EOMI, normal conjunctiva bilaterally Neck: Trachea midline, no thyromegaly or masses palpated, and no cervical lymphadenopathy. Supple, full range of motion without nuchal rigidity, or vertebral point tenderness. No Meningismus. Chest/axilla: Normal chest wall appearance and motion. Nontender with no deformity. Cardiovascular: Regular rate and rhythm with a normal S1 and S2. No gallops, murmurs, or rubs. 2+ distal pulses. Respiratory: Lungs have equal breath sounds bilaterally, clear to auscultation and percussion. No rales, rhonchi or wheezes noted. No increased work of breathing, no retractions or nasal flaring. Abdomen/GI: Soft, non-tender, with normal bowel sounds. No guarding or rebound. No evidence of tenderness throughout. Skin: Warm, dry with normal turgor. Normal color with no rashes, no lesions, and no evidence of cellulitis. MS/ Extremity: Pulses equal, no cyanosis. Neurovascular intact. Full, normal range of motion. Neuro: Awake and alert, GCS 15, oriented to person, place, time, and situation. Cranial nerves II-XII grossly intact. Motor strength 5/5 in all extremities. Sensory grossly intact. Cerebellar exam normal. Normal gait. Psych: Awake, alert, with orientation to person, place and time. Behavior, mood, and affect are within normal limits. Vital Signs: 14:01 BP 109 / 62; Pulse 62; Resp 18; Temp 97.2; Pulse Ox 99% ; ko1 17:25 BP 112 / 64; Pulse 68; Resp 14; Pulse Ox 99% ; ko1 MDM: 15:22 Differential diagnosis: tension DUGGAN, migraine DUGGAN, dehydration, electrolyte abnormality sd2 among others. 15:22 Data reviewed: vital signs, nurses notes, lab test result(s). I considered the sd2 following discharge prescriptions or medication management in the emergency department Medications were administered in the Emergency Department. See MAR. Care significantly affected by the following chronic conditions: Hypertension. 15:37 Patient medically screened. sd2 17:07 Counseling: I had a detailed discussion with the patient and/or guardian regarding the sd2 historical points, exam findings, and any diagnostic results supporting the discharge/admit diagnosis, lab results, the need for outpatient follow up, to return to the emergency department if symptoms worsen or persist or if there are any questions or concerns that arise at home. ED course: Labs reviewed and grossly WNCL. Pt feeling improved after treatment and comfortable with plan for discharge. No focal neuro deficits. Symptoms consistent with prior migraines and patient has previously had imaging and neurology follow up for her migraines. Advised follow up with PCP and neurology once again since it has been quite some time. She is comfortable with plan for discharge and outpatient follow up and verbalizes understanding of strict return precautions. . 01/01 15:22 Order name: CBC with Diff; Complete Time: 16:28 sd2 01/01 15:22 Order name: BMP; Complete Time: 16:56 sd2 Administered Medications: 16:21 Drug: Ketorolac IVP 15 mg IVP once Route: IVP; Site: right antecubital; ko1 17:20 Follow up: Response: No adverse reaction ko1 16:21 Drug: metoCLOPramide IVP 10 mg IVP once; over 1 to 2 minutes Route: IVP; Site: right ko1 antecubital; 17:20 Follow up: Response: No adverse reaction ko1 16:21 Drug: diphenhydrAMINE IVP 25 mg IVP once Route: IVP; Site: right antecubital; ko1 17:20 Follow up: Response: No adverse reaction ko1 16:21 Drug: NS 0.9% IV 1000 ml IV at 1 bolus Per protocol; 1000 mL bolus Route: IV; Rate: 1 ko1 bolus; Site: right antecubital; 17:20 Follow up: Response: No adverse reaction; IV Status: Completed infusion; IV Intake: ko1 1000ml Disposition Summary: 01/02/24 17:09 Discharge Ordered Problem: an acute exacerbation sd2 Symptoms: have improved sd2 Condition: Stable sd2 Diagnosis - Migraine, unspecified, not intractable, without status migrainosus sd2 Followup: sd2 - With: Private Physician - When: 2 - 3 days - Reason: Recheck today's complaints, Continuance of care, Re-evaluation by your physician Discharge Instructions: - Discharge Summary Sheet sd2 - Migraine Headache sd2 Forms: - Medication Reconciliation Form sd2 - Antibiotic Education sd2 - Prescription Opioid Use sd2 - Patient Portal Instructions sd2 - Leadership Thank You Letter sd2 - Family Work Release bc6 Signatures: Dispatcher [employer] Vonnie Monroe MD MD sd2 Jennifer Gold RN RN ko1
--- NOTE | 2024-01-02 17:09 | ER ---
Nurse's Notes [facility] Name: Ericka Wallace Age: 43 yrs Sex: Female : 1980 Arrival Date: 01/02/2024 Time: 13:54 Bed 12 Private MD: Diagnosis: Migraine, unspecified, not intractable, without status migrainosus Presentation: 01/01 14:01 Chief complaint: Patient states: migraines, n/v/d. Coronavirus screen: At this time, ko1 the client does not indicate any symptoms associated with coronavirus-19. Ebola Screen: No symptoms or risks identified at this time. Initial Sepsis Screen: Does the patient meet any 2 criteria? No. Patient's initial sepsis screen is negative. Does the patient have a suspected source of infection? No. Patient's initial sepsis screen is negative. Risk Assessment: Do you want to hurt yourself or someone else? Patient reports no desire to harm self or others. Onset of symptoms was January 02, 2024. 14:01 Method Of Arrival: Ambulatory ko1 14:01 Acuity: ALTON 3 ko1 Triage Assessment: 14:05 Headache History: The patient has had previous headaches and this one is similar to ko1 previous episodes. General: Appears in no apparent distress. Behavior is calm, cooperative, appropriate for age. Pain: Complains of pain in top of head and forehead Pain currently is 8 out of 10 on a pain scale. Pain began gradually, Also complains of nausea. Neuro: Reports headache frontal area. Historical: - Allergies: 14:05 No Known Allergies; ko1 - Home Meds: 14:05 Lisinopril Oral [Active]; ko1 - PMHx: 14:05 Hypertension; Migraines; ko1 - PSHx: 14:05 section; Repair of inguinal hernia; ko1 - Immunization history:: Adult Immunizations up to date. - Infectious Disease History:: Denies. - Social history:: Smoking status: Patient reports the use of cigarette tobacco products, smokes one-half pack cigarettes per day. Screenin:00 [facility] ED Fall Risk Assessment (Adult) History of falling in the last 3 months, ko1 including since admission No falls in past 3 months (0 pts) Confusion or Disorientation No (0 pts) Intoxicated or Sedated No (0 pts) Impaired Gait No (0 pts) Mobility Assist Device Used No (0 pt) Altered Elimination No (0 pt) Score/Fall Risk Level 0 - 2 = Low Risk Oriented to surroundings, Maintained a safe environment, Educated pt \T\ family on fall prevention, incl call for assistance when getting out of bed, Assessed \T\ reinforced patient's understanding of fall precautions. Abuse screen: Denies threats or abuse. Denies injuries from another. Nutritional screening: No deficits noted. Tuberculosis screening: No symptoms or risk factors identified. Assessment: 16:00 General: Appears in no apparent distress. Pain: Complains of pain in forehead and top ko1 of head. Neuro: No deficits noted. Cardiovascular: No deficits noted. Respiratory: No deficits noted. GI: Reports diarrhea, nausea, vomiting. : No deficits noted. EENT: Reports photophobia. Derm: No deficits noted. Musculoskeletal: No deficits noted. Vital Signs: 14:01 BP 109 / 62; Pulse 62; Resp 18; Temp 97.2; Pulse Ox 99% ; ko1 17:25 BP 112 / 64; Pulse 68; Resp 14; Pulse Ox 99% ; ko1 ED Course: 13:57 Patient arrived in ED. mr 14:05 Triage completed. ko1 14:05 Arm band placed on right wrist. Patient placed in waiting room, Patient notified of ko1 wait time. 14:15 Vonnie Choi MD is Attending Physician. sd2 16:00 Patient has correct armband on for positive identification. Bed in low position. Call ko1 light in reach. Side rails up X 1. Provided Education on: labs, meds. Pulse ox on. NIBP on. Door closed. Noise minimized. Lights dimmed. Warm blanket given. Pillow given. 16:00 No provider procedures requiring assistance completed. ko1 16:12 BMP Sent. bc6 16:12 CBC with Diff Sent. bc6 16:12 Initial lab(s) drawn, by me, sent to lab. Inserted saline lock: 24 gauge in right bc6 antecubital area, using aseptic technique. Blood collected. 17:30 IV discontinued, intact, bleeding controlled, No redness/swelling at site. Pressure ko1 dressing applied. Administered Medications: 16:21 Drug: Ketorolac IVP 15 mg IVP once Route: IVP; Site: right antecubital; ko1 17:20 Follow up: Response: No adverse reaction ko1 16:21 Drug: metoCLOPramide IVP 10 mg IVP once; over 1 to 2 minutes Route: IVP; Site: right ko1 antecubital; 17:20 Follow up: Response: No adverse reaction ko1 16:21 Drug: diphenhydrAMINE IVP 25 mg IVP once Route: IVP; Site: right antecubital; ko1 17:20 Follow up: Response: No adverse reaction ko1 16:21 Drug: NS 0.9% IV 1000 ml IV at 1 bolus Per protocol; 1000 mL bolus Route: IV; Rate: 1 ko1 bolus; Site: right antecubital; 17:20 Follow up: Response: No adverse reaction; IV Status: Completed infusion; IV Intake: ko1 1000ml Medication: 16:00 VIS not applicable for this client. ko1 Intake: 17:20 IV: 1000ml; Total: 1000ml. ko1 Outcome: 17:09 Discharge ordered by MD. sd2 17:35 Discharged to home ambulatory, with family, ko1 17:35 Condition: stable 17:35 Discharge instructions given to patient, family, Instructed on discharge instructions, follow up and referral plans. Demonstrated understanding of instructions, follow-up care, 18:00 Patient left the ED. ko1 Signatures: Diane Garay, Jeff Reg mr Vonnie Choi MD MD sd2 Jennifer Gold, LUCÍA RN ko1 Yahaira Olson bc6 Corrections: (The following items were deleted from the chart) 17:59 17:40 IV discontinued, intact, bleeding controlled, No redness/swelling at site. ko1 Pressure dressing applied, ko1 17:59 17:40 Discharged to home ambulatory, with family, ko1 ko1 17:59 17:40 Condition: stable ko1 ko1 17:59 17:40 Discharge instructions given to patient, family, Instructed on discharge ko1 instructions, follow up and referral plans. Demonstrated understanding of instructions, follow-up care, ko1
[2024-01-03 00:15] VITALS: TEMP 97.2; O2SAT 99
[2024-01-03 00:20] VITALS: BP 112/64
== END 2024-01-02 18:00 | disposition home or self-care (01) ==
LOC: ER 13:54
DX: G43.009 Migraine without aura, not intractable, without status migrainosus (principal)
CPT/HCPCS: 36415; 80048; 85025; 96361; 96374; 96375; 99284; J1200; J2765; J7030

== ENCOUNTER 2024-01-07 14:23 | Emergency (ER) | payer SELFPAY ==
--- OUTSIDE RECORDS SUMMARY | 2024-01-07 14:29 | XMS REPORT | Continuity of Care Document ---
Author Name Unknown Address [address] [facility] [address] [place] [address] [facility] thconnect Address [address] [facility] [address] [place] [address] Care Team Providers Care Candy Catcher Name Role Phone [facility] Primary Care Physician KEE ASKEW Attending Clinician Unavailable PEDRO AGUIRRE Attending Clinician Unavailab STAR Cabrera Attending Clinician UnavailStar Brownlee MD Attending Clinician [phone] ALEX PITT Attending Clinician Unavailable Alex Pitt MD Attending Clinician [phone] ROSEMARY CHILDERS Attending Clinician Unavailable Rosemary Childers MD Attending Clinician [phone] Doctor Unassigned, [place] Attending Clinician U TERESSA Plummer Attending Clinician Unavailab Teressa Espino DO Attending Clinician [phone] [facility], [facility] Neurology Resident Attending Cli felicity Unavailable NUNU BAKER Attending Clinician UnavailNunu Ventura Attending Clinician [phone] Glen ROCHA Attending Clinician Unavailable Glen Baron Attending Clinician [phone] LUIS DUNCAN Attending Clinician Unavailable Luis Reynolds Attending Clinician [phone] Sveta MYERS Evans S Attending Clinician [phone] YOSEPH PAZ Attending Clinician Unavailable Rhonda Joya Attending Clinician [phone] ALEX PITT Admitting Clinician Unavailable NUNU BAKER Admitting Clinician Unavaila ble Payers Payer Name Policy Type Policy Number Effective Date Expirati on Date Source [employer] PREFERRED GENERIC [id number] 2020 00:00:00 MEDICAID PENDING PENDING 2021 00:00:00 Problems Condition Name Condition Details Condition Category Status Onset Date Resolution Date Last Treatment Date Treating Clinician Comments Source Hernia, abdominal Hernia, abdominal Disease Active 08-24 00:00: 00 [facility] 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 ICD10 Diagnosis Term [employer] Utility [facility] Anemia of mother in , condition Anemia of mother in , condition Disease Active 10-10 00:00: 00 [facility] Anemia of mother in , condition Anemia of mother in , condition Disease Recurre nce 10-10 00:00: 00 [facility] Tobacco use disorder Tobacco use disorder Disease Active 08-12 00:00: 00 [facility] Intramural leiomyoma of uterus Intramural leiomyoma of uterus Disease Active 06-06 00:00: 00 Overview: Formattin g of this note might be different from the original. USG 08/08- 6.9 x 5.5 x 5.6cm USG 06/06- 6.0 x 4.7 x 5.6cm- lower right segment [facility] Blurry vision Blurry vision Disease Active 2012-06 00:00: 00 [facility] Immune to varicella Immune to varicella Disease Active 2012-06 00:00: 00 [facility] Rubella immune Rubella immune Disease Active 2012-06 0 00:00: 00 [facility] Morbid obesity Morbid obesity Disease Active 2012-06 00:00: 00 [facility] Allergies, Adverse Reactions, Alerts Allergy Name Allergy Type Status Severity Reaction(s) Onset Date Inactive Date Treating Clinician Comments Source NO KNOWN ALLERGIE S Drug Class Active [facility] Social History Social Habit Start Date Stop Date Quantity Comments Source History of tobacco use Cigarette Smoker [facility] Alcohol intake 2023-09-04 00:00:00 2023-09-04 00:00:00 Current non-drinker of alcohol (finding) [facility] History of Social function 2023-09-04 00:00:00 2023-09-04 00:00:00 [facility] Exposure to SARS-CoV-2 (event) 2022-09-17 00:00:00 2022-09-27 10:30:00 Not sure [facility] Cigarettes smoked current (pack per day) - Reported 2013-09-11 00:00:00 2013-09-11 00:00:00 [facility] Tobacco Comment 2013-09-11 00:00:00 2013-09-11 00:00:00 Trying to quit [facility] Tobacco use and exposure 2013-09-11 00:00:00 2013-09-11 00:00:00 Smokeless tobacco non-user [facility] Sex Assigned At 1980 00:00:00 1980 00:00:00 [facility] Smoking Status Start Date Stop Date Source Smokes tobacco daily 2013-09-11 00:00:00 [facility] Medications Ordered Medication Name Filled Medication Name [...] ONCE, 1 dose, On Sun09/04/23 at 2030, [facility] diphenhydrA MINE (BENADRYL) injection 25 mg 09-04 00:45: 00 09-04 00:48 :00 No 25mg 25 mg, Slow IV Push, ONCE, 1 dose, On Sun09/04/23 at 1945, [facility] metoclopram hadley HCl (REGLAN) injection 10 mg 09-04 00:45: 00 09-04 00:48 :00 No 10mg 10 mg, Slow IV Push, ONCE, 1 dose, On Sun09/04/23 at 1945, [facility] ketorolac (TORADOL) injection 30 mg 07-03 17:00: 00 07-03 16:24 :00 No 30mg 30 mg, Slow IV Push, ONCE, 1 dose, On Sun07/03/23 at 1100, [facility] NaCl 0.9% (NS) bolus infusion 1,000 mL 07-03 17:00: 00 07-03 17:50 :00 No 1000mL at 999 mL/hr, 1,000 mL, IV Infusion, ONCE, 1 dose, On Sun07/03/23 at 1100, [facility] dexamethaso ne sod phos PF injection 10 mg 07-03 16:15: 00 07-03 16:24 :00 No 10mg 10 mg, Slow IV Push, ONCE, 1 dose, On 1/30/24 at 1015, 1 mL [facility] metoclopram hadley HCl (REGLAN) injection 10 mg 07-03 16:15: 00 07-03 16:24 :00 No 10mg 10 mg, Slow IV Push, ONCE, 1 dose, On Sun07/03/23 at 1015, [facility] butalbital- acetaminoph en-caff 50-325-40 mg tablet 07-03 00:00: 00 Yes [id number] 1{tbl} Take 1 tablet by mouth every 6 (six) hours as needed (headache) . [facility] ondansetron 4 mg tablet 07-03 00:00: 00 Yes [id number] 1 or 2 tablets every 8 hours as needed for nausea [facility] predniSONE 20 mg tablet 07-03 00:00: 00 07-11 05:59 :00 No [id number] 40mg Take 2 tablets by mouth in the morning for 7 days. [facility] TAKE 1 TABLET EVERY 8 HOURS [...] 1 dose, On Sun06/21/23 at 2200, Routine [facility] NaCl 0.9% (NS) bolus infusion 1,000 mL 06-22 03:45: 00 06-22 05:00 :00 No 1000mL at 999 mL/hr, 1,000 mL, IV Piggyback, ONCE, 1 dose, On Sun06/21/23 at 2145, STAT [facility] ketorolac (TORADOL) injection 30 mg 06-22 03:45: 00 06-22 03:25 :00 No 30mg 30 mg, Slow IV Push, ONCE NOW, 1 dose, On Krystle 06/21/23 at 2145, [facility] ondansetron (ZOFRAN (PF)) injection 4 mg 06-22 03:00: 00 06-22 03:25 :00 No 4mg 4 mg, Slow IV Push, ONCE, 1 dose, On Krystle 06/21/23 at 2100, [facility] famotidine (PEPCID) 20 mg tablet 06-22 00:00: 00 Yes [id number] 20mg Take 1 tablet by mouth in the morning and 1 tablet in the evening. [facility] ondansetron 4 mg disintegrat ing tablet 06-22 00:00: 00 Yes [id number] 4mg Take 1 tablet by mouth every 8 (eight) hours as needed for Nausea and Vomiting (N/V). [facility] hyoscyamine sulfate (LEVSIN/SL) 0.125 mg sublingual tablet 06-22 00:00: [id number] 2 tablets under the tongue every 6 (six) hours as needed (Abdominal pain or cramping). [facility] ketorolac 10 mg tablet 06-22 00:00: 00 Yes [id number] 10mg Take 1 tablet by mouth every 6 (six) hours as needed for Pain (scale 4-6) or Pain (scale 7-10). [facility] acetaminoph en (TYLENOL ARTHRITIS PAIN) 650 mg CR tablet 06-22 00:00: 00 Yes [id number] 650mg Take 1 tablet by mouth every 8 (eight) hours as needed for Pain. [facility] TAKE 1 TABLET DAILY. 2022-06 00:00: 00 10-15 00:00 :00 No [id number] Cem Wahl NaCl 0.9% (NS) bolus infusion 1,000 mL 12-21 01:15: 00 12-21 01:45 :00 No 1000mL at 999 mL/hr, 1,000 mL, IV Infusion, ONCE, 1 dose, On Sun12/20/22 at 2015, STAT [facility] dexamethaso ne sod phos PF injection 10 mg 12-21 00:30: 00 12-21 00:54 :00 No 10mg 10 mg, Slow IV Push, ONCE, 1 dose, On Sun12/20/22 at 1930, 1 mL [facility] diphenhydrA MINE (BENADRYL) injection 25 mg 12-21 00:30: 00 12-21 00:54 :00 No 25mg 25 mg, Slow IV Push, ONCE, 1 dose, On Sun12/20/22 at 1930, STAT [facility] metoclopram hadley HCl (REGLAN) injection 10 mg 12-21 00:15: 00 12-21 00:54 :00 No 10mg 10 mg, Slow IV Push, ONCE, 1 dose, On Sun12/20/22 at 1915, [facility] INJECT 1 ML INTRAMUSCUL TORRES ONCE EVERY 3 MONTHS. 12-06 00:00: 00 10-15 00:00 :00 No 150 Cem Wahl TAKE 1 TABLET DAILY. 12-06 00:00: 00 10-15 00:00 :00 [place] [id number] Cem Suzi Vish ketorolac (TORADOL) injection 30 mg 09-27 16:30: 00 09-27 15:43 :00 No 30mg 30 mg, Slow IV Push, ONCE, 1 dose, On Sun09/27/22 at 1130, Routine [facility] NaCl 0.9% (NS) bolus infusion 1,000 mL 09-27 16:30: 00 09-27 16:54 :00 No 1000mL at 999 mL/hr, 1,000 mL, IV Infusion, ONCE, 1 dose, On Sun09/27/22 at 1130, [facility] butalbital- acetaminoph en-caff (ESGIC) 50-325-40 mg tablet 1 tablet 09-27 15:45: 00 09-27 15:44 :00 No 1{tbl} 1 tablet, Oral, ONCE, 1 dose, On Sun09/27/22 at 1045, [facility] dexamethaso ne sod phos PF injection 10 mg 09-27 15:45: 00 09-27 15:44 :00 No 10mg 10 mg, Slow IV Push, ONCE, 1 dose, On Sun09/27/22 at 1045, 1 mL [facility] diphenhydrA MINE (BENADRYL) injection 25 mg 09-27 15:45: 00 09-27 15:44 :00 No 25mg 25 mg, Slow IV Push, ONCE, 1 dose, On Sun09/27/22 at 1045, STAT [facility] metoclopram hadley HCl (REGLAN) injection 10 mg 09-27 15:45: 00 09-27 15:44 :00 No 10mg 10 mg, Slow IV Push, ONCE, [facility], [facility] 10[facility] 18 00:00: 00 10-15 00:00 :00 No Cem Wahl TAKE 1 TABLET DAILY. 3-06 00:00: 00 10-15 00:00 :00 No Cem Wahl butalbital- acetaminoph en-caff (ESGIC) 50-325-40 mg tablet 2 tablet 07-20 01:00: 00 07-20 01:08 :00 No 2{tbl} 2 tablet, Oral, ONCE, 1 dose, On Sun07/19/22 at 1900, [facility] ketorolac (TORADOL) injection 30 mg 07-19 15:30: 00 07-19 14:58 :00 No 30mg 30 mg, Slow IV Push, ONCE, 1 dose, On Sun07/19/22 at 0930, Routine [facility] NaCl 0.9% (NS) bolus infusion 1,000 mL 07-19 15:30: 07-19 16:40 :00 No 1000mL at 999 mL/hr, 1,000 mL, IV Infusion, ONCE, 1 dose, On Sun07/19/22 at 0930, [facility] dexamethaso ne sod phos PF injection 10 mg 07-19 14:45: 00 07-19 14:58 :00 No 10mg 10 mg, Slow IV Push, ONCE, 1 dose, On Sun07/19/22 at 0845, 1 mL [facility] diphenhydrA MINE (BENADRYL) injection 25 mg 07-19 14:45: 00 07-19 14:58 :00 No 25mg 25 mg, Slow IV Push, ONCE, 1 dose, On Sun07/19/22 at 0845, STAT [facility] metoclopram hadley HCl (REGLAN) injection 10 mg 07-19 14:45: 00 07-19 14:58 :00 No 10mg 10 mg, Slow IV Push, ONCE, 1 dose, On Sun07/19/22 at 0845, [facility] butalbital- acetaminoph en-caff 50-325-40 mg tablet 07-19 00:00: 00 Yes [id number] 1{tbl} Take 1 tablet by mouth every 4 (four) hours as needed for Pain (scale 7-10). [facility] ibuprofen 600 mg tablet 02-13 00:00: 00 Yes [id number] 600mg Take 1 tablet by mouth every 6 (six) hours as needed for Pain (scale 4-6). [facility] benzonatate 200 mg capsule 02-13 00:00: 00 Yes [id number] 200mg Take 1 capsule by mouth 3 (three) times daily as needed for Cough for up to 20 doses. [facility] ondansetron 4 mg disintegrat ing tablet 02-13 00:00: 00 Yes [id number] 4mg Take 1 tablet by mouth every 8 (eight) hours as needed for Nausea and Vomiting (N/V). [facility] lisinopril 20 mg-hydrochl orothiazide 12.5 mg [...] dose, On Sun10/21/21 at 1300, 1 mL [facility] ketorolac (TORADOL) injection 30 mg 10-21 17:45: 00 10-21 17:00 :00 No 30mg 30 mg, Slow IV Push, ONCE, 1 dose, On Sun10/21/21 at 1245, [facility] diphenhydrA MINE (BENADRYL) injection 25 mg 10-21 17:45: 00 10-21 16:58 :00 No 25mg 25 mg, Slow IV Push, ONCE, 1 dose, On Sun10/21/21 at 1245, STAT [facility] metoclopram hadley HCl (REGLAN) injection 10 mg 10-21 17:45: 00 10-21 16:57 :00 No 10mg 10 mg, Slow IV Push, ONCE, 1 dose, [facility]21[facility]21 [facility] 1245[facility] 0.9% (NS) bolus infusion 1,000 mL 10-21 17:45: 00 10-21 18:23 :00 No 1000mL at 999 mL/hr, 1,000 mL, IV Infusion, ONCE, 1 dose, On Sun10/21/21 at 1245, [facility] Dose Unknown 3-12 00:00: 00 [...] Urine
D uration of Therapy: 7 days [facility] butalbital- acetaminoph en-caff (ESGIC) 50-325-40 mg tablet 1 tablet 2020-06 00:45: 00 05-26 23:52 :00 No 1{tbl} 1 tablet, Oral, ONCE, 1 dose, On Krystle 05/26/21 at 1845, [facility] dexamethaso ne (DECADRON PHOSPHATE) injection 10 mg 2020-06 00:45: 00 05-26 23:52 :00 No 10mg 10 mg, IV Push, ONCE, 1 dose, On Krystle 05/26/21 at 1845, STAT [facility] diphenhydrA MINE (BENADRYL) injection 12.5 mg 2020-06 22:30: 00 05-26 22:39 :00 No 12.5mg 12.5 mg, Slow IV Push, ONCE, 1 dose, On Krystle 05/26/21 at 1630, STAT [facility] metoclopram hadley HCl (REGLAN) injection 10 mg 2020-06 22:30: 00 05-26 22:39 :00 No 10mg 10 mg, Slow IV Push, ONCE, 1 dose, On Krystle 05/26/21 at 1630, [facility] ketorolac (TORADOL) injection 30 mg 2020-06 22:30: 00 05-26 22:39 :00 No 30mg 30 mg, Slow IV Push, ONCE, 1 dose, On Krystle 05/26/21 at 1630, [facility] NaCl 0.9% (NS) bolus infusion 1,000 mL 2020-06 22:30: 00 05-26 23:52 :00 No 1000mL at 999 mL/hr, 1,000 mL, IV Infusion, ONCE, 1 dose, On Krystle 05/26/21 at 1630, [facility]ARD[facility] butalbital- acetaminoph en-caff 50-325-40 mg tablet 2020-06 00:00: 00 Yes [id number] 1{tbl} Take 1 tablet by mouth every 4 (four) hours as needed for Pain (scale 7-10). [facility] cephALEXin (KEFLEX) 500 mg capsule 2020-06 00:00: 00 06-03 05:59 :00 No [id number] 500mg Take 1 capsule by mouth 2 (two) times daily for 7 days. 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
Fa culty member approving Restricted medication : EVANS YANG [facility] diphenhydrA MINE (BENADRYL) injection 25 mg 11-19 22:15: 00 11-19 21:10 :00 No 25mg 25 mg, Slow IV Push, ONCE, 1 dose, Sun11/19/20 at 1715, STAT [facility] NaCl 0.9% (NS) bolus infusion 1,000 mL 11-19 22:00: 00 11-19 21:52 :00 No 1000mL at 999 mL/hr, 1,000 mL, IV Infusion, ONCE, 1 dose, Sun11/19/20 at 1700, STAT [facility] ondansetron (ZOFRAN (PF)) injection 4 mg 11-19 22:00: 00 11-19 20:58 :00 No 4mg 4 mg, Slow IV Push, ONCE, 1 dose, Sun11/19/20 at 1700, [facility] ondansetron (ZOFRAN ODT) 4 mg disintegrat ing tablet 11-19 00:00: 00 Yes [id number] 4mg Take 1 tablet by mouth every 8 (eight) hours as needed for Nausea and Vomiting (N/V). [facility] medroxyprog esterone 150 mg/mL intramuscul ar [...] 50-325-40 mg tablet 2018-06 00:00: 00 Yes [id number] 1{tbl} Take 1 tablet by mouth every 6 (six) hours as needed for Pain (scale 4-6). [facility] HYDROcodone -acetaminop hen (NORCO) 10-325 mg tablet 1 tablet 01-12 02:30: 00 01-12 14:29 :00 No 1{tbl} 1 tablet, Oral, ONCE NOW, 1 dose, 01/11/19 at 2130, Routine [facility] ketorolac (TORADOL) injection 15 mg 01-12 01:30: 00 01-12 00:40 :00 No 15mg 15 mg, Slow IV Push, ONCE, 1 dose, 01/11/19 at 2030, [facility] approving Restricted medication : RHONDA PERKINS III [facility] diphenhydrA MINE (BENADRYL) injection 25 mg 01-12 01:30: 00 01-12 00:40 :00 No 25mg 25 mg, Slow IV Push, ONCE, 1 dose, 01/11/19 at 2030, STAT
IN DICATION: DESENSITIZ ATION PROTOCOL [facility] metoclopram hadley HCl (REGLAN) injection 10 mg 01-12 01:30: 01-12 00:40 :00 No 10mg 10 mg, Slow IV Push, ONCE, 1 dose, 01/11/19 at 2030, [facility]ARD[facility] NaCl 0.9% (NS) bolus infusion 1,000 mL 01-12 01:30: 00 01-12 01:32 :00 No 1000mL at 999 mL/hr, 1,000 mL, IV Infusion, ONCE, 1 dose, 01/11/19 at 2030, STAT [facility] amitriptyli ne 25 mg tablet 11-07 00:00: 00 Yes Take one tablet per night as tolerated for one week then increase as tolerated to 2 tablets per night thereafter [facility] SUMAtriptan 25 mg tablet 11-07 00:00: 00 Yes Take one table at headache onset and one additional tablet 2 hours later if no relief. Not to exceed 2 pills in 24 hours or 9 days / month [facility] acetaZOLAMI DE 250 mg tablet 09-07 00:00: 00 Yes [id number] 500mg Take 2 tablets by mouth 2 (two) times daily. [facility] topiramate (TOPAMAX) 50 mg tablet 09-07 00:00: 00 Yes [id number] 50mg Take 1 tablet by mouth 2 (two) times daily. [facility] Immunizations Ordered Immunization Name Filled Immunization Name Date Status Comments Source TDAP 2013-06-16 00:00:00 Completed [facility] TDAP 2013-06-16 00:00:00 Completed [facility] TDAP 2013-06-16 00:00:00 Completed [facility] TDAP 2013-06-16 00:00:00 Completed [facility] TDAP 2013-06-16 00:00:00 Completed [facility] TDAP 2013-06-16 00:00:00 Completed [facility] TDAP 2013-06-16 00:00:00 Completed [facility] TDAP 2013-06-16 00:00:00 Completed [facility] Tdap 2013-06-16 00:00:00 Completed [facility] TDAP 2013-06-16 00:00:00 Completed [facility] Tdap 2013-06-16 00:00:00 Completed [facility] TDAP 2013-06-16 00:00:00 Completed [facility] Influenza Virus Vaccine (3+ yrs) 2013-03-28 00:00:00 Completed [facility] Influenza Virus Vaccine (3+ yrs) 2013-03-28 00:00:00 Completed [facility] Influenza Virus Vaccine (3+ yrs) 2013-03-28 00:00:00 Completed [facility] Influenza Virus Vaccine (3+ yrs) 2013-03-28 00:00:00 Completed [facility] Influenza Virus Vaccine (3+ yrs) 2013-03-28 00:00:00 Completed [facility] Influenza Virus Vaccine (3+ yrs) 2013-03-28 00:00:00 Completed [facility] Influenza Virus Vaccine (3+ yrs) 2013-03-28 00:00:00 Completed [facility] Influenza Virus Vaccine (3+ yrs) 2013-03-28 00:00:00 Completed [facility] Influenza Virus Vaccine (3+ yrs) 2013-03-28 00:00:00 Completed [facility] Influenza Virus Vaccine (3+ yrs) 2013-03-28 00:00:00 Completed [facility] Influenza Virus Vaccine (3+ yrs) 2013-03-28 00:00:00 Completed [facility] Influenza Virus Vaccine (3+ yrs) 2013-03-28 00:00:00 Completed [facility] Td 1998-01-17 00:00:00 Completed [facility] Td 1998-01-17 00:00:00 Completed [facility] Td 1998-01-17 00:00:00 Completed [facility] Td 1998-01-17 00:00:00 Completed [facility] TD, NOS 1998-01-17 00:00:00 Completed [facility] TD, NOS 1998-01-17 00:00:00 Completed [facility] TD, NOS 1998-01-17 00:00:00 Completed [facility] TD, NOS 1998-01-17 00:00:00 Completed [facility] Td 1998-01-17 00:00:00 Completed [facility] TD, NOS 1998-01-17 00:00:00 Completed [facility] Td 1998-01-17 00:00:00 Completed [facility] Td 1998-01-17 00:00:00 Completed [facility] TD, NOS Unknown Completed [facility] Influenza Virus Vaccine (3+ yrs) Unknown Completed [facility] TDAP Unknown Completed [facility] TD, NOS Unknown Completed [facility] Influenza Virus Vaccine (3+ yrs) Unknown Completed [facility] TDAP Unknown Completed [facility] TD, NOS Unknown Completed [facility] Influenza Virus Vaccine (3+ yrs) Unknown Completed [facility] TDAP Unknown Completed [facility] TD, NOS Unknown Completed [facility] Influenza Virus Vaccine (3+ yrs) Unknown Completed [facility] TDAP Unknown Completed [facility] TD, NOS Unknown Completed [facility] Influenza Virus Vaccine (3+ yrs) Unknown Completed [facility] TDAP Unknown Completed [facility] Vital Signs Vital Name Observation Time Observation Value Comments S ource Systolic blood pressure 2023-09-05 02:05:00 110 mm[Hg] [facility] Diastolic blood pressure 2023-09-05 02:05:00 80 mm[Hg] [facility] Heart rate 2023-09-05 02:05:00 76 /min [facility] Body temperature 2023-09-05 02:05:00 37.06 Yuliana [facility] Respiratory rate 2023-09-05 02:05:00 17 /min [facility] Oxygen saturation in Arterial blood by Pulse oximetry 2023-09-05 02:05:00 97 /min [facility] Body height 2023-09-04 23:12:00 160 cm [facility] Body weight 2023-09-04 23:12:00 99.791 kg [facility] BMI 2023-09-04 23:12:00 38.97 kg/m2 [facility] Systolic blood pressure 2023-07-03 18:00:00 126 mm[Hg] [facility] Diastolic blood pressure 2023-07-03 18:00:00 78 mm[Hg] [facility] Heart rate 2023-07-03 18:00:00 64 /min [facility] Respiratory rate 2023-07-03 18:00:00 18 /min [facility] Oxygen saturation in Arterial blood by Pulse oximetry 2023-07-03 18:00:00 100 /min [facility] Body temperature 2023-07-03 15:47:00 37.22 Yuliana [facility] Body height 2023-07-03 15:47:00 160 cm [facility] Body weight 2023-07-03 15:47:00 102.195 kg [facility] BMI 2023-07-03 15:47:00 39.91 kg/m2 [facility] Systolic blood pressure 2023-06-22 06:10:00 104 mm[Hg] [facility] Diastolic blood pressure 2023-06-22 06:10:00 68 mm[Hg] [facility] Heart rate 2023-06-22 06:10:00 68 /min [facility] Body temperature 2023-06-22 06:10:00 37.22 Yuliana [facility] Respiratory rate 2023-06-22 06:10:00 16 /min [facility] Oxygen saturation in Arterial blood by Pulse oximetry 2023-06-22 06:10:00 100 /min [facility] Body height 2023-06-22 02:45:00 160 cm [facility] Body weight 2023-06-22 02:45:00 99.791 kg [facility] BMI 2023-06-22 02:45:00 38.97 kg/m2 [facility] Systolic blood pressure 2022-12-21 02:55:53 117 mm[Hg] [facility] Diastolic blood pressure 2022-12-21 02:55:53 70 mm[Hg] [facility] Heart rate 2022-12-21 02:55:53 79 /min [facility] Respiratory rate 2022-12-21 02:55:53 15 /min [facility] Oxygen saturation in Arterial blood by Pulse oximetry 2022-12-21 02:55:53 100 /min [facility] Body temperature 2022-12-20 23:43:00 37.28 Yuliana [facility] Body height 2022-12-20 23:43:00 160 cm [facility] Body weight 2022-12-20 23:43:00 99.791 kg [facility] BMI 2022-12-20 23:43:00 38.97 kg/m2 [facility] Systolic blood pressure 2022-09-27 16:00:00 122 mm[Hg] [facility] Diastolic blood pressure 2022-09-27 16:00:00 82 mm[Hg] [facility] Heart rate 2022-09-27 16:00:00 63 /min [facility] Respiratory rate 2022-09-27 16:00:00 18 /min [facility] Oxygen saturation in Arterial blood by Pulse oximetry 2022-09-27 16:00:00 100 /min [facility] Body temperature 2022-09-27 15:29:00 36.89 Yuliana [facility] Body height 2022-09-27 15:29:00 160 cm [facility] Body weight 2022-09-27 15:29:00 104.327 kg [facility] BMI 2022-09-27 15:29:00 40.74 kg/m2 [facility] Systolic blood pressure 2022-07-20 02:15:22 138 mm[Hg] [facility] Diastolic blood pressure 2022-07-20 02:15:22 78 mm[Hg] [facility] Heart rate 2022-07-20 02:15:22 69 /min [facility] Body temperature 2022-07-20 02:15:22 36.61 Yuliana [facility] Respiratory rate 2022-07-20 02:15:22 16 /min [facility] Oxygen saturation in Arterial blood by Pulse oximetry 2022-07-20 02:15:22 100 /min [facility] Body height 2022-07-20 00:24:00 160 cm [facility] Body weight 2022-07-20 00:24:00 104.327 kg [facility] BMI 2022-07-20 00:24:00 40.74 kg/m2 [facility] Systolic blood pressure 2022-07-19 17:30:33 124 mm[Hg] [facility] Diastolic blood pressure 2022-07-19 17:30:33 61 mm[Hg] [facility] Heart rate 2022-07-19 17:30:33 65 /min [facility] Body temperature 2022-07-19 17:30:33 37.11 Yuliana [facility] Respiratory rate 2022-07-19 17:30:33 16 /min [facility] Oxygen saturation in Arterial blood by Pulse oximetry 2022-07-19 17:30:33 99 /min [facility] Body height 2022-07-19 14:34:00 160 cm [facility] Body weight 2022-07-19 14:34:00 104.327 kg [facility] BMI 2022-07-19 14:34:00 40.74 kg/m2 [facility] Systolic blood pressure 2022-02-13 12:56:00 136 mm[Hg] [facility] Diastolic blood pressure 2022-02-13 12:56:00 81 mm[Hg] [facility] Heart rate 2022-02-13 12:56:00 79 /min [facility] Body temperature 2022-02-13 12:56:00 36.44 Yuliana [facility] Respiratory rate 2022-02-13 12:56:00 15 /min [facility] Body height 2022-02-13 12:56:00 160 cm [facility] Body weight 2022-02-13 12:56:00 104.327 kg [facility] BMI 2022-02-13 12:56:00 40.74 kg/m2 [facility] Oxygen saturation in Arterial blood by Pulse oximetry 2022-02-13 12:56:00 100 /min [facility] Systolic blood pressure 2021-10-21 18:24:00 128 mm[Hg] [facility] Diastolic blood pressure 2021-10-21 18:24:00 76 mm[Hg] [facility] Heart rate 2021-10-21 18:24:00 72 /min [facility] Respiratory rate 2021-10-21 18:24:00 18 /min [facility] Oxygen saturation in Arterial blood by Pulse oximetry 2021-10-21 18:24:00 100 /min [facility] Body temperature 2021-10-21 16:40:00 36.61 Yuliana [facility] Body height 2021-10-21 16:40:00 160 cm [facility] Body weight 2021-10-21 16:40:00 104.327 kg [facility] BMI 2021-10-21 16:40:00 40.74 kg/m2 [facility] Systolic blood pressure 2021-05-27 00:00:00 131 mm[Hg] [facility] Diastolic blood pressure 2021-05-27 00:00:00 89 mm[Hg] [facility] Heart rate 2021-05-27 00:00:00 64 /min [facility] Respiratory rate 2021-05-27 00:00:00 19 /min [facility] Oxygen saturation in Arterial blood by Pulse oximetry 2021-05-27 00:00:00 98 /min [facility] Body temperature 2021-05-26 20:20:00 37.28 Yuliana [facility] Body height 2021-05-26 20:20:00 160 cm [facility] Body weight 2021-05-26 20:20:00 66.225 kg [facility] BMI 2021-05-26 20:20:00 25.86 kg/m2 [facility] Systolic blood pressure 2020-11-19 21:52:41 130 mm[Hg] [facility] Diastolic blood pressure 2020-11-19 21:52:41 91 mm[Hg] [facility] Heart rate 2020-11-19 21:52:41 61 /min [facility] Respiratory rate 2020-11-19 21:52:41 16 /min [facility] Oxygen saturation in Arterial blood by Pulse oximetry 2020-11-19 21:52:41 100 /min [facility] Body temperature 2020-11-19 20:21:21 37.06 Yuliana [facility] Body height 2020-11-19 20:19:00 160 cm [facility] Body weight 2020-11-19 20:19:00 68.04 kg [facility] BMI 2020-11-19 20:19:00 26.57 kg/m2 [facility] Systolic blood pressure 2019-01-12 00:29:00 180 mm[Hg] [facility] Diastolic blood pressure 2019-01-12 00:29:00 109 mm[Hg] [facility] Heart rate 2019-01-12 00:29:00 81 /min [facility] Body temperature 2019-01-12 00:29:00 36.44 Yuliana [facility] Respiratory rate 2019-01-12 00:29:00 18 /min [facility] Body height 2019-01-12 00:29:00 160 cm [facility] Body weight 2019-01-12 00:29:00 113.399 kg Simultaneous filing. User may not have seen previous data. [facility] BMI 2019-01-12 00:29:00 44.29 kg/m2 [facility] Oxygen saturation in Arterial blood by Pulse oximetry 2019-01-12 00:29:00 100 /min [facility] BP Systolic 2023-12-20 14:11:00 110 mm[Hg] Cem [...] F Vish Body Temperature 2023-03-19 22:33:00 Cem Wahl Heart Rate 2023-03-19 22:33:00 Cem Wahl Respiratory [...] Clinician Source URINALYSIS 2023-09-05 00:18:00 Pedro Aguirre [facility] COMP. METABOLIC PANEL (74181) 2023-09-05 00:17:00 Pedro Aguirre [facility] CBC WITH DIFF 2023-09-05 00:17:00 Pedro Aguirre [facility] POCT TEST 2023-09-05 00:16:00 Heather Aguirre [facility] CBC WITH DIFF 2023-07-03 16:10:00 Star Mesa [facility] CONSENT/REFUSAL FOR DIAGNOSIS AND TREATMENT 2023-07-03 15:37:58 Doctor Unassigned, [place] [facility] BASIC METABOLIC PANEL (NA, K, CL, CO2, GLUCOSE, BUN, CREATININE, CA) 2023-06-22 03:24:00 Alex Pitt [facility] CBC WITH DIFF 2023-06-22 03:24:00 Alex Pitt [facility] URINALYSIS 2023-06-22 03:24:00 Alex Pitt [facility] RAPID INFLUENZA A/B 2023-06-22 03:24:00 Norberto Pitt [facility] POCT TEST 2023-06-22 03:24:00 Norberto Pitt [facility] COVID-19 (ID NOW RAPID TESTING) 2023-06-22 03:24:00 Alex Pitt [facility] NOTICE OF PRIVACY PRACTICES 2023-06-22 02:35:43 Doctor Unassigned, [place] [facility] CONSENT/REFUSAL FOR DIAGNOSIS AND TREATMENT 2023-06-22 02:34:04 Doctor Unassigned, [place] [facility] CONSENT/REFUSAL FOR DIAGNOSIS AND TREATMENT 2022-12-20 23:31:05 Doctor Unassigned, [place] [facility] CONSENT/REFUSAL FOR DIAGNOSIS AND TREATMENT 2022-09-27 15:22:33 Doctor Unassigned, [place] [facility] NOTICE OF PRIVACY PRACTICES 2022-07-20 00:18:00 Doctor Unassigned, [place] [facility] CONSENT/REFUSAL FOR DIAGNOSIS AND TREATMENT 2022-07-19 14:28:49 Doctor Unassigned, [place] [facility] COVID-19 (ID NOW RAPID TESTING) 2022-02-13 13:25:00 Glen Rocha [facility] CONSENT/REFUSAL FOR DIAGNOSIS AND TREATMENT 2022-02-13 12:54:56 Doctor Unassigned, [place] [facility] CONSENT/REFUSAL FOR DIAGNOSIS AND TREATMENT 2021-10-21 16:30:34 Doctor Unassigned, [place] [facility] CBC WITH DIFF 2021-05-27 00:13:00 Luis Duncan [facility] BASIC METABOLIC PANEL (NA, K, CL, CO2, GLUCOSE, BUN, CREATININE, CA) 2021-05-26 22:35:00 Luis Duncan [facility] URINALYSIS 2021-05-26 22:35:00 Luis Duncan [facility] RAPID INFLUENZA A/B 2021-05-26 22:35:00 Zarina Duncan [facility] POCT TEST 2021-05-26 22:35:00 Zarina Duncan [facility] COVID-19 (ID NOW RAPID TESTING) 2021-05-26 22:35:00 Luis Duncan [facility] CONSENT/REFUSAL FOR DIAGNOSIS AND TREATMENT 2021-05-26 19:45:50 Doctor Unassigned, [place] [facility] RAPID STREP SCREEN FOR GROUP A 2020-11-19 21:02:00 Evans Yang [facility] POCT TEST 2020-11-19 21:01:00 Evans Yang [facility] COVID-19 (ID NOW RAPID TESTING) 2020-11-19 21:00:00 Evans Yang [facility] LIPASE 2020-11-19 20:59:00 Evans Yang [facility] COMP. METABOLIC PANEL (87528) 2020-11-19 20:59:00 Evans Yang [facility] CBC WITH DIFF 2020-11-19 20:59:00 Evans Yang [facility] CONSENT/REFUSAL FOR DIAGNOSIS AND TREATMENT 2020-11-19 20:09:10 Doctor Unassigned, [place] [facility] COMP. METABOLIC PANEL (61575) 2019-01-12 00:34:00 Rhonda Perkins [facility] CBC WITH DIFFERENTIAL 2019-01-12 00:34:00 Jayy Perkins [facility] URINALYSIS 2019-01-12 00:34:00 Rhonda Perkins [facility] POCT TEST 2019-01-12 00:32:00 Rhonda Perkins [facility] ASSIGNMENT OF BENEFITS 2019-01-12 00:16:49 Docto r Unassigned, [place] [facility] Plan of Care Planned Activity Planned Date Details Comments Source Goal Plan of Care Note [code = 13871-5] Goal Plan of Care Note [code = 55400-3] Goal Plan of Care Note [code = 61931-9] Goal Plan of Care Note [code = 82588-1] Goal Plan of Care Note [code = 22997-3] Goal Plan of Care Note [code = 76742-7] Goal Plan of Care Note [code = 84433-4] Goal Plan of Care Note [code = 33715-3] Goal Plan of Care Note [code = 86957-3] Goal Plan of Care Note [code = 80916-4] Goal Plan of Care Note [code = 51030-2] Goal Plan of Care Note [code = 36963-5] Goal Plan of Care Note [code = 02108-3] Goal Plan of Care Note [code = 54239-9] Goal Plan of Care Note [code = 56906-0] Goal Plan of Care Note [code = 47079-4] Goal Plan of Care Note [code = 65967-4] Goal Plan of Care Note [code = 76388-9] Goal Plan of Care Note [code = 44883-6] Goal Plan of Care Note [code = 97687-3] Goal Plan of Care Note [code = 30337-0] Goal Plan of Care Note [code = 30457-3] Goal Plan of Care Note [code = 49390-5] Goal Plan of Care Note [code = 99366-0] Goal Plan of Care Note [code = 26150-5] Goal Plan of Care Note [code = 98123-9] Goal Plan of Care Note [code = 34836-0] Goal Plan of Care Note [code = 57559-2] Goal Plan of Care Note [code = 36795-4] Goal Plan of Care Note [code = 38373-0] Goal Plan of Care Note [code = 06748-6] Goal Plan of Care Note [code = 77806-9] Goal Plan of Care Note [code = 71329-2] Goal Plan of Care Note [code = 99240-9] Goal Plan of Care Note [code = 17618-6] Goal Plan of Care Note [code = 69469-0] Goal Plan of Care Note [code = 28419-3] Goal Plan of Care Note [code = 54225-4] Encounters Start Date/Time End Date/Time Encounter Type Admission Type Attending [facility] Care Department Encounter ID Source 2021-04-04 02:14:41 Emergency [facility] [id number] [facility] 2023-12-20 14:06:43 2023-12-20 14:06:43 Outpatient [facility] [id number] Cem Wahl 2023-12-20 00:00:00 2023-12-20 00:00:00 Outpatient Visit [facility] [id number] Cem Wahl 2023-10-19 14:32:17 2023-10-19 14:32:17 Outpatient [facility] [id number] Cem Wahl 2023-09-17 09:00:00 2023-09-17 09:00:00 Outpatient KEE MARION [facility] [id number] [facility] 2023-09-04 18:14:00 2023-09-04 21:11:00 Emergency X MEMOROBEPEDRO Henry [facility] [id number] [facility] 2023-09-04 18:14:00 2023-09-04 21:11:00 Emergency Pedro Aguirre [facility] 1.2.840.114 350.1.13.10 4.2.7.2.686 [id number] [facility] 2023-08-01 08:58:51 2023-08-01 08:58:51 Outpatient [facility] [id number] Cem Wahl 2023-07-03 09:48:00 2023-07-03 12:40:00 Emergency X STAR MESA [facility] [id number] [facility] 2023-07-03 09:48:00 2023-07-03 12:40:00 Emergency Star Mesa [facility] 1.2.840.114 350.1.13.10 4.2.7.2.686 [id number] [facility] 2023-06-27 10:01:14 2023-06-27 10:01:14 Outpatient [facility] [id number] Cem Wahl 2023-06-26 13:46:54 2023-06-26 13:46:54 Outpatient [place] [id number] Cem Wahl 2023-06-21 20:47:00 2023-06-22 00:40:00 Emergency X ALEX PITT [facility] [id number] [facility] 2023-06-21 20:47:00 2023-06-22 00:40:00 Emergency Alex Pitt [facility] 1.2.840.114 350.1.13.10 4.2.7.2.686 [id number] [facility] 2023-05-23 13:25:02 2023-05-23 13:25:02 Outpatient [place] [id number] Cem Wahl 2023-05-15 08:08:44 2023-05-15 08:08:44 Outpatient [place] [id number] Cem Archer Vish 2023-02-27 14:06:50 2023-02-27 14:06:50 Outpatient [place] [id number] Cem Archer Vish 2022-12-20 18:45:00 2022-12-20 21:58:00 Emergency X ROSEMARY CHILDERS [facility] [id number] [facility] 2022-12-20 18:45:00 2022-12-20 21:58:00 Emergency Alvarado Rosemary [facility] 1.2.840.114 350.1.13.10 4.2.7.2.686 [id number] [facility] 2022-12-06 13:48:26 2022-12-06 13:48:26 Outpatient [place] [id number] Cem Wahl 2022-09-28 00:00:00 2022-09-28 00:00:00 Patient Secure Msg Doctor Unassigned, [place] [facility] 1.2840.114 350.1.13.10 4.2.7.2.686 [id number] [facility] 2022-09-27 10:31:00 2022-09-27 11:57:00 Emergency X TERESSA VARGAS [facility] [id number] [facility] 2022-09-27 10:31:00 2022-09-27 11:57:00 Emergency Teressa Vargas [facility] 1.840.114 350.1.13.10 4.2.7.2.686 [id number] [facility] 2022-09-19 15:52:40 2022-09-19 15:52:40 Outpatient SFA [facility] [id number] Cem Wahl 2022-07-24 00:00:00 2022-07-24 00:00:00 Letter (Out) Clinic, [facility] Neurology Resident [facility] 1.840.114 350.1.13.10 4.2.7.2.686 [id number] [facility] 2022-07-20 00:00:00 2022-07-20 00:00:00 Patient Secure Msg Doctor Unassigned, [place] [facility] 1.2840.114 350.1.13.10 4.2.7.2.686 [id number] [facility] 2022-07-19 18:27:00 2022-07-19 20:21:00 Emergency X NUNU BAKER [facility] [id number] [facility] 2022-07-19 18:27:00 2022-07-19 20:21:00 Emergency Priceasif Frankieemmy F [facility] 1.840.114 350.1.13.10 4.2.7.2.686 [id number] [facility] 2022-07-19 08:35:00 2022-07-19 11:32:00 Emergency TERESSA CARRANZA [facility] E[facility] [id number] [facility] 2022-07-19 08:35:00 2022-07-19 11:32:00 Emergency Teressa Vargas [facility] 1.2.840.114 350.1.13.10 4.2.7.2.686 [id number] [facility] 2022-02-13 07:57:00 2022-02-13 09:24:00 Emergency Glen LE [facility] [id number] [facility] 2022-02-13 07:57:00 2022-02-13 09:24:00 Emergency Glen Rocha Nohemy [facility] 1..840.114 350.1.13.10 4.2.7.2.686 [id number] [facility] 2022-02-01 00:00:00 2022-02-01 00:00:00 Outpatient Visit [id number] 2022-01-23 00:00:00 2022-01-23 00:00:00 Outpatient Visit [id number] 2021-10-21 11:44:00 2021-10-21 13:25:00 Emergency TERESSA CARRANZA [facility] E[facility] [id number] [facility] 2021-10-21 11:44:00 2021-10-21 13:25:00 Emergency Teressa Vargas [facility] 1.2.840.114 350.1.13.10 4.2.7.2.686 [id number] [facility] 2021-05-26 14:22:00 2021-05-26 19:00:00 Emergency X LUIS DUNCAN [facility] [id number] [facility] 2021-05-26 14:22:00 2021-05-26 19:00:00 Emergency Luis Duncan [facility] 1.2.840.114 350.1.13.10 4.2.7.2.686 [id number] [facility] 2020-11-19 15:30:00 2020-11-19 17:02:00 Emergency Evans Yang [facility] 1.2.840.114 350.1.13.10 4.2.7.2.686 [id number] [facility] [facility] 2020-11-19 00:00:00 2020-11-19 00:00:00 Orders Only Doctor Unassigned, [place] [facility] 1.2.840.114 350.1.13.10 4.2.7.2.686 [id number] [id number] [facility] 2020-07-13 09:00:00 2020-07-13 09:28:51 Outpatient YOSEPH TAPIA [facility] [id number] [facility] 2019-01-11 19:23:24 2019-01-11 20:34:00 Emergency Rodrigo Rhonda A [facility] 1.2.840.114 350.1.13.10 4.2.7.2.686 [id number] [facility] 2019-01-11 00:00:00 2019-01-11 00:00:00 Orders Only Doctor Unassigned, [place] [facility] 1.2.840.114 350.1.13.10 4.2.7.2.686 [id number] [facility] Results Test Description Test Time Test Comments Results Result Co mments Source [facility] METABOLIC PANEL (74285)2023-09-05 00:55:27* Test Item Value Reference Range Interpretation Comme nts NA (test code = 4442920686) 137 mmol/L 135-145 K (test code = 2213411952) 4.1 mmol/L 3.5-5.0 CL (test code = 0533836970) 108 mmol/L 98-108 CO2 TOTAL (test code = 2220305493) 22 mmol/L 23-31 L AGAP (test code = 5708164879) 7 2-16 BUN (test code = 3787948035) 23 mg/dL 7-23 GLUCOSE (test code = 2937725528) 75 mg/dL 70-110 CREATININE (test code = 2160-0) 1.10 mg/dL 0.50-1.04 H TOTAL BILI (test code = 1478264282) 0.5 mg/dL 0.1-1.1 CALCIUM (test code = 6028867620) 9.1 mg/dL 8.6-10.6 T PROTEIN (test code = 4719548813) 7.8 g/dL 6.3-8.2 ALBUMIN (test code = 5209764281) 4.2 g/dL 3.5-5.0 ALK PHOS (test code = 6763545108) 50 U/L 34-122 ALTv (test code = 1742-6) 16 U/L 5-35 AST(SGOT) (test code = 3490765498) 24 U/L 13-40 eGFR (test code = 85238-0) 64.1 mL/min/1.73m2 CKD-EPI eGFR (2020). Assuming creatinine has been stable day-to-day for at least three months, the eGFR indicates Category G2 (60 - 89 mL/min/1.73 m2) Lab Interpretation (test code = 28497-5) Abnormal [facility] [id number] 00:16:00* Test Item Value Reference Range Interpretation Comme nts POCT PREG (test code = 1605) Negative On board controls acceptable with C Line (test code = 3574) Yes POCT PREG LOT # (test code = 3575) [id number] POCT PREG TEST DATE ( test code = 3576) 09/09/2024 Lab Interpretation (test cod e = 33466-4) Normal [facility] WITH [id number] 17:56:07* Test Item Value Reference Range Interpretation [...] 32.2 g/dL 31.6-35.1 RDW-SD (test code = 09912-6) 50.5 fL 39.0-49.9 H RDW-CV (test code = 788-0) 16.1 % 12.0-15.5 H PLT (test code = 777-3) 271 See_Comment [Automated messa ge] The system which generated this result transmitted reference range: 166 - 358 10*3/?L. The reference range was not used to interpret this result as normal/abnormal. MPV (test code = 61865-5) 10.2 fL 9.5-12.9 NRBC/100 WBC (test code = 0596686663) 0.0 See_Comment [Automated me ssage] The system which generated this result transmitted reference range: 0.0 - 10.0 /100 WBCs. The reference range was not used to interpret this result as normal/abnormal. NRBC x10^3 (test code = 9380537036) See_Comment [Automated messa ge] The system which generated this result transmitted reference range: 10*3/?L. The reference range was not used to interpret this result as normal/abnormal. GRAN MAT (NEUT) % (test code = 770-8) 47.0 % IMM GRAN % (test code = 9222287666) 0.20 % LYMPH % (test code = 736-9) 41.1 % MONO % (test code = 5905-5) 8.8 % EOS % (test code = 713-8) 2.0 % BASO % (test code = 706-2) 0.9 % GRAN MAT x10^3(ANC) (test code = 6909982863) 2.08 10*3/uL 1.88-7.09 IMM GRAN x10^3 (test code = 5197764584) 0.00-0.06 LYMPH x10^3 (test code = 731-0) 1.82 10*3/uL 1.32-3.29 MONO x10^3 (test code = 742-7) 0.39 10*3/uL 0.33-0.92 EOS x10^3 (test code = 711-2) 0.09 10*3/uL 0.03-0.39 BASO x10^3 (test code = 704-7) 0.04 10*3/uL 0.01-0.07 Lab Interpretation (test code = 21159-2) Abnormal [facility] TEST, THINPREP, [id number] 00:00:00 * Test Item Value Reference Range Interpretation Comme nts SOURCE: (test code = 8001) Cervical/Endocervical SLIDES: (test code = 8011) 1 LMP: (test code = 8021) 06/26/2023 SPECIMEN ADEQUACY: (test code = 39834) (NOTE) INTERPRETATION: (test code = 14924) NILM/NO EPITH. ABNORMALITY;SEE BELOW FINISHER MACHINE: (test code = 8101) Dante Campbell LOCATION: (test code = 17371) (NOTE) CPT: (test code = 8140) (NOTE) Cem Archer AustinCT/NG, TMA, [id number] 00:00:00* Test Item Value Reference Range Interpretation Comme nts CHLAMYDIA, NAAT, THINPREP (t est code = 14161) NEGATIVE GONORRHEA, NAAT, THINPREP (t est code = 29150) NEGATIVE PDFE (test code = PDFReport) PDF Cem WahlPOCT [id number] 03:24:00* Test Item Value Reference Range Interpretation Comme nts POCT PREG (test code = 1605) Negative On board controls acceptable with C Line (test code = 3574) Yes POCT PREG LOT # (test code = 3570) [id number] POCT PREG TEST DATE ( test code = 3576) 2024-08-12 Lab Interpretation (test cod e = 18431-4) Normal [facility], THIRD [id number] 00:00:00* Test Item Value Reference Range Interpretation Comme nts TSH, THIRD GENERATION (test code = 2821) 1.450 UIU/ML Cem WahlCOMPREHENSIVE METABOLIC [id number] 00:00:00* Test Item Value Reference Range Interpretation Comme nts GLUCOSE (test code = 2217) 80 MG/DL BUN (test code = 2208) 18 MG/DL CREATININE (test code = 2214) 1.00 MG/DL eGFR (2020 CKD-EPI) (test co de = 76509) 72 ML/MIN/1.73 CALC BUN/CREAT (test code = [...] code = 2219) 17 U/L Cem WahlLIPID [id number] 00:00:00* Test Item Value Reference Range Interpretation Comme nts CHOLESTEROL (test code = 2210) 232 MG/DL TRIGLYCERIDES (test code = 2232) 116 MG/DL HDL CHOLESTEROL (test code = 2220) 52 MG/DL CALC LDL CHOL (test code = 2237) 157 MG/DL RISK RATIO LDL/HDL (test cod e = 2238) 3.02 RATIO Cem WahlHEMOGLOBIN [id number] 00:00:00* Test Item Value Reference Range Interpretation Comme nts HEMOGLOBIN A1c (test code = 43623) 5.6 % Cem WahlCOMPREHENSIVE METABOLIC [id number] 05:07:20* Test Item Value Reference Range Interpretation Comme nts GLUCOSE (test code = 2217) 79 MG/DL 70-99 BUN (test code = 2208) 14 MG/DL 6-20 CREATININE (test code = 2214) 1.00 MG/DL 0.60-1.30 eGFR (2020 CKD-EPI) (test code = 66428) 72 ML/MIN/1.73 >60 CALC BUN/CREAT (test code [...] patient care and clinical consultation. See URL: [email or web address]. UNLESS OTHERWISE INDICATED, ALL TESTING PERFORMED AT [facility] [address] [place] [address] OTORHINOLARYNGOLOGIST: KENDRA HERNANDEZ M.D. [place] NUMBER [id number] [facility] [place]. [id number] COMPREHENSIVE METABOLIC [id number] 00:00:00* Test Item Value Reference Range Interpretation Comme nts GLUCOSE (test code = 2217) 79 MG/DL BUN (test code = 2208) 14 MG/DL CREATININE (test code = 2214) 1.00 MG/DL eGFR (2020 CKD-EPI) (test co de = 60022) 72 ML/MIN/1.73 CALC BUN/CREAT (test code = [...] (test code = 2219) 15 U/L Cem Acrher LondonLIPID [id number] 06:55:12* Test Item Value Reference Range Interpretation [...] SPECIMENS. FOR MOREINFORMATION, SEE CLIENT ANNOUNCEMENT AT [email or web address] RISK RATIO LDL/HDL (test code = 223) 2.49 RATIO <3.22 COMPREHENSIVE METABOLIC [id number] 06:55:12* Test Item Value Reference Range Interpretation Comme nts GLUCOSE (test code = 7) 83 MG/DL 70-99 BUN (test code = 2207) 16 MG/DL 6-20 CREATININE (test code = 221) 0.90 MG/DL 0.60-1.30 eGFR (2020 CKD-EPI) (test code = 36569) 82 ML/MIN/1.73 >60 CALC BUN/CREAT (test code [...] 5-40 UNLESS OTHERWISE INDICATED, ALL TESTING PERFORMED [facility] [address] [place] [id number] OTORHINOLARYNGOLOGIST: JIMY ROCHA M.D. CLIA NUMBER [id number] [facility] [place]. [id number] HEMOGLOBIN [id number] 03:12:19* Test Item Value Reference Range Interpretation Comme nts HEMOGLOBIN A1c (test code = 57800) 5.3 % 4.2-5.6 HEMOGLOBIN A1c [ADDED]2022-01-24 00:00:00* Test Item Value Reference Range Interpretation Comme nts HEMOGLOBIN A1c (test code = 84723) 5.3 % HEMOGLOBIN A1c [ADDED]2022-01-24 00:00:00* Test Item Value Reference Range Interpretation Comme nts HEMOGLOBIN A1c (test code = 67892) 5.3 % HEMOGLOBIN A1c [ADDED]2022-01-24 00:00:00* Test Item Value Reference Range Interpretation Comme nts HEMOGLOBIN A1c (test code = 71536) 5.3 % LIPID PANEL [ADDED]2022-01-24 00:00:00* Test [...] eGFR (2020 CKD-EPI) (test co de = 30839) 82 ML/MIN/1.73 CALC BUN/CREAT (test code = [...] eGFR (2020 CKD-EPI) (test co de = 45007) 82 ML/MIN/1.73 CALC BUN/CREAT (test code = [...] Comme nts HEMOGLOBIN A1c (test code = 63035) 5.3 % Cem F AustinLIPID PANEL [ADDED]2022-01-24 [...] eGFR (2020 CKD-EPI) (test co de = 60033) 82 ML/MIN/1.73 CALC BUN/CREAT (test code = [...] (test code = 2219) 14 U/L [facility] [id number] 00:23:37* Test Item Value Reference Range Interpretation Comme nts WBC (test code = 6690-2) See_Comment [Automated Datade[employer]] The system which generated this result transmitted reference range: 4.30 - 11.10 10*3/?L. The reference range was not used to interpret this result as normal/abnormal. RBC (test code = 789-8) See_Comment [Automated [employer]] The system which generated this result transmitted [...] 32.3 g/dL 31.6-35.1 RDW-SD (test code = 16833-1) 48.7 fL 39.0-49.9 RDW-CV (test code = 788-0) 16.1 % 12.0-15.5 H PLT (test code = 777-3) See_Comment [Automated messa ge] The system which generated this result transmitted reference range: 166 - 358 10*3/?L. The reference range was not used to interpret this result as normal/abnormal. MPV (test code = 77094-1) 9.8 fL 9.5-12.9 NRBC/100 WBC (test code = 7505725979) See_Comment [Automated [employer] ssage] The system which generated this result transmitted reference range: 0.0 - 10.0 /100 WBCs. The reference range was not used to interpret this result as normal/abnormal. NRBC x10^3 (test code = 7793255726) <0.01 See_Comment [Automated messa ge] The system which generated this result transmitted reference range: 10*3/?L. The reference range was not used to interpret this result as normal/abnormal. GRAN MAT (NEUT) % (test code = 770-8) 62.7 % IMM GRAN % (test code = 8716186489) 0.40 % LYMPH % (test code = 736-9) 29.5 % MONO % (test code = 5905-5) 6.4 % EOS % (test code = 713-8) 0.5 % BASO % (test code = 706-2) 0.5 % GRAN MAT x10^3(ANC) (test code = 3218913543) 3.45 10*3/uL 1.88-7.09 IMM GRAN x10^3 (test code = 6642556964) <0.03 0.00-0.06 LYMPH x10^3 (test code = 731-0) 1.62 10*3/uL 1.32-3.29 MONO x10^3 (test code = 742-7) 0.35 10*3/uL 0.33-0.92 EOS x10^3 (test code = 711-2) 0.03 10*3/uL 0.03-0.39 BASO x10^3 (test code = 704-7) 0.03 10*3/uL 0.01-0.07 Lab Interpretation (test code = 73738-4) Abnormal [facility] METABOLIC PANEL (NA, K, CL, CO2, GLUCOSE, BUN, CREATININE, CA)2021-05-26 23:10:45* Test Item Value Reference Range Interpretation Comme nts NA (test code = 9366271719) 136 mmol/L 135-145 K (test code = 8545711400) 4.7 mmol/L 3.5-5.0 CL (test code = 0659809127) 106 mmol/L 98-108 CO2 TOTAL (test code = 8570068630) 23 mmol/L 23-31 AGAP (test code = 9423903165) 2-16 BUN (test code = 8026940872) 18 mg/dL 7-23 GLUCOSE (test code = 2150450007) 84 mg/dL 70-110 CREATININE (test code = 4160280487) 0.68 mg/dL 0.50-1.04 CALCIUM (test code = 9622502906) 9.6 mg/dL 8.6-10.6 eGFR (test code = 7726329251) mL/min/1.73m2 PADMA (test code = PADMA) Association [...] or urine or abnormalities in imaging tests). [facility] [id number] 22:35:00* Test Item Value Reference Range Interpretation Comme nts POCT PREG (test code = 1605) negative On board controls acceptable with C Line (test code = 3574) present POCT PREG LOT # (test code = 3575) [id number] POCT PREG TEST DATE ( test code = 3576) Lab Interpretation (test cod e = 60927-8) Normal [facility] STREP SCREEN FOR GROUP [id number] 21:39:01* Test Item Value Reference Range Interpretation Comme nts Streptococcus pyogenes (grou p A) antigen (test code = 21723-2) Negative Negative Lab Interpretation (test cod e = 46211-2) Normal [facility] (ID NOW RAPID TESTING)2020-11-19 21:28:16* Test Item Value Reference Range Interpretation Comme nts SARS-CoV-2 Rapid ID NOW (test code = 86737-4) Not Detected Not Detected PADMA (test code = PADMA) ID NOW COVID-19 As say is an isothermal nucleic acid amplification test intended for the qualitative detection of nucleic acid from SARS-CoV-2 viral RNA in nasopharyngeal (SUPERVISOR PHOSPHORIC ACID) specimens. It is used under Emergency Use [...] clinically indicated. Lab Interpretation (test code = 32818-6) Normal [facility]. METABOLIC PANEL (05514)2020-11-19 21:25:54* Test Item Value Reference Range Interpretation Comme nts NA (test code = 4131467936) 138 mmol/L 135-145 K (test code = 7777740118) 4.2 mmol/L 3.5-5.0 CL (test code = 1584983754) 109 mmol/L 98-108 H CO2 TOTAL (test code = 3805902400) 22 mmol/L 23-31 L AGAP (test code = 1222265896) 2-16 BUN (test code = 6336035470) 19 mg/dL 7-23 GLUCOSE (test code = 3633950232) 90 mg/dL 70-110 CREATININE (test code = 0556674871) 0.76 mg/dL 0.50-1.04 TOTAL BILI (test code = 7529702250) 0.5 mg/dL 0.1-1.1 CALCIUM (test code = 0774082351) 9.9 mg/dL 8.6-10.6 T PROTEIN (test code = 0561497118) 7.8 g/dL 6.3-8.2 ALBUMIN (test code = 1318123395) 4.4 g/dL 3.5-5.0 ALK PHOS (test code = 4310895887) 47 U/L 34-122 ALTv (test code = 1742-6) 16 U/L 5-35 AST(SGOT) (test code = 7278204888) 22 U/L 13-40 eGFR (test code = 6127813475) mL/min/1.73m2 PADMA (test code = PADMA) Association [...] imaging tests). Lab Interpretation (test code = 11647-7) Abnormal [facility] Dallas[facility]ASE2021-06-18 21:25:54* Test Item Value Reference Range Interpretation Comme nts LIPASE (test code = 0451064121) 74 U/L 0-220 Lab Interpretation (test cod e = 16989-2) Normal [facility] WITH [id number] 21:17:35* Test Item Value Reference Range Interpretation Comme nts WBC (test code = 6690-2) See_Comment [Automated [employer]] The system which generated this result transmitted reference range: 4.30 - 11.10 10*3/?L. The reference range was not used to interpret this result as normal/abnormal. RBC (test code = 789-8) See_Comment [Automated [employer]] The system which generated this result transmitted [...] 32.6 g/dL 31.6-35.1 RDW-SD (test code = 34469-5) 46.7 fL 39.0-49.9 RDW-CV (test code = 788-0) 15.6 % 12.0-15.5 H PLT (test code = 777-3) See_Comment [Automated messa ge] The system which generated this result transmitted reference range: 166 - 358 10*3/?L. The reference range was not used to interpret this result as normal/abnormal. MPV (test code = 18961-2) 9.8 fL 9.5-12.9 NRBC/100 WBC (test code = 1894156359) See_Comment [Automated [employer] ssage] The system which generated this result transmitted reference range: 0.0 - 10.0 /100 WBCs. The reference range was not used to interpret this result as normal/abnormal. NRBC x10^3 (test code = 6985049206) <0.01 See_Comment [Automated messa ge] The system which generated this result transmitted reference range: 10*3/?L. The reference range was not used to interpret this result as normal/abnormal. GRAN MAT (NEUT) % (test code = 770-8) 43.0 % IMM GRAN % (test code = 8655733986) 0.20 % LYMPH % (test code = 736-9) 46.9 % MONO % (test code = 5905-5) 7.5 % EOS % (test code = 713-8) 1.3 % BASO % (test code = 706-2) 1.1 % GRAN MAT x10^3(ANC) (test code = 0297360816) 2.02 10*3/uL 1.88-7.09 IMM GRAN x10^3 (test code = 7500554561) <0.03 0.00-0.06 LYMPH x10^3 (test code = 731-0) 2.20 10*3/uL 1.32-3.29 MONO x10^3 (test code = 742-7) 0.35 10*3/uL 0.33-0.92 EOS x10^3 (test code = 711-2) 0.06 10*3/uL 0.03-0.39 BASO x10^3 (test code = 704-7) 0.05 10*3/uL 0.01-0.07 Lab Interpretation (test code = 22166-1) Abnormal [facility] [id number] 21:01:00* Test Item Value Reference Range Interpretation Comme nts POCT PREG (test code = 1605) negative On board controls acceptable with C Line (test code = 3574) present POCT PREG LOT # (test code = 3575) [id number] POCT PREG TEST DATE ( test code = 3576) Lab Interpretation (test cod e = 79056-9) Normal [facility] [id number] 00:00:00* Test Item Value Reference Range Interpretation Comme nts HEMOGLOBIN A1c (test code = 24292) 5.4 % Cem WahlCBC W/AUTO [id number] 00:00:00* Test Item Value Reference Range Interpretation [...] code = 1015) 320 K/UL CBC W/AUTO [id number] 00:00:00* Test Item Value Reference Range Interpretation [...] code = 1015) 320 K/UL CBC W/AUTO [id number] 00:00:00* Test Item Value Reference Range Interpretation [...] (test code = 1015) 320 K/UL LIPID [id number] 00:00:00* Test Item Value Reference Range Interpretation Comme nts CHOLESTEROL (test code = 2210) 246 MG/DL TRIGLYCERIDES (test code = 2232) 99 MG/DL HDL CHOLESTEROL (test code = 2220) 63 MG/DL CALC LDL CHOL (test code = 2237) 162 MG/DL RISK RATIO LDL/HDL (test cod e = 2238) 2.57 RATIO LIPID [id number] 00:00:00* Test Item Value Reference Range Interpretation Comme nts CHOLESTEROL (test code = 2210) 246 MG/DL TRIGLYCERIDES (test code = 2232) 99 MG/DL HDL CHOLESTEROL (test code = 2220) 63 MG/DL CALC LDL CHOL (test code = 2237) 162 MG/DL RISK RATIO LDL/HDL (test cod e = 2238) 2.57 RATIO HEMOGLOBIN [id number] 00:00:00* Test Item Value Reference Range Interpretation Comme nts HEMOGLOBIN A1c (test code = 15757) 5.4 % HEMOGLOBIN [id number] 00:00:00* Test Item Value Reference Range Interpretation Comme nts HEMOGLOBIN A1c (test code = 00816) 5.4 % HEMOGLOBIN [id number] 00:00:00* Test Item Value Reference Range Interpretation Comme nts HEMOGLOBIN A1c (test code = 10454) 5.4 % COMPREHENSIVE METABOLIC [id number] 00:00:00* Test Item Value Reference Range Interpretation Comme nts GLUCOSE (test code = 2217) 93 MG/DL BUN (test code = 2208) 12 MG/DL CREATININE (test code = 2214) 0.78 MG/DL eGFR AMER. (test cod e = 39661) 110 ML/MIN/1.73 eGFR NON- AMER. (test code = 74730) 95 ML/MIN/1.73 CALC BUN/CREAT (test code = [...] (test code = 2219) 13 U/L Cem WahlCOMPREHENSIVE METABOLIC [id number] 00:00:00* Test Item Value Reference Range Interpretation Comme nts GLUCOSE (test code = 2217) 93 MG/DL BUN (test code = 2208) 12 MG/DL CREATININE (test code = 2214) 0.78 MG/DL eGFR AMER. (test cod e = 24628) 110 ML/MIN/1.73 eGFR NON- AMER. (test code = 84307) 95 ML/MIN/1.73 CALC BUN/CREAT (test code = [...] code = 2219) 13 U/L COMPREHENSIVE METABOLIC [id number] 00:00:00* Test Item Value Reference Range Interpretation Comme nts GLUCOSE (test code = 2217) 93 MG/DL BUN (test code = 2208) 12 MG/DL CREATININE (test code = 2214) 0.78 MG/DL eGFR AMER. (test cod e = 52460) 110 ML/MIN/1.73 eGFR NON- AMER. (test code = 86240) 95 ML/MIN/1.73 CALC BUN/CREAT (test code = [...] code = 2219) 13 U/L CBC W/AUTO [id number] 00:00:00* Test Item Value Reference Range Interpretation [...] code = 1015) 320 K/UL CBC W/AUTO [id number] 00:00:00* Test Item Value Reference Range Interpretation [...] code = 1015) 320 K/UL CBC W/AUTO [id number] 00:00:00* Test Item Value Reference Range Interpretation [...] (test code = 1015) 320 K/UL LIPID [id number] 00:00:00* Test Item Value Reference Range Interpretation Comme nts CHOLESTEROL (test code = 2210) 246 MG/DL TRIGLYCERIDES (test code = 2232) 99 MG/DL HDL CHOLESTEROL (test code = 2220) 63 MG/DL CALC LDL CHOL (test code = 2237) 162 MG/DL RISK RATIO LDL/HDL (test cod e = 2238) 2.57 RATIO LIPID [id number] 00:00:00* Test Item Value Reference Range Interpretation Comme nts CHOLESTEROL (test code = 2210) 246 MG/DL TRIGLYCERIDES (test code = 2232) 99 MG/DL HDL CHOLESTEROL (test code = 2220) 63 MG/DL CALC LDL CHOL (test code = 2237) 162 MG/DL RISK RATIO LDL/HDL (test cod e = 2238) 2.57 RATIO HEMOGLOBIN [id number] 00:00:00* Test Item Value Reference Range Interpretation Comme nts HEMOGLOBIN A1c (test code = 54827) 5.4 % HEMOGLOBIN [id number] 00:00:00* Test Item Value Reference Range Interpretation Comme nts HEMOGLOBIN A1c (test code = 35824) 5.4 % HEMOGLOBIN [id number] 00:00:00* Test Item Value Reference Range Interpretation Comme nts HEMOGLOBIN A1c (test code = 00860) 5.4 % COMPREHENSIVE METABOLIC [id number] 00:00:00* Test Item Value Reference Range Interpretation Comme nts GLUCOSE (test code = 2217) 93 MG/DL BUN (test code = 2208) 12 MG/DL CREATININE (test code = 2214) 0.78 MG/DL eGFR AMER. (test cod e = 45480) 110 ML/MIN/1.73 eGFR NON- AMER. (test code = 10490) 95 ML/MIN/1.73 CALC BUN/CREAT (test code = [...] code = 2219) 13 U/L CBC W/AUTO [id number] 00:00:00* Test Item Value Reference Range Interpretation [...] (test code = 1015) 320 K/UL Cem WahlCOMPREHENSIVE METABOLIC [id number] 00:00:00* Test Item Value Reference Range Interpretation Comme nts GLUCOSE (test code = 2217) 93 MG/DL BUN (test code = 2208) 12 MG/DL CREATININE (test code = 2214) 0.78 MG/DL eGFR AMER. (test cod e = 69577) 110 ML/MIN/1.73 eGFR NON- AMER. (test code = 46460) 95 ML/MIN/1.73 CALC BUN/CREAT (test code = [...] (test code = 2219) 13 U/L LIPID [id number] 00:00:00* Test Item Value Reference Range Interpretation Comme nts CHOLESTEROL (test code = 2210) 246 MG/DL TRIGLYCERIDES (test code = 2232) 99 MG/DL HDL CHOLESTEROL (test code = 2220) 63 MG/DL CALC LDL CHOL (test code = 2237) 162 MG/DL RISK RATIO LDL/HDL (test cod e = 2238) 2.57 RATIO Cem F AustinCOMPREHENSIVE METABOLIC [id number] 00:00:00* Test Item Value Reference Range Interpretation Comme nts GLUCOSE (test code = 2217) 73 MG/DL BUN (test code = 2208) 14 MG/DL CREATININE (test code = 2214) 0.70 MG/DL eGFR AMER. (test cod e = 94081) 126 ML/MIN/1.73 eGFR NON- AMER. (test code = 38899) 109 ML/MIN/1.73 CALC BUN/CREAT (test code = [...] code = 2219) 19 U/L COMPREHENSIVE METABOLIC [id number] 00:00:00* Test Item Value Reference Range Interpretation Comme nts GLUCOSE (test code = 2217) 73 MG/DL BUN (test code = 2208) 14 MG/DL CREATININE (test code = 2214) 0.70 MG/DL eGFR AMER. (test cod e = 81297) 126 ML/MIN/1.73 eGFR NON- AMER. (test code = 91791) 109 ML/MIN/1.73 CALC BUN/CREAT (test code = [...] ALT (test code = 2219) 19 U/L [id number] 00:00:00* Test Item Value Reference Range Interpretation Comme nts TSH, THIRD GENERATION (test code = 2821) 1.720 UIU/ML Cem F AustinLIPID [id number] 00:00:00* Test Item Value Reference Range Interpretation Comme nts CHOLESTEROL (test code = 2210) 219 MG/DL TRIGLYCERIDES (test code = 2232) 75 MG/DL HDL CHOLESTEROL (test code = 2220) 64 MG/DL CALC LDL CHOL (test code = 2237) 138 MG/DL RISK RATIO LDL/HDL (test cod e = 2238) 2.16 RATIO LIPID [id number] 00:00:00* Test Item Value Reference Range Interpretation Comme nts CHOLESTEROL (test code = 2210) 219 MG/DL TRIGLYCERIDES (test code = 2232) 75 MG/DL HDL CHOLESTEROL (test code = 2220) 64 MG/DL CALC LDL CHOL (test code = 2237) 138 MG/DL RISK RATIO LDL/HDL (test cod e = 2238) 2.16 RATIO [id number] 00:00:00* Test Item Value Reference Range Interpretation Comme nts TSH, THIRD GENERATION (test code = 2821) 1.720 UIU/ML [id number] 00:00:00* Test Item Value Reference Range Interpretation Comme nts TSH, THIRD GENERATION (test code = 2821) 1.720 UIU/ML [id number] 00:00:00* Test Item Value Reference Range Interpretation Comme nts TSH, THIRD GENERATION (test code = 2821) 1.720 UIU/ML COMPREHENSIVE METABOLIC [id number] 00:00:00* Test Item Value Reference Range Interpretation Comme nts GLUCOSE (test code = 2217) 73 MG/DL BUN (test code = 2208) 14 MG/DL CREATININE (test code = 2214) 0.70 MG/DL eGFR AMER. (test cod e = 67437) 126 ML/MIN/1.73 eGFR NON- AMER. (test code = 82667) 109 ML/MIN/1.73 CALC BUN/CREAT (test code = [...] code = 2219) 19 U/L COMPREHENSIVE METABOLIC [id number] 00:00:00* Test Item Value Reference Range Interpretation Comme nts GLUCOSE (test code = 2217) 73 MG/DL BUN (test code = 2208) 14 MG/DL CREATININE (test code = 2214) 0.70 MG/DL eGFR AMER. (test cod e = 04979) 126 ML/MIN/1.73 eGFR NON- AMER. (test code = 78407) 109 ML/MIN/1.73 CALC BUN/CREAT (test code = [...] (test code = 2219) 19 U/L LIPID [id number] 00:00:00* Test Item Value Reference Range Interpretation Comme nts CHOLESTEROL (test code = 2210) 219 MG/DL TRIGLYCERIDES (test code = 2232) 75 MG/DL HDL CHOLESTEROL (test code = 2220) 64 MG/DL CALC LDL CHOL (test code = 2237) 138 MG/DL RISK RATIO LDL/HDL (test cod e = 2238) 2.16 RATIO LIPID [id number] 00:00:00* Test Item Value Reference Range Interpretation Comme nts CHOLESTEROL (test code = 2210) 219 MG/DL TRIGLYCERIDES (test code = 2232) 75 MG/DL HDL CHOLESTEROL (test code = 2220) 64 MG/DL CALC LDL CHOL (test code = 2237) 138 MG/DL RISK RATIO LDL/HDL (test cod e = 2238) 2.16 RATIO [id number] 00:00:00* Test Item Value Reference Range Interpretation Comme nts TSH, THIRD GENERATION (test code = 2821) 1.720 UIU/ML [id number] 00:00:00* Test Item Value Reference Range Interpretation Comme nts TSH, THIRD GENERATION (test code = 2821) 1.720 UIU/ML [id number] 00:00:00* Test Item Value Reference Range Interpretation Comme nts TSH, THIRD GENERATION (test code = 2821) 1.720 UIU/ML COMPREHENSIVE METABOLIC [id number] 00:00:00* Test Item Value Reference Range Interpretation Comme nts GLUCOSE (test code = 2217) 73 MG/DL BUN (test code = 2208) 14 MG/DL CREATININE (test code = 2214) 0.70 MG/DL eGFR AMER. (test cod e = 07721) 126 ML/MIN/1.73 eGFR NON- AMER. (test code = 38083) 109 ML/MIN/1.73 CALC BUN/CREAT (test code = [...] = 2219) 19 U/L Cem Archer AustinLIPID [id number] 00:00:00* Test Item Value Reference Range Interpretation Comme nts CHOLESTEROL (test code = 2210) 219 MG/DL TRIGLYCERIDES (test code = 2232) 75 MG/DL HDL CHOLESTEROL (test code = 2220) 64 MG/DL CALC LDL CHOL (test code = 2237) 138 MG/DL RISK RATIO LDL/HDL (test cod e = 2238) 2.16 RATIO Cem Archer AustinLIPID [id number] 00:00:00* Test Item Value Reference Range Interpretation Comme nts CHOLESTEROL (test code = 2210) 214 MG/DL TRIGLYCERIDES (test code = 2232) 103 MG/DL HDL CHOLESTEROL (test code = 2220) 55 MG/DL CALC LDL CHOL (test code = 2237) 138 MG/DL RISK RATIO LDL/HDL (test cod e = 2238) 2.52 RATIO LIPID [id number] 00:00:00* Test Item Value Reference Range Interpretation Comme nts CHOLESTEROL (test code = 2210) 214 MG/DL TRIGLYCERIDES (test code = 2232) 103 MG/DL HDL CHOLESTEROL (test code = 2220) 55 MG/DL CALC LDL CHOL (test code = 2237) 138 MG/DL RISK RATIO LDL/HDL (test cod e = 2238) 2.52 RATIO HEMOGLOBIN [id number] 00:00:00* Test Item Value Reference Range Interpretation Comme nts HEMOGLOBIN A1c (test code = 46448) 5.5 % HEMOGLOBIN [id number] 00:00:00* Test Item Value Reference Range Interpretation Comme nts HEMOGLOBIN A1c (test code = 31175) 5.5 % HEMOGLOBIN [id number] 00:00:00* Test Item Value Reference Range Interpretation Comme nts HEMOGLOBIN A1c (test code = 20328) 5.5 % COMPREHENSIVE METABOLIC [id number] 00:00:00* Test Item Value Reference Range Interpretation Comme nts GLUCOSE (test code = 2217) 83 MG/DL BUN (test code = 2208) 10 MG/DL CREATININE (test code = 2214) 0.73 MG/DL eGFR AMER. (test cod e = 90196) 120 ML/MIN/1.73 eGFR NON- AMER. (test code = 73780) 104 ML/MIN/1.73 CALC BUN/CREAT (test code = [...] code = 2219) 23 U/L COMPREHENSIVE METABOLIC [id number] 00:00:00* Test Item Value Reference Range Interpretation Comme nts GLUCOSE (test code = 2217) 83 MG/DL BUN (test code = 2208) 10 MG/DL CREATININE (test code = 2214) 0.73 MG/DL eGFR AMER. (test cod e = 05498) 120 ML/MIN/1.73 eGFR NON- AMER. (test code = 22768) 104 ML/MIN/1.73 CALC BUN/CREAT (test code = [...] (test code = 2219) 23 U/L LIPID [id number] 00:00:00* Test Item Value Reference Range Interpretation Comme nts CHOLESTEROL (test code = 2210) 214 MG/DL TRIGLYCERIDES (test code = 2232) 103 MG/DL HDL CHOLESTEROL (test code = 2220) 55 MG/DL CALC LDL CHOL (test code = 2237) 138 MG/DL RISK RATIO LDL/HDL (test cod e = 2238) 2.52 RATIO LIPID [id number] 00:00:00* Test Item Value Reference Range Interpretation Comme nts CHOLESTEROL (test code = 2210) 214 MG/DL TRIGLYCERIDES (test code = 2232) 103 MG/DL HDL CHOLESTEROL (test code = 2220) 55 MG/DL CALC LDL CHOL (test code = 2237) 138 MG/DL RISK RATIO LDL/HDL (test cod e = 2238) 2.52 RATIO HEMOGLOBIN [id number] 00:00:00* Test Item Value Reference Range Interpretation Comme nts HEMOGLOBIN A1c (test code = 25665) 5.5 % HEMOGLOBIN [id number] 00:00:00* Test Item Value Reference Range Interpretation Comme nts HEMOGLOBIN A1c (test code = 97555) 5.5 % HEMOGLOBIN [id number] 00:00:00* Test Item Value Reference Range Interpretation Comme nts HEMOGLOBIN A1c (test code = 32824) 5.5 % COMPREHENSIVE METABOLIC [id number] 00:00:00* Test Item Value Reference Range Interpretation Comme nts GLUCOSE (test code = 2217) 83 MG/DL BUN (test code = 2208) 10 MG/DL CREATININE (test code = 2214) 0.73 MG/DL eGFR AMER. (test cod e = 81454) 120 ML/MIN/1.73 eGFR NON- AMER. (test code = 39956) 104 ML/MIN/1.73 CALC BUN/CREAT (test code = [...] code = 2219) 23 U/L COMPREHENSIVE METABOLIC [id number] 00:00:00* Test Item Value Reference Range Interpretation Comme nts GLUCOSE (test code = 2217) 83 MG/DL BUN (test code = 2208) 10 MG/DL CREATININE (test code = 2214) 0.73 MG/DL eGFR AMER. (test cod e = 61831) 120 ML/MIN/1.73 eGFR NON- AMER. (test code = 41379) 104 ML/MIN/1.73 CALC BUN/CREAT (test code = [...] (test code = 2219) 23 U/L LIPID [id number] 00:00:00* Test Item Value Reference Range Interpretation Comme nts CHOLESTEROL (test code = 2210) 214 MG/DL TRIGLYCERIDES (test code = 2232) 103 MG/DL HDL CHOLESTEROL (test code = 2220) 55 MG/DL CALC LDL CHOL (test code = 2237) 138 MG/DL RISK RATIO LDL/HDL (test cod e = 2238) 2.52 RATIO Cem F AustinHEMOGLOBIN [id number] 00:00:00* Test Item Value Reference Range Interpretation Comme nts HEMOGLOBIN A1c (test code = 34376) 5.5 % Cem WahlCOMPREHENSIVE METABOLIC [id number] 00:00:00* Test Item Value Reference Range Interpretation Comme nts GLUCOSE (test code = 2217) 83 MG/DL BUN (test code = 2208) 10 MG/DL CREATININE (test code = 2214) 0.73 MG/DL eGFR AMER. (test cod e = 94591) 120 ML/MIN/1.73 eGFR NON- AMER. (test code = 79567) 104 ML/MIN/1.73 CALC BUN/CREAT (test code = [...] (test code = 2219) 23 U/L Cem [id number] 01:11:00* Test Item Value Reference Range Interpretation Comme nts APPEARANCE (test code = 0711449191) Clear Clear COLOR (test code = 1218256527) Yellow Yellow PH (test code = 5780578494) 4.8-8.0 SP GRAVITY (test code = 8258644096) <=1.005 1.003-1.030 GLU U QUAL (test code = 2029711627) Negative Negative BLOOD (test code = 6270021328) Negative Negative KETONES (test code = 0818813488) Negative Negative PROTEIN (test code = 2887-8) Negative Negative UROBILIN (test code = 4913398974) 0.2 mg/dL See_Comment [Automated messa ge] The system which generated this result transmitted reference range: 0-1.0 mg/dL. The reference range was not used to interpret this result as normal/abnormal. BILIRUBIN (test code = 7745078289) Negative Negative NITRITE (test code = 4199764893) Negative Negative LEUK ONEAL (test code = 2758555352) Negative Negative RBC/HPF (test code = 6960963407) See_Comment [Automated Datadecisiona ge] The system which generated this result transmitted reference range: 0 - 3 HPF. The reference range was not used to interpret this result as normal/abnormal. WBC/HPF (test code = 5925782348) See_Comment [Automated messa ge] The system which generated this result transmitted reference range: 0 - 5 HPF. The reference range was not used to interpret this result as normal/abnormal. BACTERIA (test code = 7414831088) Few Negative A SQ EPITH (test code = 4667010576) HPF Lab Interpretation (test code = 64932-6) Abnormal [facility]. METABOLIC PANEL (69948)2019-01-12 01:02:00* Test Item Value Reference Range Interpretation Comme nts NA (test code = 8673869818) 142 mmol/L 135-145 K (test code = 1147041427) 4.4 mmol/L 3.5-5 CL (test code = 7221884302) 111 mmol/L 98-108 H CO2 TOTAL (test code = 1423283106) 24 mmol/L 23-31 AGAP (test code = 1845260134) 2-16 BUN (test code = 0466625015) 15 mg/dL 7-23 GLUCOSE (test code = 5250709145) 90 mg/dL 70-110 CREATININE (test code = 8646542309) 0.78 mg/dL 0.5-1.04 TOTAL BILI (test code = 3365332522) 0.1 mg/dL 0.1-1.1 CALCIUM (test code = 0468697938) 9.5 mg/dL 8.6-10.6 T PROTEIN (test code = 3495473168) 7.1 g/dL 6.3-8.2 ALBUMIN (test code = 9550117371) 4.1 g/dL 3.5-5 ALK PHOS (test code = 9535949316) 60 U/L 34-122 ALT(SGPT) (test code = 3890996356) 40 U/L 9-51 AST(SGOT) (test code = 2574225587) 27 U/L 13-40 eGFR Calculation (Non-) (test code = 7455209951) mL/min/1.73m2 eGFR Calculation () (test code = 5986669316) mL/min/1.73m2 PADMA (test code = PADMA) Association of Glomerular Filtration Rate (GFR) and Staging of Kidney Disease*+ + + +| GFR (mL/min/1.73 m2)?| With Kidney Damage?|?Without Kidney Damage+ --------+ --------+ +|?>90?|?S radhae one?|? Normal?+ ---------+ ---------+ +|?60-89? |?Stage two?|? [...] imaging tests). Lab Interpretation (test code = 11825-5) Abnormal [facility] WITH [id number] 00:50:00* Test Item Value Reference Range Interpretation Comme nts WBC (test code = 6690-2) See_Comment [Automated [employer]] The system which generated this result transmitted reference range: 4.30 - 11.10 10*3/?L. The reference range was not used to interpret this result as normal/abnormal. RBC (test code = 789-8) See_Comment H [Automated [employer]] The system which generated this result transmitted [...] 32.3 g/dL 31.6-35.1 RDW-SD (test code = 35119-1) 47.8 fL 39-49.9 RDW-CV (test code = 788-0) 17.2 % 12-15.5 H PLT (test code = 777-3) See_Comment [Automated messa ge] The system which generated this result transmitted reference range: 166 - 358 10*3/?L. The reference range was not used to interpret this result as normal/abnormal. MPV (test code = 26349-6) 9.9 fL 9.5-12.9 NRBC/100 WBC (test code = 2375471366) See_Comment [Automated [employer] ssage] The system which generated this result transmitted reference range: 0.0 - 10.0 /100 WBCs. The reference range was not used to interpret this result as normal/abnormal. NRBC x10^3 (test code = 5689470590) <0.01 See_Comment [Automated messa ge] The system which generated this result transmitted reference range: 10*3/?L. The reference range was not used to interpret this result as normal/abnormal. GRAN MAT (NEUT) % (test code = 770-8) 42.0 % IMM GRAN % (test code = 0214598158) 0.10 % LYMPH % (test code = 736-9) 46.8 % MONO % (test code = 5905-5) 8.3 % EOS % (test code = 713-8) 2.1 % BASO % (test code = 706-2) 0.7 % GRAN MAT x10^3(ANC) (test code = 5247500341) 2.95 10*3/uL 1.88-7.09 IMM GRAN x10^3 (test code = 7229588989) <0.03 0-0.06 LYMPH x10^3 (test code = 731-0) 3.29 10*3/uL 1.32-3.29 MONO x10^3 (test code = 742-7) 0.58 10*3/uL 0.33-0.92 EOS x10^3 (test code = 711-2) 0.15 10*3/uL 0.03-0.39 BASO x10^3 (test code = 704-7) 0.05 10*3/uL 0.01-0.07 Lab Interpretation (test code = 70500-8) [facility] [id number] 00:32:00* Test Item Value Reference Range Interpretation Comme nts POCT PREG (test code = 1605) negative On board controls acceptable with C Line (test code = 3574) present Lab Interpretation (test cod e = 97944-9) Normal [facility], THINPREP, [id number] 00:00:00 * Test Item Value Reference Range Interpretation Comme nts SOURCE: (test code = 8001) Cervical/Endocervical SLIDES: (test code = 8011) 1 LMP: (test code = 8021) 06/14/2017 SPECIMEN ADEQUACY: (test code = 93211) (NOTE) INTERPRETATION: (test code = 09961) NO EPITHELIAL ABNORMALITY SEE BELOW FINISHER MACHINE: (test code = 8101) LEON SIERRA(ASCP)IAC LOCATION: (test code = 17898) (NOTE) CPT: (test code = 8140) (NOTE) PAP TEST, THINPREP, [id number] 00:00:00* Test Item Value Reference Range Interpretation Comme nts SOURCE: (test code = 8001) Cervical/Endocervical SLIDES: (test code = 8011) 1 LMP: (test code = 8021) 06/14/2017 SPECIMEN ADEQUACY: (test code = 50183) (NOTE) INTERPRETATION: (test code = 89217) NO EPITHELIAL ABNORMALITY SEE BELOW FINISHER MACHINE: (test code = 8101) LEON SIERRA(ASCP)IAC LOCATION: (test code = 70347) (NOTE) CPT: (test code = 8140) (NOTE) HPV HIGH RISK WITH GENOTYPE, [id number] 00:00:00* Test Item Value Reference Range Interpretation Comme nts HPV HIGH RISK INTERP (test c ode = 64214) NEGATIVE HPV 16 (test code = 70418) NEGATIVE HPV 18 (test code = 37867) NEGATIVE HPV, HR, OTHER GENOTYPES (te st code = 43912) NEGATIVE HPV HIGH RISK WITH GENOTYPE, [id number] 00:00:00* Test Item Value Reference Range Interpretation Comme nts HPV HIGH RISK INTERP (test c ode = 75061) NEGATIVE HPV 16 (test code = 26962) NEGATIVE HPV 18 (test code = 25445) NEGATIVE HPV, HR, OTHER GENOTYPES (te st code = 88972) NEGATIVE PAP TEST, THINPREP, [id number] 00:00:00* Test Item Value Reference Range Interpretation Comme nts SOURCE: (test code = 8001) Cervical/Endocervical SLIDES: (test code = 8011) 1 LMP: (test code = 8021) 06/14/2017 SPECIMEN ADEQUACY: (test code = 87895) (NOTE) INTERPRETATION: (test code = 27590) NO EPITHELIAL ABNORMALITY SEE BELOW FINISHER MACHINE: (test code = 8101) BRUNO PARCHER,CT(ASCP)IAC LOCATION: (test code = 78690) (NOTE) CPT: (test code = 8140) (NOTE) PAP TEST, THINPREP, [id number] 00:00:00* Test Item Value Reference Range Interpretation Comme nts SOURCE: (test code = 8001) Cervical/Endocervical SLIDES: (test code = 8011) 1 LMP: (test code = 8021) 06/14/2017 SPECIMEN ADEQUACY: (test code = 29168) (NOTE) INTERPRETATION: (test code = 23025) NO EPITHELIAL ABNORMALITY SEE BELOW FINISHER MACHINE: (test code = 8101) BRUNO PARCHER,CT(ASCP)IAC LOCATION: (test code = 90060) (NOTE) CPT: (test code = 8140) (NOTE) HPV HIGH RISK WITH GENOTYPE, [id number] 00:00:00* Test Item Value Reference Range Interpretation Comme nts HPV HIGH RISK INTERP (test c ode = 83070) NEGATIVE HPV 16 (test code = 60554) NEGATIVE HPV 18 (test code = 17003) NEGATIVE HPV, HR, OTHER GENOTYPES (te st code = 76545) NEGATIVE HPV HIGH RISK WITH GENOTYPE, [id number] 00:00:00* Test Item Value Reference Range Interpretation Comme nts HPV HIGH RISK INTERP (test c ode = 86357) NEGATIVE HPV 16 (test code = 09295) NEGATIVE HPV 18 (test code = 00644) NEGATIVE HPV, HR, OTHER GENOTYPES (te st code = 92176) NEGATIVE PAP TEST, THINPREP, [id number] 00:00:00* Test Item Value Reference Range Interpretation Comme nts SOURCE: (test code = 8001) Cervical/Endocervical SLIDES: (test code = 8011) 1 LMP: (test code = 8021) 06/14/2017 SPECIMEN ADEQUACY: (test code = 29515) (NOTE) INTERPRETATION: (test code = 06006) NO EPITHELIAL ABNORMALITY SEE BELOW FINISHER MACHINE: (test code = 8101) LEON SIERRA(ASCP)IAC LOCATION: (test code = 76236) (NOTE) CPT: (test code = 8140) (NOTE) Cem Suzi VishHPV HIGH RISK WITH GENOTYPE, [id number] 00:00:00* Test Item Value Reference Range Interpretation Comme nts HPV HIGH RISK INTERP (test c ode = 91249) NEGATIVE HPV 16 (test code = 02931) NEGATIVE HPV 18 (test code = 02061) NEGATIVE HPV, HR, OTHER GENOTYPES (te st code = 46615) NEGATIVE Cem Suzi Vish Notes Date/Time Note Provider Source Cem Wahl [facility]2024-04-02 21:10:14 Pt given printed and verbal discharge [...] steady gait, in no apparent distress Noelle Henry Manuel [facility] CenterQlhzda5204-[facility]-17 18:11:18 Pt arrived via private car with c/o a headache that started yesterday. States she has a history of migraines, states she took ibuprofen and Midol with "some" improvement. States she has not seen a neurologist for "years". Michelle Peres [facility] CenterKkswsi0439-00-27 12:39:43 PT D/C home. GCS15, VS stable. Given D/C paperwork. Pt ambulatory at time of discharge. Pt educated on med usage, follow up care, s/s worsening condition, need for hydration. Pt verbalized understanding. Pt ambulated from ED in [facility] DRILL OPERATOR Lucrecia Castro [facility] CenterYnuwho0375-14-07 10:52:23 Report received from LUCÍA Suresh DRILL OPERATOR Bebe North [facility] CenterZdrtir5800-40-29 10:11:41 Pressure like pain to head on left side. Pain ongoing x 1.5 weeks. Also has vaginal bleeding. Uses 3-4 pads a day. All started after getting depo injections. DRILL OPERATOR Higinio Suresh [place] 704604-01-30 09:44:09 Pt arrived via private car with c/o having a migraine for 1.5 weeks. States she used to see a neurologist however she has not seen a neurologist "in at least a few years". She states has been having vaginal bleeding x2 weeks, states she has been on depo for about 1 year consistently and does not usually have any vaginal bleeding. [facility] [id number] 09:37:00 [facility] Emergency Department Note Patient Name: Ericka Perkins Date of : 1980 43 year old female Treatment Room: Room/bed info not found Primary Care Physician: [facility] Danika Patient Escorted by: Family [5] Mode of Arrival: Personal means [1] EMS Treatment Prior to ED Arrival: CONCILIATION COURT JUDGE treatment: None Travel and Exposure Screening: Symptoms [...] abnormal uterine bleeding. Last dep shot at [facility] office was about [address] A/P 06/21/23 showing 3.9cm fibroid, known to patient and [facility]. History provided by: Patient and spouse Past [...] N/A 08/26/2015 Surgeon: Jaziel Aponte [place] [facility] [place] Review of Systems: Review [...] 0.01 - 0.07 10*3/uL COMP. METABOLIC PANEL (06167) EKG: If EKG completed, see Procedure Note. Orders and Treatments: Orders Placed This Encounter Procedures CBC WITH DIFF COMP. METABOLIC PANEL (16427) Orders Placed This Encounter Medications NaCl 0.9% (NS) bolus infusion 1,000 mL metoclopramide HCl (REGLAN) injection 10 mg dexamethasone sod phos PF injection 10 mg ketorolac (TORADOL) injection 30 mg predniSONE 20 mg tablet crixdhvnsx-drqzgntlhefzo-gxtc 50-325-40 mg tablet ondansetron 4 mg tablet First Provider Eval: ED Events Date/Time Event User Comments 07/03/23 0938 Medical Screening Begins STAR MESA MD -- 07/03/23937 First Provider Evaluation STAR MESA MD -- [...] Medications: Patient's Medications START taking these medications BMBISHEMGN-NNQJUTEYYIOOL-AKRI 50-325-40 MG TABLET Take 1 tablet by [...] for Cough for up to 20 doses. PBAPSMGLNE-XIQDKZQENBJVY-JAGW 50-325-40 MG TABLET Take 1 tablet by mouth every 6 (six) hours as needed for Pain (scale 4-6). XYHLPFVHSW-YDYQCAKSCAACZ-YZOE 50-325-40 MG TABLET Take 1 tablet by mouth every 4 (four) hours as needed for Pain (scale 7-10). ALRMFSOROU-GJZQTGLASNYAU-CWTL 50-325-40 MG TABLET Take 1 tablet by [...] medications No medications on file Follow-up: PCP [facility] Electronically signed by: Star Mesa MD 07/03/23 1229 [facility] - [id number] 00:30:00 Pt given printed and verbal discharge [...] with steady gait, in no apparent distress, DRILL OPERATOR Pepito Rodriguez [facility] CenterBwuhrf9473-23-94 20:43:46 Pt to ED co body aches, vomiting, chills, and abd pain x 2 hours. Denies sick contacts. Hx of HTN and uncomplicated hernia. Took dayquil and sinus medication 30min CONCILI[address] JUDGE. DRILL OPERATOR Rosy Bean [facility] CenterYlsgay6377-55-49 20:33:00 [facility] Emergency Department Note Patient Name: Ericka Perkins Date of : 1980 43 year old female Treatment Room: [place] [address] Primary Care Physician: [facility] Patient Escorted by: Self [9] Mode of Arrival: Personal means [1] EMS Treatment Prior to ED Arrival: CONCILIATION COURT JUDGE treatment: Medication (comment);Analgesic CONCILIATION COURT JUDGE treatment comments: BP meds, excedrin, dayquil, and [...] hernia. Took dayquil and sinus medication 30min [address] JUDGE History provided by: Spouse and patient statistical modeler used: No Vomiting Severity: Mild Duration: 2 [...] Alona Quintanilla MD; [facility]ERNIA REPAIR (SHX) N/A 08/26/2015 Surgeon: Jaziel Aponte MD; [place] [facility] [place] Review of Systems: Review [...] for Cough for up to 20 doses. ACHLYKTRUR-RDASQYDSAVXDL-HPKB 50-325-40 MG TABLET Take 1 tablet by mouth every 6 (six) hours as needed for Pain (scale 4-6). SSBDBJDQVY-GVUZSMQITCNZR-XJRX 50-325-40 MG TABLET Take 1 tablet by mouth every 4 (four) hours as needed for Pain (scale 7-10). NDZVJNHHVR-XJQGACCBVCIYV-JFGM 50-325-40 MG TABLET Take 1 tablet by [...] on file Follow-up: [facility] Relationship: PCP - General [address] [facility] [id number] Instructions: If symptoms worsen Electronically signed by: Alex Pitt MD 06/22/23 0022 [facility]2023-07-19 21:57:16 Pt discharged home. Given all education and information regarding pain management; follow up importance and s/s of worsening condition. Pt verbalized understanding. Alert and ambulatory to pov [facility] Sia Richardson [facility] CenterTiydnz4782-41-77 21:41:07 Pt resting quietly in room. States pain has resolved. [place] 128923-07-19 19:04:38 Nurse Report Report given to LUCÍA Saucedo. Chief complaint, assessment findings, and orders reviewed. Plan of care discussed with both nurses. Wilma Garay RN [place] 128923-07-19 18:42:18 CC: patient presents to the ER [...] assistance. Appears in no distress. Wilma Garay [facility]
[2024-01-07] MEDS ORDERED: KETOROLAC 30 MG/ML INJ ONE (14:37)
[2024-01-07] MEDS ORDERED: dexAMETHasone 10 MG/ML VIAL ONE (14:38)
--- NOTE | 2024-01-07 14:50 | EDPHYS ---
Physician Documentation [facility] Name: Ericka Wallace Age: 43 yrs Sex: Female : 1980 Arrival Date: 01/07/2024 Time: 14:23 Bed IW1 Private MD: ED Physician Arnav Calles HPI: 01/06 14:47 This 43 yrs old Black Female presents to ER via Ambulatory with complaints of Back kb Pain, Leg Pain. 14:47 Pt is a 43 year old female who presents for left low back/upper buttock pain that kb started this morning. States pain radiates down left leg and is worse with movement. Denies urinary symptoms, numbness, tingling. 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 - Infectious Disease History:: Denies. - Social history:: Smoking status: Patient reports the use of cigarette tobacco products, smokes one-half pack cigarettes per day. ROS: 14:43 Constitutional: As per HPI kb Exam: 14:43 Constitutional: This is a well developed, well nourished patient who is awake, alert, kb and in no acute distress. Head/Face: Normocephalic, atraumatic. ENT: Moist Mucous membranes Cardiovascular: Regular rate Respiratory: Respirations even and unlabored. No increased work of breathing. Talking in full sentences Abdomen/GI: Soft, non-tender. No distention Skin: Warm, dry with normal turgor. Normal color. MS/ Extremity: Pulses equal, no cyanosis. Neurovascular intact. Full, normal range of motion. Neuro: Awake and alert, GCS 15, oriented to person, place, time, and situation. Moves all extremities. Normal gait. 14:43 Back: pain, that is moderate, of the left low back, ROM is painful, Vital Signs: 14:36 BP 143 / 84; Pulse 70; Resp 18; Temp 97.9; Pulse Ox 100% on R/A; Weight 102.06 kg; hb Height 5 ft. 3 in. ; Pain 10/10; 14:36 Body Mass Index 39.86 (102.06 kg, 160.02 cm) hb 14:36 Pain Scale: Adult hb MDM: 14:28 Patient medically screened. kb 14:45 Differential diagnosis: strain, myalgia, sciatica. Data reviewed: vital signs, nurses kb notes. Test considered but Not performed: Labs: UA considered but pt has tenderness to mid upper left buttock, no urinary symptoms/cva tenderness. Counseling: I had a detailed discussion with the patient and/or guardian regarding the historical points, exam findings, and any diagnostic results supporting the discharge/admit diagnosis, the need for outpatient follow up, a family practitioner, to return to the emergency department if symptoms worsen or persist or if there are any questions or concerns that arise at home. Administered Medications: 14:43 Drug: Ketorolac IM 30 mg IM once Route: IM; Site: right deltoid; hb 15:02 Follow up: Response: No adverse reaction ll1 14:44 Drug: Dexamethasone IM 10 mg IM once Route: IM; Site: left deltoid; hb 15:02 Follow up: Response: No adverse reaction ll1 Disposition Summary: 01/07/24 14:49 Discharge Ordered Notes: Location: Home kb Condition: Stable kb Diagnosis - Sciatica, left side kb Followup: kb - With: Emergency Department - When: As needed - Reason: Worsening of condition Followup: kb - With: Private Physician - When: 2 - 3 days - Reason: Recheck today's complaints, Continuance of care, Re-evaluation by your physician Discharge Instructions: - Discharge Summary Sheet kb - Sciatica, [id number] kb Forms: - Medication Reconciliation Form kb - Antibiotic Education kb - Prescription Opioid Use kb - Patient Portal Instructions kb - Leadership Thank You Letter kb - Family Work Release Prescriptions: - Prednisone 20 mg Oral Tablet - take 1 tablet ORAL route once daily for 5 days; 5 tablet; Refills: 0, Product kb Selection Permitted - Diclofenac Sodium 75 mg Oral tablet, delayed release (enteric coated) - take 1 tablet ORAL route 2 times per day As needed; 30 tablet; Refills: 0, kb Product Selection Permitted - orphenadrine citrate 100 mg Oral Tablet Sustained Release - take 1 tablet ORAL route 2 times per day As needed; 20 tablet; Refills: 0, kb Product Selection Permitted Signatures: Maia Almaguer, PATIENT TRANSPORT ORDERLY-C PATIENT TRANSPORT ORDERLY-Ckb Malinda Esqueda, RN RN hb Giles Grubbs RN ll1
--- NOTE | 2024-01-07 14:50 | ER ---
Nurse's Notes [facility] Name: Ericka Wallace Age: 43 yrs Sex: Female : 1980 Arrival Date: 01/07/2024 Time: 14:23 Bed IW1 Private MD: Diagnosis: Sciatica, left side Presentation: 01/06 14:36 Chief complaint: Left low back pain that radiates to left leg since this morning. hb Coronavirus screen: At this time, the client does not indicate any symptoms associated with coronavirus-19. Ebola Screen: No symptoms or risks identified at this time. Initial Sepsis Screen: Does the patient meet any 2 criteria? No. Patient's initial sepsis screen is negative. Does the patient have a suspected source of infection? No. Patient's initial sepsis screen is negative. Risk Assessment: Do you want to hurt yourself or someone else? Patient reports no desire to harm self or others. Onset of symptoms was January 07, 2024. 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 - Infectious Disease History:: Denies. - Social history:: Smoking status: Patient reports the use of cigarette tobacco products, smokes one-half pack cigarettes per day. Screenin:00 [facility] ED Fall Risk Assessment (Adult) History of falling in the last 3 months, ll1 including since admission No falls in past 3 months (0 pts) Confusion or Disorientation No (0 pts) Intoxicated or Sedated No (0 pts) Impaired Gait No (0 pts) Mobility Assist Device Used No (0 pt) Altered Elimination No (0 pt) Score/Fall Risk Level 0 - 2 = Low Risk Maintained a safe environment, Hourly rounding (assess needs \T\ fall precautionary measures) done. Abuse screen: Denies threats or abuse. Nutritional screening: No deficits noted. Tuberculosis screening: No symptoms or risk factors identified. Assessment: 15:00 General: Appears uncomfortable, Behavior is calm, cooperative, appropriate for age. ll1 Pain: Complains of pain in left leg Quality of pain is described as aching. Neuro: No deficits noted. Musculoskeletal: Reports pain in left leg. 15:01 Neuro: Level of Consciousness is awake, alert, obeys commands. ll1 Vital Signs: 14:36 BP 143 / 84; Pulse 70; Resp 18; Temp 97.9; Pulse Ox 100% on R/A; Weight 102.06 kg; hb Height 5 ft. 3 in. ; Pain 10/10; 14:36 Body Mass Index 39.86 (102.06 kg, 160.02 cm) hb 14:36 Pain Scale: Adult hb ED Course: 14:27 Patient arrived in ED. ra3 14:28 [facility] kb 14:28 Arnav Calles MD is Attending Physician. kb 14:37 Triage completed. hb 14:38 Arm band placed on. hb 15:00 No provider procedures requiring assistance completed. Patient did not have IV access ll1 during this emergency room visit. 15:01 Patient has correct armband on for positive identification. Call light in reach. ll1 Provided Education on: Return to ED for worsening symptoms. Cardiac monitoring not applicable on this patient. Administered Medications: 14:43 Drug: Ketorolac IM 30 mg IM once Route: IM; Site: right deltoid; hb 15:02 Follow up: Response: No adverse reaction ll1 14:44 Drug: Dexamethasone IM 10 mg IM once Route: IM; Site: left deltoid; hb 15:02 Follow up: Response: No adverse reaction ll1 Medication: 15:01 VIS not applicable for this client. ll1 Outcome: 14:49 Discharge ordered by . kb 15:01 Discharged to home ambulatory, ll1 15:01 Condition: stable 15:01 Discharge instructions given to patient, Instructed on discharge instructions, follow up and referral plans. medication usage, Demonstrated understanding of instructions, follow-up care, medications, Prescriptions given X 3, 15:02 Patient left the ED. ll1 Signatures: Maia Almaguer FNP-C FNP-Ckb Baxter, Heather, RN RN Giles Grubbs RN RN ll1 Gaby Reyes ra3
[2024-01-07 18:19] VITALS: BP 143/84; TEMP 97.9; O2SAT 100
== END 2024-01-07 15:02 | disposition home or self-care (01) ==
LOC: ER 14:23
DX: M54.32 Sciatica, left side (principal)
CPT/HCPCS: 96372; 99284; J1100

== ENCOUNTER 2024-02-13 08:56 | Emergency (ER) | payer SELFPAY ==
--- OUTSIDE RECORDS SUMMARY | 2024-02-13 09:03 | XMS REPORT | Continuity of Care Document ---
Author Name Unknown Address [address] [facility] [address] [place] [address] [facility] thconnect Address [address] [facility] [address] [facility] [address] [place] [address] Care Team Providers Care Skin Care Consultant Name Role Phone Paul Lopez [facility] Primary Care Physician KEE ASKEW Attending Clinician Unavailable PEDRO AGUIRRE Attending Clinician Unavailab STAR Cabrera Attending Clinician UnavailStar Brownlee MD Attending Clinician [phone] ALEX PITT Attending Clinician Unavailable Alex Pitt MD Attending Clinician [phone] ROSEMARY CHILDERS Attending Clinician Unavailable Rosemary Childers MD Attending Clinician [phone] Doctor Unassigned, [place] Attending Clinician U TERESSA Plummer Attending Clinician Unavailab Teressa Espino DO Attending Clinician [phone] [facility], [facility] Neurology Resident Attending Cli felicity Unavailable NUNU BAKER Attending Clinician UnavailNunu Ventura Attending Clinician [phone] Glen ROCHA Attending Clinician Unavailable Glen Baron Attending Clinician [phone] LUIS DUNCAN Attending Clinician Unavailable Luis Reynolds Attending Clinician [phone] Sveta MYERS Evans S Attending Clinician [phone] YOSEPH PAZ Attending Clinician Unavailable Rhonda Joya Attending Clinician [phone] ALEX PITT Admitting Clinician Unavailable NUNU BAKER Admitting Clinician Unavaila ble Payers Payer Name Policy Type Policy Number Effective Date Expirati on Date Source [employer] PREFERRED GENERIC [id number] 2020 00:00:00 MEDICAID PENDING PENDING 2021 00:00:00 Problems Condition Name Condition Details Condition Category Status Onset Date Resolution Date Last Treatment Date Treating Clinician Comments Source Hernia, abdominal Hernia, abdominal Disease Active 08-24 00:00: 00 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 Menstrual migraine without status migrainosu s, not intractabl e Menstrual migraine without status migrainosu s, not intractabl e Disease Active 08-11 00:00: 00 [facility] Essential hypertensi on Essential hypertensi on Disease Active 10-10 00:00: 00 Overview: Formattin g of this note might be different from the original. 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 Anemia of mother in , condition Anemia of mother in , condition Disease Active 10-10 00:00: 00 [facility] Anemia of mother in , condition Anemia of mother in , condition Disease Recurre nce 10-10 00:00: 00 [facility] Tobacco use disorder Tobacco use disorder Disease Active 08-12 00:00: 00 [facility] Intramural leiomyoma of uterus Intramural leiomyoma of uterus Disease Active 06-06 00:00: 00 Overview: Formattin g of this note might be different from the original. USG 08/08- 6.9 x 5.5 x 5.6cm USG 06/06- 6.0 x 4.7 x 5.6cm- lower right segment [facility] Blurry vision Blurry vision Disease Active 2012-06 00:00: 00 [facility] Immune to varicella Immune to varicella Disease Active 2012-06 00:00: 00 [facility] Rubella immune Rubella immune Disease Active 2012-06 00:00: 00 [facility] Morbid obesity Morbid obesity Disease Active 2012-06 00:00: 00 [facility] Allergies, Adverse Reactions, Alerts Allergy Name Allergy Type Status Severity Reaction(s) Onset Date Inactive Date Treating Clinician Comments Source NO KNOWN ALLERGIE S Drug Class Active [facility] Social History Social Habit Start Date Stop Date Quantity Comments Source History of tobacco use Cigarette Smoker [facility] Gender identity [facility] Alcohol intake 2023-09-04 00:00:00 2023-09-04 00:00:00 Current non-drinker of alcohol (finding) [facility] History of Social function 2023-09-04 00:00:00 2023-09-04 00:00:00 [facility] Exposure to SARS-CoV-2 (event) 2022-09-17 00:00:00 2022-09-27 10:30:00 Not sure [facility] Cigarettes smoked current (pack per day) - Reported 2013-09-11 00:00:00 2013-09-11 00:00:00 [facility] Tobacco Comment 2013-09-11 00:00:00 2013-09-11 00:00:00 Trying to quit [facility] Tobacco use and exposure 2013-09-11 00:00:00 2013-09-11 00:00:00 Smokeless tobacco non-user [facility] Sex Assigned At 1980 00:00:00 1980 00:00:00 [facility] Smoking Status Start Date Stop Date Source Smokes tobacco daily 2013-09-11 00:00:00 [facility] Medications Ordered Medication Name Filled Medication [...] ONCE, 1 dose, On Sun09/04/23 at 2030, [facility] diphenhydrA MINE (BENADRYL) injection 25 mg 09-04 00:45: 00 09-04 00:48 :00 No 25mg 25 mg, Slow IV Push, ONCE, 1 dose, On Sun09/04/23 at 1945, [facility] metoclopram hadley HCl (REGLAN) injection 10 mg 09-04 00:45: 00 09-04 00:48 :00 No 10mg 10 mg, Slow IV Push, ONCE, 1 dose, On Sun09/04/23 at 1945, [facility] ketorolac (TORADOL) injection 30 mg 07-03 17:00: 00 07-03 16:24 :00 No 30mg 30 mg, Slow IV Push, ONCE, 1 dose, On Sun07/03/23 at 1100, [facility] NaCl 0.9% (NS) bolus infusion 1,000 mL 07-03 17:00: 00 07-03 17:50 :00 No 1000mL at 999 mL/hr, 1,000 mL, IV Infusion, ONCE, 1 dose, On Sun07/03/23 at 1100, [facility] dexamethaso ne sod phos PF injection 10 mg 07-03 16:15: 00 07-03 16:24 :00 No 10mg 10 mg, Slow IV Push, ONCE, 1 dose, On Sun07/03/23 at 1015, [address] [facility] metoclopram hadley HCl (REGLAN) injection 10 mg 07-03 16:15: 00 07-03 16:24 :00 No 10mg 10 mg, Slow IV Push, ONCE, 1 dose, On Sun07/03/23 at 1015, [facility] butalbital- acetaminoph en-caff 50-325-40 mg tablet 07-03 00:00: 00 Yes [id number] 1{tbl} Take 1 tablet by mouth every 6 (six) hours as needed (headache) . [facility] ondansetron 4 mg tablet 07-03 00:00: 00 Yes [id number] 1 or 2 tablets every 8 hours as needed for nausea [facility] predniSONE 20 mg tablet 07-03 00:00: 00 07-11 05:59 :00 No [id number] 40mg Take 2 tablets by mouth in the morning for [address] [facility] TAKE 1 TABLET EVERY 8 HOURS NEEDED. 06-27 00:00: 00 10-15 00:00 :00 No 4 [facility]em [facility] TAKE 1 TABLET EVERY 6 HOURS WITH FOOD. 06-27 00:00: 00 10-15 00:00 :00 No 800 [facility] hyoscyamine sulfate (LEVSIN/SL) sublingual tablet 0.25 mg 06-22 04:00: 00 06-22 03:26 :00 No .25mg 0.25 mg, Sublingual , ONCE NOW, 1 dose, On Sun06/21/23 at 2200, Routine [facility] NaCl 0.9% (NS) bolus infusion 1,000 mL 06-22 03:45: 00 06-22 05:00 :00 No 1000mL at 999 mL/hr, 1,000 mL, IV Piggyback, ONCE, 1 dose, On Sun06/21/23 at 2145, STAT [facility] ketorolac (TORADOL) injection 30 mg 06-22 03:45: 00 06-22 03:25 :00 No 30mg 30 mg, Slow IV Push, ONCE NOW, 1 dose, On Krystle 06/21/23 at 2145, [facility] ondansetron (ZOFRAN (PF)) injection 4 mg 06-22 03:00: 00 06-22 03:25 :00 No 4mg 4 mg, Slow IV Push, ONCE, 1 dose, On Krystle 06/21/23 at 2100, [facility] famotidine (PEPCID) 20 mg tablet 06-22 00:00: 00 Yes [id number] 20mg Take 1 tablet by mouth in the morning and 1 tablet in the evening. [facility] ondansetron 4 mg disintegrat ing tablet 06-22 00:00: 00 Yes [id number] 4mg Take 1 tablet by mouth every 8 (eight) hours as needed for Nausea and Vomiting (N/V). [facility] hyoscyamine sulfate (LEVSIN/SL) 0.125 mg sublingual tablet 06-22 00:00: [id number] 2 tablets under the tongue every 6 (six) hours as needed (Abdominal pain or cramping). [facility] ketorolac 10 mg tablet 06-22 00:00: 00 Yes [id number] 10mg Take 1 tablet by mouth every 6 (six) hours as needed for Pain (scale 4-6) or Pain (scale 7-10). [facility] acetaminoph en (TYLENOL ARTHRITIS PAIN) 650 mg CR tablet 06-22 00:00: 00 Yes [id number] 650mg Take 1 tablet by mouth every 8 (eight) hours as needed for Pain. [facility] TAKE 1 TABLET DAILY. 2022-06 00:00: 00 10-15 00:00 :00 No [id number] [facility] W[facility] NaCl 0.9% (NS) bolus infusion 1,000 mL 12-21 01:15: 00 12-21 01:45 :00 No 1000mL at 999 mL/hr, 1,000 mL, IV Infusion, ONCE, 1 dose, On Sun12/20/22 at 2015, STAT [facility] dexamethaso ne sod phos PF injection 10 mg 12-21 00:30: 00 12-21 00:54 :00 No 10mg 10 mg, Slow IV Push, ONCE, 1 dose, On Sun12/20/22 at 1930, [address] [facility] diphenhydrA MINE (BENADRYL) injection 25 mg 12-21 00:30: 00 12-21 00:54 :00 No 25mg 25 mg, Slow IV Push, ONCE, 1 dose, On Sun12/20/22 at 1930, STAT [facility] metoclopram hadley HCl (REGLAN) injection 10 mg 12-21 00:15: 00 12-21 00:54 :00 No 10mg 10 mg, Slow IV Push, ONCE, 1 dose, On Sun12/20/22 at 1915, [facility] INJECT 1 ML INTRAMUSCUL TORERS ONCE EVERY 3 MONTHS. 12-06 00:00: 00 10-15 00:00 :00 No 150 [facility]em W[facility] TAKE 1 TABLET DAILY. 12-06 00:00: 00 10-15 00:00 :00 No [id number] [facility] ketorolac (TORADOL) injection 30 mg 09-27 16:30: 00 09-27 15:43 :00 No 30mg 30 mg, Slow IV Push, ONCE, 1 dose, On Sun09/27/22 at 1130, Routine [facility] NaCl 0.9% (NS) bolus infusion 1,000 mL 09-27 16:30: 00 09-27 16:54 :00 No 1000mL at 999 mL/hr, 1,000 mL, IV Infusion, ONCE, 1 dose, On Sun09/27/22 at 1130, [facility] butalbital- acetaminoph en-caff (ESGIC) 50-325-40 mg tablet 1 tablet 09-27 15:45: 00 09-27 15:44 :00 No 1{tbl} 1 tablet, Oral, ONCE, 1 dose, On Sun09/27/22 at 1045, [facility] dexamethaso ne sod phos PF injection 10 mg 09-27 15:45: 00 09-27 15:44 :00 No 10mg 10 mg, Slow IV Push, ONCE, 1 dose, On Sun09/27/22 at 1045, [address] [facility] diphenhydrA MINE (BENADRYL) injection 25 mg 09-27 15:45: 00 09-27 15:44 :00 No 25mg 25 mg, Slow IV Push, ONCE, 1 dose, On Sun09/27/22 at 1045, STAT [facility] metoclopram hadley HCl (REGLAN) injection 10 mg 09-27 15:45: 00 09-27 15:44 :00 No 10mg 10 mg, Slow IV Push, ONCE, 1 [facility], [facility] 18 00:00: 00 10-15 00:00 :00 No Cem Wahl TAKE 1 TABLET DAILY. 3-06 00:00: 00 10-15 00:00 :00 No [facility] butalbital- acetaminoph en-caff (ESGIC) 50-325-40 mg tablet 2 tablet 07-20 01:00: 00 07-20 01:08 :00 No 2{tbl} 2 tablet, Oral, ONCE, 1 dose, On Sun07/19/22 at 1900, [facility] ketorolac (TORADOL) injection 30 mg 07-19 15:30: 00 07-19 14:58 :00 No 30mg 30 mg, Slow IV Push, ONCE, 1 dose, On Sun07/19/22 at 0930, Routine [facility] NaCl 0.9% (NS) bolus infusion 1,000 mL 07-19 15:30: 00 07-19 16:40 :00 No 1000mL at 999 mL/hr, 1,000 mL, IV Infusion, ONCE, 1 dose, On Sun07/19/22 at 0930, [facility] dexamethaso ne sod phos PF injection 10 mg 07-19 14:45: 00 07-19 14:58 :00 No 10mg 10 mg, Slow IV Push, ONCE, 1 dose, On Sun07/19/22 at 0845, [address] [facility] diphenhydrA MINE (BENADRYL) injection 25 mg 07-19 14:45: 00 07-19 14:58 :00 No 25mg 25 mg, Slow IV Push, ONCE, 1 dose, On Sun07/19/22 at 0845, STAT [facility] metoclopram hadley HCl (REGLAN) injection 10 mg 07-19 14:45: 00 07-19 14:58 :00 No 10mg 10 mg, Slow IV Push, ONCE, 1 dose, On Sun07/19/22 at 0845, [facility] butalbital- acetaminoph en-caff 50-325-40 mg tablet 07-19 00:00: 00 Yes [id number] 1{tbl} Take 1 tablet by mouth every 4 (four) hours as needed for Pain (scale 7-10). [facility] ibuprofen 600 mg tablet 02-13 00:00: 00 Yes [id number] 600mg Take 1 tablet by mouth every 6 (six) hours as needed for Pain (scale 4-6). [facility] benzonatate 200 mg capsule 02-13 00:00: 00 Yes [id number] 200mg Take 1 capsule by mouth 3 (three) times daily as needed for Cough for up to [address] [facility] ondansetron 4 mg disintegrat ing tablet 02-13 00:00: 00 Yes [id number] 4mg Take 1 tablet by mouth every 8 (eight) hours as needed for Nausea and Vomiting (N/V). [facility] lisinopril 20 mg-hydrochl orothiazide [...] dose, On Sun10/21/21 at 1300, [address] [facility] ketorolac (TORADOL) injection 30 mg 10-21 17:45: 00 10-21 17:00 :00 No 30mg 30 mg, Slow IV Push, ONCE, 1 dose, On Sun10/21/21 at 1245, [facility] diphenhydrA MINE (BENADRYL) injection 25 mg 10-21 17:45: 00 10-21 16:58 :00 No 25mg 25 mg, Slow IV Push, ONCE, 1 dose, On Sun10/21/21 at 1245, STAT [facility] metoclopram hadley HCl (REGLAN) injection 10 mg 10-21 17:45: 00 10-21 16:57 :00 No 10mg 10 mg, Slow IV Push, ONCE, 1 dose, [facility] 1245[facility] 0.9% (NS) bolus infusion 1,000 mL 10-21 17:45: 00 10-21 18:23 :00 No 1000mL at 999 mL/hr, 1,000 mL, IV Infusion, ONCE, 1 dose, [facility] 1245[facility] Dose Unknown 3-12 00:00: 00 No Dose [...] Urine
D uration of Therapy: [address] [facility] butalbital- acetaminoph en-caff (ESGIC) 50-325-40 mg tablet 1 tablet 2020-06 00:45: 00 05-26 23:52 :00 No 1{tbl} 1 tablet, Oral, ONCE, 1 dose, On Krystle 05/26/21 at 1845, [facility] dexamethaso ne (DECADRON PHOSPHATE) injection 10 mg 2020-06 00:45: 00 05-26 23:52 :00 No 10mg 10 mg, IV Push, ONCE, 1 dose, On Krystle 05/26/21 at 1845, STAT [facility] diphenhydrA MINE (BENADRYL) injection 12.5 mg 2020-06 22:30: 00 05-26 22:39 :00 No 12.5mg 12.5 mg, Slow IV Push, ONCE, 1 dose, On Krystle 05/26/21 at 1630, STAT [facility] metoclopram hadley HCl (REGLAN) injection 10 mg 2020-06 22:30: 00 05-26 22:39 :00 No 10mg 10 mg, Slow IV Push, ONCE, 1 dose, On Krystle 05/26/21 at 1630, [facility] ketorolac (TORADOL) injection 30 mg 2020-06 22:30: 00 05-26 22:39 :00 No 30mg 30 mg, Slow IV Push, ONCE, 1 dose, On Krystle 05/26/21 at 1630, [facility] NaCl 0.9% (NS) bolus infusion 1,000 mL 2020-06 22:30: 00 05-26 23:52 :00 No 1000mL at 999 mL/hr, 1,000 mL, IV Infusion, ONCE, 1 dose, On Krystle 05/26/21 at 1630, [facility] butalbital- acetaminoph en-caff 50-325-40 mg tablet 2020-06 00:00: 00 Yes [id number] 1{tbl} Take 1 tablet by mouth every 4 (four) hours as needed for Pain (scale 7-10). [facility] cephALEXin (KEFLEX) 500 mg capsule 2020-06 00:00: 00 06-03 05:59 :00 No [id number] 500mg Take 1 capsule by mouth 2 (two) times daily for [address] [facility] lisinopril 20 mg-hydrochl orothiazide 12.5 mg tablet 2020-06 00:00: 00 No 1mg lisinopril 20 mg-hydrochl orothiazide 12.5 mg tablet 2020-06 00:00: 00 No 1mg lisinopril 20 mg-hydrochl orothiazide 12.5 mg tablet 2020-06 00:00: 00 Yes 1mg [facility]em Wahl Dose Unknown 2020-06 00:00: 00 No Depo-Volcanologist a 150 mg/mL intramuscul ar suspension 2020-06 00:00: 00 No 1mg/mL Dose Unknown 2020-06 00:00: 00 No Depo-Volcanologist a 150 mg/mL intramuscul ar suspension 2020-06 [...] mg tablet - 00:00: 00 No 1mg lisinopril 20 [...] ONCE, 1 dose, Sun11/19/20 at 1715, [facility] ketorolac (TORADOL) injection 30 mg 11-19 22:15: 00 11-19 21:09 :00 No 30mg 30 mg, Slow IV Push, ONCE, 1 dose, Sun11/19/20 at 1715, [facility]
Fa culty member approving Restricted medication : EVANS YANG [facility] diphenhydrA MINE (BENADRYL) injection 25 mg 11-19 22:15: 00 11-19 21:10 :00 No 25mg 25 mg, Slow IV Push, ONCE, 1 dose, Sun11/19/20 at 1715, STAT [facility] NaCl 0.9% (NS) bolus infusion 1,000 mL 11-19 22:00: 00 11-19 21:52 :00 No 1000mL at 999 mL/hr, 1,000 mL, IV Infusion, ONCE, 1 dose, Sun11/19/20 at 1700, STAT [facility] ondansetron (ZOFRAN (PF)) injection 4 mg 11-19 22:00: 00 11-19 20:58 :00 No 4mg 4 mg, Slow IV Push, ONCE, 1 dose, Sun11/19/20 at 1700, [facility] ondansetron (ZOFRAN ODT) 4 mg disintegrat ing tablet 11-19 00:00: 00 Yes [id number] 4mg Take 1 tablet by mouth every 8 (eight) hours as needed for Nausea and Vomiting (N/V). [facility] medroxyprog esterone 150 mg/mL [...] 20 mg-hydrochl orothiazide 12.5 mg tablet 2019-1 -19 00:00: 00 Yes 1mg [facility] lisinopril 20 mg-hydrochl orothiazide 12.5 mg tablet 2019-0 - 00:00: 00 No 1mg lisinopril 20 mg-hydrochl orothiazide 12.5 mg tablet 2019-0 -17 00:00: 00 No 1mg lisinopril 20 mg-hydrochl orothiazide 12.5 mg tablet 2019-0 02-18 00:00: 00 Yes 1mg [facility] lisinopril 10 mg-hydrochl orothiazide 12.5 mg tablet 2019-0 - 00:00: 00 No 1mg lisinopril 10 mg-hydrochl orothiazide 12.5 mg tablet 2019-0 02-04 00:00: 00 No 1mg lisinopril 10 mg-hydrochl orothiazide 12.5 mg tablet 2019-0 - 00:00: 00 Yes 1mg [facility] loratadine 10 mg tablet 2019-0 5-29 00:00: 00 No 1mg lisinopril 10 mg-hydrochl orothiazide 12.5 mg tablet 2019-0 5-29 00:00: 00 No 1mg loratadine 10 mg tablet 2019-0 5-29 00:00: 00 No 1mg lisinopril 10 mg-hydrochl orothiazide 12.5 mg tablet 2019-0 5-29 00:00: 00 No 1mg loratadine 10 mg tablet 2019-0 5-29 00:00: 00 Yes 1mg [facility] lisinopril 10 mg-hydrochl orothiazide 12.5 mg tablet 2019-0 5-29 00:00: 00 Yes 1mg [facility]em W[facility] Wellbutrin SR 150 mg tablet, 12 hr sustained-r elease 2019-0 1-10 00:00: 00 No 1mg loratadine 10 mg tablet 2019-0 1-10 00:00: 00 No 1mg lisinopril 10 mg-hydrochl orothiazide 12.5 mg tablet 2019-0 1-10 00:00: 00 No 1mg Wellbutrin SR 150 [...] 50-325-40 mg tablet 2018-06 00:00: 00 Yes [id number] 1{tbl} Take 1 tablet by mouth every 6 (six) hours as needed for Pain (scale 4-6). [facility] HYDROcodone -acetaminop hen (NORCO) 10-325 mg tablet 1 tablet 01-12 02:30: 00 01-12 14:29 :00 No 1{tbl} 1 tablet, Oral, ONCE NOW, 1 dose, 01/11/19 at 2130, Routine [facility] ketorolac (TORADOL) injection 15 mg 01-12 01:30: 00 01-12 00:40 :00 No 15mg 15 mg, Slow IV Push, ONCE, 1 dose, 01/11/19 at 2030, [facility]
Fa [facility] member approving Restricted medication : RHONDA PERKINS III [facility] diphenhydrA MINE (BENADRYL) injection 25 mg 01-12 01:30: 00 01-12 00:40 :00 No 25mg 25 mg, Slow IV Push, ONCE, 1 dose, 01/11/19 at 2030, STAT
IN DICATION: DESENSITIZ ATION PROTOCOL [facility] metoclopram hadley HCl (REGLAN) injection 10 mg 01-12 01:30: 01-12 00:40 :00 No 10mg 10 mg, Slow IV Push, ONCE, 1 dose, 01/11/19 at 2030, [facility] NaCl 0.9% (NS) bolus infusion 1,000 mL 01-12 01:30: 00 01-12 01:32 :00 No 1000mL at 999 mL/hr, 1,000 mL, IV Infusion, ONCE, 1 dose, 01/11/19 at 2030, STAT [facility] amitriptyli ne 25 mg tablet 11-07 00:00: 00 Yes Take one tablet per night as tolerated for one week then increase as tolerated to 2 tablets per night thereafter [facility] SUMAtriptan 25 mg tablet 11-07 00:00: 00 Yes Take one table at headache onset and one additional tablet 2 hours later if no relief. Not to exceed 2 pills in 24 hours or 9 days / month [facility] acetaZOLAMI DE 250 mg tablet 09-07 00:00: 00 Yes [id number] 500mg Take 2 tablets by mouth 2 (two) times daily. [facility] topiramate (TOPAMAX) 50 mg tablet 09-07 00:00: 00 Yes [id number] 50mg Take 1 tablet by mouth 2 (two) times daily. [facility] Immunizations Ordered Immunization Name Filled Immunization Name Date Status Comments Source TDAP 2013-06-16 00:00:00 Completed [facility] TDAP 2013-06-16 00:00:00 Completed [facility] TDAP 2013-06-16 00:00:00 Completed [facility] TDAP 2013-06-16 00:00:00 Completed [facility] TDAP 2013-06-16 00:00:00 Completed [facility] TDAP 2013-06-16 00:00:00 Completed [facility] TDAP 2013-06-16 00:00:00 Completed [facility] TDAP 2013-06-16 00:00:00 Completed [facility] Tdap 2013-06-16 00:00:00 Completed [facility] TDAP 2013-06-16 00:00:00 Completed [facility] Tdap 2013-06-16 00:00:00 Completed [facility] TDAP 2013-06-16 00:00:00 Completed [facility] Influenza Virus Vaccine (3+ yrs) 2013-03-28 00:00:00 Completed [facility] Influenza Virus Vaccine (3+ yrs) 2013-03-28 00:00:00 Completed [facility] Influenza Virus Vaccine (3+ yrs) 2013-03-28 00:00:00 Completed [facility] Influenza Virus Vaccine (3+ yrs) 2013-03-28 00:00:00 Completed [facility] Influenza Virus Vaccine (3+ yrs) 2013-03-28 00:00:00 Completed [facility] Influenza Virus Vaccine (3+ yrs) 2013-03-28 00:00:00 Completed [facility] Influenza Virus Vaccine (3+ yrs) 2013-03-28 00:00:00 Completed [facility] Influenza Virus Vaccine (3+ yrs) 2013-03-28 00:00:00 Completed [facility] Influenza Virus Vaccine (3+ yrs) 2013-03-28 00:00:00 Completed [facility] Influenza Virus Vaccine (3+ yrs) 2013-03-28 00:00:00 Completed [facility] Influenza Virus Vaccine (3+ yrs) 2013-03-28 00:00:00 Completed [facility] Influenza Virus Vaccine (3+ yrs) 2013-03-28 00:00:00 Completed [facility] Td 1998-01-17 00:00:00 Completed [facility] Td 1998-01-17 00:00:00 Completed [facility] Td 1998-01-17 00:00:00 Completed [facility] Td 1998-01-17 00:00:00 Completed [facility] TD, NOS 1998-01-17 00:00:00 Completed [facility] TD, NOS 1998-01-17 00:00:00 Completed [facility] TD, NOS 1998-01-17 00:00:00 Completed [facility] TD, NOS 1998-01-17 00:00:00 Completed [facility] Td 1998-01-17 00:00:00 Completed [facility] TD, NOS 1998-01-17 00:00:00 Completed [facility] Td 1998-01-17 00:00:00 Completed [facility] Td 1998-01-17 00:00:00 Completed [facility] TD, NOS Unknown Completed [facility] Influenza Virus Vaccine (3+ yrs) Unknown Completed [facility] TDAP Unknown Completed [facility] TD, NOS Unknown Completed [facility] Influenza Virus Vaccine (3+ yrs) Unknown Completed [facility] TDAP Unknown Completed [facility] TD, NOS Unknown Completed [facility] Influenza Virus Vaccine (3+ yrs) Unknown Completed [facility] TDAP Unknown Completed [facility] TD, NOS Unknown Completed [facility] Influenza Virus Vaccine (3+ yrs) Unknown Completed [facility] TDAP Unknown Completed [facility] [facility] TD, NOS Unknown Completed [facility] Influenza Virus Vaccine (3+ yrs) Unknown Completed [facility] TDAP Unknown Completed [facility] Vital Signs Vital Name Observation Time Observation Value Comments S ource Systolic blood pressure 2023-09-05 02:05:00 110 mm[Hg] [facility] Diastolic blood pressure 2023-09-05 02:05:00 80 mm[Hg] [facility] Heart rate 2023-09-05 02:05:00 76 /min [facility] Body temperature 2023-09-05 02:05:00 37.06 Yuliana [facility] Respiratory rate 2023-09-05 02:05:00 17 /min [facility] Oxygen saturation in Arterial blood by Pulse oximetry 2023-09-05 02:05:00 97 /min [facility] Body height 2023-09-04 23:12:00 160 cm [facility] Body weight 2023-09-04 23:12:00 99.791 kg [facility] BMI 2023-09-04 23:12:00 38.97 kg/m2 [facility] Systolic blood pressure 2023-07-03 18:00:00 126 mm[Hg] [facility] Diastolic blood pressure 2023-07-03 18:00:00 78 mm[Hg] [facility] Heart rate 2023-07-03 18:00:00 64 /min [facility] Respiratory rate 2023-07-03 18:00:00 18 /min [facility] Oxygen saturation in Arterial blood by Pulse oximetry 2023-07-03 18:00:00 100 /min [facility] Body temperature 2023-07-03 15:47:00 37.22 Yuliana [facility] Body height 2023-07-03 15:47:00 160 cm [facility] Body weight 2023-07-03 15:47:00 102.195 kg [facility] BMI 2023-07-03 15:47:00 39.91 kg/m2 [facility] Systolic blood pressure 2023-06-22 06:10:00 104 mm[Hg] [facility] Diastolic blood pressure 2023-06-22 06:10:00 68 mm[Hg] [facility] Heart rate 2023-06-22 06:10:00 68 /min [facility] Body temperature 2023-06-22 06:10:00 37.22 Yuliana [facility] Respiratory rate 2023-06-22 06:10:00 16 /min [facility] Oxygen saturation in Arterial blood by Pulse oximetry 2023-06-22 06:10:00 100 /min [facility] Body height 2023-06-22 02:45:00 160 cm [facility] Body weight 2023-06-22 02:45:00 99.791 kg [facility] BMI 2023-06-22 02:45:00 38.97 kg/m2 [facility] Systolic blood pressure 2022-12-21 02:55:53 117 mm[Hg] [facility] Diastolic blood pressure 2022-12-21 02:55:53 70 mm[Hg] [facility] Heart rate 2022-12-21 02:55:53 79 /min [facility] Respiratory rate 2022-12-21 02:55:53 15 /min [facility] Oxygen saturation in Arterial blood by Pulse oximetry 2022-12-21 02:55:53 100 /min [facility] Body temperature 2022-12-20 23:43:00 37.28 Yuliana [facility] Body height 2022-12-20 23:43:00 160 cm [facility] Body weight 2022-12-20 23:43:00 99.791 kg [facility] BMI 2022-12-20 23:43:00 38.97 kg/m2 [facility] Systolic blood pressure 2022-09-27 16:00:00 122 mm[Hg] [facility] Diastolic blood pressure 2022-09-27 16:00:00 82 mm[Hg] [facility] Heart rate 2022-09-27 16:00:00 63 /min [facility] Respiratory rate 2022-09-27 16:00:00 18 /min [facility] Oxygen saturation in Arterial blood by Pulse oximetry 2022-09-27 16:00:00 100 /min [facility] Body temperature 2022-09-27 15:29:00 36.89 Yuliana [facility] Body height 2022-09-27 15:29:00 160 cm [facility] Body weight 2022-09-27 15:29:00 104.327 kg [facility] BMI 2022-09-27 15:29:00 40.74 kg/m2 [facility] Systolic blood pressure 2022-07-20 02:15:22 138 mm[Hg] [facility] Diastolic blood pressure 2022-07-20 02:15:22 78 mm[Hg] [facility] Heart rate 2022-07-20 02:15:22 69 /min [facility] Body temperature 2022-07-20 02:15:22 36.61 Yuliana [facility] Respiratory rate 2022-07-20 02:15:22 16 /min [facility] Oxygen saturation in Arterial blood by Pulse oximetry 2022-07-20 02:15:22 100 /min [facility] Body height 2022-07-20 00:24:00 160 cm [facility] Body weight 2022-07-20 00:24:00 104.327 kg [facility] BMI 2022-07-20 00:24:00 40.74 kg/m2 [facility] Systolic blood pressure 2022-07-19 17:30:33 124 mm[Hg] [facility] Diastolic blood pressure 2022-07-19 17:30:33 61 mm[Hg] [facility] Heart rate 2022-07-19 17:30:33 65 /min [facility] Body temperature 2022-07-19 17:30:33 37.11 Yuliana [facility] Respiratory rate 2022-07-19 17:30:33 16 /min [facility] Oxygen saturation in Arterial blood by Pulse oximetry 2022-07-19 17:30:33 99 /min [facility] Body height 2022-07-19 14:34:00 160 cm [facility] Body weight 2022-07-19 14:34:00 104.327 kg [facility] BMI 2022-07-19 14:34:00 40.74 kg/m2 [facility] Systolic blood pressure 2022-02-13 12:56:00 136 mm[Hg] [facility] Diastolic blood pressure 2022-02-13 12:56:00 81 mm[Hg] [facility] Heart rate 2022-02-13 12:56:00 79 /min [facility] Body temperature 2022-02-13 12:56:00 36.44 Yuliana [facility] Respiratory rate 2022-02-13 12:56:00 15 /min [facility] Body height 2022-02-13 12:56:00 160 cm [facility] Body weight 2022-02-13 12:56:00 104.327 kg [facility] BMI 2022-02-13 12:56:00 40.74 kg/m2 [facility] Oxygen saturation in Arterial blood by Pulse oximetry 2022-02-13 12:56:00 100 /min [facility] Systolic blood pressure 2021-10-21 18:24:00 128 mm[Hg] [facility] Diastolic blood pressure 2021-10-21 18:24:00 76 mm[Hg] [facility] Heart rate 2021-10-21 18:24:00 72 /min [facility] Respiratory rate 2021-10-21 18:24:00 18 /min [facility] Oxygen saturation in Arterial blood by Pulse oximetry 2021-10-21 18:24:00 100 /min [facility] Body temperature 2021-10-21 16:40:00 36.61 Yuliana [facility] Body height 2021-10-21 16:40:00 160 cm [facility] Body weight 2021-10-21 16:40:00 104.327 kg [facility] BMI 2021-10-21 16:40:00 40.74 kg/m2 [facility] Systolic blood pressure 2021-05-27 00:00:00 131 mm[Hg] [facility] Diastolic blood pressure 2021-05-27 00:00:00 89 mm[Hg] [facility] Heart rate 2021-05-27 00:00:00 64 /min [facility] Respiratory rate 2021-05-27 00:00:00 19 /min [facility] Oxygen saturation in Arterial blood by Pulse oximetry 2021-05-27 00:00:00 98 /min [facility] Body temperature 2021-05-26 20:20:00 37.28 Yuliana [facility] Body height 2021-05-26 20:20:00 160 cm [facility] Body weight 2021-05-26 20:20:00 66.225 kg [facility] BMI 2021-05-26 20:20:00 25.86 kg/m2 [facility] Systolic blood pressure 2020-11-19 21:52:41 130 mm[Hg] [facility] Diastolic blood pressure 2020-11-19 21:52:41 91 mm[Hg] [facility] Heart rate 2020-11-19 21:52:41 61 /min [facility] Respiratory rate 2020-11-19 21:52:41 16 /min [facility] Oxygen saturation in Arterial blood by Pulse oximetry 2020-11-19 21:52:41 100 /min [facility] Body temperature 2020-11-19 20:21:21 37.06 Yuliana [facility] Body height 2020-11-19 20:19:00 160 cm [facility] Body weight 2020-11-19 20:19:00 68.04 kg [facility] BMI 2020-11-19 20:19:00 26.57 kg/m2 [facility] Systolic blood pressure 2019-01-12 00:29:00 180 mm[Hg] [facility] Diastolic blood pressure 2019-01-12 00:29:00 109 mm[Hg] [facility] Heart rate 2019-01-12 00:29:00 81 /min [facility] Body temperature 2019-01-12 00:29:00 36.44 Yuliana [facility] Respiratory rate 2019-01-12 00:29:00 18 /min [facility] Body height 2019-01-12 00:29:00 160 cm [facility] Body weight 2019-01-12 00:29:00 113.399 kg Simultaneous filing. User may not have seen previous data. [facility] BMI 2019-01-12 00:29:00 44.29 kg/m2 [facility] Oxygen saturation in Arterial blood by Pulse oximetry 2019-01-12 00:29:00 100 /min [facility] BP Systolic 2023-12-20 14:11:00 110 mm[Hg] [...] Rate 2023-06-27 10:06:00 Cem F Vish BP Systolic 2023-06-26 13:52:00 115 mm[Hg] Cem F V[facility] BP Diastolic 2023-06-26 13:52:00 85 mm[Hg] [facility] Weight Measured 2023-06-26 13:52:00 222.40 pounds Cem F V[facility] Height Measured 2023-06-26 13:52:00 62.00 inches [facility] Body Temperature 2023-06-26 13:52:00 98.10 degrees Cem F [facility] Heart Rate 2023-06-26 13:52:00 79.00 /min [facility]em F [facility] Respiratory Rate 2023-06-26 13:52:00 Cem F Vish BP Systolic 2023-05-23 13:29:00 [...] BP Systolic 2022-12-06 13:56:00 112 mm[Hg] Cem Wahl BP Diastolic 2022-12-06 13:56:00 61 mm[Hg] Cem [...] Clinician Source URINALYSIS 2023-09-05 00:18:00 Pedro Aguirre [facility] COMP. METABOLIC PANEL (17000) 2023-09-05 00:17:00 Pedro Aguirre [facility] CBC WITH DIFF 2023-09-05 00:17:00 Pedro Aguirre [facility] POCT TEST 2023-09-05 00:16:00 Heather Aguirre [facility] CBC WITH DIFF 2023-07-03 16:10:00 [place] CONSENT/REFUSAL FOR DIAGNOSIS AND TREATMENT 2023-07-03 15:37:58 Doctor Unassigned, [place] [facility] BASIC METABOLIC PANEL (NA, K, CL, CO2, GLUCOSE, BUN, CREATININE, CA) 2023-06-22 03:24:00 Alex Pitt [facility] CBC WITH DIFF 2023-06-22 03:24:00 Alex Pitt [facility] URINALYSIS 2023-06-22 03:24:00 Alex Pitt [facility] RAPID INFLUENZA A/B 2023-06-22 03:24:00 Norberto Pitt [facility] POCT TEST 2023-06-22 03:24:00 Norberto Pitt [facility] COVID-19 (ID NOW RAPID TESTING) 2023-06-22 03:24:00 Alex Pitt [facility] NOTICE OF PRIVACY PRACTICES 2023-06-22 02:35:43 Doctor Unassigned, [place] [facility] CONSENT/REFUSAL FOR DIAGNOSIS AND TREATMENT 2023-06-22 02:34:04 Doctor Unassigned, [place] [facility] CONSENT/REFUSAL FOR DIAGNOSIS AND TREATMENT 2022-12-20 23:31:05 Doctor Unassigned, [place] [facility] CONSENT/REFUSAL FOR DIAGNOSIS AND TREATMENT 2022-09-27 15:22:33 Doctor Unassigned, [place] [facility] NOTICE OF PRIVACY PRACTICES 2022-07-20 00:18:00 Doctor Unassigned, [place] [facility] CONSENT/REFUSAL FOR DIAGNOSIS AND TREATMENT 2022-07-19 14:28:49 Doctor Unassigned, [place] [facility] COVID-19 (ID NOW RAPID TESTING) 2022-02-13 13:25:00 Glen Rocha [facility] CONSENT/REFUSAL FOR DIAGNOSIS AND TREATMENT 2022-02-13 12:54:56 Doctor Unassigned, [place] [facility] CONSENT/REFUSAL FOR DIAGNOSIS AND TREATMENT 2021-10-21 16:30:34 Doctor Unassigned, [place] [facility] CBC WITH DIFF 2021-05-27 00:13:00 Luis Duncan [facility] BASIC METABOLIC PANEL (NA, K, CL, CO2, GLUCOSE, BUN, CREATININE, CA) 2021-05-26 22:35:00 Luis Duncan [facility] URINALYSIS 2021-05-26 22:35:00 Luis Duncan [facility] RAPID INFLUENZA A/B 2021-05-26 22:35:00 Zarina Duncan [facility] POCT TEST 2021-05-26 22:35:00 Zarina Duncan [facility] COVID-19 (ID NOW RAPID TESTING) 2021-05-26 22:35:00 Luis Duncan [facility] CONSENT/REFUSAL FOR DIAGNOSIS AND TREATMENT 2021-05-26 19:45:50 Doctor Unassigned, [place] [facility] RAPID STREP SCREEN FOR GROUP A 2020-11-19 21:02:00 Evans Yang [facility] POCT TEST 2020-11-19 21:01:00 Evans Yang [facility] COVID-19 (ID NOW RAPID TESTING) 2020-11-19 21:00:00 Evans Yang [facility] LIPASE 2020-11-19 20:59:00 Evans Yang [facility] COMP. METABOLIC PANEL (55351) 2020-11-19 20:59:00 Evans Yang [facility] CBC WITH DIFF 2020-11-19 20:59:00 Evans Yang [facility] CONSENT/REFUSAL FOR DIAGNOSIS AND TREATMENT 2020-11-19 20:09:10 Doctor Unassigned, [place] [facility] COMP. METABOLIC PANEL (91112) 2019-01-12 00:34:00 Rhonda Perkins [facility] CBC WITH DIFFERENTIAL 2019-01-12 00:34:00 Jayy Perkins [facility] URINALYSIS 2019-01-12 00:34:00 Rhonda Perkins [facility] POCT TEST 2019-01-12 00:32:00 Rhonda Perkins [facility] ASSIGNMENT OF BENEFITS 2019-01-12 00:16:49 Docto r Unassigned, [place] [facility] Plan of Care Planned Activity Planned Date Details Comments Source Goal Plan of Care Note [code = 49755-2] Goal Plan of Care Note [code = 50323-1] Goal Plan of Care Note [code = 33015-1] Goal Plan of Care Note [code = 34078-3] Goal Plan of Care Note [code = 44637-8] Goal Plan of Care Note [code = 69031-5] Goal Plan of Care Note [code = 67717-1] Goal Plan of Care Note [code = 42056-3] Goal Plan of Care Note [code = 72198-0] Goal Plan of Care Note [code = 32674-4] Goal Plan of Care Note [code = 67402-9] Goal Plan of Care Note [code = 52802-4] Goal Plan of Care Note [code = 28235-2] Goal Plan of Care Note [code = 12448-4] Goal Plan of Care Note [code = 60290-0] Goal Plan of Care Note [code = 56135-6] Goal Plan of Care Note [code = 56364-7] Goal Plan of Care Note [code = 25053-9] Goal Plan of Care Note [code = 55384-2] Goal Plan of Care Note [code = 95811-5] Goal Plan of Care Note [code = 18085-4] Goal Plan of Care Note [code = 43027-7] Goal Plan of Care Note [code = 33428-3] Goal Plan of Care Note [code = 21345-9] Goal Plan of Care Note [code = 08812-1] Goal Plan of Care Note [code = 29571-4] Goal Plan of Care Note [code = 04638-9] Goal Plan of Care Note [code = 54151-8] Goal Plan of Care Note [code = 95604-8] Goal Plan of Care Note [code = 00060-7] Goal Plan of Care Note [code = 35908-9] Goal Plan of Care Note [code = 24782-8] Goal Plan of Care Note [code = 59884-2] Goal Plan of Care Note [code = 12336-5] Goal Plan of Care Note [code = 31944-6] Goal Plan of Care Note [code = 83307-1] Goal Plan of Care Note [code = 33330-0] Goal Plan of Care Note [code = 11233-1] Encounters Start Date/Time End Date/Time Encounter Type Admission Type Attending [facility] Care Department Encounter ID Source 2021-04-04 02:14:41 Emergency [facility] [id number] [facility] 2024-01-15 13:21:53 2024-01-15 13:21:53 Outpatient [facility] [id number] Cem Wahl 2023-12-20 14:06:43 2023-12-20 14:06:43 Outpatient [facility] [id number] Cem Wahl 2023-12-20 00:00:00 2023-12-20 00:00:00 Outpatient Visit [facility] [id number] Cem Wahl 2023-10-19 14:32:17 2023-10-19 14:32:17 Outpatient [facility] [id number] eCm Wahl 2023-09-17 09:00:00 2023-09-17 09:00:00 Outpatient KEE MARION [facility] [id number] [facility] 2023-09-04 18:14:00 2023-09-04 21:11:00 Emergency [facility] E[facility] [id number] [facility] 2023-09-04 18:14:00 2023-09-04 21:11:00 Emergency Timothy Heatherlisagordon [facility] .2.840.114 350.1.13.10 4.2.7.2.[id number] [facility] 2023-08-01 08:58:51 2023-08-01 08:58:51 Outpatient [facility] [id number] Cem Wahl 2023-07-03 09:48:00 2023-07-03 12:40:00 Emergency X [facility] ERT [id number] [facility] 2023-07-03 09:48:00 2023-07-03 12:40:00 Emergency [place] [facility] 1.2.840.114 350.1.13.10 4.2.7.2.[id number] [facility] 2023-06-27 10:01:14 2023-06-27 10:01:14 Outpatient [facility] [place] [id number] Cem Wahl 2023-06-26 13:46:54 2023-06-26 13:46:54 Outpatient [place] [id number] Cem Wahl 2023-06-21 20:47:00 2023-06-22 00:40:00 Emergency X [facility] ERT [id number] [facility] 2023-06-21 20:47:00 2023-06-22 00:40:00 Emergency Alex Pitt [facility] 1.2.840.114 350.1.13.10 4.2.7.2.[id number] [facility] 2023-05-23 13:25:02 2023-05-23 13:25:02 Outpatient [place] [id number] Cem Archer Vish 2023-05-15 08:08:44 2023-05-15 08:08:44 Outpatient [place] [id number] Cem Archer Vish 2023-02-27 14:06:50 2023-02-27 14:06:50 Outpatient [place] [id number] Cem Archer Vish 2022-12-20 18:45:00 2022-12-20 21:58:00 Emergency X [facility] ERT [id number] [facility] 2022-12-20 18:45:00 2022-12-20 21:58:00 Emergency AlvaradoRosemary [facility] 1.2.840.114 350.1.13.10 4.2.7.2.[id number] [facility] 2022-12-06 13:48:26 2022-12-06 13:48:26 Outpatient [place] [id number] Cem Wahl 2022-09-28 00:00:00 2022-09-28 00:00:00 Patient Secure Msg Doctor Unassigned, [place] [facility] 1.2840.114 350.1.13.10 4.2.7.2.[id number] [facility] 2022-09-27 10:31:00 2022-09-27 11:57:00 Emergency X [facility] ERT [id number] [facility] 2022-09-27 10:31:00 2022-09-27 11:57:00 Emergency Teressa Vargas [facility] 1.20.114 350.1.13.10 4.2.7.2.[id number] [facility] 2022-09-19 15:52:40 2022-09-19 15:52:40 Outpatient [facility] [id number] Cem Wahl 2022-07-24 00:00:00 2022-07-24 00:00:00 Letter (Out) Clinic, [facility] Neurology Resident [facility] 1.2840.114 350.1.13.10 4.2.7.2.[id number] [facility] 2022-07-20 00:00:00 2022-07-20 00:00:00 Patient Secure Msg Doctor Unassigned, [place] [facility] 1.2840.114 350.1.13.10 4.2.7.2.[id number] [facility] 2022-07-19 18:27:00 2022-07-19 20:21:00 Emergency X [facility] ERT [id number] [facility] 2022-07-19 18:27:00 2022-07-19 20:21:00 Emergency Nunu Baker [facility] 1.20.114 350.1.13.10 4.2.7.2.[id number] [facility] 2022-07-19 08:35:00 2022-07-19 11:32:00 Emergency X [facility] ERT [id number] [facility] 2022-07-19 08:35:00 2022-07-19 11:32:00 Emergency Teressa Vargas [facility] 1..840.114 350.1.13.10 4.2.7.2.[id number] [facility] 2022-02-13 07:57:00 2022-02-13 09:24:00 Emergency X [facility] ERT [id number] [facility] 2022-02-13 07:57:00 2022-02-13 09:24:00 Emergency Glen Rocha [facility] 1..840.114 350.1.13.10 4.2.7.2.[id number] [facility] 2022-02-01 00:00:00 2022-02-01 00:00:00 Outpatient Visit [id number] 2022-01-23 00:00:00 2022-01-23 00:00:00 Outpatient Visit [id number] 2021-10-21 11:44:00 2021-10-21 13:25:00 Emergency Bridgette [facility] ERT [id number] [facility] 2021-10-21 11:44:00 2021-10-21 13:25:00 Emergency Teressa Vargas [facility] 1.2.840.114 350.1.13.10 4.2.7.2.[id number] [facility] 2021-05-26 14:22:00 2021-05-26 19:00:00 Emergency X [facility] ERT [id number] [facility] 2021-05-26 14:22:00 2021-05-26 19:00:00 Emergency Luis Duncan [facility] 1.2.840.114 350.1.13.10 4.2.7.2.[id number] [facility] 2020-11-19 15:30:00 2020-11-19 17:02:00 Emergency Evans Yang [facility] 1.2.840.114 350.1.13.10 4.2.7.2.[id number] [facility] 2020-11-19 00:00:00 2020-11-19 00:00:00 Orders Only Doctor Unassigned, [place] [facility] 1.2.840.114 350.1.13.10 4.2.7.2.[id number] [facility] 2020-07-13 09:00:00 2020-07-13 09:28:51 Outpatient YOSEPH TAPIA [facility] [id number] [facility] 2019-01-11 19:23:24 2019-01-11 20:34:00 Emergency Rodrigo Rhonda A [facility] 1.2.840.114 350.1.13.10 4.2.7.2.[id number] [facility] 2019-01-11 00:00:00 2019-01-11 00:00:00 Orders Only Doctor Unassigned, [place] [facility] 1.2840.114 350.1.13.10 4.2.7.2.[id number] [facility] Results Test Description Test Time Test Comments Results Result Co mments Source [facility][id number][facility]2023-[facility]-05 00:55:27* Test Item Value Reference Range Interpretation Comme nts NA (test code = 9955041068) 137 mmol/L 135-145 K (test code = 2359796888) 4.1 mmol/L 3.5-5.0 CL (test code = 4927607333) 108 mmol/L 98-108 CO2 TOTAL (test code = 4613415605) 22 mmol/L 23-31 L AGAP (test code = 1064027965) 7 2-16 BUN (test code = 4997190620) 23 mg/dL 7-23 GLUCOSE (test code = 2687310653) 75 mg/dL 70-110 CREATININE (test code = 2160-0) 1.10 mg/dL 0.50-1.04 H TOTAL BILI (test code = 4685570576) 0.5 mg/dL 0.1-1.1 CALCIUM (test code = 3548319206) 9.1 mg/dL 8.6-10.6 T PROTEIN (test code = 6513226298) 7.8 g/dL 6.3-8.2 ALBUMIN (test code = 3414037372) 4.2 g/dL 3.5-5.0 ALK PHOS (test code = 0995039192) 50 U/L 34-122 ALTv (test code = 1742-6) 16 U/L 5-35 AST(SGOT) (test code = 2887810415) 24 U/L 13-40 eGFR (test code = 92289-1) 64.1 mL/min/1.73m2 CKD-EPI eGFR (2020). Assuming creatinine has been stable day-to-day for at least three months, the eGFR indicates Category G2 (60 - 89 mL/min/1.73 m2) Lab Interpretation (test code = 72763-3) [id number] [facility]:16:00* Test Item Value Reference Range Interpretation Comme nts POCT PREG (test code = 1605) Negative On board controls acceptable with C Line (test code = 3574) Yes POCT PREG LOT # (test code = 3575) [id number] POCT PREG TEST DATE ( test code = 3576) 09/09/2024 Lab Interpretation (test cod e = 88045-7) Normal [facility] WITH [id number] 17:56:07* Test Item Value Reference Range Interpretation [...] 32.2 g/dL 31.6-35.1 RDW-SD (test code = 69377-0) 50.5 fL 39.0-49.9 H RDW-CV (test code = 788-0) 16.1 % 12.0-15.5 H PLT (test code = 777-3) 271 See_Comment [Automated messa ge] The system which generated this result transmitted reference range: 166 - 358 10*3/?L. The reference range was not used to interpret this result as normal/abnormal. MPV (test code = 95991-9) 10.2 fL 9.5-12.9 NRBC/100 WBC (test code = 9050673938) 0.0 See_Comment [Automated fg microtec ssage] The system which generated this result transmitted reference range: 0.0 - 10.0 /100 WBCs. The reference range was not used to interpret this result as normal/abnormal. NRBC x10^3 (test code = 2850856998) See_Comment [Automated messa ge] The system which generated this result transmitted reference range: 10*3/?L. The reference range was not used to interpret this result as normal/abnormal. GRAN MAT (NEUT) % (test code = 770-8) 47.0 % IMM GRAN % (test code = 6756568564) 0.20 % LYMPH % (test code = 736-9) 41.1 % MONO % (test code = 5905-5) 8.8 % EOS % (test code = 713-8) 2.0 % BASO % (test code = 706-2) 0.9 % GRAN MAT x10^3(ANC) (test code = 5350970532) 2.08 10*3/uL 1.88-7.09 IMM GRAN x10^3 (test code = 4793391231) 0.00-0.06 LYMPH x10^3 (test code = 731-0) 1.82 10*3/uL 1.32-3.29 MONO x10^3 (test code = 742-7) 0.39 10*3/uL 0.33-0.92 EOS x10^3 (test code = 711-2) 0.09 10*3/uL 0.03-0.39 BASO x10^3 (test code = 704-7) 0.04 10*3/uL 0.01-0.07 Lab Interpretation (test code = 57490-6) Abnormal [facility] TEST, THINPREP, [id number] 00:00:00 * Test Item Value Reference Range Interpretation Comme nts SOURCE: (test code = 8001) Cervical/Endocervical SLIDES: (test code = 8011) 1 LMP: (test code = 8021) 06/26/2023 SPECIMEN ADEQUACY: (test code = 87585) (NOTE) INTERPRETATION: (test code = 77232) NILM/NO EPITH. 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: (test code = 8101) Dante Campbell LOCATION: (test code = 17880) (NOTE) CPT: (test code = 8140) (NOTE) Cem WahlCT/NG, TMA, [id number] 00:00:00* Test Item Value Reference Range Interpretation Comme nts CHLAMYDIA, NAAT, THINPREP (t est code = 04756) NEGATIVE GONORRHEA, NAAT, THINPREP (t est code = 10881) NEGATIVE PDFE (test code = PDFReport) PDF Cem WahlPOCT [id number] 03:24:00* Test Item Value Reference Range Interpretation Comme nts POCT PREG (test code = 1605) Negative On board controls acceptable with C Line (test code = 3574) Yes POCT PREG LOT # (test code = 3575) [id number] POCT PREG TEST DATE ( test code = 3576) 2024-08-12 Lab Interpretation (test cod e = 88901-6) [facility] [id number] 00:00:00* Test Item Value Reference Range Interpretation Comme nts TSH, THIRD GENERATION (test code = 2821) 1.450 UIU/ML Cem WahlCOMPREHENSIVE METABOLIC [id number] 00:00:00* Test Item Value Reference Range Interpretation Comme nts GLUCOSE (test code = 2217) 80 MG/DL BUN (test code = 2208) 18 MG/DL CREATININE (test code = 2214) 1.00 MG/DL eGFR (2020 CKD-EPI) (test co de = 95834) 72 ML/MIN/1.73 CALC BUN/CREAT (test code = [...] (test code = 2219) 17 U/L Cem F AustinLIPID [id number] 00:00:00* Test Item Value Reference Range Interpretation Comme nts CHOLESTEROL (test code = 2210) 232 MG/DL TRIGLYCERIDES (test code = 2232) 116 MG/DL HDL CHOLESTEROL (test code = 2220) 52 MG/DL CALC LDL CHOL (test code = 2237) 157 MG/DL RISK RATIO LDL/HDL (test cod e = 2238) 3.02 RATIO Cem WahlHEMOGLOBIN [id number] 00:00:00* Test Item Value Reference Range Interpretation Comme melissa HEMOGLOBIN A1c (test code = 71856) 5.6 % Cem WahlCOMPREHENSIVE METABOLIC [id number] 05:07:20* Test Item Value Reference Range Interpretation Comme nts GLUCOSE (test code = 2217) 79 MG/DL 70-99 BUN (test code = 2208) 14 MG/DL 6-20 CREATININE (test code = 2214) 1.00 MG/DL 0.60-1.30 eGFR (2020 CKD-EPI) (test code = 23508) 72 ML/MIN/1.73 >60 CALC BUN/CREAT (test code [...] (test code = 2219) 15 U/L 5-40 [facility] has impo rtant pathology staff changes effective 08/02/2022. New pathology staff will provide uninterrupted, excellent patient care and clinical consultation. See URL: [email or web address]. UNLESS OTHERWISE INDICATED, ALL TESTING PERFORMED AT [facility] [address] [place] [address] MEMBERSHIP COORDINATOR: KENDRA HERNANDEZ M.D. CLIA NUMBER [id number] [facility] [place]. [id number] COMPREHENSIVE METABOLIC [id number] 00:00:00* Test Item Value Reference Range Interpretation Comme nts GLUCOSE (test code = 2217) 79 MG/DL BUN (test code = 2208) 14 MG/DL CREATININE (test code = 2214) 1.00 MG/DL eGFR (2020 CKD-EPI) (test co de = 99613) 72 ML/MIN/1.73 CALC BUN/CREAT (test code = [...] (test code = 2219) 15 U/L Cem F AustinLIPID [id number] 06:55:12* Test Item Value Reference Range Interpretation Comme nts CHOLESTEROL (test code = 2210) 219 MG/DL <200 H TRIGLYCERIDES (test code = 2232) 200 MG/DL <150 H HDL CHOLESTEROL (test code = 2220) 53 MG/DL >39 CALC LDL CHOL (test code = 2236) 132 MG/DL <100 H NOTE: CALCULATED LDL IS BASED ON RAYNE-FISCHER METHOD WHICHINCLUDES ADJUSTABLE TRIGLYCERIDE:VLDL CHOLESTEROL RATIO.THIS FACTOR VARIES BY MEASURED TRIGLYCERIDE AND NON-HDLCHOLESTEROL CONCENTRATIONS WITH INCREASED CALCULATED LDL SEENIN HIGHER TRIGLYCERIDE OR LOWER NON-HDL SPECIMENS. FOR MOREINFORMATION, SEE CLIENT ANNOUNCEMENT AT [email or web address] RISK RATIO LDL/HDL (test code = 2237) 2.49 RATIO <3.22 COMPREHENSIVE METABOLIC [id number] 06:55:12* Test Item Value Reference Range Interpretation Comme nts GLUCOSE (test code = 2216) 83 MG/DL 70-99 BUN (test code = 2207) 16 MG/DL 6-20 CREATININE (test code = 221) 0.90 MG/DL 0.60-1.30 eGFR (2020 CKD-EPI) (test code = 99501) 82 ML/MIN/1.73 >60 CALC BUN/CREAT (test code = 2235) 18 RATIO 6-28 SODIUM (test code = 223) 141 MEQ/L 133-146 POTASSIUM (test code = 2228) 4.6 MEQ/L 3.5-5.4 CHLORIDE (test code = 2215) 105 MEQ/L 95-107 CARBON DIOXIDE (test code = 2206) 22 MEQ/L 19-31 CALCIUM (test code = 220) 9.4 MG/DL 8.5-10.5 PROTEIN, TOTAL (test code [...] 5-40 UNLESS OTHERWISE INDICATED, [facility] [address] [place] [address] MEMBERSHIP COORDINATOR: Jessica LAGUERREIA NUMBER [id number] [facility] [place]. [id number] HEMOGLOBIN [id number] 03:12:19* Test Item Value Reference Range Interpretation Comme nts HEMOGLOBIN A1c (test code = 00164) 5.3 % 4.2-5.6 HEMOGLOBIN A1c [ADDED]2022-01-24 00:00:00* Test Item Value Reference Range Interpretation Comme nts HEMOGLOBIN A1c (test code = 20629) 5.3 % LIPID PANEL [ADDED]2022-01-24 00:00:00* Test [...] eGFR (2020 CKD-EPI) (test co de = 60656) 82 ML/MIN/1.73 CALC BUN/CREAT (test code = [...] Comme nts HEMOGLOBIN A1c (test code = 69172) 5.3 % Cem Archer VishLIPID PANEL [ADDED]2022-01-24 00:00:00* Test Item Value Reference [...] eGFR (2020 CKD-EPI) (test co de = 04880) 82 ML/MIN/1.73 CALC BUN/CREAT (test code = [...] (test code = 2219) 14 U/L Cem WahlCBC WITH [id number] 00:23:37* Test Item Value Reference Range Interpretation Comme nts WBC (test code = 6690-2) See_Comment [Automated messa ge] The system which generated this result transmitted reference range: 4.30 - 11.10 10*3/?L. The reference range was not used to interpret this result as normal/abnormal. RBC (test code = 789-8) See_Comment [Automated Picta ge] The system which generated this result [...] 32.3 g/dL 31.6-35.1 RDW-SD (test code = 09038-7) 48.7 fL 39.0-49.9 RDW-CV (test code = 788-0) 16.1 % 12.0-15.5 H PLT (test code = 777-3) See_Comment [Automated Picta ge] The system which generated this result transmitted reference range: 166 - 358 10*3/?L. The reference range was not used to interpret this result as normal/abnormal. MPV (test code = 39741-0) 9.8 fL 9.5-12.9 NRBC/100 WBC (test code = 7798752989) See_Comment [Automated fg microtec ssage] The system which generated this result transmitted reference range: 0.0 - 10.0 /100 WBCs. The reference range was not used to interpret this result as normal/abnormal. NRBC x10^3 (test code = 1194746217) <0.01 See_Comment [Automated Picta ge] The system which generated this result transmitted reference range: 10*3/?L. The reference range was not used to interpret this result as normal/abnormal. GRAN MAT (NEUT) % (test code = 770-8) 62.7 % IMM GRAN % (test code = 9041620853) 0.40 % LYMPH % (test code = 736-9) 29.5 % MONO % (test code = 5905-5) 6.4 % EOS % (test code = 713-8) 0.5 % BASO % (test code = 706-2) 0.5 % GRAN MAT x10^3(ANC) (test code = 4180645533) 3.45 10*3/uL 1.88-7.09 IMM GRAN x10^3 (test code = 2768870283) <0.03 0.00-0.06 LYMPH x10^3 (test code = 731-0) 1.62 10*3/uL 1.32-3.29 MONO x10^3 (test code = 742-7) 0.35 10*3/uL 0.33-0.92 EOS x10^3 (test code = 711-2) 0.03 10*3/uL 0.03-0.39 BASO x10^3 (test code = 704-7) 0.03 10*3/uL 0.01-0.07 Lab Interpretation (test code = 57072-4) Abnormal [facility] METABOLIC PANEL (NA, K, CL, CO2, GLUCOSE, BUN, CREATININE, CA)2021-05-26 23:10:45* Test Item Value Reference Range Interpretation Comme nts NA (test code = 4321360771) 136 mmol/L 135-145 K (test code = 7518967702) 4.7 mmol/L 3.5-5.0 CL (test code = 1651725462) 106 mmol/L 98-108 CO2 TOTAL (test code = 7464966424) 23 mmol/L 23-31 AGAP (test code = 2235418782) 2-16 BUN (test code = 1499273688) 18 mg/dL 7-23 GLUCOSE (test code = 8271662700) 84 mg/dL 70-110 CREATININE (test code = 2714645539) 0.68 mg/dL 0.50-1.04 CALCIUM (test code = 8379692647) 9.6 mg/dL 8.6-10.6 eGFR (test code = 4622917328) mL/min/1.73m2 PADMA (test code = PADMA) Association [...] or urine or abnormalities in imaging tests). [facility] [id number] 22:35:00* Test Item Value Reference Range Interpretation Comme nts POCT PREG (test code = 1605) negative On board controls acceptable with C Line (test code = 3574) present POCT PREG LOT # (test code = 3575) [id number] POCT PREG TEST DATE ( test code = 3576) Lab Interpretation (test cod e = 95659-2) Normal [facility] STREP SCREEN FOR GROUP [id number] 21:39:01* Test Item Value Reference Range Interpretation Comme nts Streptococcus pyogenes (grou p A) antigen (test code = 46454-9) Negative Negative Lab Interpretation (test cod e = 22521-3) Normal [facility]OVID[facility] (ID NOW RAPID TESTING)2020-11-19 21:28:16* Test Item Value Reference Range Interpretation Comme nts SARS-CoV-2 Rapid ID NOW (test code = 95827-9) Not Detected Not Detected PADMA (test code = PADMA) ID NOW COVID-19 As say is an isothermal nucleic acid amplification test intended for the qualitative detection of nucleic acid from SARS-CoV-2 viral RNA in nasopharyngeal (SKI PATROL OFFICER) specimens. It is used under Emergency Use [...] clinically indicated. Lab Interpretation (test code = 35533-1) Normal [facility]. METABOLIC PANEL (92172)2020-11-19 21:25:54* Test Item Value Reference Range Interpretation Comme nts NA (test code = 3902618682) 138 mmol/L 135-145 K (test code = 3180831825) 4.2 mmol/L 3.5-5.0 CL (test code = 0293575169) 109 mmol/L 98-108 H CO2 TOTAL (test code = 5586587168) 22 mmol/L 23-31 L AGAP (test code = 3654980723) 2-16 BUN (test code = 5208013348) 19 mg/dL 7-23 GLUCOSE (test code = 4483404487) 90 mg/dL 70-110 CREATININE (test code = 3519859208) 0.76 mg/dL 0.50-1.04 TOTAL BILI (test code = 9642696743) 0.5 mg/dL 0.1-1.1 CALCIUM (test code = 5594641371) 9.9 mg/dL 8.6-10.6 T PROTEIN (test code = 0931001499) 7.8 g/dL 6.3-8.2 ALBUMIN (test code = 6246146542) 4.4 g/dL 3.5-5.0 ALK PHOS (test code = 6273178891) 47 U/L 34-122 ALTv (test code = 1742-6) 16 U/L 5-35 AST(SGOT) (test code = 2694465883) 22 U/L 13-40 eGFR (test code = 8797047308) mL/min/1.73m2 PADMA (test code = PADMA) Association [...] imaging tests). Lab Interpretation (test code = 45441-6) [facility]normal [facility] 21:25:54* Test Item Value Reference Range Interpretation Comme nts LIPASE (test code = 9837686821) 74 U/L 0-220 Lab Interpretation (test cod e = 76548-5) Normal [facility] HospitalCB WITH [id number] 21:17:35* Test Item Value Reference Range Interpretation Comme nts WBC (test code = 6690-2) See_Comment [Automated [employer]] The system which generated this result transmitted reference range: 4.30 - 11.10 10*3/?L. The reference range was not used to interpret this result as normal/abnormal. RBC (test code = 789-8) See_Comment [Automated messa ge] The system which [...] 32.6 g/dL 31.6-35.1 RDW-SD (test code = 83736-1) 46.7 fL 39.0-49.9 RDW-CV (test code = 788-0) 15.6 % 12.0-15.5 H PLT (test code = 777-3) See_Comment [Automated Picta ge] The system which generated this result transmitted reference range: 166 - 358 10*3/?L. The reference range was not used to interpret this result as normal/abnormal. MPV (test code = 08755-4) 9.8 fL 9.5-12.9 NRBC/100 WBC (test code = 2833866499) See_Comment [Automated fg microtec ssage] The system which generated this result transmitted reference range: 0.0 - 10.0 /100 WBCs. The reference range was not used to interpret this result as normal/abnormal. NRBC x10^3 (test code = 2418524941) <0.01 See_Comment [Automated messa ge] The system which generated this result transmitted reference range: 10*3/?L. The reference range was not used to interpret this result as normal/abnormal. GRAN MAT (NEUT) % (test code = 770-8) 43.0 % IMM GRAN % (test code = 7370573540) 0.20 % LYMPH % (test code = 736-9) 46.9 % MONO % (test code = 5905-5) 7.5 % EOS % (test code = 713-8) 1.3 % BASO % (test code = 706-2) 1.1 % GRAN MAT x10^3(ANC) (test code = 1447952510) 2.02 10*3/uL 1.88-7.09 IMM GRAN x10^3 (test code = 2093050683) <0.03 0.00-0.06 LYMPH x10^3 (test code = 731-0) 2.20 10*3/uL 1.32-3.29 MONO x10^3 (test code = 742-7) 0.35 10*3/uL 0.33-0.92 EOS x10^3 (test code = 711-2) 0.06 10*3/uL 0.03-0.39 BASO x10^3 (test code = 704-7) 0.05 10*3/uL 0.01-0.07 Lab Interpretation (test code = 27263-3) [facility]normal [facility] [id number] 21:01:00* Test Item Value Reference Range Interpretation Comme nts POCT PREG (test code = 1605) negative On board controls acceptable with C Line (test code = 3574) present POCT PREG LOT # (test code = 3575) [id number] POCT PREG TEST DATE ( test code = 3576) Lab Interpretation (test cod e = 17383-7) Normal [facility] W/AUTO [id number] 00:00:00* Test Item Value Reference Range Interpretation [...] (test code = 1015) 320 K/UL LIPID [id number] 00:00:00* Test Item Value Reference Range Interpretation Comme nts CHOLESTEROL (test code = 2210) 246 MG/DL TRIGLYCERIDES (test code = 2232) 99 MG/DL HDL CHOLESTEROL (test code = 2220) 63 MG/DL CALC LDL CHOL (test code = 2237) 162 MG/DL RISK RATIO LDL/HDL (test cod e = 2238) 2.57 RATIO HEMOGLOBIN [id number] 00:00:00* Test Item Value Reference Range Interpretation Comme nts HEMOGLOBIN A1c (test code = 43342) 5.4 % Cem F AustinHEMOGLOBIN [id number] 00:00:00* Test Item Value Reference Range Interpretation Comme nts HEMOGLOBIN A1c (test code = 51935) 5.4 % COMPREHENSIVE METABOLIC [id number] 00:00:00* Test Item Value Reference Range Interpretation Comme nts GLUCOSE (test code = 2217) 93 MG/DL BUN (test code = 2208) 12 MG/DL CREATININE (test code = 2214) 0.78 MG/DL eGFR AMER. (test cod e = 10535) 110 ML/MIN/1.73 eGFR NON- AMER. (test code = 04377) 95 ML/MIN/1.73 CALC BUN/CREAT (test code = [...] code = 2219) 13 U/L CBC W/AUTO [id number] 00:00:00* Test Item Value Reference Range Interpretation [...] (test code = 1015) 320 K/UL LIPID [id number] 00:00:00* Test Item Value Reference Range Interpretation Comme nts CHOLESTEROL (test code = 2210) 246 MG/DL TRIGLYCERIDES (test code = 2232) 99 MG/DL HDL CHOLESTEROL (test code = 2220) 63 MG/DL CALC LDL CHOL (test code = 2237) 162 MG/DL RISK RATIO LDL/HDL (test cod e = 2238) 2.57 RATIO HEMOGLOBIN [id number] 00:00:00* Test Item Value Reference Range Interpretation Comme nts HEMOGLOBIN A1c (test code = 05195) 5.4 % COMPREHENSIVE METABOLIC [id number] 00:00:00* Test Item Value Reference Range Interpretation Comme nts GLUCOSE (test code = 2217) 93 MG/DL BUN (test code = 2208) 12 MG/DL CREATININE (test code = 2214) 0.78 MG/DL eGFR AMER. (test cod e = 63066) 110 ML/MIN/1.73 eGFR NON- AMER. (test code = 59471) 95 ML/MIN/1.73 CALC BUN/CREAT (test code = [...] code = 2219) 13 U/L COMPREHENSIVE METABOLIC [id number] 00:00:00* Test Item Value Reference Range Interpretation Comme nts GLUCOSE (test code = 2217) 93 MG/DL BUN (test code = 2208) 12 MG/DL CREATININE (test code = 2214) 0.78 MG/DL eGFR AMER. (test cod e = 94874) 110 ML/MIN/1.73 eGFR NON- AMER. (test code = 55453) 95 ML/MIN/1.73 CALC BUN/CREAT (test code = [...] (test code = 2219) 13 U/L [facility] [id number] 00:00:00* Test Item Value Reference Range Interpretation [...] (test code = 1015) 320 K/UL Cem Archer NaplesLIPID [id number] 00:00:00* Test Item Value Reference Range Interpretation Comme nts CHOLESTEROL (test code = 2210) 246 MG/DL TRIGLYCERIDES (test code = 2232) 99 MG/DL HDL CHOLESTEROL (test code = 2220) 63 MG/DL CALC LDL CHOL (test code = 2237) 162 MG/DL RISK RATIO LDL/HDL (test cod e = 2238) 2.57 RATIO Cem WahlCOMPREHENSIVE METABOLIC [id number] 00:00:00* Test Item Value Reference Range Interpretation Comme nts GLUCOSE (test code = 2217) 73 MG/DL BUN (test code = 2208) 14 MG/DL CREATININE (test code = 2214) 0.70 MG/DL eGFR AMER. (test cod e = 01386) 126 ML/MIN/1.73 eGFR NON- AMER. (test code = 83775) 109 ML/MIN/1.73 CALC BUN/CREAT (test code = [...] (test code = 2219) 19 U/L LIPID [id number] 00:00:00* Test Item Value Reference Range Interpretation Comme nts CHOLESTEROL (test code = 2210) 219 MG/DL TRIGLYCERIDES (test code = 2232) 75 MG/DL HDL CHOLESTEROL (test code = 2220) 64 MG/DL CALC LDL CHOL (test code = 2237) 138 MG/DL RISK RATIO LDL/HDL (test cod e = 2238) 2.16 RATIO [id number] 00:00:00* Test Item Value Reference Range Interpretation Comme nts TSH, THIRD GENERATION (test code = 2821) 1.720 UIU/ML COMPREHENSIVE METABOLIC [id number] 00:00:00* Test Item Value Reference Range Interpretation Comme nts GLUCOSE (test code = 2217) 73 MG/DL BUN (test code = 2208) 14 MG/DL CREATININE (test code = 2214) 0.70 MG/DL eGFR AMER. (test cod e = 39215) 126 ML/MIN/1.73 eGFR NON- AMER. (test code = 75385) 109 ML/MIN/1.73 CALC BUN/CREAT (test code = [...] (test code = 2219) 19 U/L LIPID [id number] 00:00:00* Test Item Value Reference Range Interpretation Comme nts CHOLESTEROL (test code = 2210) 219 MG/DL TRIGLYCERIDES (test code = 2232) 75 MG/DL HDL CHOLESTEROL (test code = 2220) 64 MG/DL CALC LDL CHOL (test code = 2237) 138 MG/DL RISK RATIO LDL/HDL (test cod e = 2238) 2.16 RATIO [id number] 00:00:00* Test Item Value Reference Range Interpretation Comme nts TSH, THIRD GENERATION (test code = 2821) 1.720 UIU/ML Cem [id number] 00:00:00* Test Item Value Reference Range Interpretation Comme nts TSH, THIRD GENERATION (test code = 2821) 1.720 UIU/ML COMPREHENSIVE METABOLIC [id number] 00:00:00* Test Item Value Reference Range Interpretation Comme nts GLUCOSE (test code = 2217) 73 MG/DL BUN (test code = 2208) 14 MG/DL CREATININE (test code = 2214) 0.70 MG/DL eGFR AMER. (test cod e = 34301) 126 ML/MIN/1.73 eGFR NON- AMER. (test code = 02455) 109 ML/MIN/1.73 CALC BUN/CREAT (test code = [...] (test code = 2219) 19 U/L Cem WahlLIPID [id number] 00:00:00* Test Item Value Reference Range Interpretation Comme nts CHOLESTEROL (test code = 2210) 219 MG/DL TRIGLYCERIDES (test code = 2232) 75 MG/DL HDL CHOLESTEROL (test code = 2220) 64 MG/DL CALC LDL CHOL (test code = 2237) 138 MG/DL RISK RATIO LDL/HDL (test cod e = 2238) 2.16 RATIO Cem Archer AustinLIPID [id number] 00:00:00* Test Item Value Reference Range Interpretation Comme nts CHOLESTEROL (test code = 2210) 214 MG/DL TRIGLYCERIDES (test code = 2232) 103 MG/DL HDL CHOLESTEROL (test code = 2220) 55 MG/DL CALC LDL CHOL (test code = 2237) 138 MG/DL RISK RATIO LDL/HDL (test cod e = 2238) 2.52 RATIO HEMOGLOBIN [id number] 00:00:00* Test Item Value Reference Range Interpretation Comme nts HEMOGLOBIN A1c (test code = 71121) 5.5 % COMPREHENSIVE METABOLIC [id number] 00:00:00* Test Item Value Reference Range Interpretation Comme nts GLUCOSE (test code = 2217) 83 MG/DL BUN (test code = 2208) 10 MG/DL CREATININE (test code = 2214) 0.73 MG/DL eGFR AMER. (test cod e = 76763) 120 ML/MIN/1.73 eGFR NON- AMER. (test code = 21669) 104 ML/MIN/1.73 CALC BUN/CREAT (test code = [...] (test code = 2219) 23 U/L LIPID [id number] 00:00:00* Test Item Value Reference Range Interpretation Comme nts CHOLESTEROL (test code = 2210) 214 MG/DL TRIGLYCERIDES (test code = 2232) 103 MG/DL HDL CHOLESTEROL (test code = 2220) 55 MG/DL CALC LDL CHOL (test code = 2237) 138 MG/DL RISK RATIO LDL/HDL (test cod e = 2238) 2.52 RATIO HEMOGLOBIN [id number] 00:00:00* Test Item Value Reference Range Interpretation Comme nts HEMOGLOBIN A1c (test code = 33941) 5.5 % COMPREHENSIVE METABOLIC [id number] 00:00:00* Test Item Value Reference Range Interpretation Comme nts GLUCOSE (test code = 2217) 83 MG/DL BUN (test code = 2208) 10 MG/DL CREATININE (test code = 2214) 0.73 MG/DL eGFR AMER. (test cod e = 41083) 120 ML/MIN/1.73 eGFR NON- AMER. (test code = 54301) 104 ML/MIN/1.73 CALC BUN/CREAT (test code = [...] (test code = 2219) 23 U/L LIPID [id number] 00:00:00* Test Item Value Reference Range Interpretation Comme nts CHOLESTEROL (test code = 2210) 214 MG/DL TRIGLYCERIDES (test code = 2232) 103 MG/DL HDL CHOLESTEROL (test code = 2220) 55 MG/DL CALC LDL CHOL (test code = 2237) 138 MG/DL RISK RATIO LDL/HDL (test cod e = 2238) 2.52 RATIO Cem F [place]HEMOGLOBIN [id number] 00:00:00* Test Item Value Reference Range Interpretation Comme nts HEMOGLOBIN A1c (test code = 98610) 5.5 % Cem WahlCOMPREHENSIVE METABOLIC [id number] 00:00:00* Test Item Value Reference Range Interpretation Comme nts GLUCOSE (test code = 2217) 83 MG/DL BUN (test code = 2208) 10 MG/DL CREATININE (test code = 2214) 0.73 MG/DL eGFR AMER. (test cod e = 32720) 120 ML/MIN/1.73 eGFR NON- AMER. (test code = 37286) 104 ML/MIN/1.73 CALC BUN/CREAT (test code = [...] (test code = 2219) 23 U/L Cem [id number] 01:11:00* Test Item Value Reference Range Interpretation Comme nts APPEARANCE (test code = 2446667118) Clear Clear COLOR (test code = 2597057888) Yellow Yellow PH (test code = 3812147707) 4.8-8.0 SP GRAVITY (test code = 7226169601) <=1.005 1.003-1.030 GLU U QUAL (test code = 2191278659) Negative Negative BLOOD (test code = 3560689786) Negative Negative KETONES (test code = 2654478644) Negative Negative PROTEIN (test code = 2887-8) Negative Negative UROBILIN (test code = 4139823887) 0.2 mg/dL See_Comment [Automated Picta ge] The system which generated this result transmitted reference range: 0-1.0 mg/dL. The reference range was not used to interpret this result as normal/abnormal. BILIRUBIN (test code = 6355787431) Negative Negative NITRITE (test code = 2026992637) Negative Negative LEUK ONEAL (test code = 0477458593) Negative Negative RBC/HPF (test code = 9879974347) See_Comment [Automated Picta ge] The system which generated this result transmitted reference range: 0 - 3 HPF. The reference range was not used to interpret this result as normal/abnormal. WBC/HPF (test code = 2915203490) See_Comment [Automated messa ge] The system which generated this result transmitted reference range: 0 - 5 HPF. The reference range was not used to interpret this result as normal/abnormal. BACTERIA (test code = 2047533551) Few Negative A SQ EPITH (test code = 0360764941) HPF Lab Interpretation (test code = 34657-5) Abnormal [facility]. METABOLIC PANEL (70268)2019-01-12 01:02:00* Test Item Value Reference Range Interpretation Comme nts NA (test code = 9606319583) 142 mmol/L 135-145 K (test code = 0050150526) 4.4 mmol/L 3.5-5 CL (test code = 8315527021) 111 mmol/L 98-108 H CO2 TOTAL (test code = 7805894084) 24 mmol/L 23-31 AGAP (test code = 8251077242) 2-16 BUN (test code = 1886463940) 15 mg/dL 7-23 GLUCOSE (test code = 7209763056) 90 mg/dL 70-110 CREATININE (test code = 3864106059) 0.78 mg/dL 0.5-1.04 TOTAL BILI (test code = 3149212752) 0.1 mg/dL 0.1-1.1 CALCIUM (test code = 5329551473) 9.5 mg/dL 8.6-10.6 T PROTEIN (test code = 6039224935) 7.1 g/dL 6.3-8.2 ALBUMIN (test code = 4648471904) 4.1 g/dL 3.5-5 ALK PHOS (test code = 2402332297) 60 U/L 34-122 ALT(SGPT) (test code = 4865020965) 40 U/L 9-51 AST(SGOT) (test code = 9063483740) 27 U/L 13-40 eGFR Calculation (Non-) (test code = 9164018601) mL/min/1.73m2 eGFR Calculation () (test code = 1293935740) mL/min/1.73m2 PADMA (test code = PADMA) Association [...] imaging tests). Lab Interpretation (test code = 45503-1) Abnormal [facility] WITH [id number] 00:50:00* Test Item Value Reference Range Interpretation Comme nts WBC (test code = 6690-2) See_Comment [Automated [employer]] The system which generated this result transmitted reference range: 4.30 - 11.10 10*3/?L. The reference range was not used to interpret this result as normal/abnormal. RBC (test code = 789-8) See_Comment H [Autom[employer]] The system which generated this result transmitted [...] 32.3 g/dL 31.6-35.1 RDW-SD (test code = 79267-8) 47.8 fL 39-49.9 RDW-CV (test code = 788-0) 17.2 % 12-15.5 H PLT (test code = 777-3) See_Comment [Automated messa ge] The system which generated this result transmitted reference range: 166 - 358 10*3/?L. The reference range was not used to interpret this result as normal/abnormal. MPV (test code = 38806-9) 9.9 fL 9.5-12.9 NRBC/100 WBC (test code = 1623727149) See_Comment [Automated [employer]] The system which generated this result transmitted reference range: 0.0 - 10.0 /100 WBCs. The reference range was not used to interpret this result as normal/abnormal. NRBC x10^3 (test code = 3299454756) <0.01 See_Comment [Automated messa ge] The system which generated this result transmitted reference range: 10*3/?L. The reference range was not used to interpret this result as normal/abnormal. GRAN MAT (NEUT) % (test code = 770-8) 42.0 % IMM GRAN % (test code = 8858485056) 0.10 % LYMPH % (test code = 736-9) 46.8 % MONO % (test code = 5905-5) 8.3 % EOS % (test code = 713-8) 2.1 % BASO % (test code = 706-2) 0.7 % GRAN MAT x10^3(ANC) (test code = 7013416368) 2.95 10*3/uL 1.88-7.09 IMM GRAN x10^3 (test code = 4727111358) <0.03 0-0.06 LYMPH x10^3 (test code = 731-0) 3.29 10*3/uL 1.32-3.29 MONO x10^3 (test code = 742-7) 0.58 10*3/uL 0.33-0.92 EOS x10^3 (test code = 711-2) 0.15 10*3/uL 0.03-0.39 BASO x10^3 (test code = 704-7) 0.05 10*3/uL 0.01-0.07 Lab Interpretation (test code = 03035-0) [id number]* Test Item Value Reference Range Interpretation Comme nts POCT PREG (test code = 1605) negative On board controls acceptable with C Line (test code = 3574) present Lab Interpretation (test cod e = 31817-7) Normal [facility], THINPREP, [id number] 00:00:00 * Test Item Value Reference Range Interpretation Comme nts SOURCE: (test code = 8001) Cervical/Endocervical SLIDES: (test code = 8011) 1 LMP: (test code = 8021) 06/14/2017 SPECIMEN ADEQUACY: (test code = 65319) (NOTE) INTERPRETATION: (test code = 83552) NO EPITHELIAL ABNORMALITY SEE BELOW LABELING MACHINE OPERATOR: (test code = 8101) LEON SIERRA(ASCP)IAC LOCATION: (test code = 76954) (NOTE) CPT: (test code = 8140) (NOTE) HPV HIGH RISK WITH GENOTYPE, [id number] 00:00:00* Test Item Value Reference Range Interpretation Comme nts HPV HIGH RISK INTERP (test c ode = 10417) NEGATIVE HPV 16 (test code = 16964) NEGATIVE HPV 18 (test code = 00951) NEGATIVE HPV, HR, OTHER GENOTYPES (te st code = 10889) NEGATIVE PAP TEST, THINPREP, [id number] 00:00:00* Test Item Value Reference Range Interpretation Comme nts SOURCE: (test code = 8001) Cervical/Endocervical SLIDES: (test code = 8011) 1 LMP: (test code = 8021) 06/14/2017 SPECIMEN ADEQUACY: (test code = 45115) (NOTE) INTERPRETATION: (test code = 94374) NO EPITHELIAL ABNORMALITY SEE BELOW LABELING MACHINE OPERATOR: (test code = 8101) [facility](ASCP)IAC LOCATION: (test code = 44566) (NOTE) CPT: (test code = 8140) (NOTE) HPV HIGH RISK WITH GENOTYPE, [id number] 00:00:00* Test Item Value Reference Range Interpretation Comme nts HPV HIGH RISK INTERP (test c ode = 66142) NEGATIVE HPV 16 (test code = 69610) NEGATIVE HPV 18 (test code = 76808) NEGATIVE HPV, HR, OTHER GENOTYPES (te st code = 29004) NEGATIVE PAP TEST, THINPREP, [id number] 00:00:00* Test Item Value Reference Range Interpretation Comme nts SOURCE: (test code = 8001) Cervical/Endocervical SLIDES: (test code = 8011) 1 LMP: (test code = 8021) 06/14/2017 SPECIMEN ADEQUACY: (test code = 90439) (NOTE) INTERPRETATION: (test code = 62487) NO EPITHELIAL ABNORMALITY SEE BELOW LABELING MACHINE OPERATOR: (test code = 8101) BRUNO SWANSONNM(ASCP)IAC LOCATION: (test code = 12260) (NOTE) CPT: (test code = 8140) (NOTE) Cem WahlHPV HIGH RISK WITH GENOTYPE, [id number] 00:00:00* Test Item Value Reference Range Interpretation Comme [facility] HPV HIGH RISK INTERP (test c ode = 61467) NEGATIVE HPV 16 (test code = 17133) NEGATIVE HPV 18 (test code = 70370) NEGATIVE HPV, HR, OTHER GENOTYPES (te st code = 04607) NEGATIVE Cem Suzi Vish Notes Date/Time Note Provider Source Cem ArcherAngelica Wahl [facility]2024-04-02 21:10:14 Pt given printed and verbal [...] gait, in no apparent distress Noelle Jackson [id number] 18:11:18 Pt arrived via private car with c/o a headache that started yesterday. States she has a history of migraines, states she took ibuprofen and Midol with "some" improvement. States she has not seen a neurologist for "years". Michelle Peres [facility]jfqaa7861[facility]-76 12:39:43 PT D/C home. GCS15, VS stable. Given D/C paperwork. Pt ambulatory at time of discharge. Pt educated on med usage, follow up care, s/s worsening condition, need for hydration. Pt verbalized understanding. Pt ambulated from ED in [facility] Lucrecia Castro [facility]mumaz5590[facility]26 10:52:23 Report received from LUCÍA Suresh [place] [facility]jhwsr3339-52-18 10:11:41 Pressure like pain to head on left side. Pain ongoing x 1.5 weeks. Also has vaginal bleeding. Uses 3-4 pads a day. All started after getting depo injections. Suresh [place] 900794-01-30 09:44:09 Pt arrived via private car with c/o having a migraine for 1.5 weeks. States she used to see a neurologist however she has not seen a neurologist "in at least a few years". She states has been having vaginal bleeding x2 weeks, states she has been on depo for about 1 year consistently and does not usually have any vaginal bleeding. [facility] Iktftm6311-77-88 09:37:00 [facility] Emergency Department Note Patient Name: Ericka Perkins Date of : 1980 43 year old female Treatment Room: Room/bed info not found Primary Care Phys[facility] Patient Escorted by: Family [5] Mode of Arrival: Personal means [1] EMS Treatment Prior to ED Arrival: [facility]MER treatment: None Travel and Exposure Screening: Symptoms [...] abnormal uterine bleeding. Last dep shot at [employer] [employer] office was about [address] A/P 06/21/23 showing 3.9cm fibroid, known to patient and [employer]. History provided by: Patient and spouse Past [...] Quintanilla MD; Location: LABOR AND DELIVERY - [facility] INTERNAL HERNIA REPAIR (SHX) N/A 08/26/2015 Surgeon: Jaziel Aponte MD; [place] [facility] [place] 04/26/2013 Review of Systems: Review [...] 0.01 - 0.07 10*3/uL COMP. METABOLIC PANEL (37220) EKG: If EKG completed, see Procedure Note. Orders and Treatments: Orders Placed This Encounter Procedures CBC WITH DIFF COMP. METABOLIC PANEL (68467) Orders Placed This Encounter Medications NaCl 0.9% (NS) bolus infusion 1,000 mL metoclopramide HCl (REGLAN) injection 10 mg dexamethasone sod phos PF injection 10 mg ketorolac (TORADOL) injection 30 mg predniSONE 20 mg tablet xpviwlogtz-btdvvgjrwwoqb-dkmx 50-325-40 mg tablet ondansetron 4 mg tablet First Provider Eval: ED Events Date/Time Event User Comments 07/03/23937 Medical Screening Begins STAR MESA MD -- [...] Medications: Patient's Medications START taking these medications JGKVJBEWFM-BWBOHBSFTUWYU-IXWF 50-325-40 MG TABLET Take 1 tablet by [...] for Cough for up to 20 doses. YKQTZPTHQH-YFMFZVYICUZBY-VSDY 50-325-40 MG TABLET Take 1 tablet by mouth every 6 (six) hours as needed for Pain (scale 4-6). EVSECXOMSP-TVJDEWZVLMKML-JGFR 50-325-40 MG TABLET Take 1 tablet by mouth every 4 (four) hours as needed for Pain (scale 7-10). MFFPDIMWWP-BVFIJIDYBJKNM-EUXE 50-325-40 MG TABLET Take 1 tablet by [...] medications No medications on file Follow-up: PCP [facility] Electronically signed by: Star Mesa MD 07/03/23 1229 [place] [id number] 00:30:00 Pt given printed and verbal discharge [...] with steady gait, in no apparent distress, Rodriguez [place] [id number] 20:43:46 Pt to ED co body aches, vomiting, chills, and abd pain x 2 hours. Denies sick contacts. Hx of HTN and uncomplicated hernia. Took dayquil and sinus medication 30min [facility] LIFT TRIMMER. Bean [facility]odcbu1913[facility]32-89 20:33:00 [facility] Emergency Department Note Patient Name: Ericka Perkins Date of : 1980 43 year old female Treatment Room: [place] [address]/QGEC89-15 Primary Care Physician: [facility] Danika Patient Escorted by: Self [9] Mode of Arrival: Personal means [1] EMS Treatment Prior to ED Arrival: TOP LIFT TRIMMER treatment: Medication (comment);Analgesic TOP LIFT TRIMMER treatment comments: BP meds, excedrin, dayquil, and [...] hernia. 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 JNQRAMNUZV-ZJGENNSQZKUHW-GTJD 50-325-40 MG TABLET Take 1 tablet by mouth every 6 (six) hours as needed for Pain (scale 4-6). JVICYEVYYG-ZETFMXEFXXDKB-RMOT 50-325-40 MG TABLET Take 1 tablet by mouth every 4 (four) hours as needed for Pain (scale 7-10). IPAUWGYFIW-FHVGZSVBBXWTJ-VOLD 50-325-40 MG TABLET Take 1 tablet by [...] on file Follow-up: Contact information for follow-up Danika [facility] Specialty: FM-FAMILY MEDICINE Relationship: PCP - General [facility] N [facility] [id number] Instructions: If symptoms worsen Electronically signed by: Alex Pitt MD 06/22/23 0022 [facility]2023-07-19 21:57:16 Pt discharged home. Given all education and information regarding pain management; follow up importance and s/s of worsening condition. Pt verbalized understanding. Alert and ambulatory to pov [facility] [place][NOTE 2] Sia Richardson [place] 900793-07-19 21:41:07 Pt resting quietly in room. States pain has resolved. [place] 704943-07-19 19:04:38 Nurse Report Report given to LUCÍA Saucedo. Chief complaint, assessment findings, and orders reviewed. Plan of care discussed with both nurses. Wilma Garay RN [place] [address]38-07-19 18:42:18 CC: patient presents to the ER [...]
[2024-02-13 10:03] LABS: Absolute Eosinophils 0.2 K/uL (0-0.5); Absolute Lymphocytes (CBC) 1.3 K/uL (0.7-4.9); Absolute Monocytes 0.4 K/uL (0.1-1.3); Absolute Neutrophil 1.3 K/uL (1.8-8.0); Basophils % 0.8 % (0-1.3); Eosinophils % 4.9 % (0-4.4); Hematocrit 34.9 % (36.0-45.0); Hemoglobin 11.4 g/dL (12.0-15.0); MCH 27.9 pg (27.0-35.0); MCHC 32.6 g/dL (32.0-36.0); MCV 85.8 fL (80-100); Monocytes % 12.3 % (3.3-12.3); Nucleated Red Blood Cells % 0.4 % (0-0); Platelets 236 thou/uL (152-406); RBC Red Blood Cell Count 4.07 M/uL (3.86-4.86); Red Cell Distribution Width 15.2 % (12.1-15.2)
[2024-02-13] MEDS ORDERED: NA CHLORIDE 0.9% 1,000 ML ONE (10:03)
[2024-02-13 10:26] LABS: ALT/SGPT 49 U/L (13-56); AST/SGOT 36 U/L (15-37); Albumin/Globulin Ratio 1.1 (1.1-1.8); Alkaline Phosphatase 42 U/L (45-117); Anion Gap 11.6 mEq/L (5.0-15.0); BUN Blood Urea Nitrogen 39 mg/dL (7-18); Bicarbonate 17 mEq/L (21-32); Bilirubin Total 0.4 mg/dL (0.2-1.0); Globulin 3.6 g/dL (2.3-3.5); Glomerular Filtration Rate 39 ml/min (=/>90); Glucose Level 86 mg/dL (74-106); Lipase 31 U/L (13-75); Potassium 4.6 mEq/L (3.5-5.1); Protein, Total 7.6 g/dL (6.4-8.2); Sodium Level 135 mEq/L (136-145)
[2024-02-13 10:28] LABS: Bilirubin Direct < 0.2 mg/dL (0-0.2); Bilirubin Indirect, Calculated 0.2 mg/dL (0.2-0.8)
[2024-02-13 10:33] LABS: Specific Gravity > 1.030 (1.005-1.030)
[2024-02-13 10:35] LABS: Specific Gravity > 1.030 (1.005-1.030); Sqamous Epithelial <5 /HPF (None Seen); Urine Bacteria None Seen /HPF (<20); Urine Bilirubin NEGATIVE (Negative); Urine Blood 1+ (Negative); Urine Clarity Clear (Clear); Urine Color Yellow (Yellow); Urine Culture Reflex Order NOT NEEDED; Urine Glucose NEGATIVE (Negative); Urine Ketones NEGATIVE (Negative); Urine Microscopic Reflex YN ORDER UMIC; Urine Mucus Slight /HPF (None Seen); Urine Nitrite NEGATIVE (Negative); Urine Protein TRACE (Negative); Urine RBC <5 /HPF (None Seen); Urine Urobilinogen 1+ (Normal); Urine WBC None Seen /HPF (<5); Urine pH 5.5 (5.0-7.0)
--- NOTE | 2024-02-13 11:05 | RAD REPORT ---
EXAM DESCRIPTION: CT - CTHCSPWOC - 02/13/2024 10:41 am CLINICAL HISTORY: Trauma, head and neck injury. PAIN COMPARISON: No comparisons TECHNIQUE: Axial 5 mm thick images of the head were obtained. Axial 2 mm thick images of the cervical spine were obtained with sagittal and coronal reconstruction images generated and reviewed. All CT scans are performed using dose optimization technique as appropriate and may include automated exposure control or mA/KV adjustment according to patient size. FINDINGS: CT HEAD WITHOUT CONTRAST: No acute hemorrhage, hydrocephalus or extra-axial collection is identified.No areas of brain edema or midline shift. The paranasal sinuses and mastoids are clear.The calvarium is intact. CT CERVICAL SPINE WITHOUT CONTRAST: No fracture or subluxation.Mild lower cervical degenerative changes.No prevertebral soft tissues swel ling is identified. IMPRESSION: No acute intracranial or cervical spine findings.
--- NOTE | 2024-02-13 11:13 | RAD REPORT ---
EXAM DESCRIPTION: CT - Chest Abd Pelvis Wo Con - 02/13/2024 10:41 am CLINICAL HISTORY: Chest and abdomen pain. PAIN COMPARISON: No comparisons TECHNIQUE: A limited noncontrast study was performed. All CT scans are performed using dose optimization technique as appropriate and may include automated exposure control or mA/KV adjustment according to patient size. FINDINGS: The lungs are clear.No pleural or pericardial effusion.No intrathoracic adenopathy. The liver, spleen, pancreas, adrenal glands and kidneys are within normal limits. No bowel obstruction, free air, free fluid or abscess. Normal appendix. Moderate stool throughout the colon. No pathologic lymphadenopathy in the abdomen or pelvis. Grade 2-3 anterolisthesis L5 on S1 with bilateral spondylolysis. IMPRESSION: No acute abnormality is seen. Grade 2-3 anterolisthesis L5 on S1 with chronic bilateral spondylolysis. Moderate stool is present throughout the colon.
--- NOTE | 2024-02-13 12:46 | EDPHYS ---
Physician Documentation [facility] Name: Ericka Wallace Age: 43 yrs Sex: Female : 1980 Arrival Date: 02/13/2024 Time: 08:56 Bed 19 Private MD: ED Physician Jeremi Elizabeth HPI: 02/12 12:42 This 43 yrs old Black Female presents to ER via Ambulatory with complaints of Fall sae Injury, Hurts All Over. 12:42 Details of fall: The patient fell from a height, down approximately 8 stairs. Onset: sae The symptoms/episode began/occurred last night. Associated injuries: The patient sustained neck injury, upper back injury, injury to the low back, injury to the chest, injury to the abdomen. Severity of symptoms: At their worst the symptoms were moderate, in the emergency department the symptoms are unchanged. Historical: - Allergies: 09:05 Coconut; ll1 09:05 Pineapple; ll1 - PMHx: 09:05 Hypertension; Migraines; ll1 - PSHx: 09:05 section; Repair of inguinal hernia; ll1 - Immunization history:: Adult Immunizations up to date. - Infectious Disease History:: Denies. - Social history:: Smoking status: Patient reports the use of cigarette tobacco products, smokes one-half pack cigarettes per day. ROS: 12:43 Constitutional: Negative for fever, chills, and weight loss, Eyes: Negative for injury, sae pain, redness, and discharge, ENT: Negative for injury, pain, and discharge, Neck: Negative for injury, pain, and swelling, Cardiovascular: Negative for chest pain, palpitations, and edema, Respiratory: Negative for shortness of breath, cough, wheezing, and pleuritic chest pain, Abdomen/GI: Negative for abdominal pain, nausea, vomiting, diarrhea, and constipation, : Negative for injury, bleeding, discharge, and swelling, MS/Extremity: Negative for injury and deformity, Skin: Negative for injury, rash, and discoloration, Neuro: Negative for headache, weakness, numbness, tingling, and seizure, Psych: Negative for depression, anxiety, suicide ideation, homicidal ideation, and hallucinations, Allergy/Immunology: Negative for hives, rash, and allergies, Endocrine: Negative for neck swelling, polydipsia, polyuria, polyphagia, and marked weight changes, Hematologic/Lymphatic: Negative for swollen nodes, abnormal bleeding, and unusual bruising, 12:43 Back: Positive for injury or acute deformity, decreased range of motion, Exam: 12:43 Constitutional: This is a well developed, well nourished patient who is awake, alert, sae and in no acute distress. Head/Face: Normocephalic, atraumatic. Eyes: Pupils equal round and reactive to light, extra-ocular motions intact. Lids and lashes normal. Conjunctiva and sclera are non-icteric and not injected. Cornea within normal limits. Periorbital areas with no swelling, redness, or edema. ENT: Nares patent. No nasal discharge, no septal abnormalities noted. Tympanic membranes are normal and external auditory canals are clear. Oropharynx with no redness, swelling, or masses, exudates, or evidence of obstruction, uvula midline. Mucous membranes moist. Neck: Trachea midline, no thyromegaly or masses palpated, and no cervical lymphadenopathy. Supple, full range of motion without nuchal rigidity, or vertebral point tenderness. No Meningismus. Chest/axilla: Normal chest wall appearance and motion. Nontender with no deformity. No lesions are appreciated. Cardiovascular: Regular rate and rhythm with a normal S1 and S2. No gallops, murmurs, or rubs. Normal PMI, no JVD. No pulse deficits. Respiratory: Lungs have equal breath sounds bilaterally, clear to auscultation and percussion. No rales, rhonchi or wheezes noted. No increased work of breathing, no retractions or nasal flaring. Abdomen/GI: Soft, non-tender, with normal bowel sounds. No distension or tympany. No guarding or rebound. No evidence of tenderness throughout. Back: No spinal tenderness. No costovertebral tenderness. Full range of motion. Skin: Warm, dry with normal turgor. Normal color with no rashes, no lesions, and no evidence of cellulitis. MS/ Extremity: Pulses equal, no cyanosis. Neurovascular intact. Full, normal range of motion. Neuro: Awake and alert, GCS 15, oriented to person, place, time, and situation. Cranial nerves II-XII grossly intact. Motor strength 5/5 in all extremities. Sensory grossly intact. Cerebellar exam normal. Normal gait. Psych: Awake, alert, with orientation to person, place and time. Behavior, mood, and affect are within normal limits. Vital Signs: 09:06 BP 107 / 67; Pulse 65; Resp 17; Temp 97; Pulse Ox 100% ; Weight 99.79 kg; Height 5 ft. ll1 3 in. ; Pain 10; 11:40 BP 118 / 68; Pulse 70; Resp 16; Pulse Ox 100% ; ko1 12:14 BP 146 / 66; Pulse 77; Resp 16; Pulse Ox 99% ; ko1 13:15 BP 139 / 76; Pulse 72; Resp 18; Pulse Ox 100% on R/A; ld1 09:06 Body Mass Index 38.97 (99.79 kg, 160.02 cm) ll1 09:06 Pain Scale: Adult ll1 MDM: 09:11 Patient medically screened. [facility] 02/12 09:19 Order name: Basic Metabolic Panel; Complete Time: 12:40 [facility] 02/12 09:19 Order name: CBC with Diff; Complete Time: 12:40 [facility] 02/12 09:19 Order name: Type And Screen; Complete Time: 12:40 [facility] 02/12 09:19 Order name: Urinalysis w/ reflexes; Complete Time: 12:40 [facility] 02/12 09:19 Order name: LFT's; Complete Time: 12:40 [facility] 02/12 09:19 Order name: Lipase; Complete Time: 12:40 [facility] 02/12 09:24 Order name: Test, Urine; Complete Time: 12:40 bd 02/12 11:07 Order name: ABO/RH no charge; Complete Time: 12:40 EDMS 02/12 09:19 Order name: CT Head C Spine; Complete Time: 12:40 [facility] 02/12 10:40 Order name: Chest Abd Pelvis Wo Con; Complete Time: 12:40 EDNV 02/12 09:19 Order name: Labs collected and sent; Complete Time: 10:02 [facility] 02/12 10:02 Order name: Labs - recollect needed: recollect type and screen, re band pt; Complete bd Time: 10:02/12 12:41 Order name: PO challenge; Complete Time: 12:49 [facility] Administered Medications: 10:07 Drug: NS 0.9% IV 1000 ml IV at 1 bolus Per protocol; 1000 mL bolus Route: IV; Rate: 1 ko1 bolus; Site: right antecubital; Disposition Summary: 02/13/24 12:45 Discharge Ordered Notes: Location: Home sae Problem: new sae Symptoms: have improved sae Condition: Stable sae Diagnosis - Essential (primary) hypertension sae - Unspecified kidney failure sae - Fall (on) (from) other stairs and steps sae - Unspecified symptoms and signs involving the musculoskeletal system sae Followup: sae - With: Private Physician - When: 2 - 3 days - Reason: Recheck today's complaints, Continuance of care, Re-evaluation by your physician Followup: sae - With: Junior Smith MD - When: 2 - 3 days - Reason: Recheck today's complaints, Re-evaluation by your physician Discharge Instructions: - Hypertension, Adult sae - Musculoskeletal Pain sae - Hypertension, Adult, Gomr-pa-Epnv sae - Acute Kidney Injury, Adult sae - How to Take Your Blood Pressure, Eerh-wg-Pmyo sae - Managing Your Hypertension sae - Discharge Summary Sheet ll1 Forms: - Medication Reconciliation Form sae - Antibiotic Education sae - Prescription Opioid Use sae - Patient Portal Instructions sae - Leadership Thank You Letter sae - Work release form ll1 Prescriptions: - acetaminophen-codeine 300-30 mg Oral tablet - take 2 tablet ORAL route every 6 hours as needed for pain; 20 tablet; Refills: sae 0, Product Selection Permitted - Cyclobenzaprine 5 mg Oral Tablet - take 1 tablet ORAL route 3 times per day As needed; 15 tablet; Refills: 0, sae Product Selection Permitted Signatures: Dispatcher [employer] EDMaryanne Busby Corey, MD MD cha Lewis, Lynsay, RN RN ll1 Jennifer Gold RN RN ko1 Corrections: (The following items were deleted from the chart) 09:20 09:20 BASIC METABOLIC PANEL+C.LAB.BRZ ordered. EDMS EDMS 09:20 09:20 CBC+H.LAB.BRZ ordered. EDMS EDMS 09:20 09:20 TYPE AND SCREEN+BB.LAB.BRZ ordered. EDMS EDMS 09:20 09:20 Urinalysis+U.LAB.BRZ ordered. EDMS EDMS 09:20 09:20 HEPATIC FUNCTION+C.LAB.BRZ ordered. EDMS EDMS 09:20 09:20 LIPASE+C.LAB.BRZ ordered. EDMS EDMS 09:20 09:20 Head C Spine MPR Wo Con+CT.RAD.BRZ ordered. EDMS EDMS 09:20 09:20 Chest Abdomen Pelvis W Con+CT.RAD.BRZ ordered. EDMS EDMS
--- NOTE | 2024-02-13 12:46 | ER ---
Nurse's Notes [facility] Name: Ericka Wallace Age: 43 yrs Sex: Female : 1980 Arrival Date: 02/13/2024 Time: 08:56 Bed 19 Private MD: Diagnosis: Essential (primary) hypertension;Unspecified kidney failure;Fall (on) (from) other stairs and steps;Unspecified symptoms and signs involving the musculoskeletal system Presentation: 02/12 09:06 Chief complaint: Patient states: Slipped down steps last night. Pain to entire body ll1 since. Coronavirus screen: Client denies travel out of the [place] in the last 14 days. At this time, the client does not indicate any symptoms associated with coronavirus-19. Ebola Screen: Patient denies travel to an Ebola-affected area in the 21 days before illness onset. Initial Sepsis Screen: Does the patient meet any 2 criteria? No. Patient's initial sepsis screen is negative. Does the patient have a suspected source of infection? No. Patient's initial sepsis screen is negative. Risk Assessment: Do you want to hurt yourself or someone else? Patient reports no desire to harm self or others. Onset of symptoms was February 12, 2024. 09:06 Method Of Arrival: Ambulatory ll1 09:06 Acuity: ALTON 4 ll1 Triage Assessment: 10:37 General: Appears uncomfortable, Behavior is calm, cooperative, appropriate for age. ko1 Pain: Complains of pain in all over. EENT: No deficits noted. Neuro: No deficits noted. Cardiovascular: No deficits noted. Respiratory: No deficits noted. GI: No deficits noted. : No deficits noted. Derm: No deficits noted. Musculoskeletal: Reports pain in all over. Historical: - Allergies: 09:05 Coconut; ll1 09:05 Pineapple; ll1 - PMHx: 09:05 Hypertension; Migraines; ll1 - PSHx: 09:05 section; Repair of inguinal hernia; ll1 - Immunization history:: Adult Immunizations up to date. - Infectious Disease History:: Denies. - Social history:: Smoking status: Patient reports the use of cigarette tobacco products, smokes one-half pack cigarettes per day. Screenin:38 [facility] ED Fall Risk Assessment (Adult) History of falling in the last 3 months, ko1 including since admission Yes- single mechanical fall (1 pt) Confusion or Disorientation No (0 pts) Intoxicated or Sedated No (0 pts) Impaired Gait No (0 pts) Mobility Assist Device Used No (0 pt) Altered Elimination No (0 pt) Score/Fall Risk Level 0 - 2 = Low Risk Oriented to surroundings, Maintained a safe environment, Educated pt \T\ family on fall prevention, incl call for assistance when getting out of bed, Assessed \T\ reinforced patient's understanding of fall precautions, Provided non-skid footwear, Hourly rounding (assess needs \T\ fall precautionary measures) done. Abuse screen: Denies threats or abuse. Denies injuries from another. Nutritional screening: No deficits noted. Tuberculosis screening: No symptoms or risk factors identified. Assessment: 10:40 Reassessment: Patient appears in no apparent distress at this time. No changes from ko1 previously documented assessment. Patient is alert, oriented x 3, equal unlabored respirations, skin warm/dry/pink. 13:15 Reassessment: Patient appears in no apparent distress at this time. No changes from ld1 previously documented assessment. Patient and/or family updated on plan of care and expected duration. Pain level reassessed. Patient is alert, oriented x 3, equal unlabored respirations, skin warm/dry/pink. Vital Signs: 09:06 BP 107 / 67; Pulse 65; Resp 17; Temp 97; Pulse Ox 100% ; Weight 99.79 kg; Height 5 ft. ll1 3 in. ; Pain 10/10; 11:40 BP 118 / 68; Pulse 70; Resp 16; Pulse Ox 100% ; ko1 12:14 BP 146 / 66; Pulse 77; Resp 16; Pulse Ox 99% ; ko1 13:15 BP 139 / 76; Pulse 72; Resp 18; Pulse Ox 100% on R/A; ld1 09:06 Body Mass Index 38.97 (99.79 kg, 160.02 cm) ll1 09:06 Pain Scale: Adult ll1 ED Course: 09:00 Patient arrived in ED. ra3 09:05 Arm band placed on. ll1 09:07 Triage completed. ll1 09:10 Jeremi Elizabeth MD is Attending Physician. sae 10:00 Jennifer Gold RN is Primary Nurse. ko1 10:02 LFT's Sent. bc6 10:02 Lipase Sent. bc6 10:02 Basic Metabolic Panel Sent. bc6 10:02 CBC with Diff Sent. bc6 10:02 Type And Screen Sent. bc6 10:02 Initial lab(s) drawn, by me, sent to lab. T\T\S collected, blood band applied to patient. bc6 Inserted saline lock: 22 gauge in right forearm, using aseptic technique. Blood collected. Flushed with 10 mL NS. 10:38 Patient has correct armband on for positive identification. Allergy band placed. Bed in ko1 low position. Call light in reach. Side rails up X 1. Provided Education on: labs. Client placed on continuous cardiac and pulse oximetry monitoring. NIBP monitoring applied. property assessment monitor on. Door closed. Noise minimized. Lights dimmed. Warm blanket given. Pillow given. Assisted to bathroom. 10:38 No provider procedures requiring assistance completed. ko1 10:43 CT Head C Spine In Process Unspecified. EDMS 10:43 Chest Abd Pelvis Wo Con In Process Unspecified. EDMS 12:44 Junior Smith MD is Referral Physician. sae 13:15 IV discontinued, intact, bleeding controlled, No redness/swelling at site. ld1 Administered Medications: 10:07 Drug: NS 0.9% IV 1000 ml IV at 1 bolus Per protocol; 1000 mL bolus Route: IV; Rate: 1 ko1 bolus; Site: right antecubital; Medication: 10:38 VIS not applicable for this client. ko1 Outcome: 12:45 Discharge ordered by . sae 13:15 Discharged to home ambulatory, ld1 13:15 Condition: stable 13:15 Discharge instructions given to patient, Instructed on discharge instructions, follow up and referral plans. medication usage, Demonstrated understanding of instructions, follow-up care, medications, Prescriptions given X 2, 13:15 Patient left the ED. ld1 Signatures: Dispatcher [employer] EDMS Jeremi Elizabeth MD MD cha Lewis, Lynsay RN RN ll1 Lidia Chavez RN RN ld1 Jennifer Gold, LUCÍA RN ko1 Yahaira Olson 6 Gaby Reyes ra3
[2024-02-13 13:39] VITALS: TEMP 97
[2024-02-13 13:42] VITALS: BP 139/76; O2SAT 100
== END 2024-02-13 13:15 | disposition home or self-care (01) ==
LOC: ER 08:56
DX: R29.91 Unspecified symptoms and signs involving the musculoskeletal system (principal); W10.8XXA Fall (on) (from) other stairs and steps, initial encounter; I10 Essential (primary) hypertension; N19 Unspecified kidney failure
CPT/HCPCS: 36415; 70450; 71250; 72125; 74176; 80048; 80076; 81001; 81025; 83690; 85025; 86850; 86900; 86901; 99285; J7030

== ENCOUNTER 2024-08-11 11:22 | Emergency (ER) | payer SELFPAY ==
--- OUTSIDE RECORDS SUMMARY | 2024-08-11 11:30 | XMS REPORT | Continuity of Care Document ---
Author Name Unknown Address [address] [facility] [address] [place] [address] Organization [facility] [place] Address [address] [facility] [address] [place] [address] Care Team Providers Care Power Press Supervisor Name Role Phone Hazel Miller M.D. Primary Care Physician BUCKY HARVEY Attending Clinician Unav BUCKY Alcaraz Attending Clinician Unav Bucky Alcaraz MD Attending Clinician + KEE ASKEW Attending Clinician Unavailable PEDRO AGUIRRE Attending Clinician Unavailab STAR Cabrera Attending Clinician UnavailStar Brownlee MD Attending Clinician + [phone] ALEX PITT Attending Clinician Unavailable Alex Pitt MD Attending Clinician [phone] ROSEMARY CHILDERS Attending Clinician Unavailable Rosemary Childers MD Attending Clinician [phone] Doctor Unassigned, [place] Attending Clinician U TERESSA Plummer Attending Clinician UnavailTeressa Baumann DO Attending Clinician [phone] [facility], [facility] Neurology Resident Attending Cli felicity Unavailable NUNU BAKER Attending Clinician Unavaila ble Priceuneliezer LEMONS Nunu F Attending Clinician Glen ROCHA Attending Clinician Unavailable Glen Baron Attending Clinician [phone] LUIS DUNCAN Attending Clinician Unavailable Ethan [employer] OFFICERLuis Attending Clinician Evans Wilkerson Attending Clinician [phone] YOSEPH PAZ Attending Clinician Unavailable Rhonda Joya Attending Clinician [phone] ALEX PITT Admitting Clinician Unavailable NUNU BAKER Admitting Clinician Unavaila ble Payers Payer Name Policy Type Policy Number Effective Date Expirati on Date Source [employer] PREFERRED GENERIC [id number] 2020 00:00:00 MEDICAID PENDING PENDING 2021 00:00:00 Problems Condition Name Condition Details Condition Category Status Onset Date Resolution Date Last Treatment Date Treating Clinician Comments Source Hernia, abdominal Hernia, abdominal Disease Active 08-24 00:00: 00 [facility] 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 USG 08/08- 6.9 x 5.5 x 5.6cm USG 06/06- 6.0 x 4.7 x 5.6cm- lower right segment [facility] Blurry vision Blurry vision Disease Active 2012-06 00:00: 00 [facility] Immune to varicella Immune to varicella Disease Active 2012-06 00:00: 00 [facility] Rubella immune Rubella immune Disease Active 2012-06 00:00: 00 [facility] Morbid obesity Morbid obesity Disease Active 2012-06 00:00: 00 [facility] Low-lying placenta Low-lying placenta Disease Resolve d 06-06 00:00: 00 2013-10-10 00:00:00 2021-12-18 00:28:14 [facility] Abnormal maternal glucose tolerance, antepartum Abnormal maternal glucose tolerance, antepartum Disease Resolve d 2012-06 00:00: 00 2013-10-10 00:00:00 2021-12-18 00:27:02 [facility] Supervisio n of normal Supervisio n of normal Disease Resolve d 2012-06 00:00: 00 2013-10-10 00:00:00 2021-12-18 00:27:01 [facility] Acute upper respirator y infection Acute upper respirator y infection Disease Resolve d 2012-06 00:00: 00 2013-10-10 00:00:00 2021-12-18 00:27:01 [facility] Bacterial vaginosis Bacterial vaginosis Disease Resolve d 2012-06 00:00: 00 2013-10-10 00:00:00 2013-10-10 09:41:41 [facility] Backache Backache Disease Resolve d 2012-06 00:00: 00 2013-10-10 00:00:00 2013-10-10 09:41:53 [facility] Leg pain Leg pain Disease Resolve d 2012-06 00:00: 00 2013-10-10 00:00:00 2013-10-10 09:41:49 [facility] Nausea & vomiting Nausea & vomiting Disease Resolve d 2012-06 00:00: 00 2013-10-10 00:00:00 2013-10-10 09:41:45 [facility] Allergies, Adverse Reactions, Alerts Allergy Name Allergy Type Status Severity Reaction(s) Onset Date Inactive Date Treating Clinician Comments Source NO KNOWN ALLERGIE S Drug Class Active [facility] Social History Social Habit Start Date Stop Date Quantity Comments Source History of tobacco use Cigarette Smoker [facility] Alcohol intake 2023-09-04 00:00:00 2023-09-04 00:00:00 Current non-drinker of alcohol (finding) [facility] History of Social function 2023-09-04 00:00:00 2023-09-04 00:00:00 [facility] Alcoholic beverage intake 2023-09-04 00:00:00 2023-09-04 00:00:00 Current non-drinker of alcohol (finding) [facility] Exposure to SARS-CoV-2 (event) 2022-09-17 00:00:00 2022-09-27 10:30:00 Not sure [facility] Cigarettes smoked current (pack per day) - Reported 2013-09-11 00:00:00 2013-09-11 00:00:00 [facility] Tobacco Comment 2013-09-11 00:00:00 2013-09-11 00:00:00 Trying to quit [facility] Tobacco use and exposure 2013-09-11 00:00:00 2013-09-11 00:00:00 Smokeless tobacco non-user [facility] Sex assigned at 1980 00:00:00 1980 00:00:00 [facility] Smoking Status Start Date Stop Date Source Smokes tobacco daily 2013-09-11 00:00:00 [facility] Medications Ordered Medication Name Filled Medication Name Start Date Stop Date Current Medication? Ordering Clinician Indication Dosage Frequency Signature (SIG) Comments Components Source ketorolac (TORADOL) injection 30 mg 07-31 19:15: 00 07-31 18:36 :00 No 30mg 30 mg, Intramuscu lar, ONCE, 1 dose, On Sun07/31/24 at 1315, Routine [facility] benzonatate (TESSALON PERLES) capsule 100 mg 07-31 18:30: 00 07-31 18:35 :00 No 100mg 100 mg, Oral, ONCE, 1 dose, On Sun07/31/24 at 1230, [facility] lisinopril 20 mg-hydrochl orothiazide 12.5 mg tablet 12-19 00:00: 00 Yes 1mg Cem Suzi Wahl lisinopril 20 mg-hydrochl orothiazide 12.5 mg tablet 09-25 00:00: 00 Yes 1mg Cem Wahl NaCl 0.9% (NS) bolus infusion 1,000 mL 09-04 01:30: 00 09-04 02:00 :00 No 1000mL at 999 mL/hr, 1,000 mL, IV Infusion, ONCE, 1 dose, On Sun09/04/23 at 2030, [facility] diphenhydrA MINE (BENADRYL) injection 25 mg 09-04 00:45: 00 09-04 00:48 :00 No 25mg 25 mg, Slow IV Push, ONCE, 1 dose, On Sun09/04/23 at 1945, [facility] metoclopram hadley HCl (REGLAN) injection 10 mg 09-04 00:45: 00 09-04 00:48 :00 No 10mg 10 mg, Slow IV Push, ONCE, 1 dose, On Sun09/04/23 at 1945, [facility] ketorolac (TORADOL) injection 30 mg 07-03 17:00: 00 07-03 16:24 :00 No 30mg 30 mg, Slow IV Push, ONCE, 1 dose, On Sun07/03/23 at 1100, [facility] NaCl 0.9% (NS) bolus infusion 1,000 mL 07-03 17:00: 00 07-03 17:50 :00 No 1000mL at 999 mL/hr, 1,000 mL, IV Infusion, ONCE, 1 dose, On Sun07/03/23 at 1100, [facility] dexamethaso ne sod phos PF injection 10 mg 07-03 16:15: 00 07-03 16:24 :00 No 10mg 10 mg, Slow IV Push, ONCE, 1 dose, On Sun07/03/23 at 1015, 1 mL [facility] metoclopram hadley HCl (REGLAN) injection 10 mg 07-03 16:15: 07-03 16:24 :00 No 10mg 10 mg, Slow IV Push, ONCE, 1 dose, On Sun07/03/23 at 1015, [facility] butalbital- acetaminoph en-caff 50-325-40 mg tablet 07-03 00:00: 00 Yes [id number] 1{tbl} Take 1 tablet by mouth every 6 (six) hours as needed (headache) . [facility] ondansetron 4 mg tablet 07-03 00:00: 00 Yes [id number] 1 or 2 tablets every 8 hours as needed for nausea [facility] predniSONE 20 mg tablet 07-03 00:00: 00 07-11 05:59 :00 No [id number] 40mg Take 2 tablets by mouth in the morning for 7 days. [facility] TAKE 1 TABLET EVERY 8 [...] dose, On Krystle 06/21/23 at 2200, Routine [facility] NaCl 0.9% (NS) bolus infusion 1,000 mL 06-22 03:45: 00 06-22 05:00 :00 No 1000mL at 999 mL/hr, 1,000 mL, IV Piggyback, ONCE, 1 dose, On Krystle 06/21/23 at 2145, STAT [facility] ketorolac (TORADOL) injection 30 mg 06-22 03:45: 00 06-22 03:25 :00 No 30mg 30 mg, Slow IV Push, ONCE NOW, 1 dose, On Krystle 06/21/23 at 2145, G[facility]ARDO [facility] ondansetron (ZOFRAN (PF)) injection 4 mg 06-22 03:00: 00 06-22 03:25 :00 No 4mg 4 mg, Slow IV Push, ONCE, 1 dose, On Krystle 06/21/23 at 2100, [facility]ARD[facility] famotidine (PEPCID) 20 mg tablet 06-22 00:00: 00 Yes [id number] 20mg Take 1 tablet by mouth in the morning and 1 tablet in the evening. [facility] ondansetron 4 mg disintegrat ing tablet 06-22 00:00: 00 Yes [id number] 4mg Take 1 tablet by mouth every 8 (eight) hours as needed for Nausea and Vomiting (N/V). [facility] hyoscyamine sulfate (LEVSIN/SL) 0.125 mg sublingual tablet 06-22 00:00: [id number] 2 tablets under the tongue every 6 (six) hours as needed (Abdominal pain or cramping). [facility] ketorolac 10 mg tablet 06-22 00:00: 00 Yes [id number] 10mg Take 1 tablet by mouth every 6 (six) hours as needed for Pain (scale 4-6) or Pain (scale 7-10). [facility] acetaminoph en (TYLENOL ARTHRITIS PAIN) 650 mg CR tablet 06-22 00:00: 00 Yes [id number] 650mg Take 1 tablet by mouth every 8 (eight) hours as needed for Pain. [facility] TAKE 1 TABLET DAILY. 2022-06 00:00: 00 10-15 00:00 :00 No Cem Suzi Wahl NaCl 0.9% (NS) bolus infusion 1,000 mL 12-21 01:15: 00 12-21 01:45 :00 No 1000mL at 999 mL/hr, 1,000 mL, IV Infusion, ONCE, 1 dose, On Sun12/20/22 at 2015, STAT [facility] dexamethaso ne sod phos PF injection 10 mg 12-21 00:30: 00 12-21 00:54 :00 No 10mg 10 mg, Slow IV Push, ONCE, 1 dose, On Sun12/20/22 at 1930, 1 mL [facility] diphenhydrA MINE (BENADRYL) injection 25 mg 12-21 00:30: 00 12-21 00:54 :00 No 25mg 25 mg, Slow IV Push, ONCE, 1 dose, On Sun12/20/22 at 1930, STAT [facility] metoclopram hadley HCl (REGLAN) injection 10 mg 12-21 00:15: 00 12-21 00:54 :00 No 10mg 10 mg, Slow IV Push, ONCE, 1 dose, On Sun12/20/22 at 1915, [facility]ARDO [facility] INJECT 1 ML INTRAMUSCUL TORRES ONCE EVERY 3 MONTHS. 12-06 00:00: 00 10-15 00:00 :00 No 150 Cem Wahl TAKE 1 TABLET DAILY. 12-06 00:00: 00 10-15 00:00 :00 No Cem Wahl ketorolac (TORADOL) injection 30 mg 09-27 16:30: 00 09-27 15:43 :00 No 30mg 30 mg, Slow IV Push, ONCE, 1 dose, On Sun09/27/22 at 1130, Routine [facility] NaCl 0.9% (NS) bolus infusion 1,000 mL 09-27 16:30: 00 09-27 16:54 :00 No 1000mL at 999 mL/hr, 1,000 mL, IV Infusion, ONCE, 1 dose, On Sun09/27/22 at 1130, [facility] butalbital- acetaminoph en-caff (ESGIC) 50-325-40 mg tablet 1 tablet 09-27 15:45: 00 09-27 15:44 :00 No 1{tbl} 1 tablet, Oral, ONCE, 1 dose, On Sun09/27/22 at 1045, [facility] dexamethaso ne sod phos PF injection 10 mg 09-27 15:45: 00 09-27 15:44 :00 No 10mg 10 mg, Slow IV Push, ONCE, 1 dose, On Sun09/27/22 at 1045, 1 mL [facility] diphenhydrA MINE (BENADRYL) injection 25 mg 09-27 15:45: 00 09-27 15:44 :00 No 25mg 25 mg, Slow IV Push, ONCE, 1 dose, On Sun09/27/22 at 1045, STAT [facility] metoclopram hadley HCl (REGLAN) injection 10 mg 09-27 15:45: 00 09-27 15:44 :00 No 10mg 10 mg, Slow IV Push, ONCE, 1 dose, On Sun09/27/22 at 1045, [facility] TAKE 1 TABLET DAILY. -18 00:00: 00 10-15 00:00 :00 No Cem Wahl TAKE 1 TABLET DAILY. 3-06 00:00: 00 10-15 00:00 :00 No Cem Wahl butalbital- acetaminoph en-caff (ESGIC) 50-325-40 mg tablet 2 tablet 2-16 01:00: 00 07-20 01:08 :00 No 2{tbl} 2 tablet, Oral, ONCE, 1 [facility], [facility] 1900[facility] 30 mg 07-19 15:30: 00 07-19 14:58 :00 No 30mg 30 mg, Slow IV Push, ONCE, 1 dose, On Sun07/19/22 at 0930, Routine [facility] NaCl 0.9% (NS) bolus infusion 1,000 mL 07-19 15:30: 00 07-19 16:40 :00 No 1000mL at 999 mL/hr, 1,000 mL, IV Infusion, ONCE, 1 dose, On Sun07/19/22 at 0930, [facility] dexamethaso ne sod phos PF injection 10 mg 07-19 14:45: 00 07-19 14:58 :00 No 10mg 10 mg, Slow IV Push, ONCE, 1 dose, On Sun07/19/22 at 0845, 1 mL [facility] diphenhydrA MINE (BENADRYL) injection 25 mg 07-19 14:45: 00 07-19 14:58 :00 No 25mg 25 mg, Slow IV Push, ONCE, 1 dose, On Sun07/19/22 at 0845, STAT [facility] metoclopram hadley HCl (REGLAN) injection 10 mg 07-19 14:45: 00 07-19 14:58 :00 No 10mg 10 mg, Slow IV Push, ONCE, 1 dose, On Sun07/19/22 at 0845, [facility] butalbital- acetaminoph en-caff 50-325-40 mg tablet 07-19 00:00: 00 Yes [id number] 1{tbl} Take 1 tablet by mouth every 4 (four) hours as needed for Pain (scale 7-10). [facility] ibuprofen 600 mg tablet 9-12 00:00: 00 Yes [id number] 600mg Take 1 tablet by mouth every 6 (six) hours as needed for Pain (scale 4-6). [facility] benzonatate 200 mg capsule 02-13 00:00: 00 Yes [id number] 200mg Take 1 capsule by mouth 3 (three) times daily as needed for Cough for up to 20 doses. [facility] ondansetron 4 mg disintegrat ing tablet 02-13 00:00: 00 Yes [id number] 4mg Take 1 tablet by mouth every 8 (eight) hours as needed for Nausea and Vomiting (N/V). [facility] lisinopril 20 mg-hydrochl orothiazide 12.5 mg tablet 11-17 00:00: 00 No 1mg lisinopril 20 mg-hydrochl orothiazide 12.5 mg tablet 11-17 00:00: 00 No 1mg lisinopril 20 mg-hydrochl orothiazide 12.5 mg tablet 11-17 00:00: 00 Yes 1mg Cem Wahl dexamethaso ne sod phos PF injection 10 mg 10-21 18:00: 00 10-21 18:00 :00 No 10mg 10 mg, Slow IV Push, ONCE, 1 dose, On Sun10/21/21 at 1300, 1 mL [facility] ketorolac (TORADOL) injection 30 mg 10-21 17:45: 00 10-21 17:00 :00 No 30mg 30 mg, Slow IV Push, ONCE, 1 dose, On Sun10/21/21 at 1245, G[facility]ARDO [facility] diphenhydrA MINE (BENADRYL) injection 25 mg 10-21 17:45: 00 10-21 16:58 :00 No 25mg 25 mg, Slow IV Push, ONCE, 1 dose, On Sun10/21/21 at 1245, STAT [facility] metoclopram hadley HCl (REGLAN) injection 10 mg 10-21 17:45: 00 10-21 16:57 :00 No 10mg 10 mg, Slow IV Push, ONCE, 1 dose, On Sun10/21/21 at 1245, [facility] NaCl 0.9% (NS) bolus infusion 1,000 mL 10-21 17:45: 00 10-21 18:23 :00 No 1000mL at 999 mL/hr, 1,000 mL, IV Infusion, ONCE, 1 dose, On Sun10/21/21 at 1245, [facility] Dose Unknown 08-13 00:00: 00 No Dose Unknown 08-13 00:00: 00 No Dose Unknown 08-13 00:00: 00 Yes Cem Wahl cefTRIAXone (ROCEPHIN) 1,000 mg in NaCl 0.9% (NS) 50 mL MINI-BAG 2020-06 00:45: 00 05-27 00:22 :00 No 1000mg 1,000 mg, IV Piggyback, ONCE, 1 dose, On Krystle 05/26/21 at 1845, Administer over 30 Minutes, 50 mL
Reas on for Anti-Infec tive: Documented Infection< br>Documen lizette Infection Site: Urine
D uration of Therapy: 7 days [facility] butalbital- acetaminoph en-caff (ESGIC) 50-325-40 mg tablet 1 tablet 2020-06 00:45: 00 05-26 23:52 :00 No 1{tbl} 1 tablet, Oral, ONCE, 1 dose, On Krystle 05/26/21 at 1845, [facility] dexamethaso ne (DECADRON PHOSPHATE) injection 10 mg 2020-06 00:45: 00 05-26 23:52 :00 No 10mg 10 mg, IV Push, ONCE, 1 dose, On Krystle 05/26/21 at 1845, STAT [facility] diphenhydrA MINE (BENADRYL) injection 12.5 mg 2020-06 22:30: 00 05-26 22:39 :00 No 12.5mg 12.5 mg, Slow IV Push, ONCE, 1 dose, On Krystle 05/26/21 at 1630, STAT [facility] metoclopram hadley HCl (REGLAN) injection 10 mg 2020-06 22:30: 00 05-26 22:39 :00 No 10mg 10 mg, Slow IV Push, ONCE, 1 dose, On Krystle 05/26/21 at 1630, [facility] ketorolac (TORADOL) injection 30 mg 2020-06 22:30: 00 05-26 22:39 :00 No 30mg 30 mg, Slow IV Push, ONCE, 1 dose, On Krystle 05/26/21 at 1630, [facility] NaCl 0.9% (NS) bolus infusion 1,000 mL 2020-06 22:30: 00 05-26 23:52 :00 No 1000mL at 999 mL/hr, 1,000 mL, IV Infusion, ONCE, 1 dose, On Krystle 05/26/21 at 1630, [facility] butalbital- acetaminoph en-caff 50-325-40 mg tablet 2020-06 00:00: 00 Yes [id number] 1{tbl} Take 1 tablet by mouth every 4 (four) hours as needed for Pain (scale 7-10). [facility] cephALEXin (KEFLEX) 500 mg capsule 2020-06 00:00: 00 06-03 05:59 :00 No [id number] 500mg Take 1 capsule by mouth 2 (two) times daily for 7 days. [facility] lisinopril 20 mg-hydrochl orothiazide 12.5 mg tablet 2020-06 00:00: 00 No 1mg lisinopril 20 mg-hydrochl orothiazide 12.5 mg tablet 2020-06 00:00: 00 No 1mg lisinopril 20 mg-hydrochl orothiazide 12.5 mg tablet 2020-06 00:00: 00 Yes 1mg Cem F Vish Dose Unknown 2020-06 00:00: 00 No Depo-Scheduling Representative a 150 mg/mL intramuscul ar suspension 2020-06 00:00: 00 No 1mg/mL Dose Unknown 2020-06 00:00: 00 No Depo-Scheduling Representative a 150 mg/mL intramuscul ar suspension 2020-06 00:00: 00 No 1mg/mL Dose Unknown 2020-06 00:00: 00 Yes Cem Wahl lisinopril 20 mg-hydrochl orothiazide 12.5 mg tablet 02-21 00:00: 00 No 1mg lisinopril 20 mg-hydrochl orothiazide 12.5 mg tablet 02-21 00:00: 00 No 1mg lisinopril 20 mg-hydrochl orothiazide 12.5 mg tablet 02-21 00:00: 00 Yes 1mg Cem Wahl lisinopril [...] ONCE, 1 dose, Sun11/19/20 at 1715, [facility]ARDO [facility] ketorolac (TORADOL) injection 30 mg 11-19 22:15: 00 11-19 21:09 :00 No 30mg 30 mg, Slow IV Push, ONCE, 1 dose, Sun11/19/20 at 1715, [facility]
Fa culty member approving Restricted medication : YANG, EVANS S [facility] diphenhydrA MINE (BENADRYL) injection 25 mg 11-19 22:15: 00 11-19 21:10 :00 No 25mg 25 mg, Slow IV Push, ONCE, 1 dose, Sun11/19/20 at 1715, STAT [facility] NaCl 0.9% (NS) bolus infusion 1,000 mL 11-19 22:00: 00 11-19 21:52 :00 No 1000mL at 999 mL/hr, 1,000 mL, IV Infusion, ONCE, 1 dose, Sun11/19/20 at 1700, STAT [facility] ondansetron (ZOFRAN (PF)) injection 4 mg 11-19 22:00: 00 11-19 20:58 :00 No 4mg 4 mg, Slow IV Push, ONCE, 1 dose, Sun11/19/20 at 1700, G[facility]ARDO [facility] ondansetron (ZOFRAN ODT) 4 mg disintegrat ing tablet 11-19 00:00: 00 Yes [id number] 4mg Take 1 tablet by mouth every 8 (eight) hours as needed for Nausea and Vomiting (N/V). [facility] medroxyprog esterone 150 mg/mL intramuscul ar suspension 10-11 00:00: 00 No 1mg/mL medroxyprog esterone 150 mg/mL intramuscul ar suspension 10-11 00:00: 00 No 1mg/mL loratadine 10 mg tablet - 00:00: 00 No 1mg lisinopril 20 mg-hydrochl orothiazide 12.5 mg tablet - 00:00: 00 No 1mg loratadine 10 mg tablet - 00:00: 00 No 1mg lisinopril 20 mg-hydrochl orothiazide 12.5 mg tablet - 00:00: 00 No 1mg loratadine 10 mg tablet - 00:00: 00 Yes 1mg Cem Wahl lisinopril 20 mg-hydrochl orothiazide 12.5 mg tablet 0 07-26 00:00: 00 Yes 1mg Cem Wahl loratadine 10 mg tablet 2019-06 00:00: 00 No 1mg loratadine 10 mg tablet 2019-06 00:00: 00 No 1mg lisinopril 20 mg-hydrochl orothiazide 12.5 mg tablet 2019-06 00:00: 00 No 1mg lisinopril 20 mg-hydrochl orothiazide 12.5 mg tablet 2019-06 00:00: 00 No 1mg loratadine 10 mg tablet 2019-06 00:00: 00 Yes 1mg Cem Wahl lisinopril 20 mg-hydrochl orothiazide 12.5 mg tablet 2019-06 00:00: 00 Yes 1mg Cem Wahl lisinopril 20 mg-hydrochl orothiazide 12.5 mg tablet 0 02-18 00:00: 00 No 1mg lisinopril 20 mg-hydrochl orothiazide 12.5 mg tablet 0 02-18 00:00: 00 No 1mg lisinopril 20 mg-hydrochl orothiazide 12.5 mg tablet 0 02-18 00:00: 00 Yes 1mg Cem Wahl lisinopril 10 mg-hydrochl orothiazide 12.5 mg tablet 0 02-04 00:00: 00 No 1mg lisinopril 10 mg-hydrochl orothiazide 12.5 mg tablet 0 - 00:00: 00 No 1mg lisinopril 10 mg-hydrochl orothiazide 12.5 mg tablet 0 02-04 00:00: 00 Yes 1mg Cem Wahl loratadine 10 mg tablet 0 10-30 00:00: 00 No 1mg lisinopril 10 mg-hydrochl orothiazide 12.5 mg tablet 0 10-30 00:00: 00 No 1mg loratadine 10 mg tablet 0 10-30 00:00: 00 No 1mg lisinopril 10 mg-hydrochl orothiazide 12.5 mg tablet 0 10-30 00:00: 00 No 1mg loratadine 10 mg tablet 0 10-30 00:00: 00 Yes 1mg Cem Wahl lisinopril 10 mg-hydrochl orothiazide 12.5 mg tablet 0 10-30 00:00: 00 Yes 1mg Cem Wahl Wellbutrin SR 150 mg tablet, 12 hr sustained-r elease 0 1- 00:00: 00 No 1mg loratadine 10 mg tablet - 00:00: 00 No 1mg lisinopril 10 mg-hydrochl orothiazide 12.5 mg tablet - 00:00: 00 No 1mg Wellbutrin SR 150 mg tablet, 12 hr sustained-r elease 0 - 00:00: 00 No 1mg loratadine 10 mg tablet 06-13 00:00: 00 No 1mg lisinopril 10 mg-hydrochl orothiazide 12.5 mg tablet 06-13 00:00: 00 No 1mg Wellbutrin SR 150 mg tablet, 12 hr sustained-r elease - 00:00: 00 Yes 1mg Cem Wahl loratadine 10 mg tablet 06-13 00:00: 00 Yes 1mg Cem Wahl lisinopril 10 mg-hydrochl orothiazide 12.5 mg tablet - 00:00: 00 Yes 1mg Cem Wahl [...] 50-325-40 mg tablet 2018-06 00:00: 00 Yes [id number] 1{tbl} Take 1 tablet by mouth every 6 (six) hours as needed for Pain (scale 4-6). [facility] HYDROcodone -acetaminop hen (NORCO) 10-325 mg tablet 1 tablet 01-12 02:30: 00 01-12 14:29 :00 No 1{tbl} 1 tablet, Oral, ONCE NOW, 1 dose, 01/11/19 at 2130, Routine [facility] ketorolac (TORADOL) injection 15 mg 01-12 01:30: 00 01-12 00:40 :00 No 15mg 15 mg, Slow IV Push, ONCE, 1 dose, 01/11/19 at 2030, [facility]
Fa culty member approving Restricted medication : RHONDA PERKINS III [facility] diphenhydrA MINE (BENADRYL) injection 25 mg 01-12 01:30: 00 01-12 00:40 :00 No 25mg 25 mg, Slow IV Push, ONCE, 1 dose, 01/11/19 at 2030, STAT
IN DICATION: DESENSITIZ ATION PROTOCOL [facility] metoclopram hadley HCl (REGLAN) injection 10 mg 01-12 01:30: 00 01-12 00:40 :00 No 10mg 10 mg, Slow IV Push, ONCE, 1 dose, 01/11/19 at 2030, G[facility]ARDO [facility] NaCl 0.9% (NS) bolus infusion 1,000 mL 01-12 01:30: 00 01-12 01:32 :00 No 1000mL at 999 mL/hr, 1,000 mL, IV Infusion, ONCE, 1 dose, 01/11/19 at 2030, STAT [facility] amitriptyli ne 25 mg tablet 11-07 00:00: 00 Yes Take one tablet per night as tolerated for one week then increase as tolerated to 2 tablets per night thereafter [facility] SUMAtriptan 25 mg tablet 11-07 00:00: 00 Yes Take one table at headache onset and one additional tablet 2 hours later if no relief. Not to exceed 2 pills in 24 hours or 9 days / month [facility] acetaZOLAMI DE 250 mg tablet 09-07 00:00: 00 Yes [id number] 500mg Take 2 tablets by mouth 2 (two) times daily. [facility] topiramate (TOPAMAX) 50 mg tablet 09-07 00:00: 00 Yes [id number] 50mg Take 1 tablet by mouth 2 (two) times daily. [facility] Immunizations Ordered Immunization Name Filled Immunization Name Date Status Comments Source TD, NOS 2023-09-04 18:14:00 Completed [facility] Influenza Virus Vaccine (3+ yrs) 2023-09-04 18:14:00 Completed [facility] TDAP 2023-09-04 18:14:00 Completed [facility] TD, NOS 2023-07-03 09:48:00 Completed [facility] Influenza Virus Vaccine (3+ yrs) 2023-07-03 09:48:00 Completed [facility] TDAP 2023-07-03 09:48:00 Completed [facility] TD, NOS 2023-06-21 20:47:00 Completed [facility] Influenza Virus Vaccine (3+ yrs) 2023-06-21 20:47:00 Completed [facility] TDAP 2023-06-21 20:47:00 Completed [facility] TD, NOS 2022-09-28 00:00:00 Completed [facility] Influenza Virus Vaccine (3+ yrs) 2022-09-28 00:00:00 Completed [facility] TDAP 2022-09-28 00:00:00 Completed [facility] TD, NOS 2022-07-20 00:00:00 Completed [facility] Influenza Virus Vaccine (3+ yrs) 2022-07-20 00:00:00 Completed [facility] TDAP 2022-07-20 00:00:00 Completed [facility] TDAP 2013-06-16 00:00:00 Completed [facility] TDAP 2013-06-16 00:00:00 Completed [facility] TDAP 2013-06-16 00:00:00 Completed [facility] TDAP 2013-06-16 00:00:00 Completed [facility] TDAP 2013-06-16 00:00:00 Completed [facility] TDAP 2013-06-16 00:00:00 Completed [facility] TDAP 2013-06-16 00:00:00 Completed [facility] TDAP 2013-06-16 00:00:00 Completed [facility] Tdap 2013-06-16 00:00:00 Completed [facility] TDAP 2013-06-16 00:00:00 Completed [facility] Tdap 2013-06-16 00:00:00 Completed [facility] TDAP 2013-06-16 00:00:00 Completed [facility] TDAP 2013-06-16 00:00:00 Completed [facility] Influenza Virus Vaccine (3+ yrs) 2013-03-28 00:00:00 Completed [facility] Influenza Virus Vaccine (3+ yrs) 2013-03-28 00:00:00 Completed [facility] Influenza Virus Vaccine (3+ yrs) 2013-03-28 00:00:00 Completed [facility] Influenza Virus Vaccine (3+ yrs) 2013-03-28 00:00:00 Completed [facility] Influenza Virus Vaccine (3+ yrs) 2013-03-28 00:00:00 Completed [facility] Influenza Virus Vaccine (3+ yrs) 2013-03-28 00:00:00 Completed [facility] Influenza Virus Vaccine (3+ yrs) 2013-03-28 00:00:00 Completed [facility] Influenza Virus Vaccine (3+ yrs) 2013-03-28 00:00:00 Completed [facility] Influenza Virus Vaccine (3+ yrs) 2013-03-28 00:00:00 Completed [facility] Influenza Virus Vaccine (3+ yrs) 2013-03-28 00:00:00 Completed [facility] Influenza Virus Vaccine (3+ yrs) 2013-03-28 00:00:00 Completed [facility] Influenza, split virus, trivalent, preservative (3+ Yrs) (Afluria) 2013-03-28 00:00:00 Completed Influenza Virus Vaccine (3+ yrs) 2013-03-28 00:00:00 Completed [facility] Td 1998-01-17 00:00:00 Completed [facility] Td 1998-01-17 00:00:00 Completed [facility] Td 1998-01-17 00:00:00 Completed [facility] Td 1998-01-17 00:00:00 Completed [facility] TD, NOS 1998-01-17 00:00:00 Completed [facility] TD, NOS 1998-01-17 00:00:00 Completed [facility] TD, NOS 1998-01-17 00:00:00 Completed [facility] TD, NOS 1998-01-17 00:00:00 Completed [facility] Td 1998-01-17 00:00:00 Completed [facility] TD, NOS 1998-01-17 00:00:00 Completed [facility] Td 1998-01-17 00:00:00 Completed [facility] TD, NOS 1998-01-17 00:00:00 Completed Td 1998-01-17 00:00:00 Completed [facility] Vital Signs Vital Name Observation Time Observation Value Comments S ource Systolic blood pressure 2024-07-31 16:48:00 148 mm[Hg] [facility] Diastolic blood pressure 2024-07-31 16:48:00 80 mm[Hg] [facility] Heart rate 2024-07-31 16:48:00 64 /min [facility] Body temperature 2024-07-31 16:48:00 36.89 Yuliana [facility] Respiratory rate 2024-07-31 16:48:00 18 /min [facility] Body height 2024-07-31 16:48:00 160 cm [facility] Body weight 2024-07-31 16:48:00 99.791 kg [facility] BMI 2024-07-31 16:48:00 38.97 kg/m2 [facility] Oxygen saturation in Arterial blood by Pulse oximetry 2024-07-31 16:48:00 100 /min [facility] Systolic blood pressure 2023-09-05 02:05:00 110 mm[Hg] [facility] Diastolic blood pressure 2023-09-05 02:05:00 80 mm[Hg] [facility] Heart rate 2023-09-05 02:05:00 76 /min [facility] Body temperature 2023-09-05 02:05:00 37.06 Yuliana [facility] Respiratory rate 2023-09-05 02:05:00 17 /min [facility] Oxygen saturation in Arterial blood by Pulse oximetry 2023-09-05 02:05:00 97 /min [facility] Body height 2023-09-04 23:12:00 160 cm [facility] Body weight 2023-09-04 23:12:00 99.791 kg [facility] BMI 2023-09-04 23:12:00 38.97 kg/m2 [facility] Systolic blood pressure 2023-07-03 18:00:00 126 mm[Hg] [facility] Diastolic blood pressure 2023-07-03 18:00:00 78 mm[Hg] [facility] Heart rate 2023-07-03 18:00:00 64 /min [facility] Respiratory rate 2023-07-03 18:00:00 18 /min [facility] Oxygen saturation in Arterial blood by Pulse oximetry 2023-07-03 18:00:00 100 /min [facility] Body temperature 2023-07-03 15:47:00 37.22 Yuliana [facility] Body height 2023-07-03 15:47:00 160 cm [facility] Body weight 2023-07-03 15:47:00 102.195 kg [facility] BMI 2023-07-03 15:47:00 39.91 kg/m2 [facility] Systolic blood pressure 2023-06-22 06:10:00 104 mm[Hg] [facility] Diastolic blood pressure 2023-06-22 06:10:00 68 mm[Hg] [facility] Heart rate 2023-06-22 06:10:00 68 /min [facility] Body temperature 2023-06-22 06:10:00 37.22 Yuliana [facility] Respiratory rate 2023-06-22 06:10:00 16 /min [facility] Oxygen saturation in Arterial blood by Pulse oximetry 2023-06-22 06:10:00 100 /min [facility] Body height 2023-06-22 02:45:00 160 cm [facility] Body weight 2023-06-22 02:45:00 99.791 kg [facility] BMI 2023-06-22 02:45:00 38.97 kg/m2 [facility] Systolic blood pressure 2022-12-21 02:55:53 117 mm[Hg] [facility] Diastolic blood pressure 2022-12-21 02:55:53 70 mm[Hg] [facility] Heart rate 2022-12-21 02:55:53 79 /min [facility] Respiratory rate 2022-12-21 02:55:53 15 /min [facility] Oxygen saturation in Arterial blood by Pulse oximetry 2022-12-21 02:55:53 100 /min [facility] Body temperature 2022-12-20 23:43:00 37.28 Yuliana [facility] Body height 2022-12-20 23:43:00 160 cm [facility] Body weight 2022-12-20 23:43:00 99.791 kg [facility] BMI 2022-12-20 23:43:00 38.97 kg/m2 [facility] Systolic blood pressure 2022-09-27 16:00:00 122 mm[Hg] [facility] Diastolic blood pressure 2022-09-27 16:00:00 82 mm[Hg] [facility] Heart rate 2022-09-27 16:00:00 63 /min [facility] Respiratory rate 2022-09-27 16:00:00 18 /min [facility] Oxygen saturation in Arterial blood by Pulse oximetry 2022-09-27 16:00:00 100 /min [facility] Body temperature 2022-09-27 15:29:00 36.89 Yuliana [facility] Body height 2022-09-27 15:29:00 160 cm [facility] Body weight 2022-09-27 15:29:00 104.327 kg [facility] BMI 2022-09-27 15:29:00 40.74 kg/m2 [facility] Systolic blood pressure 2022-07-20 02:15:22 138 mm[Hg] [facility] Diastolic blood pressure 2022-07-20 02:15:22 78 mm[Hg] [facility] Heart rate 2022-07-20 02:15:22 69 /min [facility] Body temperature 2022-07-20 02:15:22 36.61 Yuliana [facility] Respiratory rate 2022-07-20 02:15:22 16 /min [facility] Oxygen saturation in Arterial blood by Pulse oximetry 2022-07-20 02:15:22 100 /min [facility] Body height 2022-07-20 00:24:00 160 cm [facility] Body weight 2022-07-20 00:24:00 104.327 kg [facility] BMI 2022-07-20 00:24:00 40.74 kg/m2 [facility] Systolic blood pressure 2022-07-19 17:30:33 124 mm[Hg] [facility] Diastolic blood pressure 2022-07-19 17:30:33 61 mm[Hg] [facility] Heart rate 2022-07-19 17:30:33 65 /min [facility] Body temperature 2022-07-19 17:30:33 37.11 Yuliana [facility] Respiratory rate 2022-07-19 17:30:33 16 /min [facility] Oxygen saturation in Arterial blood by Pulse oximetry 2022-07-19 17:30:33 99 /min [facility] Body height 2022-07-19 14:34:00 160 cm [facility] Body weight 2022-07-19 14:34:00 104.327 kg [facility] BMI 2022-07-19 14:34:00 40.74 kg/m2 [facility] Systolic blood pressure 2022-02-13 12:56:00 136 mm[Hg] [facility] Diastolic blood pressure 2022-02-13 12:56:00 81 mm[Hg] [facility] Heart rate 2022-02-13 12:56:00 79 /min [facility] Body temperature 2022-02-13 12:56:00 36.44 Yuliana [facility] Respiratory rate 2022-02-13 12:56:00 15 /min [facility] Body height 2022-02-13 12:56:00 160 cm [facility] Body weight 2022-02-13 12:56:00 104.327 kg [facility] BMI 2022-02-13 12:56:00 40.74 kg/m2 [facility] Oxygen saturation in Arterial blood by Pulse oximetry 2022-02-13 12:56:00 100 /min [facility] Systolic blood pressure 2021-10-21 18:24:00 128 mm[Hg] [facility] Diastolic blood pressure 2021-10-21 18:24:00 76 mm[Hg] [facility] Heart rate 2021-10-21 18:24:00 72 /min [facility] Respiratory rate 2021-10-21 18:24:00 18 /min [facility] Oxygen saturation in Arterial blood by Pulse oximetry 2021-10-21 18:24:00 100 /min [facility] Body temperature 2021-10-21 16:40:00 36.61 Yuliana [facility] Body height 2021-10-21 16:40:00 160 cm [facility] Body weight 2021-10-21 16:40:00 104.327 kg [facility] BMI 2021-10-21 16:40:00 40.74 kg/m2 [facility] Systolic blood pressure 2021-05-27 00:00:00 131 mm[Hg] [facility] Diastolic blood pressure 2021-05-27 00:00:00 89 mm[Hg] [facility] Heart rate 2021-05-27 00:00:00 64 /min [facility] Respiratory rate 2021-05-27 00:00:00 19 /min [facility] Oxygen saturation in Arterial blood by Pulse oximetry 2021-05-27 00:00:00 98 /min [facility] Body temperature 2021-05-26 20:20:00 37.28 Yuliana [facility] Body height 2021-05-26 20:20:00 160 cm [facility] Body weight 2021-05-26 20:20:00 66.225 kg [facility] BMI 2021-05-26 20:20:00 25.86 kg/m2 [facility] Systolic blood pressure 2020-11-19 21:52:41 130 mm[Hg] [facility] Diastolic blood pressure 2020-11-19 21:52:41 91 mm[Hg] [facility] Heart rate 2020-11-19 21:52:41 61 /min [facility] Respiratory rate 2020-11-19 21:52:41 16 /min [facility] Oxygen saturation in Arterial blood by Pulse oximetry 2020-11-19 21:52:41 100 /min [facility] Body temperature 2020-11-19 20:21:21 37.06 Yuliana [facility] Body height 2020-11-19 20:19:00 160 cm [facility] Body weight 2020-11-19 20:19:00 68.04 kg [facility] BMI 2020-11-19 20:19:00 26.57 kg/m2 [facility] Systolic blood pressure 2019-01-12 00:29:00 180 mm[Hg] [facility] Diastolic blood pressure 2019-01-12 00:29:00 109 mm[Hg] [facility] Heart rate 2019-01-12 00:29:00 81 /min [facility] Body temperature 2019-01-12 00:29:00 36.44 Yuliana [facility] Respiratory rate 2019-01-12 00:29:00 18 /min [facility] Body height 2019-01-12 00:29:00 160 cm [facility] Body weight 2019-01-12 00:29:00 113.399 kg Simultaneous filing. User may not have seen previous data. [facility] BMI 2019-01-12 00:29:00 44.29 kg/m2 [facility] Oxygen saturation in Arterial blood by Pulse oximetry 2019-01-12 00:29:00 100 /min [facility] BP Systolic 2023-12-20 14:11:00 110 mm[Hg] Cem Wahl BP Diastolic 2023-12-20 14:11:00 67 mm[Hg] Cem Wahl Weight Measured 2023-12-20 14:11:00 226.20 pounds Cem Wahl Height Measured 2023-12-20 14:11:00 62.00 inches Cem Wahl Body Temperature 2023-12-20 14:11:00 97.80 degrees Cem F Vish Heart Rate 2023-12-20 14:11:00 73.00 /min Cem [...] 2023-08-01 09:04:00 18.00 /min Cem F Vish Heart Rate 2023-06-27 10:06:00 78.00 /min [facility]em [facility] Respiratory Rate 2023-06-27 10:06:00 Cem F Vish BP Systolic 2023-06-27 10:06:00 116 mm[Hg] Cem F Vish BP Diastolic 2023-06-27 10:06:00 60 mm[Hg] [facility]em F Vish Weight Measured 2023-06-27 10:06:00 221.40 pounds Cem F Vish Height Measured 2023-06-27 10:06:00 62.00 inches Cem F Vish Body Temperature 2023-06-27 10:06:00 98.50 degrees Cem F Vish BP Systolic 2023-06-26 13:52:00 [...] F Vish BP Diastolic 2023-03-19 22:33:00 Cem Wahl Weight Measured 2023-03-19 22:33:00 Cem Wahl Height Measured 2023-03-19 22:33:00 Cem Wahl Body Temperature 2023-03-19 22:33:00 Cem F Vish Heart Rate 2023-03-19 22:33:00 Cem Wahl Respiratory Rate 2023-03-19 22:33:00 Cem Wahl BP Systolic 2022-12-06 13:56:00 112 mm[Hg] Cem F Vish BP Diastolic 2022-12-06 13:56:00 61 mm[Hg] Cem Wahl Weight Measured 2022-12-06 13:56:00 221.20 pounds Cem Wahl Height Measured 2022-12-06 13:56:00 62.00 inches Cem Wahl Body Temperature 2022-12-06 13:56:00 98.30 degrees Cem Wahl Heart Rate 2022-12-06 13:56:00 87.00 /min [facility] Respiratory Rate 2022-12-06 13:56:00 18.00 /min Cem [...] Date / Time Performed Performing Clinician Source RAPID STREP SCREEN FOR GROUP A 2024-07-31 17:42:00 Bucky Harvey [facility] INFLUENZA A/B RSV COVID NAAT 2024-07-31 17:42:00 Bucky Harvey [facility] URINALYSIS 2023-09-05 00[facility]18[facility] (34565[facility] 2023-09-05 00:17:00 Pedro Aguirre [facility] CBC WITH DIFF 2023-09-05 00:17:[address] [facility] POCT TEST 2023-09-05 00:16:00 Heather Aguirre [facility] CBC WITH DIFF 2023-07-03 16:10:00 Star Mesa [facility] CONSENT/REFUSAL FOR DIAGNOSIS AND TREATMENT 2023-07-03 15:37:58 Doctor Unassigned, [place] [facility] BASIC METABOLIC PANEL (NA, K, CL, CO2, GLUCOSE, BUN, CREATININE, CA) 2023-06-22 03:24:00 Alex Pitt [facility] CBC WITH DIFF 2023-06-22 03:24:00 Alex Pitt [facility] URINALYSIS 2023-06-22 03:24:00 Alex Pitt [facility] RAPID INFLUENZA A/B 2023-06-22 03:24:00 Norberto Pitt [facility] POCT TEST 2023-06-22 03:24:00 Norberto Pitt [facility] COVID-19 (ID NOW RAPID TESTING) 2023-06-22 03:24:00 Alex Pitt [facility] NOTICE OF PRIVACY PRACTICES 2023-06-22 02:35:43 Doctor Unassigned, [place] [facility] CONSENT/REFUSAL FOR DIAGNOSIS AND TREATMENT 2023-06-22 02:34:04 Doctor Unassigned, [place] [facility] CONSENT/REFUSAL FOR DIAGNOSIS AND TREATMENT 2022-12-20 23:31:05 Doctor Unassigned, [place] [facility] CONSENT/REFUSAL FOR DIAGNOSIS AND TREATMENT 2022-09-27 15:22:33 Doctor Unassigned, [place] [facility] NOTICE OF PRIVACY PRACTICES 2022-07-20 00:18:00 Doctor Unassigned, [place] [facility] CONSENT/REFUSAL FOR DIAGNOSIS AND TREATMENT 2022-07-19 14:28:49 Doctor Unassigned, [place] [facility] COVID-19 (ID NOW RAPID TESTING) 2022-02-13 13:25:00 Glen Rocha [facility] CONSENT/REFUSAL FOR DIAGNOSIS AND TREATMENT 2022-02-13 12:54:56 Doctor Unassigned, [place] [facility] CONSENT/REFUSAL FOR DIAGNOSIS AND TREATMENT 2021-10-21 16:30:34 Doctor Unassigned, [place] [facility] CBC WITH DIFF 2021-05-27 00:13:00 Luis Duncan [facility] BASIC METABOLIC PANEL (NA, K, CL, CO2, GLUCOSE, BUN, CREATININE, CA) 2021-05-26 22:35:00 Luis Duncan [facility] URINALYSIS 2021-05-26 22:35:00 Luis Duncan [facility] RAPID INFLUENZA A/B 2021-05-26 22:35:00 Zarina Duncan [facility] POCT TEST 2021-05-26 22:35:00 Zarina Duncan [facility] COVID-19 (ID NOW RAPID TESTING) 2021-05-26 22:35:00 Luis Duncan [facility] CONSENT/REFUSAL FOR DIAGNOSIS AND TREATMENT 2021-05-26 19:45:50 Doctor Unassigned, [place] [facility] RAPID STREP SCREEN FOR GROUP A 2020-11-19 21:02:00 Evans Yang [facility] POCT TEST 2020-11-19 21:01:00 Evans Yang [facility] COVID-19 (ID NOW RAPID TESTING) 2020-11-19 21:00:00 Evans Yang [facility] LIPASE 2020-11-19 20:59:00 Evans Yang [facility] COMP. METABOLIC PANEL (18207) 2020-11-19 20:59:00 Evans Yang [facility] CBC WITH DIFF 2020-11-19 20:59:00 Evans Yang [facility] CONSENT/REFUSAL FOR DIAGNOSIS AND TREATMENT 2020-11-19 20:09:10 Doctor Unassigned, [place] [facility] COMP. METABOLIC PANEL (42957) 2019-01-12 00:34:00 Rhonda Perkins [facility] CBC WITH DIFFERENTIAL 2019-01-12 00:34:00 Jayy Perkins [facility] URINALYSIS 2019-01-12 00:34:00 [facility] 2019-01-12 00:32:00 Rhonda Perkins [facility] ASSIGNMENT OF BENEFITS 2019-01-12 00:16:49 Docto r Unassigned, [place] [facility] Plan of Care Planned Activity Planned Date Details Comments Source Goal Plan of Care Note [code = 88301-9] Goal Plan of Care Note [code = 64145-0] Goal Plan of Care Note [code = 22178-6] Goal Plan of Care Note [code = 77579-7] Goal Plan of Care Note [code = 79793-3] Goal Plan of Care Note [code = 15582-6] Goal Plan of Care Note [code = 75527-4] Goal Plan of Care Note [code = 52516-0] Goal Plan of Care Note [code = 76806-0] Goal Plan of Care Note [code = 44457-5] Goal Plan of Care Note [code = 18871-0] Goal Plan of Care Note [code = 30512-4] Goal Plan of Care Note [code = 47047-3] Goal Plan of Care Note [code = 23352-3] Goal Plan of Care Note [code = 96498-1] Goal Plan of Care Note [code = 17855-0] Goal Plan of Care Note [code = 31765-0] Goal Plan of Care Note [code = 29757-7] Goal Plan of Care Note [code = 50668-8] Goal Plan of Care Note [code = 50427-7] Goal Plan of Care Note [code = 32847-1] Goal Plan of Care Note [code = 36288-5] Goal Plan of Care Note [code = 56246-3] Goal Plan of Care Note [code = 69526-1] Goal Plan of Care Note [code = 52692-3] Goal Plan of Care Note [code = 09307-5] Goal Plan of Care Note [code = 58282-9] Goal Plan of Care Note [code = 10140-0] Goal Plan of Care Note [code = 13370-4] Goal Plan of Care Note [code = 29044-4] Goal Plan of Care Note [code = 06874-1] Goal Plan of Care Note [code = 04425-0] Goal Plan of Care Note [code = 71258-0] Goal Plan of Care Note [code = 35027-6] Goal Plan of Care Note [code = 32176-1] Goal Plan of Care Note [code = 68591-6] Goal Plan of Care Note [code = 38019-7] Goal Plan of Care Note [code = 96802-8] Encounters Start Date/Time End Date/Time Encounter Type Admission Type Attending [facility] Facility Care Department Encounter ID Source 2021-04-04 02:14:41 Emergency [facility] [id number] [facility] 2024-07-31 10:50:00 2024-07-31 13:37:00 Emergency X [facility]CKY HAR[facility]Y [facility] ERT [id number] [facility] 2024-07-31 10:50:00 2024-07-31 13:37:00 Emergency Bucky Harvey [facility] [id number] [facility] 2024-07-31 09:20:00 2024-07-31 09:20:00 [facility] [facility] [id number] [facility] 2024-06-26 10:25:26 2024-06-26 10:25:26 Outpatient SFA SFA [id number] 0123 Cem Suzi Vish 2024-04-01 09:27:48 2024-04-01 09:27:48 Outpatient SFA SFA [id number] 1029 Cem Suzi Vish 2024-01-15 13:21:53 2024-01-15 13:21:53 Outpatient SFA SFA [id number] 0813 Cem Suzi Vish 2023-12-20 14:06:43 2023-12-20 14:06:43 Outpatient SFA SFA [id number] 0718 Cem Suzi Vish 2023-12-20 00:00:00 2023-12-20 00:00:00 Outpatient Visit [facility] [id number] Cem Wahl 2023-10-19 14:32:17 2023-10-19 14:32:17 Outpatient SFA [facility] [id number] 0517 Cem Wahl 2023-09-17 09:00:00 2023-09-17 09:00:00 Outpatient KEE MARION [facility] [id number] [facility] 2023-09-04 18:14:00 2023-09-04 21:11:00 Emergency X KENDRAMAYAHEATHER [facility] [id number] [facility] 2023-09-04 18:14:00 2023-09-04 21:11:00 Emergency FlorenciabambiHeather raphaelgordon [facility] 1.2.840.114 350.1.13.10 4.2.7.2.686 [id number] [id number] [facility] 2023-08-01 08:58:51 2023-08-01 08:58:51 Outpatient SFA [facility] [id number] Cem Wahl 2023-07-03 09:48:00 2023-07-03 12:40:00 Emergency X STAR [facility] ERT [id number] [facility] 2023-07-03 09:48:00 2023-07-03 12:40:00 Emergency FedericoStar rowe [facility] 1.2.840.114 350.1.13.10 4.2.7.2.686 [id number] [id number] [facility] 2023-06-27 10:01:14 2023-06-27 10:01:14 Outpatient SFA [facility] [id number] Cem Wahl 2023-06-26 13:46:54 2023-06-26 13:46:54 Outpatient SFA [facility] [id number] Cem Wahl 2023-06-21 20:47:00 2023-06-22 00:40:00 Emergency X ALEX PITT [facility] ERT [id number] [facility] 2023-06-21 20:47:00 2023-06-22 00:40:00 Emergency Alex Pitt [facility] 1.2.840.114 350.1.13.10 4.2.7.2.686 [id number] [id number] [facility] 2023-05-23 13:25:02 2023-05-23 13:25:02 [place]patient [place] [id number] Cem [place] 2023-05-15 08:08:44 2023-05-15 08:08:44 Outpatient [place] [id number] Cem Archer Vish 2023-02-27 14:06:50 2023-02-27 14:06:50 Outpatient [place] [id number] Cem Archer Vish 2022-12-20 18:45:00 2022-12-20 21:58:00 Emergency X ROSEMARY [facility] ERT [id number] [facility] 2022-12-20 18:45:00 2022-12-20 21:58:00 Emergency Rosemary Childers [facility] 1..840.114 350.1.13.10 4.2.7.2.686 [id number] [facility] 2022-12-06 13:48:26 2022-12-06 13:48:26 Outpatient [facility] [id number] Cem Archer [place] 2022-09-28 00:00:00 2022-09-28 00:00:00 Patient Secure Msg Doctor Unassigned, [place] [facility] 1..840.114 350.1.13.10 4.2.7.2.686 [id number] [facility] 2022-09-27 10:31:00 2022-09-27 11:57:00 Emergency X TERESSA [facility] ERT [id number] [facility] 2022-09-27 10:31:00 2022-09-27 11:57:00 Emergency Teressa Vargas [facility] 1..114 350.1.13.10 4.2.7.2.686 [id number] [id number] [facility] 2022-09-19 15:52:40 2022-09-19 15:52:40 Outpatient SFA [facility] [id number] Cem Wahl 2022-07-24 00:00:00 2022-07-24 00:00:00 Letter (Out) Clinic, [facility] Neurology Resident [facility] 1..114 350.1.13.10 4.2.7.2.686 [id number] [id number] [facility] 2022-07-20 00:00:00 2022-07-20 00:00:00 Patient Secure Msg Doctor Unassigned, [place] [facility] 1..114 350.1.13.10 4.2.7.2.686 [id number] [facility] 2022-07-19 18:27:00 2022-07-19 20:21:00 Emergency X NUNU BAKER [facility] ERT [id number] [facility] 2022-07-19 18:27:00 2022-07-19 20:21:00 Emergency Nunu Baker [facility] 1.84.114 350.1.13.10 4.2.7.2.686 [id number] 084 [id number] [facility] 2022-07-19 08:35:00 2022-07-19 11:32:00 Emergency X TERESSA VARGAS [facility] ERT [id number] [facility] 2022-07-19 08:35:00 2022-07-19 11:32:00 Emergency Teressa Vargas [facility] 1..114 350.1.13.10 4.2.7.2.686 [id number] [id number] [facility] 2022-02-13 07:57:00 2022-02-13 09:24:00 Emergency X Glen ROCHA [facility] ERT [id number] [facility] 2022-02-13 07:57:00 2022-02-13 09:24:00 Emergency Glen Rocha [facility] 1.2.840.114 350.1.13.10 4.2.7.2.686 [id number] [id number] [facility] 2022-02-01 00:00:00 2022-02-01 00:00:00 Outpatient Visit [id number] 2022-01-23 00:00:00 2022-01-23 00:00:00 Outpatient Visit [id number] 2021-10-21 11:44:00 2021-10-21 13:25:00 Emergency X TOMMIE [facility]ARG[facility]RA [facility] ERT [id number] [facility] 2021-10-21 11:44:00 2021-10-21 13:25:00 Emergency Teressa Vargas [facility] 1.2.840.114 350.1.13.10 4.2.7.2.686 [id number] [id number] [facility] 2021-05-26 14:22:00 2021-05-26 19:00:00 Emergency X LUIS DUNCAN [facility] ERT [id number] [facility] 2021-05-26 14:22:00 2021-05-26 19:00:00 Emergency Luis Duncan [facility] 1.2.840.114 350.1.13.10 4.2.7.2.686 [id number] [id number] [facility] 2020-11-19 15:30:00 2020-11-19 17:02:00 Emergency Evans Yang [facility] 1.2.840.114 350.1.13.10 4.2.7.2.686 [id number] [id number] [facility] 2020-11-19 00:00:00 2020-11-19 00:00:00 Orders Only Doctor Unassigned, [place] [facility] 1.2.840.114 350.1.13.10 4.2.7.2.686 [id number] [facility] 2020-07-13 09:00:00 2020-07-13 09:28:51 Outpatient YOSEPH TAPIA [facility] [id number] [facility] 2019-01-11 19:23:24 2019-01-11 20:34:00 Emergency Rhonda Perkins [facility] 1.2.840.114 350.1.13.10 4.2.7.2.686 [id number] [id number] [facility] 2019-01-11 00:00:00 2019-01-11 00:00:00 Orders Only Doctor Unassigned, [place] [facility] 1.2.840.114 350.1.13.10 4.2.7.2.686 [id number] [facility] Results Test Description Test Time Test Comments Results Result Co mments Source [facility] MET[facility]OLIC PAN[facility] (58036)2023-09-05 00:55:27* Test Item Value Reference Range Interpretation Comme nts NA (test code = 7118583996) 137 mmol/L 135-145 K (test code = 4545949697) 4.1 mmol/L 3.5-5.0 CL (test code = 0928357528) 108 mmol/L 98-108 CO2 TOTAL (test code = 8021241109) 22 mmol/L 23-31 L AGAP (test code = 8587085285) 7 2-16 BUN (test code = 2260583212) 23 mg/dL 7-23 GLUCOSE (test code = 7691328300) 75 mg/dL 70-110 CREATININE (test code = 2160-0) 1.10 mg/dL 0.50-1.04 H TOTAL BILI (test code = 1200858716) 0.5 mg/dL 0.1-1.1 CALCIUM (test code = 5463732435) 9.1 mg/dL 8.6-10.6 T PROTEIN (test code = 3845713395) 7.8 g/dL 6.3-8.2 ALBUMIN (test code = 9723063859) 4.2 g/dL 3.5-5.0 ALK PHOS (test code = 3434394755) 50 U/L 34-122 ALTv (test code = 1742-6) 16 U/L 5-35 AST(SGOT) (test code = 9505478125) 24 U/L 13-40 eGFR (test code = 23997-0) 64.1 mL/min/1.73m2 CKD-EPI eGFR (2020). Assuming creatinine has been stable day-to-day for at least three months, the eGFR indicates Category G2 (60 - 89 mL/min/1.73 m2) Lab Interpretation (test code = 07444-8) Abnormal [facility] [id number] 00:16:00* Test Item Value Reference Range Interpretation Comme nts POCT PREG (test code = 1605) Negative On board controls acceptable with C Line (test code = 3574) Yes POCT PREG LOT # (test code = 3575) [id number] POCT PREG TEST DATE ( test code = 3576) 09/09/2024 Lab Interpretation (test cod e = 66659-2) Normal [facility] WITH [id number] 17:56:07* Test Item Value Reference Range Interpretation Comme nts WBC (test code = 6690-2) 4.43 See_Comment [Automated dineouta ge] The system which generated this result [...] 32.2 g/dL 31.6-35.1 RDW-SD (test code = 40050-0) 50.5 fL 39.0-49.9 H RDW-CV (test code = 788-0) 16.1 % 12.0-15.5 H PLT (test code = 777-3) 271 See_Comment [Automated messa ge] The system which generated this result transmitted reference range: 166 - 358 10*3/?L. The reference range was not used to interpret this result as normal/abnormal. MPV (test code = 65643-1) 10.2 fL 9.5-12.9 NRBC/100 WBC (test code = 2655990809) 0.0 See_Comment [Automated [employer] ssage] The system which generated this result transmitted reference range: 0.0 - 10.0 /100 WBCs. The reference range was not used to interpret this result as normal/abnormal. NRBC x10^3 (test code = 5249836270) See_Comment [Automated messa ge] The system which generated this result transmitted reference range: 10*3/?L. The reference range was not used to interpret this result as normal/abnormal. GRAN MAT (NEUT) % (test code = 770-8) 47.0 % IMM GRAN % (test code = 0026674425) 0.20 % LYMPH % (test code = 736-9) 41.1 % MONO % (test code = 5905-5) 8.8 % EOS % (test code = 713-8) 2.0 % BASO % (test code = 706-2) 0.9 % GRAN MAT x10^3(ANC) (test code = 9504846893) 2.08 10*3/uL 1.88-7.09 IMM GRAN x10^3 (test code = 9160356183) 0.00-0.06 LYMPH x10^3 (test code = 731-0) 1.82 10*3/uL 1.32-3.29 MONO x10^3 (test code = 742-7) 0.39 10*3/uL 0.33-0.92 EOS x10^3 (test code = 711-2) 0.09 10*3/uL 0.03-0.39 BASO x10^3 (test code = 704-7) 0.04 10*3/uL 0.01-0.07 Lab Interpretation (test code = 24810-9) Abnormal [facility] TEST, THINPREP, [id number] 00:00:00 * Test Item Value Reference Range Interpretation Comme nts SOURCE: (test code = 8001) Cervical/Endocervical SLIDES: (test code = 8011) 1 LMP: (test code = 8021) 06/26/2023 SPECIMEN ADEQUACY: (test code = 81565) (NOTE) INTERPRETATION: (test code = 57680) NILM/NO EPITH. ABNORMALITY;SEE BELOW POST ADOPTION COORDINATOR: (test code = 8101) [facility] LOCATION: (test code = 70177) (NOTE) CPT: (test code = 8140) (NOTE) Cem Archer AustinCT/NG, TMA, [id number] 00:00:00* Test Item Value Reference Range Interpretation Comme nts CHLAMYDIA, NAAT, THINPREP (t est code = 55925) NEGATIVE GONORRHEA, NAAT, THINPREP (t est code = 37085) NEGATIVE PDFE (test code = PDFReport) PDF Cem F VishPOCT [id number] 03:24:00* Test Item Value Reference Range Interpretation Comme nts POCT PREG (test code = 1605) Negative On board controls acceptable with C Line (test code = 3574) Yes POCT PREG LOT # (test code = 3576) [id number] POCT PREG TEST DATE ( test code = 3576) 2024-08-12 Lab Interpretation (test cod e = 98411-0) Normal [facility], THIRD [id number] 00:00:00* Test Item Value Reference Range Interpretation Comme nts TSH, THIRD GENERATION (test code = 2821) 1.450 UIU/ML Cem WahlCOMPREHENSIVE METABOLIC [id number] 00:00:00* Test Item Value Reference Range Interpretation Comme nts GLUCOSE (test code = 2217) 80 MG/DL BUN (test code = 2208) 18 MG/DL CREATININE (test code = 2214) 1.00 MG/DL eGFR (2020 CKD-EPI) (test co de = 40216) 72 ML/MIN/1.73 CALC BUN/CREAT (test code = [...] code = 2219) 17 U/L Cem WahlLIPID [id number] 00:00:00* Test Item Value Reference Range Interpretation Comme nts CHOLESTEROL (test code = 2210) 232 MG/DL TRIGLYCERIDES (test code = 2232) 116 MG/DL HDL CHOLESTEROL (test code = 2220) 52 MG/DL CALC LDL CHOL (test code = 2237) 157 MG/DL RISK RATIO LDL/HDL (test cod e = 2238) 3.02 RATIO Cem WahlHEMOGLOBIN [id number] 00:00:00* Test Item Value Reference Range Interpretation Comme nts HEMOGLOBIN A1c (test code = 66155) 5.6 % Cem WahlCOMPREHENSIVE METABOLIC [id number] 05:07:20* Test Item Value Reference Range Interpretation Comme nts GLUCOSE (test code = 7) 79 MG/DL 70-99 BUN (test code = 2207) 14 MG/DL 6-20 CREATININE (test code = 2213) 1.00 MG/DL 0.60-1.30 eGFR (2020 CKD-EPI) (test code = 19666) 72 ML/MIN/1.73 >60 CALC BUN/CREAT (test code = 2235) 14 RATIO 6-28 SODIUM (test code = 223) 145 MEQ/L 133-146 POTASSIUM (test code = 2228) 4.3 MEQ/L 3.5-5.4 CHLORIDE (test code = 5) 109 MEQ/L 95-107 H CARBON DIOXIDE (test code = 6) 25 MEQ/L 19-31 CALCIUM (test code = 2208) 9.5 MG/DL 8.5-10.5 PROTEIN, TOTAL (test code = 2228) 6.5 G/DL 6.1-8.3 ALBUMIN (test code = 2200) 4.2 G/DL 3.5-5.2 CALC GLOBULIN (test code = 2240) 2.3 G/DL 1.9-3.7 CALC A/G RATIO (test code = 223) 1.8 RATIO 1.0-2.6 BILIRUBIN, TOTAL (test code = 2206) <0.2 MG/DL See_Comment [Automated me ssage] The system which generated this result transmitted reference range: <=1.2. The reference range was not used to interpret this result as normal/abnormal. ALKALINE PHOSPHATASE (test code = 2203) 48 U/L 40-113 AST (test code = 2218) 15 U/L 9-40 ALT (test code = 2219) 15 U/L 5-40 [facility] has impo rtant pathology staff changes effective 08/02/2022. New pathology staff will provide uninterrupted, excellent patient care and clinical consultation. See URL: [email or web address]. UNLESS OTHERWISE INDICATED, ALL TESTING PERFORMED AT [facility] [address] [place] [address] TRADING ANALYST: KENDRA HERNANDEZ M.D. CLIA NUMBER [id number] [facility] [place]. [id number] COMPREHENSIVE METABOLIC [id number] 00:00:00* Test Item Value Reference Range Interpretation Comme nts GLUCOSE (test code = 2217) 79 MG/DL BUN (test code = 2208) 14 MG/DL CREATININE (test code = 2214) 1.00 MG/DL eGFR (2020 CKD-EPI) (test co de = 59298) 72 ML/MIN/1.73 CALC BUN/CREAT (test code = [...] code = 2219) 15 U/L Cem F [place]LIPID [id number] 06:55:12* Test Item Value Reference Range Interpretation [...] SPECIMENS. FOR MOREINFORMATION, SEE CLIENT ANNOUNCEMENT AT [email or web address] RISK RATIO LDL/HDL (test code = 2238) 2.49 RATIO <3.22 COMPREHENSIVE METABOLIC [id number] 06:55:12* Test Item Value Reference Range Interpretation Comme nts GLUCOSE (test code = 2216) 83 MG/DL 70-99 BUN (test code = 2207) 16 MG/DL 6-20 CREATININE (test code = 2213) 0.90 MG/DL 0.60-1.30 eGFR (2020 CKD-EPI) (test code = 92147) 82 ML/MIN/1.73 >60 CALC BUN/CREAT (test code = 2234) 18 RATIO 6-28 SODIUM (test code = [...] G/DL 3.5-5.2 CALC GLOBULIN (test code = 2239) 2.5 G/DL 1.9-3.7 CALC A/G RATIO (test code = 2233) 1.8 RATIO 1.0-2.6 BILIRUBIN, TOTAL (test code = 2206) 0.2 MG/DL See_Comment [Automated me ssage] The system which generated this result transmitted reference range: <=1.2. The reference range was not used to interpret this result as normal/abnormal. ALKALINE PHOSPHATASE (test code = 2203) 52 U/L 40-113 AST (test code = 2217) 17 U/L 9-40 ALT (test code = 9) 14 U/L 5-40 UNLESS OTHERWISE INDICATED, ALL TESTING PERFORMED AT[facility] [address] [place] [address], [place] [address] TRADING ANALYST: JIMY ROCHA M.D. CLIA NUMBER [id number] [facility] [place]. [id number] HEMOGLOBIN [id number] 03:12:19* Test Item Value Reference Range Interpretation Comme nts HEMOGLOBIN A1c (test code = 72930) 5.3 % 4.2-5.6 HEMOGLOBIN A1c [ADDED]2022-01-24 00:00:00* Test Item Value Reference Range Interpretation Comme nts HEMOGLOBIN A1c (test code = 34743) 5.3 % LIPID PANEL [ADDED]2022-01-24 00:00:00* Test [...] eGFR (2020 CKD-EPI) (test co de = 77567) 82 ML/MIN/1.73 CALC BUN/CREAT (test code = [...] Comme nts HEMOGLOBIN A1c (test code = 06829) 5.3 % Cem F AustinLIPID PANEL [ADDED]2022-01-24 [...] eGFR (2020 CKD-EPI) (test co de = 41404) 82 ML/MIN/1.73 CALC BUN/CREAT (test code = 2235) 18 RATIO SODIUM (test code = 223) 141 MEQ/L POTASSIUM (test code = 2228) [...] = 2219) 14 U/L Cem WahlCBC WITH [id number] 00:23:37* Test Item Value Reference Range Interpretation Comme nts WBC (test code = 6690-2) See_Comment [Automated dineouta [employer]] The system which generated this result transmitted reference range: 4.30 - 11.10 10*3/?L. The reference range was not used to interpret this result as normal/abnormal. RBC (test code = 789-8) See_Comment [Automated dineouta [employer]] The system which generated this result transmitted [...] 32.3 g/dL 31.6-35.1 RDW-SD (test code = 11145-9) 48.7 fL 39.0-49.9 RDW-CV (test code = 788-0) 16.1 % 12.0-15.5 H PLT (test code = 777-3) See_Comment [Automated messa ge] The system which generated this result transmitted reference range: 166 - 358 10*3/?L. The reference range was not used to interpret this result as normal/abnormal. MPV (test code = 80427-1) 9.8 fL 9.5-12.9 NRBC/100 WBC (test code = 9122439738) See_Comment [Automated [employer] ssage] The system which generated this result transmitted reference range: 0.0 - 10.0 /100 WBCs. The reference range was not used to interpret this result as normal/abnormal. NRBC x10^3 (test code = 5487666949) <0.01 See_Comment [Automated messa ge] The system which generated this result transmitted reference range: 10*3/?L. The reference range was not used to interpret this result as normal/abnormal. GRAN MAT (NEUT) % (test code = 770-8) 62.7 % IMM GRAN % (test code = 7137320516) 0.40 % LYMPH % (test code = 736-9) 29.5 % MONO % (test code = 5905-5) 6.4 % EOS % (test code = 713-8) 0.5 % BASO % (test code = 706-2) 0.5 % GRAN MAT x10^3(ANC) (test code = 5627539724) 3.45 10*3/uL 1.88-7.09 IMM GRAN x10^3 (test code = 0300869396) <0.03 0.00-0.06 LYMPH x10^3 (test code = 731-0) 1.62 10*3/uL 1.32-3.29 MONO x10^3 (test code = 742-7) 0.35 10*3/uL 0.33-0.92 EOS x10^3 (test code = 711-2) 0.03 10*3/uL 0.03-0.39 BASO x10^3 (test code = 704-7) 0.03 10*3/uL 0.01-0.07 Lab Interpretation (test code = 65027-2) Abnormal [facility] METABOLIC PANEL (NA, K, CL, CO2, GLUCOSE, BUN, CREATININE, CA)2021-05-26 23:10:45* Test Item Value Reference Range Interpretation Comme nts NA (test code = 3617099958) 136 mmol/L 135-145 K (test code = 6282016109) 4.7 mmol/L 3.5-5.0 CL (test code = 3836461044) 106 mmol/L 98-108 CO2 TOTAL (test code = 7722458348) 23 mmol/L 23-31 AGAP (test code = 3500734195) 2-16 BUN (test code = 7676611285) 18 mg/dL 7-23 GLUCOSE (test code = 1393214807) 84 mg/dL 70-110 CREATININE (test code = 6376526699) 0.68 mg/dL 0.50-1.04 CALCIUM (test code = 7661195649) 9.6 mg/dL 8.6-10.6 eGFR (test code = 6857431206) mL/min/1.73m2 PADMA (test code = PADMA) Association [...] or urine or abnormalities in imaging tests). [facility] [id number] 22:35:00* Test Item Value Reference Range Interpretation Comme nts POCT PREG (test code = 1605) negative On board controls acceptable with C Line (test code = 3574) present POCT PREG LOT # (test code = 3575) [id number] POCT PREG TEST DATE ( test code = 3576) Lab Interpretation (test cod e = 80351-6) Normal [facility] acute hospital STREP SCREEN FOR GROUP [id number] 21:39:01* Test Item Value Reference Range Interpretation Comme nts Streptococcus pyogenes (grou p A) antigen (test code = 09600-4) Negative Negative Lab Interpretation (test cod e = 36924-5) Normal [facility] (ID NOW RAPID TESTING)2020-11-19 21:28:16* Test Item Value Reference Range Interpretation Comme nts SARS-CoV-2 Rapid ID NOW (test code = 82918-3) Not Detected Not Detected PADMA (test code = PADMA) ID NOW COVID-19 As say is an isothermal nucleic acid amplification test intended for the qualitative detection of nucleic acid from SARS-CoV-2 viral RNA in nasopharyngeal (MEAT PUMPER) specimens. It is used under Emergency Use [...] clinically indicated. Lab Interpretation (test code = 26979-6) Normal [facility]. METABOLIC PANEL (26725)2020-11-19 21:25:54* Test Item Value Reference Range Interpretation Comme nts NA (test code = 7174836197) 138 mmol/L 135-145 K (test code = 5198676048) 4.2 mmol/L 3.5-5.0 CL (test code = 2742461642) 109 mmol/L 98-108 H CO2 TOTAL (test code = 8702487509) 22 mmol/L 23-31 L AGAP (test code = 8041829456) 2-16 BUN (test code = 3452436715) 19 mg/dL 7-23 GLUCOSE (test code = 4685275178) 90 mg/dL 70-110 CREATININE (test code = 2241645369) 0.76 mg/dL 0.50-1.04 TOTAL BILI (test code = 1007157531) 0.5 mg/dL 0.1-1.1 CALCIUM (test code = 4814902119) 9.9 mg/dL 8.6-10.6 T PROTEIN (test code = 8077323815) 7.8 g/dL 6.3-8.2 ALBUMIN (test code = 5817710941) 4.4 g/dL 3.5-5.0 ALK PHOS (test code = 3340587980) 47 U/L 34-122 ALTv (test code = 1742-6) 16 U/L 5-35 AST(SGOT) (test code = 4468353920) 22 U/L 13-40 eGFR (test code = 8433163412) mL/min/1.73m2 PADMA (test code = PADMA) Association [...] imaging tests). Lab Interpretation (test code = 08732-5) Abnormal [facility]2021-06-18 21:25:54* Test Item Value Reference Range Interpretation Comme nts LIPASE (test code = 1451940613) 74 U/L 0-220 Lab Interpretation (test cod e = 95286-2) Normal [facility] WITH [id number] 21:17:35* Test Item Value Reference Range Interpretation Comme nts WBC (test code = 6690-2) See_Comment [Automated [employer]] The system which generated this result transmitted reference range: 4.30 - 11.10 10*3/?L. The reference range was not used to interpret this result as normal/abnormal. RBC (test code = 789-8) See_Comment [Automated [employer]] The system which generated this result [...] 32.6 g/dL 31.6-35.1 RDW-SD (test code = 63407-1) 46.7 fL 39.0-49.9 RDW-CV (test code = 788-0) 15.6 % 12.0-15.5 H PLT (test code = 777-3) See_Comment [Automated [employer]] The system which generated this result transmitted reference range: 166 - 358 10*3/?L. The reference range was not used to interpret this result as normal/abnormal. MPV (test code = 08416-7) 9.8 fL 9.5-12.9 NRBC/100 WBC (test code = 5655808801) See_Comment [Automated [employer]] The system which generated this result transmitted reference range: 0.0 - 10.0 /100 WBCs. The reference range was not used to interpret this result as normal/abnormal. NRBC x10^3 (test code = 8631892666) <0.01 See_Comment [Automated messa ge] The system which generated this result transmitted reference range: 10*3/?L. The reference range was not used to interpret this result as normal/abnormal. GRAN MAT (NEUT) % (test code = 770-8) 43.0 % IMM GRAN % (test code = 6200892179) 0.20 % LYMPH % (test code = 736-9) 46.9 % MONO % (test code = 5905-5) 7.5 % EOS % (test code = 713-8) 1.3 % BASO % (test code = 706-2) 1.1 % GRAN MAT x10^3(ANC) (test code = 8775604456) 2.02 10*3/uL 1.88-7.09 IMM GRAN x10^3 (test code = 6630555405) <0.03 0.00-0.06 LYMPH x10^3 (test code = 731-0) 2.20 10*3/uL 1.32-3.29 MONO x10^3 (test code = 742-7) 0.35 10*3/uL 0.33-0.92 EOS x10^3 (test code = 711-2) 0.06 10*3/uL 0.03-0.39 BASO x10^3 (test code = 704-7) 0.05 10*3/uL 0.01-0.07 Lab Interpretation (test code = 07020-1) [facility] [id number] 21:01:00* Test Item Value Reference Range Interpretation Comme nts POCT PREG (test code = 1605) negative On board controls acceptable with C Line (test code = 3574) present POCT PREG LOT # (test code = 3575) [id number] POCT PREG TEST DATE ( test code = 3576) Lab Interpretation (test cod e = 57610-8) [facility]/AUTO [id number] 00:00:00* Test Item Value Reference Range Interpretation [...] (test code = 1015) 320 K/UL LIPID [id number] 00:00:00* Test Item Value Reference Range Interpretation Comme nts CHOLESTEROL (test code = 2210) 246 MG/DL TRIGLYCERIDES (test code = 2232) 99 MG/DL HDL CHOLESTEROL (test code = 2220) 63 MG/DL CALC LDL CHOL (test code = 2237) 162 MG/DL RISK RATIO LDL/HDL (test cod e = 2238) 2.57 RATIO HEMOGLOBIN [id number] 00:00:00* Test Item Value Reference Range Interpretation Comme nts HEMOGLOBIN A1c (test code = 12502) 5.4 % COMPREHENSIVE METABOLIC [id number] 00:00:00* Test Item Value Reference Range Interpretation Comme nts GLUCOSE (test code = 2217) 93 MG/DL BUN (test code = 2208) 12 MG/DL CREATININE (test code = 2214) 0.78 MG/DL eGFR AMER. (test cod e = 38403) 110 ML/MIN/1.73 eGFR NON- AMER. (test code = 61492) 95 ML/MIN/1.73 CALC BUN/CREAT (test code = [...] code = 2219) 13 U/L CBC W/AUTO [id number] 00:00:00* Test Item Value Reference Range Interpretation [...] (test code = 1015) 320 K/UL LIPID [id number] 00:00:00* Test Item Value Reference Range Interpretation Comme nts CHOLESTEROL (test code = 2210) 246 MG/DL TRIGLYCERIDES (test code = 2232) 99 MG/DL HDL CHOLESTEROL (test code = 2220) 63 MG/DL CALC LDL CHOL (test code = 2237) 162 MG/DL RISK RATIO LDL/HDL (test cod e = 2238) 2.57 RATIO HEMOGLOBIN [id number] 00:00:00* Test Item Value Reference Range Interpretation Comme nts HEMOGLOBIN A1c (test code = 91929) 5.4 % COMPREHENSIVE METABOLIC [id number] 00:00:00* Test Item Value Reference Range Interpretation Comme nts GLUCOSE (test code = 2217) 93 MG/DL BUN (test code = 2208) 12 MG/DL CREATININE (test code = 2214) 0.78 MG/DL eGFR AMER. (test cod e = 00689) 110 ML/MIN/1.73 eGFR NON- AMER. (test code = 88832) 95 ML/MIN/1.73 CALC BUN/CREAT (test code = [...] ALT (test code = 2219) 13 U/L HEMOGLOBIN [id number] 00:00:00* Test Item Value Reference Range Interpretation Comme nts HEMOGLOBIN A1c (test code = 60216) 5.4 % Cem F AustinCOMPREHENSIVE METABOLIC [id number] 00:00:00* Test Item Value Reference Range Interpretation Comme nts GLUCOSE (test code = 2217) 93 MG/DL BUN (test code = 2208) 12 MG/DL CREATININE (test code = 2214) 0.78 MG/DL eGFR AMER. (test cod e = 04261) 110 ML/MIN/1.73 eGFR NON- AMER. (test code = 24543) 95 ML/MIN/1.73 CALC BUN/CREAT (test code = [...] (test code = 2219) 13 U[facility] [id number] 00:00:00* Test Item Value Reference Range Interpretation [...] (test code = 1015) 320 K/UL Cem WahlLIPID [id number] 00:00:00* Test Item Value Reference Range Interpretation Comme nts CHOLESTEROL (test code = 2210) 246 MG/DL TRIGLYCERIDES (test code = 2232) 99 MG/DL HDL CHOLESTEROL (test code = 2220) 63 MG/DL CALC LDL CHOL (test code = 2237) 162 MG/DL RISK RATIO LDL/HDL (test cod e = 2238) 2.57 RATIO Cem WahlCOMPREHENSIVE METABOLIC [id number] 00:00:00* Test Item Value Reference Range Interpretation Comme nts GLUCOSE (test code = 2217) 73 MG/DL BUN (test code = 2208) 14 MG/DL CREATININE (test code = 2214) 0.70 MG/DL eGFR AMER. (test cod e = 94384) 126 ML/MIN/1.73 eGFR NON- AMER. (test code = 52205) 109 ML/MIN/1.73 CALC BUN/CREAT (test code = [...] (test code = 2219) 19 U/L LIPID [id number] 00:00:00* Test Item Value Reference Range Interpretation Comme nts CHOLESTEROL (test code = 2210) 219 MG/DL TRIGLYCERIDES (test code = 2232) 75 MG/DL HDL CHOLESTEROL (test code = 2220) 64 MG/DL CALC LDL CHOL (test code = 2237) 138 MG/DL RISK RATIO LDL/HDL (test cod e = 2238) 2.16 RATIO [id number] 00:00:00* Test Item Value Reference Range Interpretation Comme nts TSH, THIRD GENERATION (test code = 2821) 1.720 UIU/ML COMPREHENSIVE METABOLIC [id number] 00:00:00* Test Item Value Reference Range Interpretation Comme nts GLUCOSE (test code = 2217) 73 MG/DL BUN (test code = 2208) 14 MG/DL CREATININE (test code = 2214) 0.70 MG/DL eGFR AMER. (test cod e = 66195) 126 ML/MIN/1.73 eGFR NON- AMER. (test code = 46148) 109 ML/MIN/1.73 CALC BUN/CREAT (test code = [...] (test code = 2219) 19 U/L LIPID [id number] 00:00:00* Test Item Value Reference Range Interpretation Comme nts CHOLESTEROL (test code = 2210) 219 MG/DL TRIGLYCERIDES (test code = 2232) 75 MG/DL HDL CHOLESTEROL (test code = 2220) 64 MG/DL CALC LDL CHOL (test code = 2237) 138 MG/DL RISK RATIO LDL/HDL (test cod e = 2238) 2.16 RATIO [id number] 00:00:00* Test Item Value Reference Range Interpretation Comme nts TSH, THIRD GENERATION (test code = 2821) 1.720 UIU/ML [id number] 00:00:00* Test Item Value Reference Range Interpretation Comme nts TSH, THIRD GENERATION (test code = 2821) 1.720 UIU/ML Cem WahlCOMPREHENSIVE METABOLIC [id number] 00:00:00* Test Item Value Reference Range Interpretation Comme nts GLUCOSE (test code = 2217) 73 MG/DL BUN (test code = 2208) 14 MG/DL CREATININE (test code = 2214) 0.70 MG/DL eGFR AMER. (test cod e = 50277) 126 ML/MIN/1.73 eGFR NON- AMER. (test code = 00646) 109 ML/MIN/1.73 CALC BUN/CREAT (test code = [...] = 2219) 19 U/L Cem Archer AustinLIPID [id number] 00:00:00* Test Item Value Reference Range Interpretation Comme nts CHOLESTEROL (test code = 2210) 219 MG/DL TRIGLYCERIDES (test code = 2232) 75 MG/DL HDL CHOLESTEROL (test code = 2220) 64 MG/DL CALC LDL CHOL (test code = 2237) 138 MG/DL RISK RATIO LDL/HDL (test cod e = 2238) 2.16 RATIO Cem WahlLIPID [id number] 00:00:00* Test Item Value Reference Range Interpretation Comme nts CHOLESTEROL (test code = 2210) 214 MG/DL TRIGLYCERIDES (test code = 2232) 103 MG/DL HDL CHOLESTEROL (test code = 2220) 55 MG/DL CALC LDL CHOL (test code = 2237) 138 MG/DL RISK RATIO LDL/HDL (test cod e = 2238) 2.52 RATIO HEMOGLOBIN [id number] 00:00:00* Test Item Value Reference Range Interpretation Comme nts HEMOGLOBIN A1c (test code = 73151) 5.5 % COMPREHENSIVE METABOLIC [id number] 00:00:00* Test Item Value Reference Range Interpretation Comme nts GLUCOSE (test code = 2217) 83 MG/DL BUN (test code = 2208) 10 MG/DL CREATININE (test code = 2214) 0.73 MG/DL eGFR AMER. (test cod e = 80573) 120 ML/MIN/1.73 eGFR NON- AMER. (test code = 52794) 104 ML/MIN/1.73 CALC BUN/CREAT (test code = [...] (test code = 2219) 23 U/L LIPID [id number] 00:00:00* Test Item Value Reference Range Interpretation Comme nts CHOLESTEROL (test code = 2210) 214 MG/DL TRIGLYCERIDES (test code = 2232) 103 MG/DL HDL CHOLESTEROL (test code = 2220) 55 MG/DL CALC LDL CHOL (test code = 2237) 138 MG/DL RISK RATIO LDL/HDL (test cod e = 2238) 2.52 RATIO HEMOGLOBIN [id number] 00:00:00* Test Item Value Reference Range Interpretation Comme nts HEMOGLOBIN A1c (test code = 31465) 5.5 % COMPREHENSIVE METABOLIC [id number] 00:00:00* Test Item Value Reference Range Interpretation Comme nts GLUCOSE (test code = 2217) 83 MG/DL BUN (test code = 2208) 10 MG/DL CREATININE (test code = 2214) 0.73 MG/DL eGFR AMER. (test cod e = 30291) 120 ML/MIN/1.73 eGFR NON- AMER. (test code = 80125) 104 ML/MIN/1.73 CALC BUN/CREAT (test code = 2235) 14 RATIO SODIUM (test code = 2231) 142 MEQ/L POTASSIUM (test code = 2228) 4.3 MEQ/L CHLORIDE (test code = 2215) 106 MEQ/L CARBON DIOXIDE (test code = 2206) 25 MEQ/L CALCIUM (test code = 2209) 9.0 MG/DL PROTEIN, TOTAL (test code = 222) 6.7 G/DL ALBUMIN (test code = 2201) 4.3 G/DL CALC GLOBULIN (test code = 2240) 2.4 G/DL CALC A/G RATIO (test code = 2234) 1.8 RATIO BILIRUBIN, TOTAL (test code = 2206) 0.2 MG/DL ALKALINE PHOSPHATASE (test code = 2204) 52 U/L AST (test code = 2218) 19 U/L ALT (test code = 2219) 23 U/L LIPID [id number] 00:00:00* Test Item Value Reference Range Interpretation Comme nts CHOLESTEROL (test code = 2210) 214 MG/DL TRIGLYCERIDES (test code = 2232) 103 MG/DL HDL CHOLESTEROL (test code = 2220) 55 MG/DL CALC LDL CHOL (test code = 2237) 138 MG/DL RISK RATIO LDL/HDL (test cod e = 223) 2.52 RATIO Cem Archer AustinHEMOGLOBIN [id number] 00:00:00* Test Item Value Reference Range Interpretation Comme nts HEMOGLOBIN A1c (test code = 40806) 5.5 % Cem F AustinCOMPREHENSIVE METABOLIC [id number] 00:00:00* Test Item Value Reference Range Interpretation Comme nts GLUCOSE (test code = 2217) 83 MG/DL BUN (test code = 8) 10 MG/DL CREATININE (test code = 2214) 0.73 MG/DL eGFR AMER. (test cod e = 96788) 120 ML/MIN/1.73 eGFR NON- AMER. (test code = 43558) 104 ML/MIN/1.73 CALC BUN/CREAT (test code = 2235) 14 RATIO SODIUM (test code = 223) 142 MEQ/L POTASSIUM (test code = 2228) [...] 1.8 RATIO BILIRUBIN, TOTAL (test code = 7) 0.2 MG/DL ALKALINE PHOSPHATASE (test code = 2204) 52 U/L AST (test code = 2218) 19 U/L ALT (test code = 2219) 23 U/L Cem Archer [id number] 01:11:00* Test Item Value Reference Range Interpretation Comme nts APPEARANCE (test code = 7072261307) Clear Clear COLOR (test code = 8602027510) Yellow Yellow PH (test code = 2189138631) 4.8-8.0 SP GRAVITY (test code = 7930980311) <=1.005 1.003-1.030 GLU U QUAL (test code = 2019959269) Negative Negative BLOOD (test code = 1580593340) Negative Negative KETONES (test code = 4815682818) Negative Negative PROTEIN (test code = 2887-8) Negative Negative UROBILIN (test code = 2256230497) 0.2 mg/dL See_Comment [[employer]] The system which generated this result transmitted reference range: 0-1.0 mg/dL. The reference range was not used to interpret this result as normal/abnormal. BILIRUBIN (test code = 2893368089) Negative Negative NITRITE (test code = 3172240296) Negative Negative LEUK ONEAL (test code = 1846653485) Negative Negative RBC/HPF (test code = 9679531218) See_Comment [[employer]] The system which generated this result transmitted reference range: 0 - 3 HPF. The reference range was not used to interpret this result as normal/abnormal. WBC/HPF (test code = 8275577074) See_Comment [[employer]] The system which generated this result transmitted reference range: 0 - 5 HPF. The reference range was not used to interpret this result as normal/abnormal. BACTERIA (test code = 9016417440) Few Negative A SQ EPITH (test code = 6193637789) HPF Lab Interpretation (test code = 47915-6) Abnormal [facility]. METABOLIC PANEL (98825)2019-01-12 01:02:00* Test Item Value Reference Range Interpretation Comme nts NA (test code = 0687601776) 142 mmol/L 135-145 K (test code = 1420296701) 4.4 mmol/L 3.5-5 CL (test code = 2369186929) 111 mmol/L 98-108 H CO2 TOTAL (test code = 8086853254) 24 mmol/L 23-31 AGAP (test code = 2618521950) 2-16 BUN (test code = 2382662888) 15 mg/dL 7-23 GLUCOSE (test code = 3747481445) 90 mg/dL 70-110 CREATININE (test code = 9612332568) 0.78 mg/dL 0.5-1.04 TOTAL BILI (test code = 7013822574) 0.1 mg/dL 0.1-1.1 CALCIUM (test code = 5160330244) 9.5 mg/dL 8.6-10.6 T PROTEIN (test code = 4362466670) 7.1 g/dL 6.3-8.2 ALBUMIN (test code = 2349836334) 4.1 g/dL 3.5-5 ALK PHOS (test code = 9596415324) 60 U/L 34-122 ALT(SGPT) (test code = 8616184539) 40 U/L 9-51 AST(SGOT) (test code = 6161932398) 27 U/L 13-40 eGFR Calculation (Non-) (test code = 1422340965) mL/min/1.73m2 eGFR Calculation () (test code = 3521908991) mL/min/1.73m2 PADMA (test code = PADMA) Association [...] imaging tests). Lab Interpretation (test code = 75229-0) [facility]normal [facility] WITH [id number] 00:50:00* Test Item Value Reference Range Interpretation Comme nts WBC (test code = 6690-2) See_Comment [[employer]] The system which generated this result transmitted reference range: 4.30 - 11.10 10*3/?L. The reference range was not used to interpret this result as normal/abnormal. RBC (test code = 789-8) See_Comment H [[employer]] The system which generated this result transmitted [...] 32.3 g/dL 31.6-35.1 RDW-SD (test code = 93671-8) 47.8 fL 39-49.9 RDW-CV (test code = 788-0) 17.2 % 12-15.5 H PLT (test code = 777-3) See_Comment [[employer]] The system which generated this result transmitted reference range: 166 - 358 10*3/?L. The reference range was not used to interpret this result as normal/abnormal. MPV (test code = 76958-5) 9.9 fL 9.5-12.9 NRBC/100 WBC (test code = 9113073121) See_Comment [[employer]ated [employer]] The system which generated this result transmitted reference range: 0.0 - 10.0 /100 WBCs. The reference range was not used to interpret this result as normal/abnormal. NRBC x10^3 (test code = 1231797722) <0.01 See_Comment [[employer]] The system which generated this result transmitted reference range: 10*3/?L. The reference range was not used to interpret this result as normal/abnormal. GRAN MAT (NEUT) % (test code = 770-8) 42.0 % IMM GRAN % (test code = 7693167827) 0.10 % LYMPH % (test code = 736-9) 46.8 % MONO % (test code = 5905-5) 8.3 % EOS % (test code = 713-8) 2.1 % BASO % (test code = 706-2) 0.7 % GRAN MAT x10^3(ANC) (test code = 7916374473) 2.95 10*3/uL 1.88-7.09 IMM GRAN x10^3 (test code = 8859494210) <0.03 0-0.06 LYMPH x10^3 (test code = 731-0) 3.29 10*3/uL 1.32-3.29 MONO x10^3 (test code = 742-7) 0.58 10*3/uL 0.33-0.92 EOS x10^3 (test code = 711-2) 0.15 10*3/uL 0.03-0.39 BASO x10^3 (test code = 704-7) 0.05 10*3/uL 0.01-0.07 Lab Interpretation (test code = 78755-3) Abnormal [facility] [id number] 00:32:00* Test Item Value Reference Range Interpretation Comme nts POCT PREG (test code = 1605) negative On board controls acceptable with C Line (test code = 3574) present Lab Interpretation (test cod e = 23069-4) Normal [facility], THINPREP, [id number] 00:00:00 * Test Item Value Reference Range Interpretation Comme nts SOURCE: (test code = 8001) Cervical/Endocervical SLIDES: (test code = 8011) 1 LMP: (test code = 8021) 06/14/2017 SPECIMEN ADEQUACY: (test code = 55027) (NOTE) INTERPRETATION: (test code = 13583) NO EPITHELIAL ABNORMALITY SEE BELOW POST ADOPTION COORDINATOR: (test code = 8101) LEON SIERRA(ASCP)IAC LOCATION: (test code = 70780) (NOTE) CPT: (test code = 8140) (NOTE) HPV HIGH RISK WITH GENOTYPE, [id number] 00:00:00* Test Item Value Reference Range Interpretation Comme nts HPV HIGH RISK INTERP (test c ode = 99974) NEGATIVE HPV 16 (test code = 75305) NEGATIVE HPV 18 (test code = 51201) NEGATIVE HPV, HR, OTHER GENOTYPES (te st code = 64678) NEGATIVE PAP TEST, THINPREP, [id number] 00:00:00* Test Item Value Reference Range Interpretation Comme nts SOURCE: (test code = 8001) Cervical/Endocervical SLIDES: (test code = 8011) 1 LMP: (test code = 8021) 06/14/2017 SPECIMEN ADEQUACY: (test code = 61194) (NOTE) INTERPRETATION: (test code = 53136) NO EPITHELIAL ABNORMALITY SEE BELOW POST ADOPTION COORDINATOR: (test code = 8101) BRUNO SWANSONCT(ASCP)IAC LOCATION: (test code = 04177) (NOTE) CPT: (test code = 8140) (NOTE) HPV HIGH RISK WITH GENOTYPE, [id number] 00:00:00* Test Item Value Reference Range Interpretation Comme nts HPV HIGH RISK INTERP (test c ode = 36688) NEGATIVE HPV 16 (test code = 59127) NEGATIVE HPV 18 (test code = 71479) NEGATIVE HPV, HR, OTHER GENOTYPES (te st code = 86773) NEGATIVE PAP TEST, THINPREP, [id number] 00:00:00* Test Item Value Reference Range Interpretation Comme nts SOURCE: (test code = 8001) Cervical/Endocervical SLIDES: (test code = 8011) 1 LMP: (test code = 8021) 06/14/2017 SPECIMEN ADEQUACY: (test code = 52269) (NOTE) INTERPRETATION: (test code = 28328) NO EPITHELIAL ABNORMALITY SEE BELOW POST ADOPTION COORDINATOR: (test code = 8101) LEON SIERRA(ASCP)IAC LOCATION: (test code = 41189) (NOTE) CPT: (test code = 8140) (NOTE) Cem Archer VishHPV HIGH RISK WITH GENOTYPE, [id number] 00:00:00* Test Item Value Reference Range Interpretation Comme nts HPV HIGH RISK INTERP (test c ode = 24136) NEGATIVE HPV 16 (test code = 85879) NEGATIVE HPV 18 (test code = 86596) NEGATIVE HPV, HR, OTHER GENOTYPES (te st code = 61652) NEGATIVE Cem Wahl Notes Date/Time Note Provider Source 2024-07-31 13:36:50 Patient is awake and alert, oriented x4. Speech is clear and appropriate. Respirations even and unlabored, no distress. Ambulatory with steady gait. Reviewed discharge instructions, follow-up care, verbalizes understanding. [facility] 2024-07-31 10:48:35 Sore throat since yesterday. Son has same symptoms. Alvares RN [facility] Cem ArcherAngelica [facility]2024-04-02 21:10:14 Pt given printed and verbal [...] gait, in no apparent distress [facility]elle [facility]dx[facility]8140[facility]-64 18:11:18 Pt arrived via private car with c/o a headache that started yesterday. States she has a history of migraines, states she took ibuprofen and Midol with "some" improvement. States she has not seen a neurologist for "years". Michelle Peres [place] 653774-01-30 12:39:43 PT D/C home. GCS15, VS stable. Given D/C paperwork. Pt ambulatory at time of discharge. Pt educated on med usage, follow up care, s/s worsening condition, need for hydration. Pt verbalized understanding. Pt ambulated from ED in [facility] Lucrecia Castro [facility]Lljzoz2725-14-76 10:52:23 Report received from LUCÍA Suresh [facility] HospitalFlunbz1406-57-83 10:11:41 Pressure like pain to head on left side. Pain ongoing x 1.5 weeks. Also has vaginal bleeding. Uses 3-4 pads a day. All started after getting depo injections. [facility] Higinio Suresh [place] 653774-01-30 09:44:09 Pt arrived via private car with c/o having a migraine for 1.5 weeks. States she used to see a neurologist however she has not seen a neurologist "in at least a few years". She states has been having vaginal bleeding x2 weeks, states she has been on depo for about 1 year consistently and does not usually have any vaginal bleeding. 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 Last dep shot at [facility] office was about [address] A/P 06/21/23 showing 3.9cm fibroid, known to patient and [facility]. History provided by: Patient and spouse Past [...] Alona Quintanilla MD; Location: [facility] ANN LAPAROSCOPIC INTERNAL HERNIA REPAIR (SHX) N/A 08/26/2015 Surgeon: Jaziel Aponte MD; Location: [facility] LUMBAR PUNCTURE 04/26/2013 [...] 0.01 - 0.07 10*3/uL COMP. METABOLIC PANEL (30255) EKG: If EKG completed, see Procedure Note. Orders and Treatments: Orders Placed This Encounter Procedures CBC WITH DIFF COMP. METABOLIC PANEL (81802) Orders Placed This Encounter Medications NaCl 0.9% (NS) bolus infusion 1,000 mL metoclopramide HCl (REGLAN) injection 10 mg dexamethasone sod phos PF injection 10 mg ketorolac (TORADOL) injection 30 mg predniSONE 20 mg tablet sieegjoeby-owxzzlosmptxm-hfcv 50-325-40 mg tablet ondansetron 4 mg tablet [...] Medications: Patient's Medications START taking these medications [id number]-HPMGUIHVCXDGB-IKHB 50-325-40 MG TABLET Take 1 tablet by [...] for Cough for up to 20 doses. EMWXQDQCRT-XBCPVWTYTIGJT-KGDN 50-325-40 MG TABLET Take 1 tablet by mouth every 6 (six) hours as needed for Pain (scale 4-6). DXJSQITWTE-OOBXSLOJMFGIT-QJBY 50-325-40 MG TABLET Take 1 tablet by mouth every 4 (four) hours as needed for Pain (scale 7-10). VJJLYTERWK-OWLPIHWHCTATH-JWRJ 50-325-40 MG TABLET Take 1 tablet by [...] medications No medications on file Follow-up: PCP [facility] Electronically signed by: Star Mesa MD 07/03/23 1229 [facility]2024-01-19 00:30:00 Pt given printed and verbal discharge [...] with steady gait, in no apparent distress, [facility] Pepito Rodriguez [place] 653774-01-18 20:43:46 Pt to ED co body aches, vomiting, chills, and abd pain x 2 hours. Denies sick contacts. Hx of HTN and uncomplicated hernia. Took dayquil and sinus medication 30min DESIGN INSERTER. [facility] Rosy Bean [facility] HospitalZqhmuo2096-71-36 20:33:00 [facility] Emergency Department Note Patient Name: Ericka Perkins Date of : 1980 43 year old female Treatment Room: [place] [address] Primary Care Physician: [facility] Danika Patient Escorted by: Self [9] Mode of Arrival: Personal means [1] EMS Treatment Prior to ED Arrival: DESIGN INSERTER treatment: Medication (comment);Analgesic DESIGN INSERTER treatment comments: BP meds, excedrin, dayquil, and [...] hernia. 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 LMRKVJZGAH-YRMYFEAHRCWOL-FZVH 50-325-40 MG TABLET Take 1 tablet by mouth every 6 (six) hours as needed for Pain (scale 4-6). EADEVDMQDG-BZLVQONSIIVUG-GHFZ 50-325-40 MG TABLET Take 1 tablet by mouth every 4 (four) hours as needed for Pain (scale 7-10). NEEPRPFYUP-QQTEVCTBIZPZK-TFOI 50-325-40 MG TABLET Take 1 tablet by [...] on file Follow-up: [facility] Relationship: PCP - General [address] [facility] [facility] [id number] Instructions: If symptoms worsen Electronically signed by: Alex Pitt MD 06/22/23 0022 [place] 961103-07-19 21:57:16 Pt discharged home. Given all education and information regarding pain management; follow up importance and s/s of worsening condition. Pt verbalized understanding. Alert and ambulatory to pov [facility] Sia Richardson [place] 653773-07-19 21:41:07 Pt resting quietly in room. States pain has resolved. [place] [address]-07-19 19:04:38 Nurse Report Report given to LUCÍA Saucedo. Chief complaint, assessment findings, and orders reviewed. Plan of care discussed with both nurses. Wilma Garay RN [place] 13084-07-19 18:42:18 CC: patient presents to the ER [...] assistance. Appears in no distress. [facility]
--- NOTE | 2024-08-11 13:02 | RAD REPORT ---
Procedure: Chest Single View HISTORY: Cough COMPARISON: 2023 FINDINGS: The lungs appear clear of acute infiltrate. No significant pleural effusion noted. The heart is mildly enlarged. . IMPRESSION: No acute abnormality is displayed.
--- NOTE | 2024-08-11 13:09 | EDPHYS ---
Physician Documentation [facility] Name: Ericka Wallace Age: 44 yrs Sex: Female : 1980 Arrival Date: 08/11/2024 Time: 11:22 Bed Treatment Private MD: ED Physician Deyvi Cortés HPI: 08/11 12:08 This 44 yrs old Black Female presents to ER via Ambulatory with complaints of Flu rn Symptoms. 12:08 The patient or guardian reports cough, flu symptoms. Onset: The symptoms/episode rn began/occurred 1.5 week(s) ago. Severity of symptoms: At their worst the symptoms were mild, in the emergency department the symptoms are unchanged. Modifying factors: The symptoms are alleviated by nothing, the symptoms are aggravated by nothing. The patient has experienced similar episodes in the past. Patient reports flulike symptoms for more than a week, still has cough and congestion. No shortness of breath. Is active smoker. No COPD. States son had similar illness but he is better. Went to emergency room already and got swabbed, negative for COVID or flu. Told was a viral infection at the time. Returns here today because symptoms have not improved.. 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 - Infectious Disease History:: Denies. - Social history:: Smoking status: Patient reports the use of cigarette tobacco products. - Family history:: not pertinent. - Hospitalizations: : No recent hospitalization is reported. ROS: 12:08 Constitutional: Negative for fever, chills, and weight loss, ENT: Positive for nasal rn congestion Cardiovascular: Negative for chest pain, palpitations, and edema, Respiratory: Positive for cough Abdomen/GI: Negative for abdominal pain, nausea, vomiting, diarrhea, and constipation, Back: Negative for injury and pain, MS/Extremity: Negative for injury and deformity, Skin: Negative for injury, rash, and discoloration, Neuro: Negative for weakness, numbness, tingling, and seizure, Exam: 12:08 Constitutional: This is a well developed, well nourished patient who is awake, alert, rn and in no acute distress. ENT: Nasal congestion evident Respiratory: Speaking full sentences, unlabored. No increased work of breathing, no retractions or nasal flaring. Neuro: Awake and alert, GCS 15 Vital Signs: 12:00 BP 159 / 91; Pulse 68; Resp 20; Temp 98.8(TE); Pulse Ox 100% on R/A; Weight 99.79 kg; hb Height 5 ft. 3 in. ; Pain 8/10; 12:00 Body Mass Index 38.97 (99.79 kg, 160.02 cm) hb 12:00 Pain Scale: Adult hb MDM: 11:26 Medical Screening Exam initiated rn 13:07 Differential Diagnosis: Bronchitis Influenza Upper Respiratory Infection Viral Syndrome rn Pneumonia. Data reviewed: vital signs, nurses notes, radiologic studies, plain films, and as a result, I will discharge patient. Counseling: I had a detailed discussion with the patient and/or guardian regarding the historical points, exam findings, and any diagnostic results supporting the discharge/admit diagnosis, radiology results, the need for outpatient follow up, to return to the emergency department if symptoms worsen or persist or if there are any questions or concerns that arise at home. Special discussion: I discussed with the patient/guardian in detail that at this point there is no indication for admission to the hospital. It is understood, however, that if the symptoms persist or worsen the patient needs to return immediately for re-evaluation. ED course: Chest x-ray images negative for pneumonia per my interpretation. 08/11 12:22 Order name: XRAY Chest (1 view); Complete Time: 13:05 rn Administered Medications: No medications were administered Disposition Summary: 08/11/24 13:08 Discharge Ordered Notes: Location: Home rn Problem: an ongoing problem rn Symptoms: are unchanged rn Condition: Stable rn Diagnosis - Cough rn - Acute upper respiratory infection, unspecified rn Followup: rn - With: Private Physician - When: As needed - Reason: Recheck today's complaints, Re-evaluation by your physician Discharge Instructions: - Upper Respiratory Infection, Adult rn - Cough, Adult rn - Discharge Summary Sheet hb Forms: - Medication Reconciliation Form rn - Antibiotic popcorn vendor - Prescription Opioid Use rn - Patient Portal Instructions rn - Leadership Thank You Letter rn - Work release form Prescriptions: - Zithromax Z-Terence 250 mg Oral Tablet - take 1 tablet ORAL route as directed for 5 days Day 1 - take two (2) tablets rn one time. Day 2, 3, 4 , 5 take one (1) tablet once daily.; 6 tablet; Refills: 0, Product Selection Permitted Signatures: Dispatcher [employer] EDMS Deyvi Cortés MD MD rn Baxter, Heather, RN RN Corrections: (The following items were deleted from the chart) 12:02 12:02 Chest Pa And Lat (2 Views)+RAD.[email or web address] ordered. EDMS EDMS 12:06 11:26 COVID-19 Ag + Flu A+B Ag+I.LAB.[email or web address] ordered. EDMS EDMS
--- NOTE | 2024-08-11 13:09 | ER ---
Nurse's Notes [facility] Name: Ericka Wallace Age: 44 yrs Sex: Female : 1980 Arrival Date: 08/11/2024 Time: 11:22 Bed Treatment Private MD: Diagnosis: Cough;Acute upper respiratory infection, unspecified Presentation: 08/11 12:00 Chief complaint: Headache, sinus congestion, cough, sore throat, fever, and malaise x 1 hb week. Coronavirus screen: Client presents with at least one sign or symptom that may indicate coronavirus-19. Provider contacted for isolation considerations. Ebola Screen: No symptoms or risks identified at this time. Initial Sepsis Screen: Does the patient meet any 2 criteria? No. Patient's initial sepsis screen is negative. Does the patient have a suspected source of infection? No. Patient's initial sepsis screen is negative. Risk Assessment: Do you want to hurt yourself or someone else? Patient reports no desire to harm self or others. Onset of symptoms was August 03, 2024. 12:00 Method Of Arrival: Ambulatory hb 12:00 Acuity: ALTON 4 hb Triage Assessment: 13:28 General: Appears in no apparent distress. Behavior is calm, cooperative, appropriate ap3 for age. Pain:. Pain: Complains of pain in generalized body aches. Neuro: Level of Consciousness is awake, alert, obeys commands, Oriented to person, place, time, situation. Cardiovascular: Patient's skin is warm and dry. Respiratory: Reports cough that is Airway is patent Respiratory effort is even, unlabored, Respiratory pattern is regular, symmetrical. 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 - Infectious Disease History:: Denies. - Social history:: Smoking status: Patient reports the use of cigarette tobacco products. - Family history:: not pertinent. - Hospitalizations: : No recent hospitalization is reported. Screenin:28 [facility] ED Fall Risk Assessment (Adult) History of falling in the last 3 months, ap3 including since admission No falls in past 3 months (0 pts) Confusion or Disorientation No (0 pts) Intoxicated or Sedated No (0 pts) Impaired Gait No (0 pts) Mobility Assist Device Used No (0 pt) Altered Elimination No (0 pt) Score/Fall Risk Level 0 - 2 = Low Risk Oriented to surroundings, Maintained a safe environment, Educated pt \T\ family on fall prevention, incl call for assistance when getting out of bed, Assessed \T\ reinforced patient's understanding of fall precautions, Hourly rounding (assess needs \T\ fall precautionary measures) done, Used ambulatory aids as needed (educated on \T\ assisted with). Abuse screen: Denies threats or abuse. Nutritional screening: No deficits noted. Tuberculosis screening: No symptoms or risk factors identified. Vital Signs: 12:00 BP 159 / 91; Pulse 68; Resp 20; Temp 98.8(TE); Pulse Ox 100% on R/A; Weight 99.79 kg; hb Height 5 ft. 3 in. ; Pain 8/10; 12:00 Body Mass Index 38.97 (99.79 kg, 160.02 cm) hb 12:00 Pain Scale: Adult hb ED Course: 11:25 Patient arrived in ED. mr 11:26 Deyvi Cortés MD is Attending Physician. rn 12:02 Triage completed. hb 12:02 Arm band placed on. hb 12:39 XRAY Chest (1 view) In Process Unspecified. EDMS 13:29 Patient has correct armband on for positive identification. Provided Education on: ap3 discharge instructions. 13:29 No provider procedures requiring assistance completed. Patient did not have IV access ap3 during this emergency room visit. Administered Medications: No medications were administered Medication: 13:29 VIS not applicable for this client. ap3 Outcome: 13:08 Discharge ordered by . rn 13:29 Discharged to home ambulatory, with family, ap3 13:29 Condition: good 13:29 Discharge instructions given to patient, Instructed on discharge instructions, follow up and referral plans. medication usage, Demonstrated understanding of instructions, follow-up care, medications, Prescriptions given X 1, 13:29 Patient left the ED. ap3 Signatures: Dispatcher [employer] EDCA Diane Garay, Reg Reg mr Deyvi Cortés MD MD rn Baxter, Heather, RN RN hb Tamara Proctor, RN RN ap3
[2024-08-11 13:56] VITALS: BP 159/91; TEMP 98.8; O2SAT 100
== END 2024-08-11 13:29 | disposition home or self-care (01) ==
LOC: ER 11:22
DX: J06.9 Acute upper respiratory infection, unspecified (principal); Z72.0 Tobacco use
CPT/HCPCS: 71045; 99283